=== PATIENT | male | born 1980 | race Caucasian/White ===

== ENCOUNTER 2017-01-13 08:23 | Inpatient (IN) | payer OTHER ==
[~2017-01-13] VITALS: Ht 170.2 cm; Wt 108.7 kg
[2017-01-13] VITALS (8 sets, daily range): BP systolic 148–192; BP diastolic 72–104; PULSE 95–113; TEMP 36.7; O2SAT 98–100; BMI 38.4
[~2017-01-13 08:23] MED LIST: RANI150T3 PO
[2017-01-13] MEDS ORDERED: SODIUM CHLORIDE 0.9% 1000ML 3,000 ML IV STA (08:40)
[2017-01-13 08:52] LABS: HEMATOCRIT 50.4 % (42-52); MEAN CELL VOLUME 82.4 fL (80-100); MEAN CORPUSCULAR HEMOGLOBIN 29.4 pg (25-34); MEAN CORPUSCULAR HGB CONC 35.7 g/dl (32-36); MEAN PLATELET VOLUME 11.1 fL (7.4-10.4); PLATELET COUNT 550 K/uL (130-400); RED BLOOD COUNT 6.12 M/uL (4.7-6.1); WHITE BLOOD COUNT 22.96 K/uL (4.8-10.8)
[2017-01-13] MEDS ORDERED: CLON0.5T3 PO (08:53)
[2017-01-13 09:09] LABS: ALKALINE PHOSPHATASE 137 U/L (45-117); ALT/SGPT 78 U/L (12-78); AST/SGOT 44 U/L (15-37); BLOOD UREA NITROGEN 20 mg/dl (7-18); BUN/CREATININE RATIO 10.9 (10-20); CALCIUM 9.2 mg/dl (8.5-10.1); CARBON DIOXIDE < 5 mmol/L (21-32); CHLORIDE 95 mmol/L (98-107); CKMB/CK RATIO 2.4 (0-3.0); GLUCOSE 606 mg/dl (70-99); POTASSIUM 3.8 mmol/L (3.5-5.1); SODIUM 127 mmol/L (136-145)
[2017-01-13 09:11] LABS: INR 1.1 (0.9-1.1); PARTIAL THROMBOPLASTIN RATIO 1.3; PROTHROMBIN TIME (PATIENT) 12.3 SECONDS (9.0-12.0)
[2017-01-13] MEDS ORDERED: POTASSIUM CHLR 20 MEQ / WTR 20 MEQ in PREMIXED WATER 100 ML IV STA (09:18)
--- NOTE | 2017-01-13 09:22 | DIAGNOSTIC IMAGING REPORT ---
SINGLE VIEW CHEST CLINICAL HISTORY: Fever. Sepsis. FINDINGS: An AP, portable, upright chest radiograph is obtained. No prior studies are available for comparison at the time of dictation. The examination is degraded by portable technique, large body habitus, and patient rotation. The cardiomediastinal silhouette is unremarkable. There is mild elevation of the right hemidiaphragm. The lungs and pleural spaces are clear. No pneumothorax is seen. The bony thorax is grossly intact. IMPRESSION: No active disease in the chest. Electronically signed by: Kieran Castro M.D. 01/13/2017 9:21 AM Dictated Date/Time: 01/13/2017 9:21 AM
[2017-01-13] MEDS ORDERED: SEVERE STRESS LEVEL ONE ×2 (09:30→11:30)
[2017-01-13 09:33] LABS: ARTERIAL BLD GAS O2 SATURATION 98.3 % (90-95); ARTERIAL BLOOD GAS BASE EXCESS -22.1 mEq/L (-9-1.8); ARTERIAL BLOOD GAS HCO3 5 mmol/L (19-24); ARTERIAL BLOOD GAS PO2 130 mm/Hg (80-95)
[2017-01-13 09:34] LABS: ALLEN TEST POS (POS); ARTERIAL BLOOD GAS pH 7.14 (7.35-7.45); O2 ADMINISTRATION ROOM AIR
[2017-01-13 09:48] LABS: BASO % 0.1 %; BASO ABS # 0.02 K/uL (0-0.2); COMPLETE YES; IG% 0.9 %; LYMPH % 9.6 %; MONO % 8.7 %; NEUT % 80.7 %
[2017-01-13] MEDS ORDERED: INSULIN HUMAN REGULAR IV BOLUS 4 UNIT in SYRINGE 0 ML IV STA (09:53)
[2017-01-13 10:02] LABS: BETA-HYDROXYBUTYRATE 95.96 mg/dL (0.2-2.81)
[2017-01-13 10:14] LABS: URINE APPEARANCE CLEAR (CLEAR); URINE BILIRUBIN NEG (NEG); URINE COLOR YELLOW; URINE NITRITE NEG (NEG); URINE SPECIFIC GRAVITY 1.038 (1.000-1.030); UROBILINOGEN NEG (NEG); ZZUR CULT IF INDIC CLEAN CATCH NO
[2017-01-13 10:15] LABS: MANUAL MICROSCOPIC REQUIRED? NO; REVIEW REQ? NO
[2017-01-13 10:20] LABS: MAGNESIUM 2.8 mg/dl (1.8-2.4); PHOSPHORUS 4.1 mg/dl (2.5-4.9)
[2017-01-13] MEDS: INSULIN REGULAR 250 UNITS in SODIUM CHLORIDE 0.9% 250ML 250 ML IV SCH ×2 (10:25→11:44)
[2017-01-13] MEDS: POTASSIUM CHLR 10MEQ / WTR IV SCH ×2 (10:30→11:47)
[2017-01-13] MEDS ORDERED: INSULIN IV INFUSION PROTOCOL STA ×2 (11:21→11:29)
[2017-01-13] MEDS ORDERED: DKA GOAL RANGE 150-250 mg/dl 1 EA ONE ×2 (11:30)
[2017-01-13] MEDS ORDERED: PHARMACY GLYCEMIC MGMT CONSULT PRN (11:30)
[2017-01-13] MEDS ORDERED: LPR50X PO (11:52)
[2017-01-13] MEDS ORDERED: LPR50X (11:52)
[2017-01-13] MEDS ORDERED: CTP/1 PO (11:53)
--- NOTE | 2017-01-13 11:53 | DIAGNOSTIC IMAGING REPORT ---
CHEST ONE VIEW PORTABLE CLINICAL HISTORY: 36 years-old Male presenting with rt ij central line. TECHNIQUE: Portable upright AP view of the chest was obtained. COMPARISON: 01/13/2017. FINDINGS: Interval placement of a right internal jugular central venous catheter which terminates in the lower SVC. Cardiac mediastinal silhouette normal. Mildly low lung volumes. Lungs and pleural spaces clear. Osseous structures normal. Gaseous distention of the stomach. IMPRESSION: 1. Appropriately positioned right IJ central venous catheter. No pneumothorax. Electronically signed by: Gregg Johnson M.D. 01/13/2017 11:52 AM Dictated Date/Time: 01/13/2017 11:51 AM
[2017-01-13] MEDS ORDERED: BUPR8SUB19 SL (11:55)
[2017-01-13 12:22] LABS: ESTIMATED AVERAGE GLUCOSE 292 mg/dl; HA1C FLAG Normal (Normal)
[2017-01-13] MEDS: INSULIN ASPART 100 UNITS/ML 3 ML PEN SC SCH ×3 (13:00→21:00)
[2017-01-13 13:06] LABS: VEN BLD GAS O2 SATURATION 88.2 %; VEN BLOOD GAS BASE EXCESS -21.2 mEq/L
--- NOTE | 2017-01-13 13:06 | History and Physical ---
History & Physical Date & Time of Service: Jan 13, 2017 at 12:50 Chief Complaint: Illness Primary Care Physician: No Doctor, Assigned History of Present Illness Source: patient, family This is a 36yo M with a PMH of PTSD, anxiety, h/o TBI and GERD who presents with persistent malaise x 3 weeks. Patient initially started to experience malaise and myalgias three weeks ago and assumed that he had the flu. One week later, patient started to experience persistent nausea and vomiting as well as some dyspnea on exertion. Associated symptoms include polydipsia, polyuria, diaphoresis. For the past 4-5 days, patient has become increasingly sick but refused to come to the hospital, per mom. Has not been able to keep any fluid or food down for the past 4 days and has noticed he is "breathing fast and hard ". This morning, patient' s Mom found him to be lethargic and barely responsive so she called EMS. Has been taking aspirin and ibuprofen daily for chronic pain. Denies any fever, chills, lightheadedness, confusion, palpitations, chest pain, abdominal pain, constipation, diarrhea. Denies PMH of DM, heart disease, HTN. Has been taking Subutex since 2013 for pain control s/p TBI (2011). Denies any IVDU. Denies recent foreign travel. In ER was found to have a blood glucose of 606. Is alert and oriented to person and place but not time. Per Mom, this is his baseline s/p TBI in 2011. Past Medical/Surgical History Medical Problems: (1) Anxiety and depression Status: Chronic (2) GERD (gastroesophageal reflux disease) Status: Chronic Family History Cancer Depression Rheumatoid arthritis Social History Smoking Status: Never Smoker Smokeless Tobacco Use: Yes (1 can/day) Marital Status: single Housing status: lives with family Occupational Status: disabled (Retired from [employer] in 2011 ) Allergies Coded Allergies: No Known Allergies (Unverified , 01/13/17) Home Medications Scheduled Buprenorphine Hcl (Subutex), 3 TAB SL DAILY Clonidine Hcl (Catapres), 1 TAB PO HS Metoprolol Tartrate (Metoprolol Tartrate), 50 MG PO BID Scheduled PRN Ranitidine Hcl (Zantac), 150 MG PO DAILY PRN for GI Upset Review of Systems Constitutional- See HPI Eyes- no acute visual changes ENT- no sinus drainage; no pharyngitis Pulmonary- no cough, no wheezing, no shortness of breath Cardiac- See HPI GI- See HPI - no dysuria, no hematuria Musculoskeletal- no arthralgias, no myalgias Derm- no rashes, no new skin lesions, no changing skin lesions Hematologic- no unusual bruising, no unusual bleeding Lymphatics- no adenopathy Endocrine- See HPI Neuro- no headaches, no focal neurologic symptoms Psych- no anxiety, no depression Physical Exam Vital Signs Date Time Temp Pulse Resp B/P (MAP) Pulse Ox O2 Delivery O2 Flow Rate FiO2 01/13/17 12:11 98 Room Air 01/13/17 12:05 100 23 169/72 98 Room Air 01/13/17 11:42 102 153/94 100 Room Air 01/13/17 11:22 98 22 100 01/13/17 10:40 98 22 162/105 100 Room Air 01/13/17 08:38 105 01/13/17 08:30 36.5 106 26 144/86 96 Room Air General Appearance: + moderate distress, + obese Head: normocephalic, atraumatic Eyes: normal inspection, PERRL, sclerae normal ENT: normal ENT inspection (Dry mucous membranes ), hearing grossly normal Neck: supple, no adenopathy, trachea midline, + pertinent finding (R IJ central venous catheter in place) Respiratory/Chest: chest non-tender, lungs clear, + respiratory distress ( Kussmaul breathing), + accessory muscle use Cardiovascular: no murmur, + tachycardia Abdomen/GI: non tender, soft, no organomegaly Extremities/Musculoskelatal: no calf tenderness, no pedal edema, non-tender, + pertinent finding (Mottled appearance bilaterally on LE. Cool to touch. ) Neurologic/Psych: no motor/sensory deficits, alert (Oriented to person and place, not to time), normal mood/affect Skin: no rash, + mottled Diagnostics Laboratory Results Results Past 24 Hours Test 01/13/17 08:00 01/13/17 08:41 01/13/17 09:23 01/13/17 09:50 Range/Units White Blood Count 22.96 4.8-10.8 K/uL Red Blood Count 6.12 4.7-6.1 M/uL Hemoglobin 18.0 14.0-18.0 g/dL Hematocrit 50.4 42-52 % Mean Corpuscular Volume 82.4 80-100 fL Mean Corpuscular Hemoglobin 29.4 25-34 pg Mean Corpuscular Hemoglobin Concent 35.7 32-36 g/dl Platelet Count 550 130-400 K/uL Mean Platelet Volume 11.1 7.4-10.4 fL Neutrophils (%) (Auto) 80.7 % Lymphocytes (%) (Auto) 9.6 % Monocytes (%) (Auto) 8.7 % Eosinophils (%) (Auto) 0.0 % Basophils (%) (Auto) 0.1 % Neutrophils # (Auto) 18.54 1.4-6.5 K/uL Lymphocytes # (Auto) 2.20 1.2-3.4 K/uL Monocytes # (Auto) 1.99 0.11-0.59 K/uL Eosinophils # (Auto) 0.00 0-0.5 K/uL Basophils # (Auto) 0.02 0-0.2 K/uL RDW Standard Deviation 40.3 36.4-46.3 fL RDW Coefficient of Variation 13.5 11.5-14.5 % Immature Granulocyte % (Auto) 0.9 % Immature Granulocyte # (Auto) 0.21 0.00-0.02 K/uL Erythrocyte Sedimentation Rate 52 0-14 mm/hr Prothrombin Time 12.3 9.0-12.0 SECONDS Prothromb Time International Ratio 1.1 0.9-1.1 Activated Partial Thromboplast Time 33.4 21.0-31.0 SECONDS Partial Thromboplastin Ratio 1.3 Sodium Level 127 136-145 mmol/L Potassium Level 3.8 3.5-5.1 mmol/L Chloride Level 95 98-107 mmol/L Carbon Dioxide Level < 5 21-32 mmol/L Anion Gap 27.0 3-11 mmol/L Blood Urea Nitrogen 20 7-18 mg/dl Creatinine 1.80 0.60-1.40 mg/dl Est Creatinine Clear Calc Drug Dose 68.9 ml/min Estimated GFR () 55.7 Estimated GFR (Non- 48.0 BUN/Creatinine Ratio 10.9 10-20 Random Glucose 606 70-99 mg/dl Estimated Average Glucose 292 mg/dl Hemoglobin A1c 11.8 4.5-5.6 % Calcium Level 9.2 8.5-10.1 mg/dl Phosphorus Level 4.1 2.5-4.9 mg/dl Magnesium Level 2.8 1.8-2.4 mg/dl Total Bilirubin 0.7 0.2-1 mg/dl Direct Bilirubin 0.2 0-0.2 mg/dl Aspartate Amino Transf (AST/SGOT) 44 15-37 U/L Alanine Aminotransferase (ALT/SGPT) 78 12-78 U/L Alkaline Phosphatase 137 45-117 U/L Total Creatine Kinase 45 39-308 U/L Creatine Kinase MB 1.1 0.5-3.6 ng/ml Creatine Kinase MB Ratio 2.4 0-3.0 Troponin I < 0.015 0-0.045 ng/ml C-Reactive Protein 1.10 0-0.29 mg/dl Total Protein 9.5 6.4-8.2 gm/dl Albumin 4.2 3.4-5.0 gm/dl Lipase 179 73-393 U/L Beta-Hydroxybutyric Acid 95.96 0.2-2.81 mg/dL Bedside Glucose 533 70-99 mg/dl Arterial Blood pH 7.14 7.35-7.45 Arterial Blood Partial Pressure CO2 14 35-46 mmHg Arterial Blood Partial Pressure O2 130 80-95 mm/Hg Arterial Blood HCO3 5 19-24 mmol/L Arterial Blood Oxygen Saturation 98.3 90-95 % Arterial Blood Base Excess -22.1 -9-1.8 mEq/L Arterial Blood Gas Delivery ROOM AIR Heath Test POS POS Urine Color YELLOW Urine Appearance CLEAR CLEAR Urine pH 5.0 4.5-7.5 Urine Specific [place] 1.038 1.000-1.030 Urine Protein 2+ NEG Urine Glucose (UA) 3+ NEG Urine Ketones 4+ NEG Urine Occult Blood 1+ NEG Urine Nitrite NEG NEG Urine Bilirubin NEG NEG Urine Urobilinogen NEG NEG Urine Leukocyte Esterase NEG NEG Urine WBC (Auto) 0 0-5 /hpf Urine RBC (Auto) 0-4 0-4 /hpf Urine Hyaline Casts (Auto) 5-10 0-5 /lpf Urine Epithelial Cells (Auto) 5-10 0-5 /lpf Urine Bacteria (Auto) NEG NEG Test 01/13/17 09:51 01/13/17 11:34 01/13/17 11:43 01/13/17 12:00 Range/Units Lactic Acid Level 1.9 0.4-2.0 mmol/L Bedside Glucose 404 70-99 mg/dl Microbiology Results 01/13/17 Blood Culture, Received Pending 01/13/17 Blood Culture, Received Pending CXR normal EKG Sinus tachycardia at 108 bpm. Impression Assessment and Plan This is a 36yo M with a PMH of PTSD, anxiety, h/o TBI and GERD who presents with persistent malaise x 3 weeks. DKA: -BG initially 606, downtrending. Now 352. -ABG shows metabolic acidosis with a pH of 7.14, bicarb of <5. -Elevated B-hydroxybutyrate and ketones in urine -Anion gap of 27 -Trend VBG Q4 -IV insulin drip per protocol with glycemic consult placed -IVF with K replacement as appropriate with transition to D5 when BG <250 -Monitor electrolytes closely -ICU consulted -Hgb a1c pending -Diabetic education ordered Leukocytosis: -Elevated to ~23 -Afebrile, vitals are stable -DKA likely a component but need to r/o infectious cause -UA is clean, blood cultures pending Chronic pain 2/2 TBI: -H/o TBI while in [employer] in 2011 -Reports being transitioned from unknown narcotics to subutex in 2014 -Managed by Dr. Jiménez in clinic -Denies h/o narcotic drug abuse, IVDU Hypertension: -Denies formal diagnosis of HTN -Recently started on metoprolol, clonidine -Holding these meds, per discussion with ICU resident DVT Ppx: SCDs Code status: FULL PCP: Jessy Dispo: Plan to return home once medically stable Attending Physician Addendum. This is a 36 year old without previously known history of diabetes in DKA with HbA1c 11.8 who I have seen and evaluated when patient presented to internal medicine service s/p central line placed by emergency room physician. Patient mentating near baseline as per family member, his mother, as he is able to speak in full sentences on room air and answers questions appropriately. However in discomfort without localized area of pain and feels very thirsty despite receiving IV hydration in the ED. Presents with large anion gap of 27 on initial lab findings as mentioned above by LAYA Carnes's assessment. I am concerned that despite initial assessment by emergency room physician and internal medicine team, he is at risk for intubation due to acidosis with pH on blood gas to be 7.14 and then 7.13. May need bicarbonate drip to be started if pH < 6.9. Patient has ICU bed and appreciate further director of campus recreation physician recommendations on continuing to manage DKA to close anion gap. Repeat lab still shows anion gap however measured serum sodium increased from 127 to 134 as glucose decreasing from 606 to 289. When glucose reaches 200 mg/dl change from normal saline fluid to 5% dextrose with 0.45% NaCl at 150 to 250 ml/hr. Repeat lab with potassium of 3. As per guidelines hold insulin and give 20 to 40 mEq K/hour until K > 3.3 mEq/L before resuming insulin drip. Also phosphate 1.4, give 21 mmol phosphate. Calcium low. 2 gram IV calcium ordered. Blood cultures drawn in the ED.Leukocytosis of 22,000 is leukemoid reaction vs infection but patient afebrile. Broad spectrum antibiotics may not be indicated for now unless there is clinical suspicion for infection as trigger for DKA. Appreciate Screener Operator physician care, ICU support, and recommendations Level of Care Critical Care Advanced Directives Existing Living Will: No Existing Power of Casket Assembler: No Resuscitation Status FULL RESUSCITATION VTE Prophylaxis VTE Risk Assessment Done? Y/N: Yes Risk Level: Moderate Given or contraindicated: SCD's
[2017-01-13] MEDS ORDERED: INFLUENZA VIRUS QUAD VACCINE 0.5 ML SYR IM. ONE (13:30)
[2017-01-13] MEDS ORDERED: INFLUENZA ADMINISTRATION CHARGE ONE (13:30)
[2017-01-13 14:06] LABS: ALB/GLOB RATIO 0.8 (0.9-2); BUN/CREATININE RATIO 14.1 (10-20); CALCIUM 7.1 mg/dl (8.5-10.1); CREATININE 1.1 mg/dl (0.60-1.40); MAGNESIUM 2.1 mg/dl (1.8-2.4); PHOSPHORUS 1.4 mg/dl (2.5-4.9)
--- NOTE | 2017-01-13 14:08 | Critical Care Consultation ---
Critical Care Consultation Date of Consultation: Jan 13, 2017. Attending Physician: Parker Pace M.D. 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 Pt was found to have an elevated blood sugars in the ER. He has never been diagnosed with diabetes in the past. Pt has been unable to tolerate PO intake for the past 4 hours. He has been drinking juices, Gatorade and water for the past two weeks in an effort to quench his thirst. ROS: No chest pain, no SOB, no dyspnea on exertion, no palpitations, no fevers, no chills, + nausea, + vomiting, no diarrhea, no dysuria, + rash on arms, legs and chest. PMHx: PTSD Meds: Metoprolol 50mg BID, Clonidine 0.1mg BID and Subutex. SHx: Chews, almost every day, doesn't smoke. Lives with mom. Unemployed at present. 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 Family History Cancer Depression Rheumatoid arthritis Social History Smoking Status: Never Smoker Smokeless Tobacco Use: Yes (1 can/day) Marital Status: single Housing Status: lives alone Occupation Status: disabled (Retired from [employer] in 2011 ) Allergies Coded Allergies: No Known Allergies (Unverified , 01/13/17) Home Medications Scheduled Buprenorphine Hcl (Subutex), 3 TAB SL DAILY Clonidine Hcl (Catapres), 1 TAB PO HS Metoprolol Tartrate (Metoprolol Tartrate), 50 MG PO BID Scheduled PRN Ranitidine Hcl (Zantac), 150 MG PO DAILY PRN for GI Upset Current Inpatient Medications Current Inpatient Medications Medications (Trade) Dose Ordered Sig/Merlin Route Start Time Stop Time Status Last Admin Dose Admin Insulin Human Regular 250 units/ Sodium Chloride 252.5 ml @ 0 mls/hr DAILY@1130 IV 01/13/17 09:54 01/14/17 11:29 01/13/17 11:44 5 MLS/HR Insulin Aspart (novoLOG ASPART) SLIDING SCALE PCHS SC 01/13/17 13:00 02/12/17 12:59 Miscellaneous Information (Consult Glycemic Management Pharmacy) 1 ea UD PRN N/A 01/13/17 11:30 02/12/17 11:29 Potassium Chloride 20 meq/ Parenteral Electrolyte Solution 1,010 ml @ 200 mls/hr Q5H3M IV 01/13/17 14:30 02/12/17 14:29 Insulin Human Regular 250 units/ Sodium Chloride 252.5 ml @ 0 mls/hr DAILY@1130 IV 01/14/17 11:30 02/13/17 11:29 Miscellaneous Information (Pending Order) 1 ea Q4H N/A 01/13/17 12:00 02/12/17 11:59 Miscellaneous Information (Pending Order) 1 ea Q4H N/A 01/13/17 12:00 02/12/17 11:59 Review of Systems Constitutional: No fever, No chills Respiratory: No cough, No sputum, No wheezing, No shortness of breath, No dyspnea on exertion Cardiovascular: No chest pain Abdomen: + nausea, + vomiting, No pain Genitourinary - Male: + urinary frequency, No hematuria, No dysuria, No urinary hesitancy, No urinary retention, No urinary incontinence Neurologic: No paralysis, No numbness/tingling Psychiatric: No depression symptoms Integumentary: No rash Allergic / Immunologic: No environmental allergies Physical Exam Date Time Temp Pulse Resp B/P (MAP) Pulse Ox O2 Delivery O2 Flow Rate FiO2 01/13/17 12:56 103 22 149/79 98 Room Air 01/13/17 12:11 98 Room Air 01/13/17 12:05 100 23 169/72 98 Room Air 01/13/17 11:42 102 153/94 100 Room Air 01/13/17 11:22 98 22 100 01/13/17 10:40 98 22 162/105 100 Room Air 01/13/17 08:38 105 01/13/17 08:30 36.5 106 26 144/86 96 Room Air General Appearance: uncomfortable (slightly diaphoretic), obese Head: normocephalic Eyes: PERRLA, EOMI Neck: normal range of motion, no tenderness, trachea midline, no stridor, supple Respiratory: breath sounds normal, clear to auscultation, clear to percussion, no respiratory distress, no tenderness, accessory muscle use Cardiovasular: regular rate/rhythm, normal S1S2, no M/G/R, no murmur, no gallop , no rub, no JVD Abdomen: non tender, normal bowel sounds, no rebound, no masses, no guarding, no organomegaly Back: normal inspection, no CVA tenderness Upper Extremities: no edema, other (pt has mottled skin over the UE and LE bilaterally, according to pt it has been going on for 2weeks. ) Lower Extremities: no edema Pulses: dorsalis pedis (R) (2+), dorsalis pedis (L) Neuro: alert, oriented x 3, normal motor exam, normal sensation, normal speech , normal gait Psychiatric: normal affect, no suicidal ideation Laboratory Results Last 24 Hours Test 01/13/17 08:00 01/13/17 08:41 01/13/17 09:23 01/13/17 09:50 White Blood Count 22.96 K/uL Red Blood Count 6.12 M/uL Hemoglobin 18.0 g/dL Hematocrit 50.4 % Mean Corpuscular Volume 82.4 fL Mean Corpuscular Hemoglobin 29.4 pg Mean Corpuscular Hemoglobin Concent 35.7 g/dl Platelet Count 550 K/uL Mean Platelet Volume 11.1 fL Neutrophils (%) (Auto) 80.7 % Lymphocytes (%) (Auto) 9.6 % Monocytes (%) (Auto) 8.7 % Eosinophils (%) (Auto) 0.0 % Basophils (%) (Auto) 0.1 % Neutrophils # (Auto) 18.54 K/uL Lymphocytes # (Auto) 2.20 K/uL Monocytes # (Auto) 1.99 K/uL Eosinophils # (Auto) 0.00 K/uL Basophils # (Auto) 0.02 K/uL RDW Standard Deviation 40.3 fL RDW Coefficient of Variation 13.5 % Immature Granulocyte % (Auto) 0.9 % Immature Granulocyte # (Auto) 0.21 K/uL Erythrocyte Sedimentation Rate 52 mm/hr Prothrombin Time 12.3 SECONDS Prothromb Time International Ratio 1.1 Activated Partial Thromboplast Time 33.4 SECONDS Partial Thromboplastin Ratio 1.3 Sodium Level 127 mmol/L Potassium Level 3.8 mmol/L Chloride Level 95 mmol/L Carbon Dioxide Level < 5 mmol/L Anion Gap 27.0 mmol/L Blood Urea Nitrogen 20 mg/dl Creatinine 1.80 mg/dl Est Creatinine Clear Calc Drug Dose 68.9 ml/min Estimated GFR () 55.7 Estimated GFR (Non- 48.0 BUN/Creatinine Ratio 10.9 Random Glucose 606 mg/dl Estimated Average Glucose 292 mg/dl Hemoglobin A1c 11.8 % Calcium Level 9.2 mg/dl Phosphorus Level 4.1 mg/dl Magnesium Level 2.8 mg/dl Total Bilirubin 0.7 mg/dl Direct Bilirubin 0.2 mg/dl Aspartate Amino Transf (AST/SGOT) 44 U/L Alanine Aminotransferase (ALT/SGPT) 78 U/L Alkaline Phosphatase 137 U/L Total Creatine Kinase 45 U/L Creatine Kinase MB 1.1 ng/ml Creatine Kinase MB Ratio 2.4 Troponin I < 0.015 ng/ml C-Reactive Protein 1.10 mg/dl Total Protein 9.5 gm/dl Albumin 4.2 gm/dl Lipase 179 U/L Beta-Hydroxybutyric Acid 95.96 mg/dL Bedside Glucose 533 mg/dl Arterial Blood pH 7.14 Arterial Blood Partial Pressure CO2 14 mmHg Arterial Blood Partial Pressure O2 130 mm/Hg Arterial Blood HCO3 5 mmol/L Arterial Blood Oxygen Saturation 98.3 % Arterial Blood Base Excess -22.1 mEq/L Arterial Blood Gas Delivery ROOM AIR Heath Test POS Urine Color YELLOW Urine Appearance CLEAR Urine pH 5.0 Urine Specific [place] 1.038 Urine Protein 2+ Urine Glucose (UA) 3+ Urine Ketones 4+ Urine Occult Blood 1+ Urine Nitrite NEG Urine Bilirubin NEG Urine Urobilinogen NEG Urine Leukocyte Esterase NEG Urine WBC (Auto) 0 /hpf Urine RBC (Auto) 0-4 /hpf Urine Hyaline Casts (Auto) 5-10 /lpf Urine Epithelial Cells (Auto) 5-10 /lpf Urine Bacteria (Auto) NEG Test 01/13/17 09:51 01/13/17 11:34 01/13/17 12:42 01/13/17 12:52 Lactic Acid Level 1.9 mmol/L Bedside Glucose 404 mg/dl 354 mg/dl Venous Blood pH 7.13 Venous Blood Partial Pressure CO2 19 mmHg Venous Blood Partial Pressure O2 62 mmHg Venous Blood HCO3 6 mmol/L Venous Blood Oxygen Saturation 88.2 % Venous Blood Base Excess -21.2 mEq/L Test 01/13/17 13:57 Assessment & Plan 36M with a PMHx of PTSH on Metoprolol, clonidine and Subutex presents in DKA. Pt was put on the DKA protocol and admitted to the ICU for close observation. Neuro: * AAOx3 * Continuing Subutux daily. * Will hold the home dose of Clonidine and Metoprolol (pt takes it for HTN). * Tobacco Chewer: Nicotine Patch. CV - * EKG showed normal sinus tachycardia. * Sinus tach likely related to current condition and rebound effect from holding Clonidine and Metoprolol. * Will monitor on tele. Resp - * X-ray results showed no acute process. Proper IJ placement. Renal/ - * Unsurprisingly urine had glucose and ketones. No signs of infection. GI/Diet - * We will resume DM2 diet and encourage PO drinking, Endo - * Pt is in DKA, we will start an insulin drip and monitor blood sugars and electrolytes Q4 and replace as needed. * On admission pt was also acidotic. * We must be careful not to increase Na+ too quickly as the patient is also dehydrated. We will start on IVF D5+1/2NSS+meqKCl at 200mls/hr. * We will follow the anion gap to normal. * Pt will likely need diabetic education on discharge, because of age, obesity and history this is likely an acute presentation of Type 2 DM that was exacerbated with high sugar hydration. Heme - * Hgb 18 likely from hemoconcetration 2/2 dehydration., Platelets 500+, same mechanism. * DVT Proph: low risk. Consider HepSQ BID if prolong inpatient stay. ID - * WBC elevated. Afebrile on admission. WBC Likely reactive. No signs of infection. * Blood cultures drawn in the ER, will follow up. Dispo - ICU, anticipate downgrade tomorrow. Full Code Resident Physician Supervision Note: Dr. Torre was resident physician during care of patient. I separately evaluated patient and did history and exam. I discussed the case with the resident and generally agree with the findings and plan. , nausea resolved during my evaluation, transition to dextrose- containing solution. Frequent lab draws, ordered primary special educator consult. I have personally spent 50 minutes of critical care time in the direct management of this patient. This is a life/limb threatening event. This includes time spent evaluating patient, direct bedside care, chart review, placing orders, interpretation of diagnostic studies, discussion with consultants, patient, and family members, as well as other required patient management activities. This time is exclusive of all separately billable procedures, and teaching time and separate from and in addition to any other critical care service time. Documented By: Kam Savage DO Resident Involvement: Resident Care Provided Care Provided: Adult [facility] Medicine
[2017-01-13] MEDS ORDERED: SODIUM PHOSPHATE 3 MMOL/1 ML INFUSION IV STA (14:26)
[2017-01-13] MEDS ORDERED: POTASSIUM CHLORIDE IV SCH (14:30)
[2017-01-13] MEDS ORDERED: NORMOSOL R IV SCH (14:30)
--- NOTE | 2017-01-13 14:52 | EMERGENCY ROOM VISIT NOTE ---
History Report prepared by Srinivasa: Mell Soliman Under the Supervision of: Dr. Christopher Romero D.O. First contact with patient: 08:34 Chief Complaint: ILLNESS Stated Complaint: ILLNESS History of Present Illness The patient is a 36 year old male who presents to the Emergency Room with complaints of a persistent illness for the past two weeks. The patient states that two weeks ago he began experiencing polydipsia. He additionally reports polyuria. The patient states that he felt he could not drink enough fluid. He states that he has been experiencing an increased respiratory rate. The patient states that he has been feeling short of breath with short exertions. He states that he had difficulty getting up and going to the bathroom without becoming short of breath. The patient states that he has been experiencing nausea and vomiting. Nursing staff reports that the patient's blood glucose was 533 mg/dL upon arrival to the emergency department. The patient reports a history of PTSD, but denies any active medical problems. Source of History: patient Onset: two weeks Position: other (global) Quality: other (illness) Timing: other (persistent) Associated Symptoms: + SOB, + nausea, + vomiting Note: Associated symptoms: polyuria, polydipsia, blood glucose 533 mg/dL Review of Systems See HPI for pertinent positives & negatives. A total of 10 systems reviewed and were otherwise negative. Past Medical & Surgical Medical Problems: (1) Anxiety and depression (2) GERD (gastroesophageal reflux disease) (3) H/O traumatic brain injury Family History Cancer Depression Rheumatoid arthritis Social History Smoking Status: Never Smoker Alcohol Use: none Marital Status: single Housing Status: lives alone Occupation Status: unemployed Current/Historical Medications Scheduled Buprenorphine Hcl (Subutex), 3 TAB SL DAILY Clonidine Hcl (Catapres), 1 TAB PO HS Metoprolol Tartrate (Metoprolol Tartrate), 50 MG PO BID Scheduled PRN Ranitidine Hcl (Zantac), 150 MG PO DAILY PRN for GI Upset Allergies Coded Allergies: No Known Allergies (Unverified , 01/13/17) Physical Exam Vital Signs Date Time Temp Pulse Resp B/P (MAP) Pulse Ox O2 Delivery O2 Flow Rate FiO2 01/13/17 12:11 98 Room Air 01/13/17 12:05 100 23 169/72 98 Room Air 01/13/17 11:42 102 153/94 100 Room Air 01/13/17 11:22 98 22 100 01/13/17 10:40 98 22 162/105 100 Room Air 01/13/17 08:38 105 01/13/17 08:30 36.5 106 26 144/86 96 Room Air Physical Exam CONSTITUTIONAL/VITAL SIGNS: Reviewed / noted above. GENERAL: Strong smell of ketones about the patient INTEGUMENTARY: Warm, dry, and [place]. HEAD: Normocephalic. EYES: without scleral icterus or trauma. ENT/OROPHARYNX: Dry mucous membranes. LYMPHADENOPATHY/NECK: Is supple without lymphadenopathy or meningismus. RESPIRATORY: Tachypneic. Lungs clear and equal. CARDIOVASCULAR: Regular rate and rhythm. GI/ABDOMEN: Soft and nontender. No organomegaly or pulsatile mass. No rebound or guarding. Normal bowel sounds. EXTREMITIES: Modeled appearing distal extremities. BACK: No CVA tenderness. NEUROLOGICAL: Intact without focal deficits. PSYCHIATRIC: normal affect. MUSCULOSKELETAL: Normally developed with good muscle tone. Medical Decision & Procedures ER Provider Diagnostic Interpretation: X ray results and stated below per my interpretation and radiology interpretation. SINGLE VIEW CHEST CLINICAL HISTORY: Fever. Sepsis. FINDINGS: An AP, portable, upright chest radiograph is obtained. No prior studies are available for comparison at the time of dictation. The examination is degraded by portable technique, large body habitus, and patient rotation. The cardiomediastinal silhouette is unremarkable. There is mild elevation of the right hemidiaphragm. The lungs and pleural spaces are clear. No pneumothorax is seen. The bony thorax is grossly intact. IMPRESSION: No active disease in the chest. Electronically signed by: Kieran Castro M.D. 01/13/2017 9:21 AM Dictated Date/Time: 01/13/2017 9:21 AM CHEST ONE VIEW PORTABLE CLINICAL HISTORY: 36 years-old Male presenting with rt ij central line. TECHNIQUE: Portable upright AP view of the chest was obtained. COMPARISON: 01/13/2017. FINDINGS: Interval placement of a right internal jugular central venous catheter which terminates in the lower SVC. Cardiac mediastinal silhouette normal. Mildly low lung volumes. Lungs and pleural spaces clear. Osseous structures normal. Gaseous distention of the stomach. IMPRESSION: 1. Appropriately positioned right IJ central venous catheter. No pneumothorax. Electronically signed by: Gregg Johnson M.D. 01/13/2017 11:52 AM Dictated Date/Time: 01/13/2017 11:51 AM Laboratory Results 01/13/17 08:00 Red Blood Count 6.12, Mean Corpuscular Volume 82.4, Mean Corpuscular Hemoglobin 29.4, Mean Corpuscular Hemoglobin Concent 35.7, Mean Platelet Volume 11.1, Neutrophils (%) (Auto) 80.7, Lymphocytes (%) (Auto) 9.6, Monocytes (%) (Auto) 8.7, Eosinophils (%) (Auto) 0.0, Basophils (%) (Auto) 0.1, Neutrophils # (Auto) 18.54, Lymphocytes # (Auto) 2.20, Monocytes # (Auto) 1.99, Eosinophils # (Auto) 0.00, Basophils # (Auto) 0.02 Test 01/13/17 08:00 01/13/17 09:23 01/13/17 09:50 01/13/17 09:51 White Blood Count 22.96 K/uL (4.8-10.8) Red Blood Count 6.12 M/uL (4.7-6.1) Hemoglobin 18.0 g/dL (14.0-18.0) Hematocrit 50.4 % (42-52) Mean Corpuscular Volume 82.4 fL (80-100) Mean Corpuscular Hemoglobin 29.4 pg (25-34) Mean Corpuscular Hemoglobin Concent 35.7 g/dl (32-36) Platelet Count 550 K/uL (130-400) Mean Platelet Volume 11.1 fL (7.4-10.4) Neutrophils (%) (Auto) 80.7 % Lymphocytes (%) (Auto) 9.6 % Monocytes (%) (Auto) 8.7 % Eosinophils (%) (Auto) 0.0 % Basophils (%) (Auto) 0.1 % Neutrophils # (Auto) 18.54 K/uL (1.4-6.5) Lymphocytes # (Auto) 2.20 K/uL (1.2-3.4) Monocytes # (Auto) 1.99 K/uL (0.11-0.59) Eosinophils # (Auto) 0.00 K/uL (0-0.5) Basophils # (Auto) 0.02 K/uL (0-0.2) RDW Standard Deviation 40.3 fL (36.4-46.3) RDW Coefficient of Variation 13.5 % (11.5-14.5) Immature Granulocyte % (Auto) 0.9 % Immature Granulocyte # (Auto) 0.21 K/uL (0.00-0.02) Erythrocyte Sedimentation Rate 52 mm/hr (0-14) Prothrombin Time 12.3 SECONDS (9.0-12.0) Prothromb Time International Ratio 1.1 (0.9-1.1) Activated Partial Thromboplast Time 33.4 SECONDS (21.0-31.0) Partial Thromboplastin Ratio 1.3 Estimated Average Glucose 292 mg/dl Hemoglobin A1c 11.8 % (4.5-5.6) Direct Bilirubin 0.2 mg/dl (0-0.2) Total Creatine Kinase 45 U/L (39-308) Creatine Kinase MB 1.1 ng/ml (0.5-3.6) Creatine Kinase MB Ratio 2.4 (0-3.0) Troponin I < 0.015 ng/ml (0-0.045) C-Reactive Protein 1.10 mg/dl (0-0.29) Lipase 179 U/L (73-393) Beta-Hydroxybutyric Acid 95.96 mg/dL (0.2-2.81) Arterial Blood pH 7.14 (7.35-7.45) Arterial Blood Partial Pressure CO2 14 mmHg (35-46) Arterial Blood Partial Pressure O2 130 mm/Hg (80-95) Arterial Blood HCO3 5 mmol/L (19-24) Arterial Blood Oxygen Saturation 98.3 % (90-95) Arterial Blood Base Excess -22.1 mEq/L (-9-1.8) Arterial Blood Gas Delivery ROOM AIR [place] Test POS (POS) Urine Color YELLOW Urine Appearance CLEAR (CLEAR) Urine pH 5.0 (4.5-7.5) Urine Specific [place] 1.038 (1.000-1.030) Urine Protein 2+ (NEG) Urine Glucose (UA) 3+ (NEG) Urine Ketones 4+ (NEG) Urine Occult Blood 1+ (NEG) Urine Nitrite NEG (NEG) Urine Bilirubin NEG (NEG) Urine Urobilinogen NEG (NEG) Urine Leukocyte Esterase NEG (NEG) Urine WBC (Auto) 0 /hpf (0-5) Urine RBC (Auto) 0-4 /hpf (0-4) Urine Hyaline Casts (Auto) 5-10 /lpf (0-5) Urine Epithelial Cells (Auto) 5-10 /lpf (0-5) Urine Bacteria (Auto) NEG (NEG) Lactic Acid Level 1.9 mmol/L (0.4-2.0) Test 01/13/17 12:42 Bedside Glucose 354 mg/dl (70-99) Laboratory results as stated above per my review. Medications Administered Medications (Trade) Dose Ordered Sig/Merlin Route Start Time Stop Time Status Last Admin Dose Admin Sodium Chloride 3,000 ml @ 999 mls/hr Q3H1M STAT IV 01/13/17 08:40 01/13/17 11:40 DC 01/13/17 08:40 999 MLS/HR Potassium Chloride 10 meq/ Prmx 100 ml @ 100 mls/hr Q1H IV 01/13/17 09:30 01/13/17 11:29 DC 01/13/17 11:47 100 MLS/HR Insulin Human Regular 4 unit/ Syringe 4 ml @ 1 mls/min NOW STAT IV 01/13/17 09:53 01/13/17 09:56 DC 01/13/17 10:23 1 MLS/MIN Insulin Human Regular 250 units/ Sodium Chloride 252.5 ml @ 0 mls/hr DAILY@1130 IV 01/13/17 09:54 01/14/17 11:29 01/13/17 11:44 5 MLS/HR Procedure Central Venous Catheter Indication: Lack of intravenous access Catheter type: triple lumen Location: right IJ Verbal consent was obtained after the risks and benefits were explained, including but not limited to pneumothorax, hemothorax, vessel injury, bleeding, scarring, infection, pain, and bone/joint/nerve damage. At this time, the risks of the procedure are less than the risks of NOT performing the procedure. A time out was taken and the correct patient and site identified. The patient was placed in the Trendelenburg position and the skin was prepped in the standard fashion with chlorhexidine and full sterile drapes applied. The proper landmarks were identified with ultrasound, anesthetized with 1% lidocaine without epinephrine, and the needle was inserted through the skin in the standard fashion. The needle was carefully advanced into blood vessel lumen under ultrasound guidance. The guidewire was placed uneventfully. The vessel is dilated and the catheter was placed. It was sutured into position. There was good blood return from all ports. The patient tolerated the procedure well and there were no complications. Post procedure x-ray was normal. ECG Indication: SOB/dyspnea, other (illness) Rate (beats per minute): 108 Rhythm: sinus tachycardia Findings: no acute ischemic change, no ectopy ED Course 0838: Previous medical records were reviewed. The patient was evaluated in room A11B. A complete history and physical examination was performed. 0840: Ordered Sodium Chloride 3000 ml @ 999 mls/hr IV. 0930: Ordered Potassium Chloride 10 meq/Prmx 100 ml @ 100 mls/hr IV. 0953: Ordered Insulin Human Regular 4 unit/Syringe 4 ml @ 1 mls/min IV, Insulin Human Regular 250 units/Sodium Chloride 252.5 ml @ 0 mls/hr IV. 1049: I reevaluated the patient at this time. I discussed all the exam findings with him and I discussed the treatment plan. He verbalized complete understanding and agreement. He will be evaluated for further treatment. He also had a central line placed at this time. See procedure note for further detail. 1107: I discussed the patients case with Fatuma Zabala PA-C. She is going to evaluate the patient for further treatment. 1133: I discussed the patient's case with Dr. Savage, Intensive Care. He is going to evaluate the patient for further treatment in the ICU. Medical Decision Differentials include: Acute coronary syndrome, myocardial infarction, CVA, TIA , anemia, infection, pneumonia, UTI, pyelonephritis, poor nutrition, dehydration , electrolyte disturbance, and hypoglycemia. This is a 36-year-old male who presents to the ED with a chief complaint of feeling thirsty, having frequent urination and fast breathing for the past 2-3 weeks. The patient also reports some intermittent nausea and vomiting. He came into the ED today because he was very weak. Physical exam revealed a strong smell of ketones in the room. His tongue appears to be dry. He is tachycardic and has some mottling to his distal extremities. Patient's initial BSG was elevated in the 606 range. Wet was callus 22,000. Hemoglobin is 18. Sodium is 127. This is likely somewhat higher related to pseudohyponatremia related to hyperglycemia. Bicarbonate was less than 5, anion gap is 27, BUN was 20 creatinine is 1.8. Lipase is negative, troponin is negative. ABG reveals a metabolic acidosis with a pH of 7.14. There is respiratory compensation which is inadequate and a PCO2 of 14. Oxygenation is adequate on room air. Chest x-ray did not show acute disease. The patient was treated with IV fluids. He was given 3 L here as well as some IV potassium and IV insulin. Nurses were unable to establish one IV. IV team was unable to establish any additional IVs. A right subclavian central line was placed for access by myself. Details of the procedure noted above. There is no complication from the procedure and the procedure went well using ultrasound guidance. I spoke with the hospitalist as well as the excavating supervisor about the patient. The patient will be admitted to the ICU. Medication Reconcilliation Current Medication List: was personally reviewed by me Consults Time Called: 1042 Consulting Physician: Fatuma Zabala PA-C Returned Call: 1102 I discussed the patients case with Fatuma Zabala PA-C. She is going to evaluate the patient for further treatment. Additional Consults: Time Called: 1131 Consulted Physician: Dr. Savage, Intensive Care Returned Call: [phone] Additional Comments: I discussed the patient's case with Dr. Savage, Intensive Care. He is going to evaluate the patient for further treatment in the ICU. Impression Primary Impression: DKA (diabetic ketoacidoses) Critical Care I have personally spent greater than 75 minutes of critical care time in the direct management of this patient. This includes bedside care, interpretation of diagnostic studies, and testing, discussion with consultants, patient, and family members, and other required patient management activities. This 75 minutes is in excess of all separately billable procedures. Scribe Attestation The scribe's documentation has been prepared under my direction and personally reviewed by me in its entirety. I confirm that the note above accurately reflects all work, treatment, procedures, and medical decision making performed by me. Departure Information Dispostion Being Evaluated By Hospitalist Referrals No Doctor, Assigned (PCP)
[2017-01-13] MEDS ORDERED: CALCIUM GLUCONATE 10% 2,000 MG in SODIUM CHLORIDE 0.9% 50ML 50 ML IV ONE (15:00)
[2017-01-13] MEDS ORDERED: POTASSIUM PHOSPHATE INJ 21 MMOL in SODIUM CHLORIDE 0.9% 500ML 500 ML IV SCH (15:00)
[2017-01-13] MEDS: D5W AND 1/2NSS + 20MEQ KCL 1000 ML IV SCH ×2 (15:30→21:15)
[2017-01-13] MEDS ORDERED: POTASSIUM CHLORIDE 20 MEQ TABCR PO ONE (15:30)
--- NOTE | 2017-01-13 15:43 | Pharmacy Progress Note ---
Glycemic Control Intl Consult Date of Service Jan 13, 2017. Scope Glycemic Pharmacist consulted by Indy Carnes PA-C on 01/13/17 for glycemic control and to write orders per [facility] inpatient glycemic control protocol Objective Weight (Kilograms): 111.300 Accuchecks BSG (last 24hrs): Test 01/13/17 08:00 01/13/17 08:41 01/13/17 11:34 01/13/17 12:42 Random Glucose 606 mg/dl (70-99) Bedside Glucose 533 mg/dl (70-99) 404 mg/dl (70-99) 354 mg/dl (70-99) Test 01/13/17 12:52 Random Glucose 289 mg/dl (70-99) Laboratory Data (last 24hrs) Test 01/13/17 08:00 01/13/17 12:52 Anion Gap 27.0 mmol/L 22.0 mmol/L BUN/Creatinine Ratio 10.9 14.1 Blood Urea Nitrogen 20 mg/dl 16 mg/dl Creatinine 1.80 mg/dl 1.10 mg/dl Hemoglobin A1c 11.8 % Potassium Level 3.8 mmol/L 3.0 mmol/L Sodium Level 127 mmol/L 134 mmol/L White Blood Count 22.96 K/uL Red Blood Count 6.12 M/uL Hemoglobin 18.0 g/dL Hematocrit 50.4 % Mean Corpuscular Volume 82.4 fL Mean Corpuscular Hemoglobin 29.4 pg Mean Corpuscular Hemoglobin Concent 35.7 g/dl Platelet Count 550 K/uL Mean Platelet Volume 11.1 fL Neutrophils (%) (Auto) 80.7 % Lymphocytes (%) (Auto) 9.6 % Monocytes (%) (Auto) 8.7 % Eosinophils (%) (Auto) 0.0 % Basophils (%) (Auto) 0.1 % Neutrophils # (Auto) 18.54 K/uL Lymphocytes # (Auto) 2.20 K/uL Monocytes # (Auto) 1.99 K/uL Eosinophils # (Auto) 0.00 K/uL Basophils # (Auto) 0.02 K/uL Item Value Date Time Arterial Blood pH 7.14 *L 01/13/17 0923 HbA1c Test 01/13/17 08:00 Hemoglobin A1c 11.8 % (4.5-5.6) H Recent Pertinent Medications Outpatient Anti-diabetic Regimen: * N/A no prior diagnosis The patient is currently receiving: IV insulin infusion per severe stress, DKA protocol * Goal range = 150-250mg/dl Assessment & Plan ASSESSMENT: * 36yo male admitted for DKA - secondary to new type 1? diabetes diagnosis * Pt meets criteria for moderate/severe DKA per Serum Bicarbonate < 10mMol/L ( 5mMol/L) , Anion Gap > 12mMol/L (27mMol/L), pH 7.14 * Pt initiated on IV insulin infusion in ED per protocol with goal BSG range of 150-250mg/dl * It is recommended to lower and maintain the blood sugar to a goal range of ~ 150-200 mg/dl for DKA until metabolic abnormalities/acidosis resolves * Pt is currently receiving IV hydration with Normosol R @ 200ml/hr; current rate is adequate * Pt received NS fluid boluses (3 liters) in ED * Now that BSG is trending into goal BSG range, fluids will be changed to D5 1/ 2NS + 20 KCl @ 200ml/hr * It is necessary to add dextrose to IVF to allow continued insulin administration until ketonemia is controlled while at the same time avoiding hypoglycemia * Fluid replacement should correct estimated deficits in approximately the first 24 hrs; in DKA due to cerebral edema is associated with replacing fluid too quickly; typical fluid losses are: DKA = 3 to 6 liters * To prevent hypokalemia, change IVF to incorporate potassium when serum K+ falls below the upper limit of normal for lab (5.1 mmol/L) * Phosphorus low at 1.4 mg/dl * Phosphate replacement is NOT recommended --> can lead to severe hypocalcemia * However it can be used in patient with severe hypophosphaemia (or resp/ cardiac failure/severe anemia). OK to replace with bolus and then reassess. PLAN: * Continue IV insulin infusion per severe stress protocol DKA protocol - Goal Range 150 - 250 mg/dl * Follow serial labs q4-6hrs and adjust IV insulin goal range & IV Fluids based on labs * [employer] added PO KCL for replacement * Prandial Insulin with NOVOLOG per scale PCHS per IV insulin infusion calculator for all CHO consumed * Will transition to SQ basal bolus when criteria met: Criteria: 1. Serum glucose below 200 mg/dL (DKA) or 250 to 300 mg/dL (HHS) 2. Serum anion gap <12 meq/L 3. Serum bicarbonate >/ =15 meq/L 4. Venous pH >7.30 * Please note that the plan above was derived based on current level of insulin resistance and hospital stress. These recommendations are appropriate for inpatient admission only. Plan of care upon discharge will need to be reassessed to avoid potential outpatient hypo/hyperglycemia. Thank you.
[2017-01-13] MEDS ORDERED: POTASSIUM CHLR 20 MEQ / WTR 20 MEQ in PREMIXED WATER 100 ML IV ONE (16:00)
[2017-01-13 18:02] LABS: BUN/CREATININE RATIO 12.5 (10-20); CALCIUM 8.1 mg/dl (8.5-10.1); CREATININE 1.1 mg/dl (0.60-1.40); MAGNESIUM 2.1 mg/dl (1.8-2.4); PHOSPHORUS 1.7 mg/dl (2.5-4.9); POTASSIUM 3.1 mmol/L (3.5-5.1)
[2017-01-13] MEDS ORDERED: NURSING VERBAL MED ORDER ONE (18:15)
[2017-01-13] MEDS: METOPROLOL TARTRATE 50 MG TAB PO SCH (19:00)
[2017-01-13] MEDS ORDERED: METOCLOPRAMIDE HCL INJ 5 MG/ML 2 ML VIAL ONE (19:43)
[2017-01-13] MEDS ORDERED: METOCLOPRAMIDE HCL INJ 5 MG/ML 2 ML VIAL IV STA (19:43)
[2017-01-13 21:19] LABS: BUN/CREATININE RATIO 12.6 (10-20); CALCIUM 7.1 mg/dl (8.5-10.1); CREATININE 1.1 mg/dl (0.60-1.40); MAGNESIUM 1.9 mg/dl (1.8-2.4); PHOSPHORUS 1.5 mg/dl (2.5-4.9); POTASSIUM 3.3 mmol/L (3.5-5.1)
[2017-01-13] MEDS ORDERED: METOPROLOL TARTRATE 1 MG/ML VIAL IV STA (21:42)
[2017-01-13] MEDS ORDERED: POTASSIUM PHOS 3 MMOL/1 ML INFUSION IV STA (21:42)
[2017-01-13] MEDS ORDERED: POTASSIUM PHOSPHATE INJ 15 MMOL in SODIUM CHLORIDE 0.9% 250ML 250 ML IV ONE (22:00)
[2017-01-13 22:38] LABS: BETA-HYDROXYBUTYRATE 73.85 mg/dL (0.2-2.81)
[2017-01-14] VITALS (15 sets, daily range): BP systolic 125–157; BP diastolic 65–93; PULSE 76–106; TEMP 36.6–37.2; O2SAT 96–100; BMI 38.4
[2017-01-14 00:35] LABS: BLOOD UREA NITROGEN 13 mg/dl (7-18); BUN/CREATININE RATIO 11.5 (10-20); CALCIUM 7.2 mg/dl (8.5-10.1); CARBON DIOXIDE 9 mmol/L (21-32); CHLORIDE 110 mmol/L (98-107); GLUCOSE 308 mg/dl (70-99); PHOSPHORUS 1.6 mg/dl (2.5-4.9); POTASSIUM 3.5 mmol/L (3.5-5.1); SODIUM 136 mmol/L (136-145)
[2017-01-14 00:49] LABS: BETA-HYDROXYBUTYRATE > 46.00 mg/dL (0.2-2.81)
[2017-01-14] MEDS ORDERED: POTASSIUM PHOS 3 MMOL/1 ML INFUSION IV STA ×2 (01:20→15:05)
[2017-01-14] MEDS ORDERED: POTASSIUM PHOSPHATE INJ 21 MMOL in SODIUM CHLORIDE 0.9% 500ML 500 ML IV ONE ×2 (01:30→16:15)
[2017-01-14] MEDS: D5W AND 1/2NSS + 20MEQ KCL 1000 ML IV SCH ×2 (01:56→06:29)
[2017-01-14 04:34] LABS: BUN/CREATININE RATIO 10.7 (10-20); CALCIUM 7.1 mg/dl (8.5-10.1); MAGNESIUM 2.1 mg/dl (1.8-2.4); POTASSIUM 2.9 mmol/L (3.5-5.1)
[2017-01-14 04:42] LABS: PHOSPHORUS 0.8 mg/dl (2.5-4.9)
[2017-01-14 04:57] LABS: HEMATOCRIT 37.6 % (42-52); MEAN CELL VOLUME 79.3 fL (80-100); MEAN CORPUSCULAR HEMOGLOBIN 28.5 pg (25-34); MEAN CORPUSCULAR HGB CONC 35.9 g/dl (32-36); MEAN PLATELET VOLUME 9.4 fL (7.4-10.4); PLATELET COUNT 247 K/uL (130-400); PLT ESTIMATE NORMAL; RED BLOOD COUNT 4.74 M/uL (4.7-6.1); WHITE BLOOD COUNT 16.94 K/uL (4.8-10.8)
[2017-01-14] MEDS ORDERED: POTASSIUM CHLR 20 MEQ / WTR 20 MEQ in PREMIXED WATER 100 ML IV ONE ×2 (06:30→17:00)
[2017-01-14] MEDS ORDERED: POTASSIUM CHLORIDE 10 MEQ TABCR PO STA ×2 (07:29→15:55)
[2017-01-14] MEDS: INSULIN ASPART 100 UNITS/ML 3 ML PEN SC SCH ×4 (07:38→21:00)
[2017-01-14] MEDS: METOPROLOL TARTRATE 50 MG TAB PO SCH ×2 (08:01→21:03)
[2017-01-14] MEDS: NICOTINE 21 MG/24 HR TDSY TD SCH (08:01)
[2017-01-14 08:12] LABS: BUN/CREATININE RATIO 9.5 (10-20); CALCIUM 7.5 mg/dl (8.5-10.1); CREATININE 0.97 mg/dl (0.60-1.40); MAGNESIUM 2.1 mg/dl (1.8-2.4); POTASSIUM 2.8 mmol/L (3.5-5.1)
[2017-01-14 08:21] LABS: PHOSPHORUS 0.9 mg/dl (2.5-4.9)
[2017-01-14] MEDS: BUPRENORPHINE HCL 8 MG SUBL SL SCH (08:42)
--- NOTE | 2017-01-14 10:58 | Critical Care Progress Note ---
Critical Care Progress Note Date of Service Jan 14, 2017. ICU Day ICU Day Number: [address] Savage Subjective The patient was seen and examined at bedside. No acute overnight events. Pt reports feeling well. Polydypsia has improved. Patient is resting comfortably in bed. Denies having any pain. Eating and urinating well. Plan of care was described to the patient and all questions were answered. ROS: No chest pain, no SOB, no dyspnea on exertion, no palpitations, no fevers, no chills, no nausea, no diarrhea, no dysuria, no rash. +vomiting, +polyuria Objective General Appearance: Pt is resting comfortably, obese, mom present at bedside in the AM. No acute distress. Head: normocephalic Eyes: PERRLA, EOMI Neck: normal range of motion, no tenderness, trachea midline, no stridor, supple Respiratory: breath sounds normal, clear to auscultation, clear to percussion, no respiratory distress, no tenderness, accessory muscle use Cardiovasular: regular rate/rhythm, normal S1S2, no M/G/R, no murmur, no gallop , no rub, no JVD Abdomen: non tender, normal bowel sounds, no rebound, no masses, no guarding, no organomegaly Back: normal inspection, no CVA tenderness Upper Extremities: no edema, other (pt has mottled skin over the UE and LE bilaterally, according to pt it has been going on for 2weeks. - slight improvement in mottling since yesterday, rash is getting less pinpoint and more of a diffuse pink, cheeks are now pink as well ) Lower Extremities: no edema Pulses: dorsalis pedis (R) (2+), dorsalis pedis (L) Neuro: alert, oriented x 3, normal motor exam, normal sensation, normal speech , normal gait Psychiatric: normal affect, no suicidal ideation Current SOFA Score SOFA Score Response (Comments) Value Platelets (x10) > 150 0 Bilirubin (mg/dL) < 1.2 0 Monroe Coma Score 15 0 Level of Hypotension No Hypotension 0 Creatinine (mg/dL) < 1.2 0 Total 0 Assessment & Plan 36M with a PMHx of PTSD on Metoprolol, clonidine and Subutex presents in DKA. Pt was put on the DKA protocol and admitted to the ICU for close observation. Anion gap has narrowed to 14. Insulin drip is running. Electrolytes are being monitored and repleted. IVF D5 + 1/2 NSS + 40K-Acetate at 100mls/hr. Neuro: * AAOx3 * Continuing Subutux daily. * Will hold the home dose of Clonidine. * Will restart the Metoprolol (pt states he takes it for a mixture of HTN and anxiety). * Tobacco Chewer: Nicotine Patch. CV - * EKG on admission showed normal sinus tachycardia. * Heart rate normalized, telemetry shows sinus 70s-90s overnight. * HTN: c/w Metoprolol as above for HTN and Anxiety. Resp - * Continues to be Slightly tachypneic (18-24) * X-ray results showed no acute process. Right IJ placement. Renal/ - * Urine on admission unsurprisingly urine had glucose and ketones. No signs of infection. * Positive 500mls thus far. * Will order urine tox screen. GI/Diet - * We will resume DM2 diet and encourage PO drinking. Dietary consult in place on how to start the diet. * Nausea: PRN Reglan. * Zantac 150mg daily. Endo - * Pt is in DKA, we will start an insulin drip and monitor blood sugars and electrolytes Q4 and replace as needed. * Anion gap is at 14 now from 27, will continue to follow BMPs Q4H. * Continue IVF D5+1/2NSS+40K Acetate at 100mls/hr. + Amp of bicarb. * Diabetic Consult in Place - likely require insulin on discharge. * Will start Insulin SQ. * K+ is 2.9, IVF as above, will give another oral dose of 60meq KCL and 21mmol KPhos at 3:15pm. * CL - 108 * Phos: 0.9, will given another KPhos as above. * M.1 * BMP at 6pm. Heme - * Hgb 18-->13.5 today, Platelets 500+-->247, improvement likely from fluid rehydration. * DVT Proph: Lovenox 40meq SQ daily starting tomorrow AM. ID - * WBC elevated but downtrending to 17. Afebrile on admission. WBC Likely reactive. No signs of infection. * Blood cultures drawn in the ER, will follow up. * MRSA negative. Dispo - Downgrade to Tele today once Anion Gap is closed. * Pt does not have a PCP, [facility], I have offered my PCP services (Dr. Jason Torre) at our clinic next door. Pt is agreeable to setting up a follow up appointment with me. Full Code Resident Physician Supervision Note: Dr. Torre was resident physician during care of patient. I separately evaluated patient and did history and exam. I discussed the case with the resident and generally agree with the findings and plan. Improvement in the patient's DKA, will start subcutaneous basal insulin administration at this time. Still requiring aggressive potassium repletion. Likely able to downgrade to MedSurg in the next 12-24 hours. I have personally spent 35 minutes of critical care time in the direct management of this patient. This is a life/limb threatening event. This includes time spent evaluating patient, direct bedside care, chart review, placing orders, interpretation of diagnostic studies, discussion with consultants, patient, and family members, as well as other required patient management activities. This time is exclusive of all separately billable procedures, and teaching time and separate from and in addition to any other critical care service time. Documented By: Kam Savage DO Consults & Procedures Consultants: Diabetes Education Monorail Charger Operator Procedures: Right IJ placed in the ER. Data Medications: Current Inpatient Medications Medications (Trade) Dose Ordered Sig/Merlin Route Start Time Stop Time Status Last Admin Dose Admin Insulin Human Regular 250 units/ Sodium Chloride 252.5 ml @ 0 mls/hr DAILY@1130 IV 01/13/17 09:54 01/14/17 11:29 01/13/17 11:44 5 MLS/HR Insulin Aspart (novoLOG ASPART) SLIDING SCALE PCHS SC 01/13/17 13:00 02/12/17 12:59 Miscellaneous Information (Consult Glycemic Management Pharmacy) 1 ea UD PRN N/A 01/13/17 11:30 02/12/17 11:29 Insulin Human Regular 250 units/ Sodium Chloride 252.5 ml @ 0 mls/hr DAILY@1130 IV 01/14/17 11:30 02/13/17 11:29 Buprenorphine HCl (Subutex) 24 mg DAILY SL 01/14/17 09:00 02/13/17 08:59 01/14/17 08:42 24 MG Potassium Chloride/Dextrose/ Sod Cl 1,000 ml @ 200 mls/hr Q5H IV 01/13/17 15:30 02/12/17 15:29 01/14/17 06:29 200 MLS/HR Nicotine (Nicoderm Cq 21MG Patch) 1 patch QAM TD 01/14/17 09:00 02/13/17 08:59 01/14/17 08:01 1 PATCH Miscellaneous (Remove Nicoderm Patch) 1 ea HS N/A 01/13/17 21:00 02/12/17 20:59 Metoprolol Tartrate (Lopressor Tab) 50 mg BID PO 01/13/17 19:00 02/12/17 18:59 01/14/17 08:01 50 MG Vital Signs: Date Time Temp Pulse Resp B/P (MAP) Pulse Ox O2 Delivery O2 Flow Rate FiO2 01/14/17 10:09 82 18 125/65 (85) 98 Room Air 01/14/17 08:00 Room Air 01/14/17 08:00 86 19 142/78 (99) 99 Room Air 01/14/17 06:00 88 19 136/72 (93) 99 Room Air 01/14/17 05:00 85 19 150/77 (101) 98 01/14/17 04:00 Room Air 01/14/17 04:00 36.7 84 19 157/81 (106) 100 Room Air 01/14/17 03:00 81 16 151/76 (101) 98 01/14/17 02:00 99 22 132/83 (99) 98 Room Air 01/14/17 00:00 36.6 106 17 157/93 (114) 99 Room Air 01/13/17 23:59 Room Air 01/13/17 22:12 97 151/95 01/13/17 22:00 98 20 151/95 (113) 98 Room Air 01/13/17 21:16 95 19 173/104 (127) 98 Room Air 01/13/17 20:00 36.7 113 20 148/86 (106) Room Air 01/13/17 20:00 Room Air 01/13/17 19:27 109 20 176/91 (119) 100 Room Air 01/13/17 18:10 111 20 186/72 (110) 99 Room Air 01/13/17 16:00 Room Air 01/13/17 16:00 105 22 192/87 (122) 99 Room Air 01/13/17 14:00 105 24 169/99 (122) 99 Room Air 01/13/17 12:56 103 22 149/79 98 Room Air 01/13/17 12:11 98 Room Air 01/13/17 12:05 100 23 169/72 98 Room Air 01/13/17 11:42 102 153/94 100 Room Air 01/13/17 11:22 98 22 100 01/13/17 10:40 98 22 162/105 100 Room Air Laboratory Results: Last 24 Hours Test 01/13/17 11:34 01/13/17 12:42 01/13/17 12:52 01/13/17 14:01 Bedside Glucose 404 mg/dl 354 mg/dl 314 mg/dl Venous Blood pH 7.13 Venous Blood Partial Pressure CO2 19 mmHg Venous Blood Partial Pressure O2 62 mmHg Venous Blood HCO3 6 mmol/L Venous Blood Oxygen Saturation 88.2 % Venous Blood Base Excess -21.2 mEq/L Sodium Level 134 mmol/L Potassium Level 3.0 mmol/L Chloride Level 108 mmol/L Carbon Dioxide Level 5 mmol/L Anion Gap 22.0 mmol/L Blood Urea Nitrogen 16 mg/dl Creatinine 1.10 mg/dl Est Creatinine Clear Calc Drug Dose 112.7 ml/min Estimated GFR () 101.0 Estimated GFR (Non- 87.1 BUN/Creatinine Ratio 14.1 Random Glucose 289 mg/dl Calcium Level 7.1 mg/dl Phosphorus Level 1.4 mg/dl Magnesium Level 2.1 mg/dl Total Bilirubin 0.4 mg/dl Aspartate Amino Transf (AST/SGOT) 30 U/L Alanine Aminotransferase (ALT/SGPT) 58 U/L Alkaline Phosphatase 102 U/L Total Protein 7.4 gm/dl Albumin 3.4 gm/dl Globulin 4.0 gm/dl Albumin/Globulin Ratio 0.8 Test 01/13/17 14:07 01/13/17 15:01 01/13/17 16:02 01/13/17 16:09 Salicylates Level 3.2 mg/dl Bedside Glucose 261 mg/dl 320 mg/dl Venous Blood pH 7.15 Sodium Level 135 mmol/L Potassium Level 3.1 mmol/L Chloride Level 108 mmol/L Carbon Dioxide Level 5 mmol/L Anion Gap 21.0 mmol/L Blood Urea Nitrogen 14 mg/dl Creatinine 1.10 mg/dl Est Creatinine Clear Calc Drug Dose 112.7 ml/min Estimated GFR () 101.0 Estimated GFR (Non- 87.1 BUN/Creatinine Ratio 12.5 Random Glucose 281 mg/dl Calcium Level 8.1 mg/dl Phosphorus Level 1.7 mg/dl Magnesium Level 2.1 mg/dl Test 01/13/17 16:23 01/13/17 17:01 01/13/17 17:54 01/13/17 19:04 Bedside Glucose 290 mg/dl 267 mg/dl 277 mg/dl 287 mg/dl Test 01/13/17 20:08 01/13/17 20:12 01/13/17 20:13 01/13/17 21:09 Bedside Glucose 359 mg/dl 273 mg/dl Venous Blood pH 7.15 Sodium Level 134 mmol/L Potassium Level 3.3 mmol/L Chloride Level 108 mmol/L Carbon Dioxide Level 8 mmol/L Anion Gap 18.0 mmol/L Blood Urea Nitrogen 14 mg/dl Creatinine 1.10 mg/dl Est Creatinine Clear Calc Drug Dose 112.7 ml/min Estimated GFR () 101.0 Estimated GFR (Non- 87.1 BUN/Creatinine Ratio 12.6 Random Glucose 314 mg/dl Calcium Level 7.1 mg/dl Phosphorus Level 1.5 mg/dl Magnesium Level 1.9 mg/dl Beta-Hydroxybutyric Acid 73.85 mg/dL Test 01/13/17 22:10 01/13/17 23:10 01/13/17 23:51 01/14/17 00:14 Bedside Glucose 150 mg/dl 304 mg/dl 308 mg/dl Venous Blood pH 7.21 Sodium Level 136 mmol/L Potassium Level 3.5 mmol/L Chloride Level 110 mmol/L Carbon Dioxide Level 9 mmol/L Anion Gap 17.0 mmol/L Blood Urea Nitrogen 13 mg/dl Creatinine 1.10 mg/dl Est Creatinine Clear Calc Drug Dose 112.7 ml/min Estimated GFR () 101.0 Estimated GFR (Non- 87.1 BUN/Creatinine Ratio 11.5 Random Glucose 308 mg/dl Calcium Level 7.2 mg/dl Phosphorus Level 1.6 mg/dl Magnesium Level 2.0 mg/dl Beta-Hydroxybutyric Acid > 46.00 mg/dL Test 01/14/17 01:09 01/14/17 02:01 01/14/17 03:05 01/14/17 04:00 Bedside Glucose 298 mg/dl 275 mg/dl 250 mg/dl 208 mg/dl White Blood Count 16.94 K/uL Red Blood Count 4.74 M/uL Hemoglobin 13.5 g/dL Hematocrit 37.6 % Mean Corpuscular Volume 79.3 fL Mean Corpuscular Hemoglobin 28.5 pg Mean Corpuscular Hemoglobin Concent 35.9 g/dl RDW Standard Deviation 38.4 fL RDW Coefficient of Variation 13.4 % Platelet Count 247 K/uL Mean Platelet Volume 9.4 fL Platelet Estimate NORMAL Venous Blood pH 7.27 Sodium Level 137 mmol/L Potassium Level 2.9 mmol/L Chloride Level 112 mmol/L Carbon Dioxide Level 13 mmol/L Anion Gap 12.0 mmol/L Blood Urea Nitrogen 11 mg/dl Creatinine 1.00 mg/dl Est Creatinine Clear Calc Drug Dose 123.9 ml/min Estimated GFR () 113.3 Estimated GFR (Non- 97.8 BUN/Creatinine Ratio 10.7 Random Glucose 231 mg/dl Calcium Level 7.1 mg/dl Phosphorus Level 0.8 mg/dl Magnesium Level 2.1 mg/dl Test 01/14/17 05:02 01/14/17 05:58 01/14/17 07:18 01/14/17 07:49 Bedside Glucose 261 mg/dl 242 mg/dl 202 mg/dl Venous Blood pH 7.29 Sodium Level 137 mmol/L Potassium Level 2.8 mmol/L Chloride Level 111 mmol/L Carbon Dioxide Level 12 mmol/L Anion Gap 15.0 mmol/L Blood Urea Nitrogen 9 mg/dl Creatinine 0.97 mg/dl Est Creatinine Clear Calc Drug Dose 127.8 ml/min Estimated GFR () 117.6 Estimated GFR (Non- 101.4 BUN/Creatinine Ratio 9.5 Random Glucose 180 mg/dl Calcium Level 7.5 mg/dl Phosphorus Level 0.9 mg/dl Magnesium Level 2.1 mg/dl Resident Involvement: Resident Care Provided Care Provided: Adult [facility] Medicine
[2017-01-14] MEDS: STERILE WATER IV SCH ×2 (11:19→12:02)
[2017-01-14] MEDS: D5W IV SCH ×2 (11:19→22:10)
[2017-01-14] MEDS: [UNRECOGNIZED DRUG - OTHER] IV SCH ×2 (11:19→22:10)
[2017-01-14] MEDS: POTASSIUM ACETATE IV SCH ×4 (11:19→22:10)
[2017-01-14] MEDS ORDERED: SODIUM BICARBONATE 8.4% INJ 50 MEQ/50 ML VIAL IV ONE (11:45)
[2017-01-14] MEDS: INSULIN REGULAR 250 UNITS in SODIUM CHLORIDE 0.9% 250ML 250 ML IV SCH (12:23)
[2017-01-14] MEDS ORDERED: SODIUM BICARBONATE IV ONE (12:45)
[2017-01-14] MEDS ORDERED: DEXTROSE 5% IV ONE (12:45)
[2017-01-14] MEDS ORDERED: RANITIDINE HCL 150 MG TAB PO ONE (13:00)
[2017-01-14] MEDS ORDERED: INSULIN GLARGINE SOLOSTAR 100 UNITS/ML 3 ML PEN SC ONE (13:15)
[2017-01-14 14:28] LABS: BUN/CREATININE RATIO 7.4 (10-20); CALCIUM 7.6 mg/dl (8.5-10.1); CREATININE 0.88 mg/dl (0.60-1.40); MAGNESIUM 2.1 mg/dl (1.8-2.4); PHOSPHORUS 0.9 mg/dl (2.5-4.9); POTASSIUM 2.9 mmol/L (3.5-5.1)
--- NOTE | 2017-01-14 15:29 | Pharmacy Progress Note ---
Glycemic Control Progress Note Date of Service Jan 14, 2017. Scope Glycemic Pharmacist consulted for glycemic control to write orders per [facility] inpatient glycemic control protocol. Objective Accuchecks BSG (last 24hrs): Test 01/13/17 16:02 01/13/17 16:09 01/13/17 16:23 01/13/17 17:01 Random Glucose 281 mg/dl (70-99) Bedside Glucose 320 mg/dl (70-99) 290 mg/dl (70-99) 267 mg/dl (70-99) Test 01/13/17 17:54 01/13/17 19:04 01/13/17 20:08 01/13/17 20:13 Bedside Glucose 277 mg/dl (70-99) 287 mg/dl (70-99) 359 mg/dl (70-99) Random Glucose 314 mg/dl (70-99) Test 01/13/17 21:09 01/13/17 22:10 01/13/17 23:10 01/13/17 23:51 Bedside Glucose 273 mg/dl (70-99) 150 mg/dl (70-99) 304 mg/dl (70-99) Random Glucose 308 mg/dl (70-99) Test 01/14/17 00:14 01/14/17 01:09 01/14/17 02:01 01/14/17 03:05 Bedside Glucose 308 mg/dl (70-99) 298 mg/dl (70-99) 275 mg/dl (70-99) 250 mg/dl (70-99) Test 01/14/17 04:00 01/14/17 05:02 01/14/17 05:58 01/14/17 07:18 Bedside Glucose 208 mg/dl (70-99) 261 mg/dl (70-99) 242 mg/dl (70-99) 202 mg/dl (70-99) Random Glucose 231 mg/dl (70-99) Test 01/14/17 07:49 01/14/17 09:15 01/14/17 09:53 01/14/17 13:50 Random Glucose 180 mg/dl (70-99) 179 mg/dl (70-99) Bedside Glucose 172 mg/dl (70-99) 194 mg/dl (70-99) HbA1c: Test 01/13/17 08:00 Hemoglobin A1c 11.8 % (4.5-5.6) H Recent Pertinent Medications The patient is currently receiving: * IV insulin infusion per severe stress protocol, goal range 150-250mg/dL overnight then transitioned to 100-180mg/dL at noon today Outpatient Anti-Diabetic Meds newly dx Assessment & Plan ASSESSMENT: 01/14/17 * Patient presented w/ moderate-severe DKA yesterday (AG 27, bicarb < 5, pH 7.14 , BOHB 96, effective serum osmo ~288) * Insulin infusion started on admission. BSGs have trended down nicely and were in the upper 100's low 200's as of this AM and infusion was running at ~ 7.7units/hour. Insulin infusion rates are rather high for a type 1 diabetic, perhaps this is type 2 w/ severe stress? A1c of 11.8% indicates need for insulin therapy on discharge. perioperative educator to evaluate patient when mental status improves. * Latest set of labs shows AG acidosis is improving however he has not yet all criteria for transition to SQ (AG is still > 12, Bicab improved to 16, however patient is not yet tolerating a diet). * Plan is to continue the insulin drip, however begin to initiate some basal insulin as this will make the transition to SQ in the future easier. PLAN FOR INPATIENT GLYCEMIC CONTROL: * Continue IV insulin infusion at this time * Consider transition to SQ when tolerating a diet, AG < 12, bicarb > 15, serum glucose < 200 and vpH > 7.3 * Will give Lantus 60 units SQ x 1 only - but continue insulin drip afterwards until further notice. This dose was based upon infusion rates while on dextrose containing IVF's. I would expect insulin resistance to decrease as ketoacidosis and glucotoxicity resolves. * If the decision is made to take this patient off the insulin drip later today , please factor in the Lantus that was given earlier today. Would recommend SQ Novolog ACHS and at 0000 + 0400 initially given uncertain and possibly changing insulin sensitivity. Correction factor and carb ratio should be based upon insulin infusion rates and/or total body weight. RECOMMENDATIONS FOR DISCHARGE: * Patient will require SQ insulin therapy on discharge. * Please note that the plan above was derived based on current level of insulin resistance and hospital stress. These recommendations are appropriate for inpatient admission only. Plan of care upon discharge will need to be reassessed to avoid potential outpatient hypo/hyperglycemia. Thank you.
[2017-01-14 18:19] LABS: BUN/CREATININE RATIO 7.6 (10-20); CALCIUM 7.6 mg/dl (8.5-10.1); CREATININE 0.85 mg/dl (0.60-1.40); PHOSPHORUS 0.8 mg/dl (2.5-4.9); POTASSIUM 2.6 mmol/L (3.5-5.1)
--- NOTE | 2017-01-14 18:43 | Progress Note ---
Internal Med Progress Note Date of Service: Jan 14, 2017. Provider Documentation: SUBJECTIVE: resting comfortably was somewhat nauseous mild abdominal discomfort no chest pain or sob afebrile seems comfortable OBJECTIVE: Vital Signs-as noted below Exam: General-alert and awake. Not in distress ENT-normal hearing Neck-no neck masses Lungs-cta b/l no wheezing or crackles Heart-s1 and s2 heard regular rate and rhythm no murmurs Abdomen-soft bowel sounds present non tender no distension Extremities-no erythema, lower extremity edema present Neuro-alert and awake moves extremities Lab data as noted below. ASSESSMENT & PLAN: This is a 36yo M with a PMH of PTSD, anxiety, h/o TBI and GERD who presents with persistent malaise x 3 weeks. DKA: BG initially 606, ABG shows metabolic acidosis with a pH of 7.14, bicarb of <5. Elevated B-hydroxybutyrate and ketones in urine Anion gap on presentation 27 started on insulin drip and iv fluids as per DKA protocol anion gap currently 13 close monitor of electrolytes appreciate critical care and pharmacy inputs Electrolyte abnormalities will replace and close monitor while on insulin drip Leukocytosis: Elevated to ~23 trending now no obvious source of infection Chronic pain 2/2 TBI: H/o TBI while in [employer] in 2011 as per h and P:"Reports being transitioned from unknown narcotics to subutex in [address] Jiménez in clinic -Denies h/o narcotic drug abuse, IVDU" Hypertension: Denies formal diagnosis of HTN -Recently started on metoprolol, clonidine currently on Lopressor 50mg bid will monitor DVT Ppx: SCDs Code status: FULL DISPOSITION close monitor in ICU Vital Signs: Date Time Temp Pulse Resp B/P (MAP) Pulse Ox O2 Delivery O2 Flow Rate FiO2 01/14/17 18:00 86 16 147/69 (95) 96 Room Air 01/14/17 16:00 37.2 84 18 132/74 (93) 99 Room Air 01/14/17 16:00 Room Air 01/14/17 14:11 82 18 144/71 (95) 99 Room Air 01/14/17 12:04 76 18 132/76 (94) 99 Room Air 01/14/17 12:00 Room Air 01/14/17 10:09 82 18 125/65 (85) 98 Room Air 01/14/17 08:00 Room Air 01/14/17 08:00 Room Air 01/14/17 08:00 86 19 142/78 (99) 99 Room Air 01/14/17 06:00 88 19 136/72 (93) 99 Room Air 01/14/17 05:00 85 19 150/77 (101) 98 01/14/17 04:00 Room Air 01/14/17 04:00 36.7 84 19 157/81 (106) 100 Room Air 01/14/17 03:00 81 16 151/76 (101) 98 01/14/17 02:00 99 22 132/83 (99) 98 Room Air 01/14/17 00:00 36.6 106 17 157/93 (114) 99 Room Air 01/13/17 23:59 Room Air 01/13/17 22:12 97 151/95 01/13/17 22:00 98 20 151/95 (113) 98 Room Air 01/13/17 21:16 95 19 173/104 (127) 98 Room Air 01/13/17 20:00 36.7 113 20 148/86 (106) Room Air 01/13/17 20:00 Room Air 01/13/17 19:27 109 20 176/91 (119) 100 Room Air Lab Results: Results Past 24 Hours Test 01/13/17 19:04 01/13/17 20:08 01/13/17 20:12 01/13/17 20:13 Range/Units Bedside Glucose 287 359 70-99 mg/dl Venous Blood pH 7.15 7.36-7.41 Sodium Level 134 136-145 mmol/L Potassium Level 3.3 3.5-5.1 mmol/L Chloride Level 108 98-107 mmol/L Carbon Dioxide Level 8 21-32 mmol/L Anion Gap 18.0 3-11 mmol/L Blood Urea Nitrogen 14 7-18 mg/dl Creatinine 1.10 0.60-1.40 mg/dl Est Creatinine Clear Calc Drug Dose 112.7 ml/min Estimated GFR () 101.0 Estimated GFR (Non- 87.1 BUN/Creatinine Ratio 12.6 10-20 Random Glucose 314 70-99 mg/dl Calcium Level 7.1 8.5-10.1 mg/dl Phosphorus Level 1.5 2.5-4.9 mg/dl Magnesium Level 1.9 1.8-2.4 mg/dl Beta-Hydroxybutyric Acid 73.85 0.2-2.81 mg/dL Test 01/13/17 21:09 01/13/17 22:10 01/13/17 23:10 01/13/17 23:51 Range/Units Bedside Glucose 273 150 304 70-99 mg/dl Venous Blood pH 7.21 7.36-7.41 Sodium Level 136 136-145 mmol/L Potassium Level 3.5 3.5-5.1 mmol/L Chloride Level 110 98-107 mmol/L Carbon Dioxide Level 9 21-32 mmol/L Anion Gap 17.0 3-11 mmol/L Blood Urea Nitrogen 13 7-18 mg/dl Creatinine 1.10 0.60-1.40 mg/dl Est Creatinine Clear Calc Drug Dose 112.7 ml/min Estimated GFR () 101.0 Estimated GFR (Non- 87.1 BUN/Creatinine Ratio 11.5 10-20 Random Glucose 308 70-99 mg/dl Calcium Level 7.2 8.5-10.1 mg/dl Phosphorus Level 1.6 2.5-4.9 mg/dl Magnesium Level 2.0 1.8-2.4 mg/dl Beta-Hydroxybutyric Acid > 46.00 0.2-2.81 mg/dL Test 01/14/17 00:14 01/14/17 01:09 01/14/17 02:01 01/14/17 03:05 Range/Units Bedside Glucose 308 298 275 250 70-99 mg/dl Test 01/14/17 04:00 01/14/17 05:02 01/14/17 05:58 01/14/17 07:18 Range/Units White Blood Count 16.94 4.8-10.8 K/uL Red Blood Count 4.74 4.7-6.1 M/uL Hemoglobin 13.5 14.0-18.0 g/dL Hematocrit 37.6 42-52 % Mean Corpuscular Volume 79.3 80-100 fL Mean Corpuscular Hemoglobin 28.5 25-34 pg Mean Corpuscular Hemoglobin Concent 35.9 32-36 g/dl RDW Standard Deviation 38.4 36.4-46.3 fL RDW Coefficient of Variation 13.4 11.5-14.5 % Platelet Count 247 130-400 K/uL Mean Platelet Volume 9.4 7.4-10.4 fL Platelet Estimate NORMAL Venous Blood pH 7.27 7.36-7.41 Sodium Level 137 136-145 mmol/L Potassium Level 2.9 3.5-5.1 mmol/L Chloride Level 112 98-107 mmol/L Carbon Dioxide Level 13 21-32 mmol/L Anion Gap 12.0 3-11 mmol/L Blood Urea Nitrogen 11 7-18 mg/dl Creatinine 1.00 0.60-1.40 mg/dl Est Creatinine Clear Calc Drug Dose 123.9 ml/min Estimated GFR () 113.3 Estimated GFR (Non- 97.8 BUN/Creatinine Ratio 10.7 01-23 Bedside Glucose 208 261 242 202 70-99 mg/dl Random Glucose 231 70-99 mg/dl Calcium Level 7.1 8.5-10.1 mg/dl Phosphorus Level 0.8 2.5-4.9 mg/dl Magnesium Level 2.1 1.8-2.4 mg/dl Test 01/14/17 07:49 01/14/17 08:08 01/14/17 09:15 01/14/17 09:53 Range/Units Venous Blood pH 7.29 7.36-7.41 Sodium Level 137 136-145 mmol/L Potassium Level 2.8 3.5-5.1 mmol/L Chloride Level 111 98-107 mmol/L Carbon Dioxide Level 12 21-32 mmol/L Anion Gap 15.0 3-11 mmol/L Blood Urea Nitrogen 9 7-18 mg/dl Creatinine 0.97 0.60-1.40 mg/dl Est Creatinine Clear Calc Drug Dose 127.8 ml/min Estimated GFR () 117.6 Estimated GFR (Non- 101.4 BUN/Creatinine Ratio 9.5 01-23 Random Glucose 180 70-99 mg/dl Calcium Level 7.5 8.5-10.1 mg/dl Phosphorus Level 0.9 2.5-4.9 mg/dl Magnesium Level 2.1 1.8-2.4 mg/dl Bedside Glucose 179 172 194 70-99 mg/dl Test 01/14/17 11:50 01/14/17 11:54 01/14/17 13:20 01/14/17 13:50 Range/Units Bedside Glucose 194 161 70-99 mg/dl Sodium Level 138 136-145 mmol/L Potassium Level 2.9 3.5-5.1 mmol/L Chloride Level 108 98-107 mmol/L Carbon Dioxide Level 16 21-32 mmol/L Anion Gap 14.0 3-11 mmol/L Blood Urea Nitrogen 7 7-18 mg/dl Creatinine 0.88 0.60-1.40 mg/dl Est Creatinine Clear Calc Drug Dose 140.8 ml/min Estimated GFR () 129.9 Estimated GFR (Non- 112.1 BUN/Creatinine Ratio 7.4 10-20 Random Glucose 179 70-99 mg/dl Calcium Level 7.6 8.5-10.1 mg/dl Phosphorus Level 0.9 2.5-4.9 mg/dl Magnesium Level 2.1 1.8-2.4 mg/dl Test 01/14/17 14:14 01/14/17 15:02 01/14/17 16:12 01/14/17 17:07 Range/Units Bedside Glucose 168 195 216 203 70-99 mg/dl Test 01/14/17 17:37 Range/Units Sodium Level 139 136-145 mmol/L Potassium Level 2.6 3.5-5.1 mmol/L Chloride Level 107 98-107 mmol/L Carbon Dioxide Level 19 21-32 mmol/L Anion Gap 13.0 3-11 mmol/L Blood Urea Nitrogen 6 7-18 mg/dl Creatinine 0.85 0.60-1.40 mg/dl Est Creatinine Clear Calc Drug Dose 145.8 ml/min Estimated GFR () 131.8 Estimated GFR (Non- 113.7 BUN/Creatinine Ratio 7.6 10-20 Random Glucose 211 70-99 mg/dl Calcium Level 7.6 8.5-10.1 mg/dl Phosphorus Level 0.8 2.5-4.9 mg/dl
[2017-01-14 22:44] LABS: VEN BLOOD GAS BASE EXCESS -1.7 mEq/L
[2017-01-14 23:04] LABS: BUN/CREATININE RATIO 6.6 (10-20); CALCIUM 7.7 mg/dl (8.5-10.1); CREATININE 0.8 mg/dl (0.60-1.40); MAGNESIUM 2.1 mg/dl (1.8-2.4); POTASSIUM 2.5 mmol/L (3.5-5.1)
[2017-01-14] MEDS ORDERED: POTASSIUM CHLR 20 MEQ / WTR 20 MEQ in PREMIXED WATER 100 ML IV STA (23:08)
[2017-01-14] MEDS ORDERED: POTASSIUM CHLORIDE 20 MEQ/15 ML UDC PO STA ×2 (23:08)
[2017-01-14 23:15] LABS: PHOSPHORUS 1.2 mg/dl (2.5-4.9)
[2017-01-14] MEDS: METOCLOPRAMIDE HCL INJ 5 MG/ML 2 ML VIAL IV PRN (23:35)
[2017-01-15] VITALS (23 sets, daily range): BP systolic 109–209; BP diastolic 59–119; PULSE 75–120; TEMP 36.7–37.2; O2SAT 91–100; BMI 37.5
[2017-01-15 06:02] LABS: HEMATOCRIT 32.4 % (42-52); MEAN CELL VOLUME 77.1 fL (80-100); MEAN CORPUSCULAR HEMOGLOBIN 28.6 pg (25-34); MEAN PLATELET VOLUME 9.4 fL (7.4-10.4); PLATELET COUNT 206 K/uL (130-400); WHITE BLOOD COUNT 9.75 K/uL (4.8-10.8)
[2017-01-15] MEDS: METOCLOPRAMIDE HCL INJ 5 MG/ML 2 ML VIAL IV PRN ×2 (06:12→15:59)
[2017-01-15 06:37] LABS: BUN/CREATININE RATIO 6.1 (10-20); CALCIUM 7.7 mg/dl (8.5-10.1); CREATININE 0.69 mg/dl (0.60-1.40); MAGNESIUM 2.2 mg/dl (1.8-2.4); POTASSIUM 2.5 mmol/L (3.5-5.1)
[2017-01-15] MEDS ORDERED: POTASSIUM CITRATE 10 MEQ TAB PO STA (06:38)
[2017-01-15 06:54] LABS: PHOSPHORUS 0.9 mg/dl (2.5-4.9)
[2017-01-15] MEDS ORDERED: INSULIN GLARGINE SOLOSTAR 100 UNITS/ML 3 ML PEN SC ONE (07:00)
[2017-01-15] MEDS ORDERED: POTASSIUM CHLORIDE 10 MEQ TABCR PO STA ×2 (07:14→17:11)
[2017-01-15] MEDS ORDERED: POTASSIUM PHOS 3 MMOL/1 ML INFUSION IV STA ×2 (07:14→17:11)
[2017-01-15] MEDS ORDERED: POTASSIUM ACETATE INJ 20 MEQ in SODIUM CHLORIDE 0.9% 100ML 100 ML IV SCH (07:15)
[2017-01-15] MEDS ORDERED: POTASSIUM ACETATE IV SCH (07:15)
[2017-01-15] MEDS ORDERED: SODIUM CHLORIDE 0.9% IV SCH (07:15)
[2017-01-15] MEDS ORDERED: POT PHOSPHATE MONOBASIC W/ SOD TAB PO ONE (07:15)
[2017-01-15 07:28] LABS: URCREATININE 26.9 MG/DL (>/= 20)
[2017-01-15] MEDS ORDERED: POTASSIUM PHOSPHATE IV ONE (07:30)
[2017-01-15] MEDS ORDERED: SODIUM CHLORIDE 0.9% IV ONE (07:30)
[2017-01-15] MEDS: POTASSIUM CHLR 20 MEQ / WTR 20 MEQ in PREMIXED WATER 100 ML IV SCH ×2 (07:33→08:37)
--- NOTE | 2017-01-15 07:36 | Critical Care Progress Note ---
Critical Care Progress Note Date of Service Jan 15, 2017. ICU Day ICU Day Number: [address] Savage Subjective The patient was seen and examined at bedside. Sinus at 100bpm per minute right now. Patient is resting comfortably in bed. Denies having any pain. Feels that there is improvement in his nausea. Not hungry at present. Pt states that he was dry heaving overnight. Plan of care was described to the patient and all questions were answered. ROS: No chest pain, no SOB, no dyspnea on exertion, no palpitations, no fevers, no chills, no diarrhea, no dysuria, +pink rash Objective General Appearance: Pt is resting comfortably, obese, mom present at bedside in the AM. No acute distress. Cath line and Art line in place. Head: normocephalic Eyes: PERRLA, EOMI Neck: normal range of motion, no tenderness, trachea midline, no stridor, supple Respiratory: breath sounds normal, clear to auscultation, clear to percussion, no respiratory distress, no tenderness, accessory muscle use Cardiovasular: regular rate/rhythm, normal S1S2, no M/G/R, no murmur, no gallop , no rub, no JVD Abdomen: non tender, normal bowel sounds, no rebound, no masses, no guarding, no organomegaly Back: normal inspection, no CVA tenderness Upper Extremities: no edema, other (mottling over UE and LE has been replaced by pinkish coloration, cheeks are also pink as well - slight interval improvement in color from previous day ) Lower Extremities: no edema Pulses: dorsalis pedis (R) (2+), dorsalis pedis 2+ (L) Neuro: alert, oriented x 3, normal motor exam, normal sensation. Psychiatric: normal affect, no suicidal ideation Current SOFA Score SOFA Score Response (Comments) Value Platelets (x10) > 150 0 Bilirubin (mg/dL) < 1.2 0 Audra Coma Score 15 0 Level of Hypotension No Hypotension 0 Creatinine (mg/dL) < 1.2 0 Total 0 Assessment & Plan 36M with a PMHx of PTSD on Metoprolol, clonidine and Subutex presents in DKA. Pt was put on the DKA protocol and admitted to the ICU for close observation. Anion gap has narrowed to 10. K+ and Phosphate remain low. Today we are holding the Insulin infusion and continue to replete aggressively. IVF D5 + 1/ 2 NSS + 40K-Acetate at 100mls/hr. Endo - * Anion Gap has resolved (now 10) but K+ this AM was 2.5 and Phosphate was 2.5. * We are holding all Insulin. * Repletion: 60K Acetate IV, Neutro Phos 1 tab, 24mmols K Phosphate IV, 40meq KCL orally. * Continue IVF D5+1/2NSS+40K Acetate at 100mls/hr. + Amp of bicarb. * We will recheck the BMP and Phosphate this AM at 11:30 every 4 hours x 4. * Diabetic Consult in Place - likely require insulin on discharge. Neuro: * AAOx3 * Continuing Subutux daily. * continue to hold the home dose of Clonidine. * Will restart the Metoprolol (pt states he takes it for a mixture of HTN and anxiety). * Tobacco Chewer: Nicotine Patch. CV - * EKG on admission showed normal sinus tachycardia. * Heart rate normalized, telemetry shows sinus 80-90s overnight * HTN: c/w Metoprolol as above for HTN and Anxiety. Resp - * Tachypnea has resolved. * X-ray results showed no acute process. Right IJ placement. Renal/ - * Urine on admission unsurprisingly urine had glucose and ketones. No signs of infection. * Positive 1700mls thus far. * Will order urine tox screen. GI/Diet - * We will resume DM2 diet and encourage PO drinking. * Nausea: PRN Reglan. * Zantac 150mg daily. Heme - * Hgb and platelets have normalized and stable, likely hemoconcentration on admission. * DVT Proph: Lovenox 40meq SQ daily starting tomorrow AM. ID - * WBC elevated but downtrending to 9.7. Afebrile on admission. WBC Likely reactive. No signs of infection. * Blood cultures - No growth to date. * MRSA negative. Dispo - May need to stay in ICU for another 24 hours, we will follow labs. * Pt does not have a PCP, [facility], I have offered my PCP services (Dr. Jason Torre) at our clinic next door. Pt is agreeable to setting up a follow up appointment with me. Full Code Resident Physician Supervision Note: Dr. Harper was resident physician during care of patient. I separately evaluated patient and did history and exam. I discussed the case with the resident and generally agree with the findings and plan. Critical Hypokalemia, increasing aggressive repletion. Holding insulin until potassium at more appropriate level, requires Critical Care given level of hypokalemia. Discussed plan with patient. Once K greater than 3 will restart insulin. I have personally spent 40 minutes of critical care time in the direct management of this patient. This is a life/limb threatening event. This includes time spent evaluating patient, direct bedside care, chart review, placing orders, interpretation of diagnostic studies, discussion with consultants, patient, and family members, as well as other required patient management activities. This time is exclusive of all separately billable procedures, and teaching time and separate from and in addition to any other critical care service time. Documented By: Kam Savage DO Consults & Procedures Consultants: Diabetes Education Property Disposal Officer Procedures: Right IJ placed in the ER. Data Medications: Current Inpatient Medications Medications (Trade) Dose Ordered Sig/Merlin Route Start Time Stop Time Status Last Admin Dose Admin Insulin Aspart (novoLOG ASPART) SLIDING SCALE PCHS SC 01/13/17 13:00 02/12/17 12:59 Miscellaneous Information (Consult Glycemic Management Pharmacy) 1 ea UD PRN N/A 01/13/17 11:30 02/12/17 11:29 Insulin Human Regular 250 units/ Sodium Chloride 252.5 ml @ 0 mls/hr DAILY@1130 IV 01/14/17 11:30 02/13/17 11:29 01/14/17 12:23 7.7 MLS/HR Buprenorphine HCl (Subutex) 24 mg DAILY SL 01/14/17 09:00 02/13/17 08:59 01/14/17 08:42 24 MG Nicotine (Nicoderm Cq 21MG Patch) 1 patch QAM TD 01/14/17 09:00 02/13/17 08:59 01/14/17 08:01 1 PATCH Miscellaneous (Remove Nicoderm Patch) 1 ea HS N/A 01/13/17 21:00 02/12/17 20:59 01/14/17 21:03 1 EA Metoprolol Tartrate (Lopressor Tab) 50 mg BID PO 01/13/17 19:00 02/12/17 18:59 01/14/17 21:03 50 MG Potassium Acetate 40 meq/Dextrose/ Sodium Chloride 1,020 ml @ 100 mls/hr [id number] IV 01/14/17 11:00 02/13/17 10:59 01/14/17 22:10 100 MLS/HR Ranitidine HCl (zANTac TAB) 150 mg QAM PO 01/15/17 09:00 02/14/17 08:59 Enoxaparin Sodium (Lovenox Inj) 40 mg QAM SQ 01/15/17 09:00 02/14/17 08:59 Metoclopramide HCl (Reglan Inj) 10 mg Q6H PRN IV 01/14/17 23:15 02/13/17 23:14 01/15/17 06:12 10 MG Heparin Sodium (Porcine) (Heparin 10 Unit/ ml 5 ml Flush) 5 ml PRN PRN FLUSH 01/15/17 01:30 02/14/17 01:29 Potassium Chloride 20 meq/ Prmx 100 ml @ 100 mls/hr Q1H IV 01/15/17 07:00 01/15/17 08:59 Potassium Acetate 40 meq/Sodium Chloride 120 ml @ 60 mls/hr ONE IV 01/15/17 07:15 02/14/17 07:14 UNV Vital Signs: Date Time Temp Pulse Resp B/P (MAP) Pulse Ox O2 Delivery O2 Flow Rate FiO2 01/15/17 06:00 78 14 140/76 (97) 96 Room Air 01/15/17 04:00 36.9 75 17 155/77 (103) 100 Room Air 01/15/17 04:00 98 Room Air 01/15/17 02:00 77 15 112/71 (85) 99 Room Air 01/15/17 00:01 36.7 16 128/59 (82) 98 Room Air 01/14/17 23:59 96 Room Air 01/14/17 22:00 77 20 146/78 (100) 96 Room Air 01/14/17 20:00 36.9 82 16 138/76 (96) 98 Room Air 01/14/17 20:00 Room Air 01/14/17 18:00 86 16 147/69 (95) 96 Room Air 01/14/17 16:00 37.2 84 18 132/74 (93) 99 Room Air 01/14/17 16:00 Room Air 01/14/17 14:11 82 18 144/71 (95) 99 Room Air 01/14/17 12:04 76 18 132/76 (94) 99 Room Air 01/14/17 12:00 Room Air 01/14/17 10:09 82 18 125/65 (85) 98 Room Air 01/14/17 08:00 Room Air 01/14/17 08:00 Room Air 01/14/17 08:00 86 19 142/78 (99) 99 Room Air Laboratory Results: Last 24 Hours Test 01/14/17 07:49 01/14/17 08:08 01/14/17 09:15 01/14/17 09:53 Venous Blood pH 7.29 Sodium Level 137 mmol/L Potassium Level 2.8 mmol/L Chloride Level 111 mmol/L Carbon Dioxide Level 12 mmol/L Anion Gap 15.0 mmol/L Blood Urea Nitrogen 9 mg/dl Creatinine 0.97 mg/dl Est Creatinine Clear Calc Drug Dose 127.8 ml/min Estimated GFR () 117.6 Estimated GFR (Non- 101.4 BUN/Creatinine Ratio 9.5 Random Glucose 180 mg/dl Calcium Level 7.5 mg/dl Phosphorus Level 0.9 mg/dl Magnesium Level 2.1 mg/dl Bedside Glucose 179 mg/dl 172 mg/dl 194 mg/dl Test 01/14/17 11:50 01/14/17 11:54 01/14/17 13:20 01/14/17 13:50 Bedside Glucose 194 mg/dl 161 mg/dl Sodium Level 138 mmol/L Potassium Level 2.9 mmol/L Chloride Level 108 mmol/L Carbon Dioxide Level 16 mmol/L Anion Gap 14.0 mmol/L Blood Urea Nitrogen 7 mg/dl Creatinine 0.88 mg/dl Est Creatinine Clear Calc Drug Dose 140.8 ml/min Estimated GFR () 129.9 Estimated GFR (Non- 112.1 BUN/Creatinine Ratio 7.4 Random Glucose 179 mg/dl Calcium Level 7.6 mg/dl Phosphorus Level 0.9 mg/dl Magnesium Level 2.1 mg/dl Test 01/14/17 14:14 01/14/17 15:02 01/14/17 16:12 01/14/17 17:07 Bedside Glucose 168 mg/dl 195 mg/dl 216 mg/dl 203 mg/dl Test 01/14/17 17:37 01/14/17 18:12 01/14/17 19:02 01/14/17 21:00 Sodium Level 139 mmol/L Potassium Level 2.6 mmol/L Chloride Level 107 mmol/L Carbon Dioxide Level 19 mmol/L Anion Gap 13.0 mmol/L Blood Urea Nitrogen 6 mg/dl Creatinine 0.85 mg/dl Est Creatinine Clear Calc Drug Dose 145.8 ml/min Estimated GFR () 131.8 Estimated GFR (Non- 113.7 BUN/Creatinine Ratio 7.6 Random Glucose 211 mg/dl Calcium Level 7.6 mg/dl Phosphorus Level 0.8 mg/dl Bedside Glucose 201 mg/dl 189 mg/dl 162 mg/dl Test 01/14/17 22:29 01/14/17 23:16 01/15/17 01:19 01/15/17 03:10 Venous Blood pH 7.43 Venous Blood Partial Pressure CO2 35 mmHg Venous Blood Partial Pressure O2 40 mmHg Venous Blood HCO3 22 mmol/L Venous Blood Oxygen Saturation 78.0 % Venous Blood Base Excess -1.7 mEq/L Sodium Level 140 mmol/L Potassium Level 2.5 mmol/L Chloride Level 107 mmol/L Carbon Dioxide Level 22 mmol/L Anion Gap 12.0 mmol/L Blood Urea Nitrogen 5 mg/dl Creatinine 0.80 mg/dl Est Creatinine Clear Calc Drug Dose 154.9 ml/min Estimated GFR () 135.1 Estimated GFR (Non- 116.6 BUN/Creatinine Ratio 6.6 Random Glucose 138 mg/dl Calcium Level 7.7 mg/dl Phosphorus Level 1.2 mg/dl Magnesium Level 2.1 mg/dl Bedside Glucose 115 mg/dl 102 mg/dl 91 mg/dl Test 01/15/17 04:02 01/15/17 05:12 01/15/17 05:36 01/15/17 05:45 Bedside Glucose 140 mg/dl 96 mg/dl 104 mg/dl White Blood Count 9.75 K/uL Red Blood Count 4.20 M/uL Hemoglobin 12.0 g/dL Hematocrit 32.4 % Mean Corpuscular Volume 77.1 fL Mean Corpuscular Hemoglobin 28.6 pg Mean Corpuscular Hemoglobin Concent 37.0 g/dl RDW Standard Deviation 38.6 fL RDW Coefficient of Variation 13.7 % Platelet Count 206 K/uL Mean Platelet Volume 9.4 fL Sodium Level 140 mmol/L Potassium Level 2.5 mmol/L Chloride Level 106 mmol/L Carbon Dioxide Level 24 mmol/L Anion Gap 10.0 mmol/L Blood Urea Nitrogen 4 mg/dl Creatinine 0.69 mg/dl Est Creatinine Clear Calc Drug Dose 177.3 ml/min Estimated GFR () 143.6 Estimated GFR (Non- 123.9 BUN/Creatinine Ratio 6.1 Random Glucose 120 mg/dl Calcium Level 7.7 mg/dl Phosphorus Level 0.9 mg/dl Magnesium Level 2.2 mg/dl Test 01/15/17 06:20 Bedside Glucose 136 mg/dl Resident Involvement: Resident Care Provided Care Provided: Adult Hospital Medicine
[2017-01-15] MEDS: METOPROLOL TARTRATE 50 MG TAB PO SCH ×2 (07:45→16:52)
[2017-01-15] MEDS: NICOTINE 21 MG/24 HR TDSY TD SCH (07:46)
[2017-01-15] MEDS: ENOXAPARIN 40 MG/0.4 ML SYR SQ SCH (07:46)
[2017-01-15] MEDS: INSULIN ASPART 100 UNITS/ML 3 ML PEN SC SCH ×3 (08:00→21:00)
[2017-01-15] MEDS: [UNRECOGNIZED DRUG - OTHER] IV SCH (08:07)
[2017-01-15] MEDS: POTASSIUM ACETATE IV SCH (08:07)
[2017-01-15] MEDS: D5W IV SCH (08:07)
[2017-01-15] MEDS ORDERED: ACETAMINOPHEN 500 MG TAB PO ONE (08:17)
[2017-01-15] MEDS: BUPRENORPHINE HCL 8 MG SUBL SL SCH (08:36)
[2017-01-15] MEDS: POTASSIUM ACETATE INJ 20 MEQ in SODIUM CHLORIDE 0.9% 100ML 100 ML IV SCH ×5 (08:39→19:13)
[2017-01-15] MEDS ORDERED: RANITIDINE HCL 150 MG TAB PO SCH (09:00)
[2017-01-15] MEDS: SODIUM CHLORIDE 0.45% IV SCH (09:52)
[2017-01-15] MEDS: POTASSIUM CHLORIDE IV SCH (09:52)
[2017-01-15] MEDS: BOOST GLUCOSE CONTROL PO SCH (12:31)
[2017-01-15 13:11] LABS: BUN/CREATININE RATIO 6.1 (10-20); CREATININE 0.77 mg/dl (0.60-1.40); POTASSIUM 4.3 mmol/L (3.5-5.1)
[2017-01-15 13:30] LABS: PHOSPHORUS 2.3 mg/dl (2.5-4.9)
[2017-01-15 13:31] LABS: BETA-HYDROXYBUTYRATE 45.56 mg/dL (0.2-2.81)
--- NOTE | 2017-01-15 14:25 | Pharmacy Progress Note ---
Glycemic Control Progress Note Date of Service Jan 15, 2017. Scope Glycemic Pharmacist consulted for glycemic control to write orders per [facility] inpatient glycemic control protocol. Objective Accuchecks BSG (last 24hrs): Test 01/14/17 14:14 01/14/17 15:02 01/14/17 16:12 01/14/17 17:07 Bedside Glucose 168 mg/dl (70-99) 195 mg/dl (70-99) 216 mg/dl (70-99) 203 mg/dl (70-99) Test 01/14/17 17:37 01/14/17 18:12 01/14/17 19:02 01/14/17 21:00 Random Glucose 211 mg/dl (70-99) Bedside Glucose 201 mg/dl (70-99) 189 mg/dl (70-99) 162 mg/dl (70-99) Test 01/14/17 22:29 01/14/17 23:16 01/15/17 01:19 01/15/17 03:10 Random Glucose 138 mg/dl (70-99) Bedside Glucose 115 mg/dl (70-99) 102 mg/dl (70-99) 91 mg/dl (70-99) Test 01/15/17 04:02 01/15/17 05:12 01/15/17 05:36 01/15/17 05:45 Bedside Glucose 140 mg/dl (70-99) 96 mg/dl (70-99) 104 mg/dl (70-99) Random Glucose 120 mg/dl (70-99) Test 01/15/17 06:20 01/15/17 11:06 01/15/17 12:42 Bedside Glucose 136 mg/dl (70-99) 247 mg/dl (70-99) Random Glucose 307 mg/dl (70-99) HbA1c: Test 01/13/17 08:00 Hemoglobin A1c 11.8 % (4.5-5.6) H Recent Pertinent Medications The patient is currently receiving: * IV insulin infusion per severe stress protocol, goal range 100-180mg/dL; prandial coverage per insulin infusion adjustment calculator Outpatient Anti-Diabetic Meds No prior dx of DM Assessment & Plan ASSESSMENT: 01/14/17 * Patient presented w/ moderate-severe DKA yesterday (AG 27, bicarb < 5, pH 7.14 , BOHB 96, effective serum osmo ~288) * Insulin infusion started on admission. BSGs have trended down nicely and were in the upper 100's low 200's as of this AM and infusion was running at ~ 7.7units/hour. Insulin infusion rates are rather high for a type 1 diabetic, perhaps this is type 2 w/ severe stress? A1c of 11.8% indicates need for insulin therapy on discharge. elementary educator to evaluate patient when mental status improves. * Latest set of labs shows AG acidosis is improving however he has not yet all criteria for transition to SQ (AG is still > 12, Bicab improved to 16, however patient is not yet tolerating a diet). * Plan is to continue the insulin drip, however begin to initiate some basal insulin as this will make the transition to SQ in the future easier. 01/15/17 * BSGs well controlled this AM and AG and Bicarb normalized this AM, however significant hypokalemia + hypophosphatemia resistant to IV replacement led to holding the IV insulin infusion until K and Phos recovering * Repeat PRP + Phos drawn ~5-6 hrs after stopping insulin infusion, K and Phos did recover w/ drip off and following aggressive repletion however the patient' s AG is now elevated and Bicarb again trending down and BSG > 300. As a result the insulin drip was restarted. * Insulin drips have averaged ~7-8 units / hr since the infusion began, and during most of that time the patient was NPO but receiving dextrose containing IVF's. Total daily insulin doses likely to be well in excess of 100 units. Dextrose has been removed from IVF's, perhaps slower insulin infusion rates will result as he still has poor appetite. Rough estimate of total daily insulin requirement ~190 units/day based upon infusion rates. PLAN FOR INPATIENT GLYCEMIC CONTROL: * Continue IV insulin infusion at this time * Consider transition to SQ when tolerating a diet, AG < 12, bicarb > 15, serum glucose < 200 and vpH > 7.3 * If the decision is made to take this patient off the insulin drip later today , would recommend SQ Novolog ACHS and at 0000 + 0400 initially given uncertain and possibly changing insulin sensitivity. Basal + Correction factor + carb ratio should be based upon insulin infusion rates RECOMMENDATIONS FOR DISCHARGE: * Patient will require SQ insulin therapy on discharge. * Please note that the plan above was derived based on current level of insulin resistance and hospital stress. These recommendations are appropriate for inpatient admission only. Plan of care upon discharge will need to be reassessed to avoid potential outpatient hypo/hyperglycemia. Thank you.
[2017-01-15] MEDS: INSULIN REGULAR 250 UNITS in SODIUM CHLORIDE 0.9% 250ML 250 ML IV SCH (16:47)
[2017-01-15 16:49] LABS: BUN/CREATININE RATIO 7.1 (10-20); CALCIUM 8.1 mg/dl (8.5-10.1); CREATININE 0.74 mg/dl (0.60-1.40); PHOSPHORUS 0.9 mg/dl (2.5-4.9)
[2017-01-15] MEDS: CLONIDINE HCL 0.1 MG TAB PO SCH (16:53)
[2017-01-15] MEDS ORDERED: RANITIDINE HCL 150 MG TAB PO ONE (17:00)
[2017-01-15] MEDS ORDERED: POTASSIUM PHOSPHATE INJ 40 MMOL in SODIUM CHLORIDE 0.9% 1000ML 1,000 ML IV ONE ×2 (17:30→19:30)
--- NOTE | 2017-01-15 17:52 | Progress Note ---
Internal Med Progress Note Date of Service: Jan 15, 2017. Provider Documentation: SUBJECTIVE: resting comfortably has some nausea and abdominal discomfort afebrile did not sleep well no pains OBJECTIVE: Vital Signs-as noted below Exam: General-alert and awake. Not in distress ENT-normal hearing Neck-no neck masses Lungs-cta b/l no wheezing or crackles Heart-s1 and s2 heard regular rate and rhythm no murmurs Abdomen-soft bowel sounds present non tender no distension Extremities-no erythema, lower extremity edema present Neuro-alert and awake moves extremities Lab data as noted below. ASSESSMENT & PLAN: This is a 36yo M with a PMH of PTSD, anxiety, h/o TBI and GERD who presents with persistent malaise x 3 weeks. DKA: BG initially 606, ABG shows metabolic acidosis with a pH of 7.14, bicarb of <5. Elevated B-hydroxybutyrate and ketones in urine Anion gap on presentation 27 started on insulin drip and iv fluids as per DKA protocol anion gap closing insulin drip was held for hypokalemia and was restarted later today appreciate critical care and pharmacy inputs Electrolyte abnormalities will replace and close monitor while on insulin drip Leukocytosis: Elevated to ~23 normalized today no obvious source of infection Chronic pain 2/2 TBI: H/o TBI while in [employer] in 2011 as per h and P:"Reports being transitioned from unknown narcotics to subutex in [address] Jiménez in clinic -Denies h/o narcotic drug abuse, IVDU" Hypertension: Denies formal diagnosis of HTN -Recently started on metoprolol, clonidine currently on Lopressor 50mg bid and clonidine 0.1mg hs will monitor DVT Ppx: SCDs Code status: FULL DISPOSITION close monitor in ICU Vital Signs: Date Time Temp Pulse Resp B/P (MAP) Pulse Ox O2 Delivery O2 Flow Rate FiO2 01/15/17 14:05 102 20 163/89 (113) 98 Room Air 01/15/17 14:00 97 17 100 01/15/17 13:00 118 17 96 01/15/17 11:25 99 Room Air 01/15/17 11:00 37.2 83 16 152/80 (104) 98 Room Air 01/15/17 10:00 82 16 134/80 (98) 98 Room Air 01/15/17 09:00 77 148/84 (105) 97 Room Air 01/15/17 08:00 Room Air 01/15/17 07:45 36.7 102 16 152/88 (109) 99 Room Air 01/15/17 07:45 99 Room Air 01/15/17 06:00 78 14 140/76 (97) 96 Room Air 01/15/17 04:00 36.9 75 17 155/77 (103) 100 Room Air 01/15/17 04:00 98 Room Air 01/15/17 02:00 77 15 112/71 (85) 99 Room Air 01/15/17 00:01 36.7 16 128/59 (82) 98 Room Air 01/14/17 23:59 96 Room Air 01/14/17 22:00 77 20 146/78 (100) 96 Room Air 01/14/17 20:00 36.9 82 16 138/76 (96) 98 Room Air 01/14/17 20:00 Room Air 01/14/17 18:00 86 16 147/69 (95) 96 Room Air Lab Results: Results Past 24 Hours Test 01/14/17 18:12 01/14/17 19:02 01/14/17 21:00 01/14/17 22:29 Range/Units Bedside Glucose 201 189 162 70-99 mg/dl Venous Blood pH 7.43 7.36-7.41 Venous Blood Partial Pressure CO2 35 38.0-50.0 mmHg Venous Blood Partial Pressure O2 40 mmHg Venous Blood HCO3 22 mmol/L Venous Blood Oxygen Saturation 78.0 % Venous Blood Base Excess -1.7 mEq/L Sodium Level 140 136-145 mmol/L Potassium Level 2.5 3.5-5.1 mmol/L Chloride Level 107 98-107 mmol/L Carbon Dioxide Level 22 21-32 mmol/L Anion Gap 12.0 3-11 mmol/L Blood Urea Nitrogen 5 7-18 mg/dl Creatinine 0.80 0.60-1.40 mg/dl Est Creatinine Clear Calc Drug Dose 154.9 ml/min Estimated GFR () 135.1 Estimated GFR (Non- 116.6 BUN/Creatinine Ratio 6.6 10-20 Random Glucose 138 70-99 mg/dl Calcium Level 7.7 8.5-10.1 mg/dl Phosphorus Level 1.2 2.5-4.9 mg/dl Magnesium Level 2.1 1.8-2.4 mg/dl Test 01/14/17 23:16 01/15/17 01:19 01/15/17 03:10 01/15/17 04:02 Range/Units Bedside Glucose 115 102 91 140 70-99 mg/dl Test 01/15/17 05:12 01/15/17 05:36 01/15/17 05:45 01/15/17 06:20 Range/Units Bedside Glucose 96 104 136 70-99 mg/dl White Blood Count 9.75 4.8-10.8 K/uL Red Blood Count 4.20 4.7-6.1 M/uL Hemoglobin 12.0 14.0-18.0 g/dL Hematocrit 32.4 42-52 % Mean Corpuscular Volume 77.1 80-100 fL Mean Corpuscular Hemoglobin 28.6 25-34 pg Mean Corpuscular Hemoglobin Concent 37.0 32-36 g/dl RDW Standard Deviation 38.6 36.4-46.3 fL RDW Coefficient of Variation 13.7 11.5-14.5 % Platelet Count 206 130-400 K/uL Mean Platelet Volume 9.4 7.4-10.4 fL Sodium Level 140 136-145 mmol/L Potassium Level 2.5 3.5-5.1 mmol/L Chloride Level 106 98-107 mmol/L Carbon Dioxide Level 24 21-32 mmol/L Anion Gap 10.0 3-11 mmol/L Blood Urea Nitrogen 4 7-18 mg/dl Creatinine 0.69 0.60-1.40 mg/dl Est Creatinine Clear Calc Drug Dose 177.3 ml/min Estimated GFR () 143.6 Estimated GFR (Non- 123.9 BUN/Creatinine Ratio 6.1 1020 Random Glucose 120 70-99 mg/dl Calcium Level 7.7 8.5-10.1 mg/dl Phosphorus Level 0.9 2.5-4.9 mg/dl Magnesium Level 2.2 1.8-2.4 mg/dl Test 01/15/17 11:06 01/15/17 12:42 01/15/17 14:45 01/15/17 15:47 Range/Units Bedside Glucose 247 249 215 70-99 mg/dl Sodium Level 137 136-145 mmol/L Potassium Level 4.3 3.5-5.1 mmol/L Chloride Level 104 98-107 mmol/L Carbon Dioxide Level 19 21-32 mmol/L Anion Gap 14.0 3-11 mmol/L Blood Urea Nitrogen 5 7-18 mg/dl Creatinine 0.77 0.60-1.40 mg/dl Est Creatinine Clear Calc Drug Dose 158.9 ml/min Estimated GFR () 137.2 Estimated GFR (Non- 118.4 BUN/Creatinine Ratio 6.1 10-20 Random Glucose 307 70-99 mg/dl Calcium Level 8.0 8.5-10.1 mg/dl Phosphorus Level 2.3 2.5-4.9 mg/dl Beta-Hydroxybutyric Acid 45.56 0.2-2.81 mg/dL Test 01/15/17 16:01 Range/Units Sodium Level 139 136-145 mmol/L Potassium Level 3.0 3.5-5.1 mmol/L Chloride Level 105 98-107 mmol/L Carbon Dioxide Level 23 21-32 mmol/L Anion Gap 11.0 3-11 mmol/L Blood Urea Nitrogen 5 7-18 mg/dl Creatinine 0.74 0.60-1.40 mg/dl Est Creatinine Clear Calc Drug Dose 165.3 ml/min Estimated GFR () 139.5 Estimated GFR (Non- 120.3 BUN/Creatinine Ratio 7.1 10-20 Random Glucose 197 70-99 mg/dl Calcium Level 8.1 8.5-10.1 mg/dl Phosphorus Level 0.9 2.5-4.9 mg/dl
[2017-01-15 20:42] LABS: BUN/CREATININE RATIO 6.3 (10-20); CALCIUM 7.9 mg/dl (8.5-10.1); CREATININE 0.63 mg/dl (0.60-1.40); PHOSPHORUS 2.1 mg/dl (2.5-4.9); POTASSIUM 3.5 mmol/L (3.5-5.1)
[2017-01-16] VITALS (10 sets, daily range): BP systolic 111–155; BP diastolic 70–103; PULSE 74–99; TEMP 36.6–37.2; O2SAT 95–100; Ht 170.2 cm; Wt 108.7 kg
[2017-01-16] MEDS: SODIUM CHLORIDE 0.45% IV SCH ×2 (00:34→13:33)
[2017-01-16] MEDS: POTASSIUM CHLORIDE IV SCH ×2 (00:34→13:33)
[2017-01-16 00:42] LABS: BLOOD UREA NITROGEN 3 mg/dl (7-18); BUN/CREATININE RATIO 5.3 (10-20); CALCIUM 7.9 mg/dl (8.5-10.1); CARBON DIOXIDE 29 mmol/L (21-32); CHLORIDE 104 mmol/L (98-107); CREATININE 0.57 mg/dl (0.60-1.40); GLUCOSE 115 mg/dl (70-99); MAGNESIUM 2.1 mg/dl (1.8-2.4); POTASSIUM 3.5 mmol/L (3.5-5.1); SODIUM 140 mmol/L (136-145)
[2017-01-16] MEDS ORDERED: POTASSIUM CHLORIDE 20 MEQ TABCR PO STA (00:56)
[2017-01-16] MEDS ORDERED: POTASSIUM ACETATE INJ 20 MEQ in SODIUM CHLORIDE 0.9% 100ML 100 ML IV ONE (02:00)
[2017-01-16 05:50] LABS: HEMATOCRIT 32.7 % (42-52); MEAN CELL VOLUME 79.4 fL (80-100); MEAN CORPUSCULAR HEMOGLOBIN 28.2 pg (25-34); MEAN CORPUSCULAR HGB CONC 35.5 g/dl (32-36); MEAN PLATELET VOLUME 9.3 fL (7.4-10.4); PLATELET COUNT 186 K/uL (130-400); RED BLOOD COUNT 4.12 M/uL (4.7-6.1)
[2017-01-16 06:20] LABS: BLOOD UREA NITROGEN 3 mg/dl (7-18); CALCIUM 8.1 mg/dl (8.5-10.1); CARBON DIOXIDE 27 mmol/L (21-32); CHLORIDE 101 mmol/L (98-107); CREATININE 0.54 mg/dl (0.60-1.40); GLUCOSE 139 mg/dl (70-99); MAGNESIUM 2.2 mg/dl (1.8-2.4); POTASSIUM 3.8 mmol/L (3.5-5.1); SODIUM 138 mmol/L (136-145)
[2017-01-16 06:23] LABS: PHOSPHORUS 1.9 mg/dl (2.5-4.9)
[2017-01-16] MEDS: RANITIDINE HCL 150 MG TAB PO SCH ×2 (06:23→16:53)
[2017-01-16] MEDS: ACETAMINOPHEN 500 MG TAB PO PRN ×2 (06:29→16:55)
[2017-01-16] MEDS ORDERED: POTASSIUM PHOS 3 MMOL/1 ML INFUSION IV STA (06:42)
[2017-01-16] MEDS ORDERED: SODIUM CHLORIDE 0.9% IV ONE (07:15)
[2017-01-16] MEDS ORDERED: POTASSIUM PHOSPHATE IV ONE (07:15)
--- NOTE | 2017-01-16 07:34 | Critical Care Progress Note ---
Critical Care Progress Note Date of Service Jan 16, 2017. ICU Day ICU Day Number: [address] Savage Subjective The patient was seen and examined at bedside. K+ and Phosphate repletion overnight (60meq oral KCL which was tolerated and 20meq K acetate IV+ IVF of 1/ 2NSS+80meqKCL @ 75mls/hr). Pt is still on an insulin drip. Tele showed Sinus rhythm in the 80s overnight. Patient is resting comfortably in bed. Denies having any pain. Taking PO intake better than yesterday. Plan of care was described to the patient and all questions were answered. ROS: No chest pain, no SOB, no dyspnea on exertion, no palpitations, no fevers, no chills, no nausea, no vomiting, no diarrhea, no dysuria, + continued diffuse red rash. Objective General Appearance: Pt is sitting comfortably at bedside, conversing, appropriate mood and affect. Left IJ still in place. Head: normocephalic Eyes: PERRLA, EOMI Neck: normal range of motion, no tenderness, trachea midline, no stridor, supple Respiratory: breath sounds normal, clear to auscultation, clear to percussion, no respiratory distress, no tenderness, accessory muscle use Cardiovasular: regular rate/rhythm, normal S1S2, no M/G/R, no murmur, no gallop , no rub, no JVD Abdomen: non tender, normal bowel sounds, no rebound, no masses, no guarding, no organomegaly Back: normal inspection, no CVA tenderness Upper Extremities: no edema, other (continued improved erythema over the UE and LE bilateral, almost complete resolution of the pinkish hue in the cheeks ) Lower Extremities: no edema Pulses: dorsalis pedis (R) (2+), dorsalis pedis 2+ (L) Neuro: alert, oriented x 3, normal motor exam, normal sensation. Psychiatric: normal affect, no suicidal ideation Current SOFA Score SOFA Score Response (Comments) Value Platelets (x10) > 150 0 Bilirubin (mg/dL) < 1.2 0 Audra Coma Score 15 0 Level of Hypotension No Hypotension 0 Creatinine (mg/dL) < 1.2 0 Total 0 Assessment & Plan 36M with a PMHx of PTSD on Metoprolol, clonidine and Subutex presents in DKA. 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 Pt was put on the DKA protocol and admitted to the ICU for close observation. Anion gap has narrowed to 10. K+ and Phosphate repletion as needed. Anticipate downgrade from ICU today. Endk (DKA) - * Anion Gap has resolved. * K+ this AM is 3.8 and Phosphate wis 1.9. * Na+ 138, Mg is 2.2. * Last BS: 171-->133-->126-->120 * Insulin continues to drip at 3units/hr. * Repletion at 7am: 40mmol KPHOS, + Oral Neutra Phos QID + IVF D5+1/2NSS+80meq KLC at 75cc/hr. * Changing to daily BMPs, Phosphate and Mag checks. * We will reattempt a transition to daily SQ insulin (pt received 60 units of Lantus on 01/14/17 at 1pm) * Pt has received extensive diabetic education and feels like has a good handle on carb coverage and blood sugar tracking. I have personally reviewed the importance of BS tracking, lifestyle changes an the potential consequences of senior living poor blood sugar control with the patient. Neuro: * AAOx3 * Continuing Subutux 24mg SL daily. * Resuming home dose of Clonidine 0.1mg daily. * c/w Home dose of Metoprolol (pt states he takes it for a mixture of HTN and anxiety). * Tobacco Chewer: Nicotine Patch. CV - * EKG on admission showed normal sinus tachycardia. * Heart rate normalized, telemetry shows sinus 80s overnight * HTN: c/w Metoprolol as above for HTN and Anxiety. Resp - * Tachypnea has resolved. * X-ray results showed no acute process. Right IJ placement. Renal/ - * Urine on admission unsurprisingly urine had glucose and ketones. No signs of infection. * Positive 700mls thus far. * Urine tox screen negative. GI/Diet - * We will resume DM2 diet and encourage PO drinking. * Nausea: PRN Reglan. * Zantac 150mg BID. Heme - * Hgb and platelets have normalized and stable, likely hemoconcentration on admission. * DVT Proph: Lovenox 40meq SQ daily. ID - * WBC elevated on admission but have now normalized. Afebrile on admission. WBC Likely reactive. No signs of infection. * Blood cultures - No growth to date. * MRSA negative. Dispo - Downgrade today. * I have reached out to our nurse navigator to schedule follow up with me on Dec 27, unfortunately I do not have any clinic time before then - I'm at [facility] on the . If hospitalist wants closer follow up he can see another resident at the [facility] clinic next week. After speaking with patient he is adamant he wants senior living follow up with myself even if the hospital follow up appointment is with another provider in the PS group. Full Code Resident Physician Supervision Note: Dr. Torre was resident physician during care of patient. I separately evaluated patient and did history and exam. I discussed the case with the resident and generally agree with the findings and plan. Gap now closed, electrolytes within acceptable reference ranges. Currently transitioning to subq insulin. Stable for downgrade to med/surg. Documented By: Kam Savage DO Consults & Procedures Consultants: Diabetes Education Poultry Hatchery Man Procedures: Right IJ placed in the ER. Data Medications: Current Inpatient Medications Medications (Trade) Dose Ordered Sig/Merlin Route Start Time Stop Time Status Last Admin Dose Admin Insulin Aspart (novoLOG ASPART) SLIDING SCALE PCHS SC 01/13/17 13:00 02/12/17 12:59 Miscellaneous Information (Consult Glycemic Management Pharmacy) 1 ea UD PRN N/A 01/13/17 11:30 02/12/17 11:29 Insulin Human Regular 250 units/ Sodium Chloride 252.5 ml @ 0 mls/hr DAILY@1130 IV 01/14/17 11:30 02/13/17 11:29 01/15/17 16:47 7.3 MLS/HR Buprenorphine HCl (Subutex) 24 mg DAILY SL 01/14/17 09:00 02/13/17 08:59 01/15/17 08:36 24 MG Nicotine (Nicoderm Cq 21MG Patch) 1 patch QAM TD 01/14/17 09:00 02/13/17 08:59 01/15/17 07:46 1 PATCH Miscellaneous (Remove Nicoderm Patch) 1 ea HS N/A 01/13/17 21:00 02/12/17 20:59 01/15/17 21:14 1 EA Metoprolol Tartrate (Lopressor Tab) 50 mg BID PO 01/13/17 19:00 02/12/17 18:59 01/15/17 16:52 50 MG Enoxaparin Sodium (Lovenox Inj) 40 mg QAM SQ 01/15/17 09:00 02/14/17 08:59 01/15/17 07:46 40 MG Metoclopramide HCl (Reglan Inj) 10 mg Q6H PRN IV 01/14/17 23:15 02/13/17 23:14 01/15/17 15:59 10 MG Heparin Sodium (Porcine) (Heparin 10 Unit/ ml 5 ml Flush) 5 ml PRN PRN FLUSH 01/15/17 01:30 02/14/17 01:29 Acetaminophen (Tylenol Tab) 1,000 mg Q8H PRN PO 01/15/17 08:00 02/14/17 07:59 01/16/17 06:29 1,000 MG Potassium Chloride 80 meq/ Sodium Chloride 1,040 ml @ 75 mls/hr [id number] IV 01/15/17 09:00 02/14/17 08:59 01/16/17 00:34 75 MLS/HR Clonidine HCl (Catapres Tab) 0.1 mg HS PO 01/15/17 21:00 02/14/17 20:59 01/15/17 16:53 0.1 MG Enteral Nutritional Formula (Boost Glucose Control) 1 can QDL PO 01/15/17 12:30 02/14/17 12:29 01/15/17 12:31 1 CAN Ranitidine HCl (zANTac TAB) 150 mg BIDM PO 01/16/17 07:15 02/15/17 07:14 01/16/17 06:23 150 MG Potassium/ Phosphorus/Sodium (Phospha 250 Neutral 155-852-130 Mg) 1 tab QID PO 01/16/17 09:00 02/15/17 08:59 Potassium Phosphate 40 mmol/ Sodium Chloride 513.3333 ml @ 100 mls/hr ONE ONCE IV 01/16/17 07:15 01/16/17 12:22 Vital Signs: Date Time Temp Pulse Resp B/P (MAP) Pulse Ox O2 Delivery O2 Flow Rate FiO2 01/16/17 06:00 97 18 141/85 (103) 100 Room Air 01/16/17 04:00 36.6 80 14 144/91 (108) 96 Room Air 01/16/17 04:00 98 Room Air 01/16/17 02:00 81 15 147/93 (111) 97 Room Air 01/16/17 00:00 36.9 82 19 111/70 (84) 95 Room Air 01/15/17 23:59 94 Room Air 01/15/17 22:00 81 16 126/75 (92) 99 Room Air 01/15/17 21:00 36.9 86 18 129/72 (91) 95 Room Air 01/15/17 20:00 Room Air 01/15/17 19:00 78 15 109/73 (85) 91 Room Air 01/15/17 18:00 84 16 122/73 (89) 91 Room Air 01/15/17 17:00 120 17 147/91 (109) 93 Room Air 01/15/17 16:45 100 18 161/88 (112) 100 Room Air 01/15/17 16:43 100 19 175/102 (126) 100 Room Air 01/15/17 16:40 96 19 209/119 (149) 96 Room Air 01/15/17 16:00 36.9 102 20 177/110 (132) 100 Room Air 01/15/17 16:00 Room Air 01/15/17 15:00 95 19 150/87 (108) 98 Room Air 01/15/17 14:05 102 20 163/89 (113) 98 Room Air 01/15/17 14:00 97 17 100 01/15/17 13:00 118 17 96 01/15/17 11:25 99 Room Air 01/15/17 11:00 37.2 83 16 152/80 (104) 98 Room Air 01/15/17 10:00 82 16 134/80 (98) 98 Room Air 01/15/17 09:00 77 148/84 (105) 97 Room Air 01/15/17 08:00 Room Air 01/15/17 07:45 36.7 102 16 152/88 (109) 99 Room Air 01/15/17 07:45 99 Room Air Laboratory Results: Last 24 Hours Test 01/15/17 11:06 01/15/17 12:42 01/15/17 14:45 01/15/17 15:47 Bedside Glucose 247 mg/dl 249 mg/dl 215 mg/dl Sodium Level 137 mmol/L Potassium Level 4.3 mmol/L Chloride Level 104 mmol/L Carbon Dioxide Level 19 mmol/L Anion Gap 14.0 mmol/L Blood Urea Nitrogen 5 mg/dl Creatinine 0.77 mg/dl Est Creatinine Clear Calc Drug Dose 158.9 ml/min Estimated GFR () 137.2 Estimated GFR (Non- 118.4 BUN/Creatinine Ratio 6.1 Random Glucose 307 mg/dl Calcium Level 8.0 mg/dl Phosphorus Level 2.3 mg/dl Beta-Hydroxybutyric Acid 45.56 mg/dL Test 01/15/17 16:01 01/15/17 17:07 01/15/17 18:02 01/15/17 19:17 Sodium Level 139 mmol/L Potassium Level 3.0 mmol/L Chloride Level 105 mmol/L Carbon Dioxide Level 23 mmol/L Anion Gap 11.0 mmol/L Blood Urea Nitrogen 5 mg/dl Creatinine 0.74 mg/dl Est Creatinine Clear Calc Drug Dose 165.3 ml/min Estimated GFR () 139.5 Estimated GFR (Non- 120.3 BUN/Creatinine Ratio 7.1 Random Glucose 197 mg/dl Calcium Level 8.1 mg/dl Phosphorus Level 0.9 mg/dl Bedside Glucose 184 mg/dl 223 mg/dl 151 mg/dl Test 01/15/17 20:04 01/15/17 20:13 01/15/17 21:13 01/15/17 22:13 Sodium Level 139 mmol/L Potassium Level 3.5 mmol/L Chloride Level 102 mmol/L Carbon Dioxide Level 31 mmol/L Anion Gap 6.0 mmol/L Blood Urea Nitrogen 4 mg/dl Creatinine 0.63 mg/dl Est Creatinine Clear Calc Drug Dose 194.2 ml/min Estimated GFR () 149.0 Estimated GFR (Non- 128.6 BUN/Creatinine Ratio 6.3 Random Glucose 140 mg/dl Calcium Level 7.9 mg/dl Phosphorus Level 2.1 mg/dl Magnesium Level 2.0 mg/dl Bedside Glucose 145 mg/dl 115 mg/dl 102 mg/dl Test 01/15/17 23:17 01/16/17 00:14 01/16/17 00:20 01/16/17 01:24 Bedside Glucose 125 mg/dl 111 mg/dl 86 mg/dl Sodium Level 140 mmol/L Potassium Level 3.5 mmol/L Chloride Level 104 mmol/L Carbon Dioxide Level 29 mmol/L Anion Gap 7.0 mmol/L Blood Urea Nitrogen 3 mg/dl Creatinine 0.57 mg/dl Est Creatinine Clear Calc Drug Dose 214.7 ml/min Estimated GFR () > 150.0 Estimated GFR (Non- 134.0 BUN/Creatinine Ratio 5.3 Random Glucose 115 mg/dl Calcium Level 7.9 mg/dl Phosphorus Level 3.0 mg/dl Magnesium Level 2.1 mg/dl Test 01/16/17 01:50 01/16/17 02:26 01/16/17 02:58 01/16/17 04:04 Bedside Glucose 100 mg/dl 98 mg/dl 120 mg/dl 126 mg/dl Test 01/16/17 05:04 01/16/17 05:39 01/16/17 05:47 Bedside Glucose 133 mg/dl 173 mg/dl White Blood Count 6.20 K/uL Red Blood Count 4.12 M/uL Hemoglobin 11.6 g/dL Hematocrit 32.7 % Mean Corpuscular Volume 79.4 fL Mean Corpuscular Hemoglobin 28.2 pg Mean Corpuscular Hemoglobin Concent 35.5 g/dl RDW Standard Deviation 40.3 fL RDW Coefficient of Variation 14.1 % Platelet Count 186 K/uL Mean Platelet Volume 9.3 fL Venous Blood pH 7.46 Sodium Level 138 mmol/L Potassium Level 3.8 mmol/L Chloride Level 101 mmol/L Carbon Dioxide Level 27 mmol/L Anion Gap 10.0 mmol/L Blood Urea Nitrogen 3 mg/dl Creatinine 0.54 mg/dl Est Creatinine Clear Calc Drug Dose 227.1 ml/min Estimated GFR () > 150.0 Estimated GFR (Non- 137.0 BUN/Creatinine Ratio 5.0 Random Glucose 139 mg/dl Calcium Level 8.1 mg/dl Phosphorus Level 1.9 mg/dl Magnesium Level 2.2 mg/dl Resident Involvement: Resident Care Provided Care Provided: Adult Hospital Medicine
[2017-01-16] MEDS ORDERED: INSULIN GLARGINE SOLOSTAR 100 UNITS/ML 3 ML PEN SC ONE ×2 (08:15→21:00)
[2017-01-16] MEDS: INSULIN ASPART 100 UNITS/ML 3 ML PEN SC SCH ×6 (08:31→23:51)
[2017-01-16] MEDS: POT PHOSPHATE MONOBASIC W/ SOD TAB PO SCH ×4 (08:35→20:37)
[2017-01-16] MEDS: METOPROLOL TARTRATE 50 MG TAB PO SCH ×2 (08:35→16:57)
[2017-01-16] MEDS: BUPRENORPHINE HCL 8 MG SUBL SL SCH (08:35)
[2017-01-16] MEDS: NICOTINE 21 MG/24 HR TDSY TD SCH (08:36)
[2017-01-16] MEDS: ENOXAPARIN 40 MG/0.4 ML SYR SQ SCH (08:36)
--- NOTE | 2017-01-16 11:16 | Pharmacy Progress Note ---
Glycemic Control Progress Note Date of Service Jan 16, 2017. Scope Glycemic Pharmacist consulted for glycemic control to write orders per [facility] inpatient glycemic control protocol. Objective Accuchecks BSG (last 24hrs): Test 01/15/17 11:06 01/15/17 12:42 01/15/17 14:45 01/15/17 15:47 Bedside Glucose 247 mg/dl (70-99) 249 mg/dl (70-99) 215 mg/dl (70-99) Random Glucose 307 mg/dl (70-99) Test 01/15/17 16:01 01/15/17 17:07 01/15/17 18:02 01/15/17 19:17 Random Glucose 197 mg/dl (70-99) Bedside Glucose 184 mg/dl (70-99) 223 mg/dl (70-99) 151 mg/dl (70-99) Test 01/15/17 20:04 01/15/17 20:13 01/15/17 21:13 01/15/17 22:13 Random Glucose 140 mg/dl (70-99) Bedside Glucose 145 mg/dl (70-99) 115 mg/dl (70-99) 102 mg/dl (70-99) Test 01/15/17 23:17 01/16/17 00:14 01/16/17 00:20 01/16/17 01:24 Bedside Glucose 125 mg/dl (70-99) 111 mg/dl (70-99) 86 mg/dl (70-99) Random Glucose 115 mg/dl (70-99) Test 01/16/17 01:50 01/16/17 02:26 01/16/17 02:58 01/16/17 04:04 Bedside Glucose 100 mg/dl (70-99) 98 mg/dl (70-99) 120 mg/dl (70-99) 126 mg/dl (70-99) Test 01/16/17 05:04 01/16/17 05:39 01/16/17 05:47 01/16/17 07:29 Bedside Glucose 133 mg/dl (70-99) 173 mg/dl (70-99) 147 mg/dl (70-99) Random Glucose 139 mg/dl (70-99) Test 01/16/17 08:03 01/16/17 09:14 Bedside Glucose 169 mg/dl (70-99) 155 mg/dl (70-99) HbA1c: Test 01/13/17 08:00 Hemoglobin A1c 11.8 % (4.5-5.6) H Recent Pertinent Medications The patient is currently receiving: * IV insulin infusion per severe stress protocol, goal range 100-180mg/dL; 1 unit of SQ Novolog per 3 grams CHO consumed w/ meals Assessment & Plan ASSESSMENT: 01/14/17 * Patient presented w/ moderate-severe DKA yesterday (AG 27, bicarb < 5, pH 7.14 , BOHB 96, effective serum osmo ~288) * Insulin infusion started on admission. BSGs have trended down nicely and were in the upper 100's low 200's as of this AM and infusion was running at ~ 7.7units/hour. Insulin infusion rates are rather high for a type 1 diabetic, perhaps this is type 2 w/ severe stress? A1c of 11.8% indicates need for insulin therapy on discharge. in service educator to evaluate patient when mental status improves. * Latest set of labs shows AG acidosis is improving however he has not yet all criteria for transition to SQ (AG is still > 12, Bicab improved to 16, however patient is not yet tolerating a diet). * Plan is to continue the insulin drip, however begin to initiate some basal insulin as this will make the transition to SQ in the future easier. 01/15/17 * BSGs well controlled this AM and AG and Bicarb normalized this AM, however significant hypokalemia + hypophosphatemia resistant to IV replacement led to holding the IV insulin infusion until K and Phos recovering * Repeat PRP + Phos drawn ~5-6 hrs after stopping insulin infusion, K and Phos did recover w/ drip off and following aggressive repletion however the patient' s AG is now elevated and Bicarb again trending down and BSG > 300. As a result the insulin drip was restarted. * Insulin drips have averaged ~7-8 units / hr since the infusion began, and during most of that time the patient was NPO but receiving dextrose containing IVF's. Total daily insulin doses likely to be well in excess of 100 units. Dextrose has been removed from IVF's, perhaps slower insulin infusion rates will result as he still has poor appetite. Rough estimate of total daily insulin requirement ~190 units/day based upon infusion rates. 10/13/17 * Patient remained on IV insulin drip overnight. * Patient meets all criteria for transition to SQ this AM (AG closed, bicarb normalized, eating breakfast, etc.) and K+ normalized. * Insulin infusion has run at 2.5-3 units/hour overnight while fasting. IV insulin infusion rate is now ~50-60% less than it had been while on the dextrose containing IVF's. I anticipate the patient's basal needs to be ~60-75 units per day initially and total daily insulin dose to be ~120-140 units using data extrapolated from insulin infusion rates. The patient's insulin needs may continue to lessen over the next 24-48 hrs as insulin resistance typically does improve following DKA resolution. PLAN FOR INPATIENT GLYCEMIC CONTROL: * Continue IV insulin infusion at this time * Lantus 70 units SQ x 1 now * D/C the insulin drip ~ 6 hours after the 1st dose of Lantus given * Lantus 35 units SQ BID starting tomorrow AM; however this PM use the following scale to determine if an additional dose is needed: * BSG less than 140: 0 units * BSG greater than 140: give 10 units * Novolog SQ ACHS and at 0000, 0400 * Goal range: 120 - 150 mg/dL * Correction factor: 12 mg/dL/unit * Carb ratio: 1 unit per 4 grams CHO consumed w/ meals RECOMMENDATIONS FOR DISCHARGE: * Patient will require SQ insulin therapy on discharge. * Please note that the plan above was derived based on current level of insulin resistance and hospital stress. These recommendations are appropriate for inpatient admission only. Plan of care upon discharge will need to be reassessed to avoid potential outpatient hypo/hyperglycemia. Thank you.
[2017-01-16] MEDS: BOOST GLUCOSE CONTROL PO SCH ×2 (11:51→11:53)
[2017-01-16] MEDS: INSULIN REGULAR 250 UNITS in SODIUM CHLORIDE 0.9% 250ML 250 ML IV SCH (12:29)
[2017-01-16] MEDS ORDERED: [UNRECOGNIZED DRUG - REMARK] ONE (14:00)
--- NOTE | 2017-01-16 15:54 | Progress Note ---
Internal Med Progress Note Date of Service: Jan 16, 2017. Provider Documentation: SUBJECTIVE: sitting on the chair comfortably afebrile no nausea or abdominal pain had small bowel movement tolerating diet OBJECTIVE: Vital Signs-as noted below Exam: General-alert and awake. Not in distress ENT-normal hearing Neck-no neck masses Lungs-cta b/l no wheezing or crackles Heart-s1 and s2 heard regular rate and rhythm no murmurs Abdomen-soft bowel sounds present non tender no distension Extremities-no erythema, lower extremity edema present Neuro-alert and awake moves extremities Lab data as noted below. ASSESSMENT & PLAN: This is a 36yo M with a PMH of PTSD, anxiety, h/o TBI and GERD who presents with persistent malaise x 3 weeks. DKA: BG initially 606, ABG shows metabolic acidosis with a pH of 7.14, bicarb of <5. Elevated B-hydroxybutyrate and ketones in urine Anion gap on presentation 27 started on insulin drip and iv fluids as per DKA protocol anion gap closed transitioning to Lantus and iss appreciate critical care and pharmacy inputs Electrolyte abnormalities replaced f/u labs Leukocytosis: Elevated to ~23 normalized no obvious source of infection Chronic pain 2/2 TBI: H/o TBI while in [employer] in 2011 as per h and P:"Reports being transitioned from unknown narcotics to subutex in [address] Jiménez in clinic -Denies h/o narcotic drug abuse, IVDU" Hypertension: Denies formal diagnosis of HTN -Recently started on metoprolol, clonidine currently on Lopressor 50mg bid and clonidine 0.1mg hs will monitor DVT Ppx: SCDs Code status: FULL DISPOSITION close monitor in ICU to be determined Vital Signs: Date Time Temp Pulse Resp B/P (MAP) Pulse Ox O2 Delivery O2 Flow Rate FiO2 01/16/17 12:28 37.0 95 18 125/77 (93) 96 Room Air 01/16/17 12:00 Room Air 01/16/17 10:00 77 20 01/16/17 08:00 Room Air 01/16/17 08:00 99 Room Air 01/16/17 08:00 74 18 155/103 (120) 97 Room Air 01/16/17 06:00 97 18 141/85 (103) 100 Room Air 01/16/17 04:00 36.6 80 14 144/91 (108) 96 Room Air 01/16/17 04:00 98 Room Air 01/16/17 02:00 81 15 147/93 (111) 97 Room Air 01/16/17 00:00 36.9 82 19 111/70 (84) 95 Room Air 01/15/17 23:59 94 Room Air 01/15/17 22:00 81 16 126/75 (92) 99 Room Air 01/15/17 21:00 36.9 86 18 129/72 (91) 95 Room Air 01/15/17 20:00 Room Air 01/15/17 19:00 78 15 109/73 (85) 91 Room Air 01/15/17 18:00 84 16 122/73 (89) 91 Room Air 01/15/17 17:00 120 17 147/91 (109) 93 Room Air 01/15/17 16:45 100 18 161/88 (112) 100 Room Air 01/15/17 16:43 100 19 175/102 (126) 100 Room Air 01/15/17 16:40 96 19 209/119 (149) 96 Room Air 01/15/17 16:00 36.9 102 20 177/110 (132) 100 Room Air 01/15/17 16:00 Room Air Lab Results: Results Past 24 Hours Test 01/15/17 16:01 01/15/17 17:07 01/15/17 18:02 01/15/17 19:17 Range/Units Sodium Level 139 136-145 mmol/L Potassium Level 3.0 3.5-5.1 mmol/L Chloride Level 105 98-107 mmol/L Carbon Dioxide Level 23 21-32 mmol/L Anion Gap 11.0 3-11 mmol/L Blood Urea Nitrogen 5 7-18 mg/dl Creatinine 0.74 0.60-1.40 mg/dl Est Creatinine Clear Calc Drug Dose 165.3 ml/min Estimated GFR () 139.5 Estimated GFR (Non- 120.3 BUN/Creatinine Ratio 7.1 10-20 Random Glucose 197 70-99 mg/dl Calcium Level 8.1 8.5-10.1 mg/dl Phosphorus Level 0.9 2.5-4.9 mg/dl Bedside Glucose 184 223 151 70-99 mg/dl Test 01/15/17 20:04 01/15/17 20:13 01/15/17 21:13 10/12/17 22:13 Range/Units Sodium Level 139 136-145 mmol/L Potassium Level 3.5 3.5-5.1 mmol/L Chloride Level 102 98-107 mmol/L Carbon Dioxide Level 31 21-32 mmol/L Anion Gap 6.0 3-11 mmol/L Blood Urea Nitrogen 4 7-18 mg/dl Creatinine 0.63 0.60-1.40 mg/dl Est Creatinine Clear Calc Drug Dose 194.2 ml/min Estimated GFR () 149.0 Estimated GFR (Non- 128.6 BUN/Creatinine Ratio 6.3 10-20 Random Glucose 140 70-99 mg/dl Calcium Level 7.9 8.5-10.1 mg/dl Phosphorus Level 2.1 2.5-4.9 mg/dl Magnesium Level 2.0 1.8-2.4 mg/dl Bedside Glucose 145 115 102 70-99 mg/dl Test 01/15/17 23:17 01/16/17 00:14 01/16/17 00:20 01/16/17 01:24 Range/Units Bedside Glucose 125 111 86 70-99 mg/dl Sodium Level 140 136-145 mmol/L Potassium Level 3.5 3.5-5.1 mmol/L Chloride Level 104 98-107 mmol/L Carbon Dioxide Level 29 21-32 mmol/L Anion Gap 7.0 3-11 mmol/L Blood Urea Nitrogen 3 7-18 mg/dl Creatinine 0.57 0.60-1.40 mg/dl Est Creatinine Clear Calc Drug Dose 214.7 ml/min Estimated GFR () > 150.0 Estimated GFR (Non- 134.0 BUN/Creatinine Ratio 5.3 10-20 Random Glucose 115 70-99 mg/dl Calcium Level 7.9 8.5-10.1 mg/dl Phosphorus Level 3.0 2.5-4.9 mg/dl Magnesium Level 2.1 1.8-2.4 mg/dl Test 01/16/17 01:50 01/16/17 02:26 01/16/17 02:58 01/16/17 04:04 Range/Units Bedside Glucose 100 98 120 126 70-99 mg/dl Test 01/16/17 05:04 01/16/17 05:39 01/16/17 05:47 01/16/17 07:29 Range/Units Bedside Glucose 133 173 147 70-99 mg/dl White Blood Count 6.20 4.8-10.8 K/uL Red Blood Count 4.12 4.7-6.1 M/uL Hemoglobin 11.6 14.0-18.0 g/dL Hematocrit 32.7 42-52 % Mean Corpuscular Volume 79.4 80-100 fL Mean Corpuscular Hemoglobin 28.2 25-34 pg Mean Corpuscular Hemoglobin Concent 35.5 32-36 g/dl RDW Standard Deviation 40.3 36.4-46.3 fL RDW Coefficient of Variation 14.1 11.5-14.5 % Platelet Count 186 130-400 K/uL Mean Platelet Volume 9.3 7.4-10.4 fL Venous Blood pH 7.46 7.36-7.41 Sodium Level 138 136-145 mmol/L Potassium Level 3.8 3.5-5.1 mmol/L Chloride Level 101 98-107 mmol/L Carbon Dioxide Level 27 21-32 mmol/L Anion Gap 10.0 3-11 mmol/L Blood Urea Nitrogen 3 7-18 mg/dl Creatinine 0.54 0.60-1.40 mg/dl Est Creatinine Clear Calc Drug Dose 227.1 ml/min Estimated GFR () > 150.0 Estimated GFR (Non- 137.0 BUN/Creatinine Ratio 5.0 10-20 Random Glucose 139 70-99 mg/dl Calcium Level 8.1 8.5-10.1 mg/dl Phosphorus Level 1.9 2.5-4.9 mg/dl Magnesium Level 2.2 1.8-2.4 mg/dl Test 01/16/17 08:03 01/16/17 09:14 01/16/17 11:39 01/16/17 12:09 Range/Units Bedside Glucose 169 155 98 109 70-99 mg/dl Test 01/16/17 13:11 Range/Units Bedside Glucose 137 70-99 mg/dl
[2017-01-16] MEDS: CLONIDINE HCL 0.1 MG TAB PO SCH (16:56)
[2017-01-17] VITALS (9 sets, daily range): BP systolic 121–138; BP diastolic 74–89; PULSE 72–98; TEMP 36.6–37.4; O2SAT 93–96
[2017-01-17] MEDS: POTASSIUM CHLORIDE IV SCH (02:47)
[2017-01-17] MEDS: SODIUM CHLORIDE 0.45% IV SCH (02:47)
[2017-01-17] MEDS: INSULIN ASPART 100 UNITS/ML 3 ML PEN SC SCH ×5 (04:00→20:47)
[2017-01-17 05:54] LABS: HEMATOCRIT 34.7 % (42-52); MEAN CELL VOLUME 81.6 fL (80-100); MEAN CORPUSCULAR HEMOGLOBIN 28.2 pg (25-34); MEAN CORPUSCULAR HGB CONC 34.6 g/dl (32-36); MEAN PLATELET VOLUME 9.6 fL (7.4-10.4); PLATELET COUNT 229 K/uL (130-400); RED BLOOD COUNT 4.25 M/uL (4.7-6.1); WHITE BLOOD COUNT 5.05 K/uL (4.8-10.8)
[2017-01-17 06:26] LABS: BLOOD UREA NITROGEN 4 mg/dl (7-18); CALCIUM 8.3 mg/dl (8.5-10.1); CARBON DIOXIDE 30 mmol/L (21-32); CHLORIDE 100 mmol/L (98-107); CREATININE 0.52 mg/dl (0.60-1.40); GLUCOSE 148 mg/dl (70-99); MAGNESIUM 2.3 mg/dl (1.8-2.4); POTASSIUM 4.3 mmol/L (3.5-5.1); SODIUM 138 mmol/L (136-145)
[2017-01-17 06:30] LABS: PHOSPHORUS 3.3 mg/dl (2.5-4.9)
[2017-01-17] MEDS: METOCLOPRAMIDE HCL INJ 5 MG/ML 2 ML VIAL IV PRN (07:07)
[2017-01-17] MEDS: POT PHOSPHATE MONOBASIC W/ SOD TAB PO SCH ×4 (07:09→20:36)
[2017-01-17] MEDS: METOPROLOL TARTRATE 50 MG TAB PO SCH ×2 (07:09→17:32)
[2017-01-17] MEDS: RANITIDINE HCL 150 MG TAB PO SCH ×2 (07:09→17:31)
[2017-01-17] MEDS: NICOTINE 21 MG/24 HR TDSY TD SCH ×2 (08:14→11:23)
[2017-01-17] MEDS: BUPRENORPHINE HCL 8 MG SUBL SL SCH (08:14)
[2017-01-17] MEDS: INSULIN GLARGINE SOLOSTAR 100 UNITS/ML 3 ML PEN SC SCH ×2 (08:21→20:44)
[2017-01-17] MEDS: ENOXAPARIN 40 MG/0.4 ML SYR SQ SCH (08:23)
--- NOTE | 2017-01-17 08:45 | Pharmacy Progress Note ---
Glycemic Control Progress Note Date of Service Jan 17, 2017. Scope Glycemic Pharmacist consulted for glycemic control to write orders per [facility] inpatient glycemic control protocol. Objective Accuchecks BSG (last 24hrs): Test 01/16/17 09:14 01/16/17 10:52 01/16/17 11:39 01/16/17 12:09 Bedside Glucose 155 mg/dl (70-99) 114 mg/dl (70-99) 98 mg/dl (70-99) 109 mg/dl (70-99) Test 01/16/17 13:11 01/16/17 16:29 01/16/17 20:25 01/16/17 23:47 Bedside Glucose 137 mg/dl (70-99) 136 mg/dl (70-99) 169 mg/dl (70-99) 123 mg/dl (70-99) Test 01/17/17 04:20 01/17/17 05:41 01/17/17 07:03 Bedside Glucose 124 mg/dl (70-99) 147 mg/dl (70-99) Random Glucose 148 mg/dl (70-99) HbA1c: Test 01/13/17 08:00 Hemoglobin A1c 11.8 % (4.5-5.6) H Recent Pertinent Medications The patient is currently receiving: * Basal insulin: Lantus 80 units total yesterday, ordered 35 units BID for today * Correctional Insulin: Novolog Correction per scale ACHS Goal Range: Low 120 mg/dL - High 150 mg/dL Correction Factor: 12 mg/dL/unit * Prandial insulin: Per carb ratio of 1 unit per 4 grams CHO consumed Outpatient Anti-Diabetic Meds n/a, newly diagnosed Assessment & Plan ASSESSMENT: * See progress note from 01/16 for more background info, in short: * Pt receiving SQ basal bolus insulin regimen for hyperglycemia secondary to newly diagnosed diabetes, baseline hyperglycemia - admitted with severe DKA * Patient is currently receiving an average of 100 units of insulin per day * 80 units of basal insulin * 20 units of prandial/correctional insulin - minimal po intake yesterday * BSGs ranging 123 - 169 mg/dl over the past 24hrs * Changes needed to insulin regimen: * AM Fasting BSG = 148 mg/dl. This is slightly above goal range for patient based on inpatient targets and co-morbidities. Therefore Basal insulin needs adjusted to continue total of 80 units of basal. * Post-prandial BSGs are in range therefore no changes needed to CF/CR PLAN FOR INPATIENT GLYCEMIC CONTROL: * Increase Lantus to 40 units BID * Continue Novolog ACHS, d/c overnight accuchecks * Goal 120-150 * CF 12 * CR 4 RECOMMENDATIONS FOR DISCHARGE: * Patient willing to do Lantus + Novolog on d/c * At this point, would recommend the following regimen: * Lantus 35 units BID * Novolog 8 units with meals - based upon basal requirements, would need more but po intake not the best at this time Thank you.
[2017-01-17] MEDS ORDERED: INSULIN GLARGINE SOLOSTAR 100 UNITS/ML 3 ML PEN SC SCH (09:00)
[2017-01-17] MEDS: BOOST GLUCOSE CONTROL PO SCH ×2 (12:05→12:06)
--- NOTE | 2017-01-17 16:54 | Progress Note ---
Internal Med Progress Note Date of Service: Jan 17, 2017. Provider Documentation: SUBJECTIVE: resting comfortably afebrile eating fine no sob no nausea no complaints OBJECTIVE: Vital Signs-as noted below Exam: General-alert and awake. Not in distress ENT-normal hearing Neck-no neck masses Lungs-cta b/l no wheezing or crackles Heart-s1 and s2 heard regular rate and rhythm no murmurs Abdomen-soft bowel sounds present non tender no distension Extremities-no erythema, Neuro-alert and awake moves extremities Lab data as noted below. ASSESSMENT & PLAN: This is a 36yo M with a PMH of PTSD, anxiety, h/o TBI and GERD who presents with persistent malaise x 3 weeks. DKA: BG initially 606, ABG shows metabolic acidosis with a pH of 7.14, bicarb of <5. Elevated B-hydroxybutyrate and ketones in urine Anion gap on presentation 27 started on insulin drip and iv fluids as per DKA protocol anion gap closed hba1c 11.8 currently on Lantus and iss appreciate critical care and pharmacy inputs will monitor Electrolyte abnormalities replaced f/u labs Leukocytosis: Elevated to ~23 normalized no obvious source of infection Chronic pain 2/2 TBI: H/o TBI while in [employer] in 2011 as per h and P:"Reports being transitioned from unknown narcotics to subutex in [address] Jiménez in clinic -Denies h/o narcotic drug abuse, IVDU" no complaints. Hypertension: Denies formal diagnosis of HTN -Recently started on metoprolol, clonidine currently on Lopressor 50mg bid and clonidine 0.1mg hs will monitor DVT Ppx: SCDs Code status: FULL DISPOSITION ambulate in hallways possible d/c in am Vital Signs: Date Time Temp Pulse Resp B/P (MAP) Pulse Ox O2 Delivery O2 Flow Rate FiO2 01/17/17 16:33 Room Air 01/17/17 15:10 37.4 93 18 136/85 (102) 96 Room Air 01/17/17 11:31 37.3 98 18 125/74 (91) 94 Room Air 01/17/17 10:00 37.1 95 18 126/88 (101) 94 Room Air 01/17/17 09:45 37.0 89 18 126/87 (100) 94 Room Air 01/17/17 09:34 36.9 84 18 121/81 (94) 94 Room Air 01/17/17 09:15 75 18 138/82 (100) 01/17/17 09:00 72 18 127/80 (96) 01/17/17 08:00 Room Air 01/17/17 07:25 36.6 98 18 127/89 (102) 93 Room Air 01/17/17 04:00 Room Air 01/17/17 00:00 Room Air 01/16/17 23:30 36.6 85 20 120/78 (92) 97 Room Air 01/16/17 22:00 Room Air 01/16/17 19:50 37.1 86 18 130/82 (98) 96 Room Air Lab Results: Results Past 24 Hours Test 01/16/17 20:25 01/16/17 23:47 01/17/17 04:20 01/17/17 05:41 Range/Units Bedside Glucose 169 123 124 70-99 mg/dl White Blood Count 5.05 4.8-10.8 K/uL Red Blood Count 4.25 4.7-6.1 M/uL Hemoglobin 12.0 14.0-18.0 g/dL Hematocrit 34.7 42-52 % Mean Corpuscular Volume 81.6 80-100 fL Mean Corpuscular Hemoglobin 28.2 25-34 pg Mean Corpuscular Hemoglobin Concent 34.6 32-36 g/dl RDW Standard Deviation 41.7 36.4-46.3 fL RDW Coefficient of Variation 14.0 11.5-14.5 % Platelet Count 229 130-400 K/uL Mean Platelet Volume 9.6 7.4-10.4 fL Venous Blood pH 7.45 7.36-7.41 Sodium Level 138 136-145 mmol/L Potassium Level 4.3 3.5-5.1 mmol/L Chloride Level 100 98-107 mmol/L Carbon Dioxide Level 30 21-32 mmol/L Anion Gap 8.0 3-11 mmol/L Blood Urea Nitrogen 4 7-18 mg/dl Creatinine 0.52 0.60-1.40 mg/dl Est Creatinine Clear Calc Drug Dose 235.9 ml/min Estimated GFR () > 150.0 Estimated GFR (Non- 139.1 BUN/Creatinine Ratio 7.0 10-20 Random Glucose 148 70-99 mg/dl Calcium Level 8.3 8.5-10.1 mg/dl Phosphorus Level 3.3 2.5-4.9 mg/dl Magnesium Level 2.3 1.8-2.4 mg/dl Test 01/17/17 07:03 01/17/17 11:50 01/17/17 16:22 Range/Units Bedside Glucose 147 145 138 70-99 mg/dl
[2017-01-17] MEDS: CLONIDINE HCL 0.1 MG TAB PO SCH (17:31)
[2017-01-18 05:50] LABS: MEAN CELL VOLUME 83.3 fL (80-100); MEAN CORPUSCULAR HEMOGLOBIN 28.4 pg (25-34); MEAN CORPUSCULAR HGB CONC 34.1 g/dl (32-36); MEAN PLATELET VOLUME 9.4 fL (7.4-10.4); PLATELET COUNT 257 K/uL (130-400); RED BLOOD COUNT 4.44 M/uL (4.7-6.1); WHITE BLOOD COUNT 5.55 K/uL (4.8-10.8)
[2017-01-18 06:17] LABS: BLOOD UREA NITROGEN 5 mg/dl (7-18); BUN/CREATININE RATIO 9.1 (10-20); CALCIUM 8.4 mg/dl (8.5-10.1); CARBON DIOXIDE 31 mmol/L (21-32); CHLORIDE 100 mmol/L (98-107); CREATININE 0.57 mg/dl (0.60-1.40); GLUCOSE 147 mg/dl (70-99); POTASSIUM 3.8 mmol/L (3.5-5.1); SODIUM 140 mmol/L (136-145)
[2017-01-18 06:26] LABS: PHOSPHORUS 4.1 mg/dl (2.5-4.9)
[2017-01-18 07:34] VITALS: BP 149/87; PULSE 92; TEMP 36.3; O2SAT 96
[2017-01-18] MEDS: BUPRENORPHINE HCL 8 MG SUBL SL SCH (07:38)
[2017-01-18] MEDS: NICOTINE 21 MG/24 HR TDSY TD SCH (07:38)
[2017-01-18] MEDS: ENOXAPARIN 40 MG/0.4 ML SYR SQ SCH (07:39)
[2017-01-18] MEDS: POT PHOSPHATE MONOBASIC W/ SOD TAB PO SCH ×2 (07:39→12:33)
[2017-01-18] MEDS: RANITIDINE HCL 150 MG TAB PO SCH (07:39)
[2017-01-18] MEDS: METOPROLOL TARTRATE 50 MG TAB PO SCH (07:39)
--- NOTE | 2017-01-18 08:13 | Pharmacy Progress Note ---
Glycemic: Assessment & Plan Date of Service Jan 18, 2017. Assessment & Plan The patient is currently receiving 113 units of insulin per day. BSGs ranging 130 - 192 mg/dl over the past 24hrs. * Basal insulin: Lantus 40 units every 12 hours * Correctional Insulin: Novolog Correction per scale ACHS Goal Range: Low 120 mg/dL - High 150 mg/dL Correction Factor: 12 mg/dL/unit * Prandial insulin: Per carb ratio of 1 unit per 4 grams CHO consumed BSGs look great. Will start to transition to once daily Lantus in preparation for discharge. 80 units today at 1600 then 80 units qHS. Pharmacy will continue to monitor patient daily and write orders per [facility] inpatient glycemic control protocol. Thanks. DISCHARGE RECOMMENDATIONS: * Current dose is heavily weighted on basal insulin but CHO intake w/ most meals currently only ~30 gm. In addition, current CR, which is appropriate for this high of an insulin dose, seems to work well * Updated d/c recs: * Lantus 70 units qHS - if being discharged today, would recommend patient take this with dinner today and then qHS starting tomorrow * Novolog 10 units with each meal - this will most likely need adjusted up if patient's CHO consumption is much higher as an outpt
[2017-01-18] MEDS: INSULIN ASPART 100 UNITS/ML 3 ML PEN SC SCH ×2 (08:44→12:36)
[2017-01-18] MEDS: BOOST GLUCOSE CONTROL PO SCH (12:32)
[2017-01-18] MEDS ORDERED: ESOM20CA PO (14:11)
[2017-01-18] MEDS ORDERED: NICO21DI4 TD (14:11)
[2017-01-18] MEDS ORDERED: INSDGIPEN SC (14:11)
[2017-01-18] MEDS ORDERED: NVLGI/PEN SC (14:11)
--- NOTE | 2017-01-18 14:22 | Discharge Instructions ---
Discharge Instructions Date of Service Jan 18, 2017. Admission Reason for Admission: DKA Discharge Discharge Diagnosis / Problem: DKA. NEW ONSET DIABETES, ELECTROLYTE ABNORMALITIES Discharge Goals Goal(s): Decrease discomfort, Improve function Activity Recommendations Activity Limitations: resume your previous activity . Instructions / Follow-Up Instructions / Follow-Up FOLLOWUP WITH FAMILY DOCTOR Dr. Jason Bui on ThursdayJanuary 26 at 9:10 am. *This office is located in [address] of [facility] [employer] [facility] next to this hospital. The office phone number is [phone]."[facility]". NEW MEDICATIONS: LANTUS ( LONG ACTING INSULIN) 70 UNITS SUBCUTANEOUS ONE TIME DAILY BEFORE GOING TO SLEEP. NOVOLOG ( SHORT ACTING INSULIN) 10 UNITS SUBCUTANEOUS THREE TIMES DAILY WITH MEALS. SKIP THE SHORT ACTING INSULIN IF SKIPPING MEALS. TO CHECK BLOOD SUGARS FOUR TIMES DAILY BEFORE BREAKFAST, LUNCH AND DINNER AND BEFORE GOING TO SLEEP AND NOTE THE READINGS IN A LOG BOOK AND SHOW THE READINGS TO FAMILY DOCTOR FOR FURTHER ADJUSTMENTS OF INSULIN REGIMEN. CALL FAMILY DOCTOR IF BLOOD SUGARS ABOVE 350 OR LESS THAN 80. TO TAKE SUGAR OR ORANGE JUICE IF BLOOD SUGARS LESS THAN 80 AND CALL FAMILY DOCTOR. BLOOD PRESSURE FOLLOWUP WITH FAMILY DOCTOR. Current Hospital Diet Patient's current hospital diet: Diabetes Type 2 Diet Discharge Diet Recommended Diet: Diabetes Type 2 Diet Pending Studies Studies pending at discharge: no Laboratory Results Hemoglobin A1c Test 01/13/17 08:00 Range/Units Estimated Average Glucose 292 mg/dl Hemoglobin A1c 11.8 H 4.5-5.6 % Medical Emergencies . Who to Call and When: Medical Emergencies: If at any time you feel your situation is an emergency, please call 911 immediately. . Non-Emergent Contact Non-Emergency issues call your: Primary Care Provider . . "Provider Documentation" section prepared by Patricio Butler. . VTE Core Measure Inpt VTE Proph given/why not?: SCD's
[2017-01-18 14:25] VITALS: BP 149/87; PULSE 92; TEMP 36.3; O2SAT 96
[2017-01-18] MEDS ORDERED: INSULIN GLARGINE SOLOSTAR 100 UNITS/ML 3 ML PEN SC SCH (16:00)
--- NOTE | 2017-01-18 16:14 | Progress Note ---
Internal Med Progress Note Date of Service: Jan 18, 2017. Provider Documentation: SUBJECTIVE: resting comfortably ambulating ok no sob no nausea ok for discharge OBJECTIVE: Vital Signs-as noted below Exam: General-alert and awake. Not in distress ENT-normal hearing Neck-no neck masses Lungs-cta b/l no wheezing or crackles Heart-s1 and s2 heard regular rate and rhythm no murmurs Abdomen-soft bowel sounds present non tender no distension Extremities-no erythema, Neuro-alert and awake moves extremities Lab data as noted below. ASSESSMENT & PLAN: This is a 36yo M with a PMH of PTSD, anxiety, h/o TBI and GERD who presents with persistent malaise x 3 weeks. DKA: BG initially 606, ABG shows metabolic acidosis with a pH of 7.14, bicarb of <5. Elevated B-hydroxybutyrate and ketones in urine Anion gap on presentation 27 started on insulin drip and iv fluids as per DKA protocol anion gap closed hba1c 11.8 currently on Lantus and iss appreciate critical care and pharmacy inputs discharged on lantus 70units q hs and NovoLog 10units with each meals close followup with pcp Electrolyte abnormalities replaced f/u labs Leukocytosis: Elevated to ~23 normalized no obvious source of infection Chronic pain 2/ TBI: H/o TBI while in [employer] in 2011 as per h and P:"Reports being transitioned from unknown narcotics to subutex in [address] Jiménez in clinic -Denies h/o narcotic drug abuse, IVDU" no complaints. Hypertension: Denies formal diagnosis of HTN -Recently started on metoprolol, clonidine currently on Lopressor 50mg bid and clonidine 0.1mg hs f/u with pcp may need to be on ACEI or ARB for renal protection discharged home Vital Signs: Date Time Temp Pulse Resp B/P (MAP) Pulse Ox O2 Delivery O2 Flow Rate FiO2 01/18/17 14:25 36.3 92 18 96 Room Air 01/18/17 08:15 Room Air 01/18/17 07:34 36.3 92 18 149/87 (107) 96 Room Air 01/17/17 23:59 Room Air 01/17/17 22:51 37.1 87 20 125/79 (94) 95 Room Air 01/17/17 20:00 Room Air 01/17/17 16:33 Room Air Lab Results: Results Past 24 Hours Test 01/17/17 16:22 01/17/17 19:52 01/18/17 05:25 01/18/17 07:43 Range/Units Bedside Glucose 138 192 130 70-99 mg/dl White Blood Count 5.55 4.8-10.8 K/uL Red Blood Count 4.44 4.7-6.1 M/uL Hemoglobin 12.6 14.0-18.0 g/dL Hematocrit 37.0 42-52 % Mean Corpuscular Volume 83.3 80-100 fL Mean Corpuscular Hemoglobin 28.4 25-34 pg Mean Corpuscular Hemoglobin Concent 34.1 32-36 g/dl RDW Standard Deviation 41.3 36.4-46.3 fL RDW Coefficient of Variation 13.7 11.5-14.5 % Platelet Count 257 130-400 K/uL Mean Platelet Volume 9.4 7.4-10.4 fL Sodium Level 140 136-145 mmol/L Potassium Level 3.8 3.5-5.1 mmol/L Chloride Level 100 98-107 mmol/L Carbon Dioxide Level 31 21-32 mmol/L Anion Gap 9.0 3-11 mmol/L Blood Urea Nitrogen 5 7-18 mg/dl Creatinine 0.57 0.60-1.40 mg/dl Est Creatinine Clear Calc Drug Dose 215.2 ml/min Estimated GFR () > 150.0 Estimated GFR (Non- 134.0 BUN/Creatinine Ratio 9.1 10-20 Random Glucose 147 70-99 mg/dl Calcium Level 8.4 8.5-10.1 mg/dl Phosphorus Level 4.1 2.5-4.9 mg/dl Test 01/18/17 11:53 Range/Units Bedside Glucose 136 70-99 mg/dl
--- NOTE | 2017-01-18 17:36 | Discharge Summary ---
Discharge Summary Date of Service Jan 18, 2017. Discharge Summary Admission Date: Jan 13, 2017 at 12:45 Discharge Date: Jan 18, 2017 Discharge Disposition: Home Principal Diagnosis: DKA NEW ONSET DM ELECTROLYTE ABNORMALITIES Secondary Diagnoses/Problems: 1) Anxiety and depression Status: Chronic (2) GERD (gastroesophageal reflux disease) Status: Chronic Procedures: CXR: No active disease in the chest. Consultations: CRITICAL CARE Medication Reconciliation New Medications: Esomeprazole Magnesium (Nexium) 20 Mg Cap 1 CAP PO DAILY for 30 Days, #30 CAP 2 Refills Insulin Aspart (Novolog Flexpen) 100 Units/Ml Inj 10 UNITS SC AC, #1 2 Refills Insulin Glargine (Lantus Solostar) 100 Unit/Ml Inj 70 UNITS SC HS, #1 PEN 2 Refills Nicotine (Nicoderm Cq) 21 Mg/24 Hr Dis 1 PATCH TD QAM for 30 Days Continued Medications: Buprenorphine Hcl (Subutex) 8 Mg Sub 3 TAB SL DAILY for 28 Days, #84 TAB Clonidine Hcl (Catapres) 0.1 Mg Tab 1 TAB PO HS for 30 Days, #30 TAB 1 Refill Metoprolol Tartrate (Metoprolol Tartrate) 50 Mg Tab 50 MG PO BID Discontinued Medications: Ranitidine Hcl (Zantac) 150 Mg Tab 150 MG PO DAILY PRN for GI Upset, TAB Admission Information HPI (per Admitting provider): This is a 36yo M with a PMH of PTSD, anxiety, h/o TBI and GERD who presents with persistent malaise x 3 weeks. Patient initially started to experience malaise and myalgias three weeks ago and assumed that he had the flu. One week later, patient started to experience persistent nausea and vomiting as well as some dyspnea on exertion. Associated symptoms include polydipsia, polyuria, diaphoresis. For the past 4-5 days, patient has become increasingly sick but refused to come to the hospital, per mom. Has not been able to keep any fluid or food down for the past 4 days and has noticed he is "breathing fast and hard ". This morning, patient' s Mom found him to be lethargic and barely responsive so she called EMS. Has been taking aspirin and ibuprofen daily for chronic pain. Denies any fever, chills, lightheadedness, confusion, palpitations, chest pain, abdominal pain, constipation, diarrhea. Denies PMH of DM, heart disease, HTN. Has been taking Subutex since 2013 for pain control s/p TBI (2011). Denies any IVDU. Denies recent foreign travel. In ER was found to have a blood glucose of 606. Is alert and oriented to person and place but not time. Per Mom, this is his baseline s/p TBI in 2011. Physical Exam (per Admitting): General Appearance: + moderate distress, + obese Head: normocephalic, atraumatic Eyes: normal inspection, PERRL, sclerae normal ENT: normal ENT inspection (Dry mucous membranes ), hearing grossly normal Neck: supple, no adenopathy, trachea midline, + pertinent finding (R IJ central venous catheter in place) Respiratory/Chest: chest non-tender, lungs clear, + respiratory distress ( Kussmaul breathing), + accessory muscle use Cardiovascular: no murmur, + tachycardia Abdomen/GI: non tender, soft, no organomegaly Extremities/Musculoskelatal: no calf tenderness, no pedal edema, non-tender , + pertinent finding (Mottled appearance bilaterally on LE. Cool to touch. ) Neurologic/Psych: no motor/sensory deficits, alert (Oriented to person and place, not to time), normal mood/affect Skin: no rash, + mottled Hospital Course This is a 36yo M with a PMH of PTSD, anxiety, h/o TBI and GERD who presents with persistent malaise x 3 weeks. DKA: BG initially 606, ABG shows metabolic acidosis with a pH of 7.14, bicarb of <5. Elevated B-hydroxybutyrate and ketones in urine Anion gap on presentation 27 started on insulin drip and iv fluids as per DKA protocol anion gap closed hba1c 11.8 currently on Lantus and iss appreciate critical care and pharmacy inputs discharged on lantus 70units q hs and NovoLog 10units with each meals close followup with pcp Electrolyte abnormalities replaced f/u labs Leukocytosis: Elevated to ~23 normalized no obvious source of infection Chronic pain 2/2 TBI: H/o TBI while in [employer] in 2011 as per h and P:"Reports being transitioned from unknown narcotics to subutex in [address] Jiménez in clinic -Denies h/o narcotic drug abuse, IVDU" no complaints. Hypertension: Denies formal diagnosis of HTN -Recently started on metoprolol, clonidine currently on Lopressor 50mg bid and clonidine 0.1mg hs f/u with pcp may need to be on ACEI or ARB for renal protection discharged home Total time spent on discharge = 40MINUTES This includes examination of the patient, discharge planning, medication reconciliation, and communication with other providers. Discharge Instructions Discharge Instructions Date of Service Jan 18, 2017. Admission Reason for Admission: DKA Discharge Discharge Diagnosis / Problem: DKA. NEW ONSET DIABETES, ELECTROLYTE ABNORMALITIES Discharge Goals Goal(s): Decrease discomfort, Improve function Activity Recommendations Activity Limitations: resume your previous activity . Instructions / Follow-Up Instructions / Follow-Up FOLLOWUP WITH FAMILY DOCTOR Dr. Jason Bui on ThursdayJanuary 26 at 9:10 am. *This office is located in [address] of The [facility] [employer] [facility] - big building next to this hospital. The office phone number is [phone]."[facility]". NEW MEDICATIONS: LANTUS ( LONG ACTING INSULIN) 70 UNITS SUBCUTANEOUS ONE TIME DAILY BEFORE GOING TO SLEEP. NOVOLOG ( SHORT ACTING INSULIN) 10 UNITS SUBCUTANEOUS THREE TIMES DAILY WITH MEALS. SKIP THE SHORT ACTING INSULIN IF SKIPPING MEALS. TO CHECK BLOOD SUGARS FOUR TIMES DAILY BEFORE BREAKFAST, LUNCH AND DINNER AND BEFORE GOING TO SLEEP AND NOTE THE READINGS IN A LOG BOOK AND SHOW THE READINGS TO FAMILY DOCTOR FOR FURTHER ADJUSTMENTS OF INSULIN REGIMEN. CALL FAMILY DOCTOR IF BLOOD SUGARS ABOVE 350 OR LESS THAN 80. TO TAKE SUGAR OR ORANGE JUICE IF BLOOD SUGARS LESS THAN 80 AND CALL FAMILY DOCTOR. BLOOD PRESSURE FOLLOWUP WITH FAMILY DOCTOR. Current Hospital Diet Patient's current hospital diet: Diabetes Type 2 Diet Discharge Diet Recommended Diet: Diabetes Type 2 Diet Pending Studies Studies pending at discharge: no Laboratory Results Hemoglobin A1c Test 01/13/17 08:00 Range/Units Estimated Average Glucose 292 mg/dl Hemoglobin A1c 11.8 H 4.5-5.6 % Medical Emergencies . Who to Call and When: Medical Emergencies: If at any time you feel your situation is an emergency, please call 911 immediately. . Non-Emergent Contact Non-Emergency issues call your: Primary Care Provider . . "Provider Documentation" section prepared by Patricio Butler. . VTE Core Measure Inpt VTE Proph given/why not?: SCD's
== END 2017-01-18 15:00 | disposition home or self-care (01) | DRG 638 ==
LOC: EDBD 08:23 → C.EDA 08:24 → C.MSICU 12:45 → ENRESERV 12:50 → CANRESERV 01-16 08:07 → ENRESERV 01-16 09:35 → C.MED 01-16 11:31
PROVIDERS: ADMIT Hospitalist; ATTEND Internal Medicine
PROC: 05HM33Z Insertion of Infusion Device into Right Internal Jugular Vein, Percutaneous Approach (ICD-10-PCS; principal; 2017-01-13)
DX: E11.10 Type 2 diabetes mellitus with ketoacidosis without coma (principal); E87.2 Acidosis; K21.9 Gastro-esophageal reflux disease without esophagitis; G89.29 Other chronic pain; I10 Essential (primary) hypertension; D72.829 Elevated white blood cell count, unspecified; F43.10 Post-traumatic stress disorder, unspecified; F17.220 Nicotine dependence, chewing tobacco, uncomplicated; E87.6 Hypokalemia; Z79.899 Other long term (current) drug therapy; Z87.820 Personal history of traumatic brain injury

== ENCOUNTER 2017-08-24 19:49 | Emergency (ER) | payer OTHER ==
[~2017-08-24] VITALS: Ht 172.7 cm; Wt 93.8 kg
[~2017-08-24 19:49] MED LIST changes: +BUPR8SUB19 SL; +CTP/1 PO; +ESOM20CA PO; +INSDGIPEN SC; +LPR50X PO; +NICO21DI4 TD; +NVLGI/PEN SC; -RANI150T3 PO
[2017-08-24 19:57] VITALS: TEMP 36.8; Ht 172.7 cm; Wt 93.8 kg
[2017-08-24] MEDS ORDERED: SODIUM CHLORIDE 0.9% 1000ML 1,000 ML IV STA ×2 (20:33→21:38)
--- NOTE | 2017-08-24 20:38 | EMERGENCY ROOM VISIT NOTE ---
History Report prepared by Srinivasa: Candy Camargo Under the Supervision of: Dr. Rm Larson M.D. First contact with patient: 20:19 Chief Complaint: NEURO SYMPTOMS Stated Complaint: PASSING OUT,EYES ROLLING TO BACK OF HEAD,MEM LOSS History of Present Illness The patient is a 37 year old male who presents to the Emergency Room with complaints of neurologic symptoms beginning 4-5 days ago. The patient states that he feels like "someone is messing with him." Per family, the patient also passed out tonight. Per family, the patient was hyperventilating before he passed out and his family states that the patient's eyes rolled to the back of his head. He denies having a headache. Per family, the patient is a type II diabetic, and reports that the patient's sugar has been fine recently. Per family, the patient has barely been eating or drinking over the last five days. The patient reports medical marijuana use, but denies other drug or alcohol use. The patient reports that he has PTSD but that he has never been admitted to the hospital for it. He denies a history of liver problems. Source of History: patient, family Onset: 4-5 days ago Position: other (generalized ) Quality: other (neurologic symptoms) Associated Symptoms: No headache Note: additional symptom: passing out Review of Systems See HPI for pertinent positives & negatives. A total of 10 systems reviewed and were otherwise negative. Past Medical & Surgical Medical Problems: (1) Anxiety and depression (2) GERD (gastroesophageal reflux disease) (3) H/O traumatic brain injury (4) Type II diabetes mellitus Family History Cancer Depression Rheumatoid arthritis Social History Smoking Status: Never Smoker Alcohol Use: none Marital Status: single Housing Status: lives alone Occupation Status: unemployed Current/Historical Medications Scheduled Buprenorphine Hcl (Subutex), 3 TAB SL DAILY Clonidine Hcl (Catapres), 1 TAB PO HS Esomeprazole Magnesium (Nexium), 1 CAP PO DAILY Insulin Aspart (Novolog Flexpen), 10 UNITS SC AC Insulin Glargine (Lantus Solostar), 70 UNITS SC HS Metformin Hcl (Glucophage), 1,000 MG PO DAILY Metoprolol Tartrate (Metoprolol Tartrate), 50 MG PO BID Nicotine (Nicoderm Cq), 1 PATCH TD QAM Ranitidine Hcl (Zantac), 150 MG PO DAILY Allergies Coded Allergies: No Known Allergies (Unverified , 08/24/17) Physical Exam Vital Signs Date Time Temp Pulse Resp B/P (MAP) Pulse Ox O2 Delivery O2 Flow Rate FiO2 08/24/17 23:29 72 15 151/80 98 08/24/17 22:59 69 18 153/92 97 Room Air 08/24/17 21:47 64 18 176/106 99 Room Air 08/24/17 21:06 74 18 150/94 96 Room Air 89 121/80 105 138/89 08/24/17 21:05 74 18 150/94 97 Room Air 08/24/17 20:40 68 08/24/17 19:57 36.8 82 16 135/90 97 Room Air Physical Exam GENERAL: Patient is well appearing and in no acute distress. EYES: No scleral icterus, unremarkable pupils. ENT: Mucous membranes moist, no nasal congestion. NECK: No masses appreciated, no meningismus, trachea is midline. RESPIRATORY: No dyspnea. Clear to auscultation and equal bilaterally. No wheeze , no rhonchi. CARDIOVASCULAR: Regular rate and rhythm. No murmurs, rubs, gallops appreciated. GASTROINTESTINAL: Abdomen soft, nontender, no peritonitis. Bowel sounds positive. No masses appreciated. BACK: No midline tenderness, no CVA tenderness EXTREMITIES: Normal motion all extremities, no cyanosis, no edema. NEUROLOGIC: Alert and oriented, no acute motor or sensory deficits, no focal weakness, cranial nerves grossly intact. SKIN: No rash, no jaundice, no diaphoresis. Medical Decision & Procedures ER Provider Diagnostic Interpretation: Radiology results and stated below per my review and radiologist interpretation: CHEST ONE VIEW PORTABLE HISTORY: 37 years-old Male AMS acutely altered mental status COMPARISON: Chest radiograph 01/13/2017 TECHNIQUE: Portable AP view of the chest FINDINGS: The cardiomediastinal and hilar silhouettes are within normal limits. There is no pneumothorax, pleural effusion, focal airspace consolidation or overt pulmonary edema. The bones of the chest appear grossly intact. IMPRESSION: No acute process. The above report was generated using voice recognition software. It may contain grammatical, syntax or spelling errors. Electronically signed by: Irineo Martinez M.D. 08/24/2017 8:59 PM Dictated Date/Time: 08/24/2017 8:58 PM HEAD WITHOUT CONTRAST (CT) CLINICAL HISTORY: 37 years-old Male with AMS. Acutely altered mental status TECHNIQUE: Multiple axial CT images of the head were obtained without contrast. A dose lowering technique was utilized adhering to the principles of ALARA. CT DOSE: 537.48 mGy.cm COMPARISON: None. FINDINGS: No acute intracranial hemorrhage, midline shift, intracranial mass, hydrocephalus, territorial ischemia or abnormal extra-axial collection. The calvarium is intact. The paranasal sinuses, mastoid air cells, and middle ear cavities are clear. IMPRESSION: No acute intracranial abnormality. The above report was generated using voice recognition software. It may contain grammatical, syntax or spelling errors. Electronically signed by: Irineo Martinez M.D. 08/24/2017 9:05 PM Dictated Date/Time: 08/24/2017 9:03 PM Laboratory Results 08/24/17 20:45 Red Blood Count 6.08, Mean Corpuscular Volume 77.0, Mean Corpuscular Hemoglobin 28.0, Mean Corpuscular Hemoglobin Concent 36.3, Mean Platelet Volume 9.1, Neutrophils (%) (Auto) 70.5, Lymphocytes (%) (Auto) 21.2, Monocytes (%) (Auto) 7.9, Eosinophils (%) (Auto) 0.0, Basophils (%) (Auto) 0.1, Neutrophils # (Auto) 9.61, Lymphocytes # (Auto) 2.89, Monocytes # (Auto) 1.07, Eosinophils # (Auto) 0.00, Basophils # (Auto) 0.02 08/24/17 20:45 Test 08/24/17 20:00 08/24/17 20:05 08/24/17 20:45 Bedside Glucose 119 mg/dl (70-99) Urine Opiates Screen NEG (NEG) Urine Methadone, Qualitative NEG (NEG) Urine Barbiturates NEG (NEG) Urine Phencyclidine (PCP) Level NEG (NEG) Ur Amphetamine/Methamphetamine NEG (NEG) MDMA (Ecstasy) Screen NEG (NEG) Urine Benzodiazepines Screen NEG (NEG) Urine Cocaine Metabolite NEG (NEG) Urine Marijuana (THC) POS (NEG) White Blood Count 13.63 K/uL (4.8-10.8) Red Blood Count 6.08 M/uL (4.7-6.1) Hemoglobin 17.0 g/dL (14.0-18.0) Hematocrit 46.8 % (42-52) Mean Corpuscular Volume 77.0 fL (80-100) Mean Corpuscular Hemoglobin 28.0 pg (25-34) Mean Corpuscular Hemoglobin Concent 36.3 g/dl (32-36) Platelet Count 424 K/uL (130-400) Mean Platelet Volume 9.1 fL (7.4-10.4) Neutrophils (%) (Auto) 70.5 % Lymphocytes (%) (Auto) 21.2 % Monocytes (%) (Auto) 7.9 % Eosinophils (%) (Auto) 0.0 % Basophils (%) (Auto) 0.1 % Neutrophils # (Auto) 9.61 K/uL (1.4-6.5) Lymphocytes # (Auto) 2.89 K/uL (1.2-3.4) Monocytes # (Auto) 1.07 K/uL (0.11-0.59) Eosinophils # (Auto) 0.00 K/uL (0-0.5) Basophils # (Auto) 0.02 K/uL (0-0.2) RDW Standard Deviation 36.7 fL (36.4-46.3) RDW Coefficient of Variation 13.1 % (11.5-14.5) Immature Granulocyte % (Auto) 0.3 % Immature Granulocyte # (Auto) 0.04 K/uL (0.00-0.02) Prothrombin Time 11.5 SECONDS (9.0-12.0) Prothromb Time International Ratio 1.1 (0.9-1.1) Activated Partial Thromboplast Time 27.1 SECONDS (21.0-31.0) Partial Thromboplastin Ratio 1.0 Venous Blood pH 7.45 (7.36-7.41) Venous Blood Partial Pressure CO2 41 mmHg (38.0-50.0) Venous Blood Partial Pressure O2 26 mmHg Venous Blood HCO3 28 mmol/L Venous Blood Oxygen Saturation < 60.0 % Venous Blood Base Excess 3.2 mEq/L Anion Gap 9.0 mmol/L (3-11) Est Creatinine Clear Calc Drug Dose 121.9 ml/min Estimated GFR () 121.3 Estimated GFR (Non- 104.6 BUN/Creatinine Ratio 12.4 (10-20) Calcium Level 9.7 mg/dl (8.5-10.1) Total Bilirubin 0.8 mg/dl (0.2-1) Direct Bilirubin 0.2 mg/dl (0-0.2) Aspartate Amino Transf (AST/SGOT) 23 U/L (15-37) Alanine Aminotransferase (ALT/SGPT) 44 U/L (12-78) Alkaline Phosphatase 98 U/L (45-117) Troponin I < 0.015 ng/ml (0-0.045) C-Reactive Protein 1.03 mg/dl (0-0.29) Total Protein 9.4 gm/dl (6.4-8.2) Albumin 4.6 gm/dl (3.4-5.0) Ethyl Alcohol mg/dL < 3.0 mg/dl (0-3) Laboratory results as reviewed by me. Medications Administered Medications (Trade) Dose Ordered Sig/Merlin Route Start Time Stop Time Status Last Admin Dose Admin Sodium Chloride 1,000 ml @ 999 mls/hr Q1H1M STAT IV 08/24/17 20:33 08/24/17 21:33 DC 08/24/17 20:33 999 MLS/HR Sodium Chloride 1,000 ml @ 999 mls/hr Q1H1M STAT IV 08/24/17 21:38 08/24/17 22:38 DC 08/24/17 21:46 999 MLS/HR ECG Per My Interpretation Indication: other (neurologic symptoms ) Rate (beats per minute): 70 Rhythm: sinus rhythm Findings: T-wave inversion (Anterior, inferior, similar to T-wave inversions on ECG from 01/2017), no acute ischemic change, no ectopy, other (left ventricular hypertrophy) ED Course 2027: The patient was evaluated in room A11B. A complete history and physical exam was performed. 2132: I checked on the patient. He is acting normally, drinking fluids, feels fine, and wants to go home. I discussed doing more fluids and monitoring a bit longer. 2304: I checked on the patient. He states that he does not want to be here and that he wants to go home. He denies any symptoms at the moment. He states that the only reason he came in is because his mother made him. Discussed results and discharge instructions: He verbalized understanding and agreement. The patient is ready for discharge. Medical Decision 37 yr old male brought in by his mother because he was acting odd at home with hyperventilation and a syncope like episode in bed. He is denying symptoms now other than may be a bit of paranoia. He is not actively hallucination, has no suicidal/homicidal ideation and adamantly denies Depression. Admits PTSD history but states doing well. Odd story from mom but with possible syncope and these odd symptoms of reported hallucinations went ahead with CT head which was negative. Broad lab work=up negative. Drug screen negative other than expected Marijuana. No etoh. LFTs normal. > He has no evidence meningitis/ encephalitis by exam.. EKG abnormal but similar to one just last year. Trop negative. Not shob and normal vitals with no calf swelling nor PE/DVT risks thus I feel CTPE not indicated. Mild WBC elevation of uncertain etiology. CXR clear and UA clear thus seems more likely WBC is just stress/dehydration as he hasn't been eating well per mother last few days (though is drinking without issue here). With normal LFTs and no previous LFT issues nor other hallmark of cirrhosis I do not feel he requires ammonia level. Patient is adamant about going home. He has PCP appointment in just a few days. He and mother aware RTED at any time if worsening or other concerns. Head Trauma GCS Score: 15 Medication Reconcilliation Current Medication List: was personally reviewed by me Blood Pressure Screening Patient's blood pressure: Elevated blood pressure patient did not take his blood pressure medication Impression Primary Impression: Fatigue Additional Impression: Dehydration Scribe Attestation The scribe's documentation has been prepared under my direction and personally reviewed by me in its entirety. I confirm that the note above accurately reflects all work, treatment, procedures, and medical decision making performed by me. Departure Information Dispostion Home / Self-Care Referrals Jason Torre M.D. (PCP) Forms HOME CARE DOCUMENTATION FORM, IMPORTANT VISIT INFORMATION, WORK / SCHOOL INSTRUCTIONS Patient Instructions [facility] Additional Instructions Please follow up with our primary care provider. We are always here to help. Keep well hydrated and take your medications as prescribed. Return immediately or call 911 if further symptoms, passing out, fevers, headache, neck stiffness, difficulty breathing or other concerns. If you feel hallucinations are worsening or if you have other concerns return immediately or talk to your primary provider. Problem Qualifiers
[2017-08-24 20:56] LABS: BASO % 0.1 %; BASO ABS # 0.02 K/uL (0-0.2); HEMATOCRIT 46.8 % (42-52); IG# 0.04 K/uL (0.00-0.02); LYMPH % 21.2 %; LYMPH ABS # 2.89 K/uL (1.2-3.4); MEAN CORPUSCULAR HGB CONC 36.3 g/dl (32-36); MEAN PLATELET VOLUME 9.1 fL (7.4-10.4); MONO % 7.9 %; MONO ABS # 1.07 K/uL (0.11-0.59); NEUT % 70.5 %; NEUT ABS # 9.61 K/uL (1.4-6.5); PLATELET COUNT 424 K/uL (130-400); RED CELL DISTRIBUTION WIDTH CV 13.1 % (11.5-14.5); RED CELL DISTRIBUTION WIDTH SD 36.7 fL (36.4-46.3); WHITE BLOOD COUNT 13.63 K/uL (4.8-10.8)
--- NOTE | 2017-08-24 21:00 | DIAGNOSTIC IMAGING REPORT ---
CHEST ONE VIEW PORTABLE HISTORY: 37 years-old Male AMS acutely altered mental status COMPARISON: Chest radiograph 01/13/2017 TECHNIQUE: Portable AP view of the chest FINDINGS: The cardiomediastinal and hilar silhouettes are within normal limits. There is no pneumothorax, pleural effusion, focal airspace consolidation or overt pulmonary edema. The bones of the chest appear grossly intact. IMPRESSION: No acute process. The above report was generated using voice recognition software. It may contain grammatical, syntax or spelling errors. Electronically signed by: Irineo Martinez M.D. 08/24/2017 8:59 PM Dictated Date/Time: 08/24/2017 8:58 PM
[2017-08-24 21:06] LABS: INR 1.1 (0.9-1.1); PTT PATIENT 27.1 SECONDS (21.0-31.0)
--- NOTE | 2017-08-24 21:07 | DIAGNOSTIC IMAGING REPORT ---
HEAD WITHOUT CONTRAST (CT) CLINICAL HISTORY: 37 years-old Male with AMS. Acutely altered mental status TECHNIQUE: Multiple axial CT images of the head were obtained without contrast. A dose lowering technique was utilized adhering to the principles of ALARA. CT DOSE: 537.48 mGy.cm COMPARISON: None. FINDINGS: No acute intracranial hemorrhage, midline shift, intracranial mass, hydrocephalus, territorial ischemia or abnormal extra-axial collection. The calvarium is intact. The paranasal sinuses, mastoid air cells, and middle ear cavities are clear. IMPRESSION: No acute intracranial abnormality. The above report was generated using voice recognition software. It may contain grammatical, syntax or spelling errors. Electronically signed by: Irineo Martinez M.D. 08/24/2017 9:05 PM Dictated Date/Time: 08/24/2017 9:03 PM
[2017-08-24 21:18] LABS: ALBUMIN 4.6 gm/dl (3.4-5.0); ALKALINE PHOSPHATASE 98 U/L (45-117); ALT/SGPT 44 U/L (12-78); AST/SGOT 23 U/L (15-37); BLOOD UREA NITROGEN 12 mg/dl (7-18); CALCIUM 9.7 mg/dl (8.5-10.1); CARBON DIOXIDE 27 mmol/L (21-32); CREATININE 0.94 mg/dl (0.60-1.40); GLUCOSE 107 mg/dl (70-99); POTASSIUM 3.2 mmol/L (3.5-5.1); SODIUM 136 mmol/L (136-145); TOTAL PROTEIN 9.4 gm/dl (6.4-8.2)
[2017-08-24] MEDS ORDERED: METF-384 PO (23:06)
[2017-08-24] MEDS ORDERED: RANI150T3 PO (23:06)
[2017-08-24 23:29] VITALS: BP 151/80; PULSE 72; O2SAT 98
== END 2017-08-24 23:30 | disposition home or self-care (01) ==
LOC: C.EDB 19:50 → C.EDA 23:30
DX: R53.83 Other fatigue (principal); E86.0 Dehydration; K21.9 Gastro-esophageal reflux disease without esophagitis; E11.9 Type 2 diabetes mellitus without complications; Z79.4 Long term (current) use of insulin; Z86.59 Personal history of other mental and behavioral disorders; Z87.820 Personal history of traumatic brain injury; Z81.8 Family history of other mental and behavioral disorders

== ENCOUNTER 2021-11-23 06:09 | Inpatient (IN) ==
[2021-11-23] MEDS ORDERED: SODIUM CHLORIDE 0.9% 1000ML 1,000 ML IV SCH ×3 (06:30→09:00)
[2021-11-23] MEDS ORDERED: SODIUM CHLORIDE 0.9% 1000ML 1,000 ML IV ONE (06:46)
--- NOTE | 2021-11-23 06:55 | Emergency Department Note ---
History of Present Illness General Chief complaint: Hyperglycemia Stated complaint: DKA Time Seen by Provider: 11/23/21 06:32 History of Present Illness Provider complaint: Hyperglycemia Onset (ago): unknown Associated symptoms: + nausea/vomiting, + shortness of breath and + weakness; no chest pain, no cough, no fever/chills or no headaches 41-year-old male presents emergency department for hyperglycemia.Patient is a noncompliant diabetic male. Patient reports he has been feeling fatigued and short of breath. Patient blood sugar was extremely elevated. Patient states he does not remember the last time he took his medications. Family reported that the patient has not taken his insulin in the last week. Home Medications Medication Instructions Recorded Confirmed Type BUPRENORPHINE HCL (SUBUTEX) 3 tab sublingual DAILY 28 days #84 01/13/17 History tabs CLONIDINE HCL (CATAPRES) 1 tab PO HS 30 days #30 tabs 01/13/17 History Metoprolol Tartrate 50 mg PO BID ##0 01/13/17 History ESOMEPRAZOLE MAGNESIUM (NEXIUM) 1 cap PO DAILY 30 days #30 caps 01/18/17 Rx Insulin Aspart (NOVOLOG FLEXPEN) 10 unit SC AC ##1 01/18/17 Rx Insulin Glargine (Lantus Solostar) 70 unit SC HS #1 pen 01/18/17 Rx NICOTINE (NICODERM CQ) 1 patch transdermal QAM 30 days ##0 01/18/17 Rx METFORMIN HCL (GLUCOPHAGE) 1,000 mg PO DAILY #0 tabs 08/24/17 History Ranitidine Hcl (ZANTAC) 150 mg PO DAILY #0 tabs 08/24/17 History Allergies Allergy/AdvReac Type Severity Reaction Status Date / Time No Known Allergies Allergy Unverified 08/24/17 23:07 Past Med/Surg History Medical History (Updated 11/23/21 @ 11:08 by Rolly Curran MD) Acute encephalopathy Acute kidney injury Anxiety and depression DKA (diabetic ketoacidoses) GERD (gastroesophageal reflux disease) H/O traumatic brain injury No pertinent family history Sepsis Type II diabetes mellitus Surgical History No pertinent past surgical history Social History Smoking Status: Never smoker Feels Safe at Home: Yes Review of Systems A total of 10 systems reviewed and were otherwise negative Physical Exam Vital Signs Vital Signs - 24 hr 11/23/21 06:35 11/23/21 06:26 11/23/21 06:01 Temperature 36.7 C Temperature Source Oral Pulse Rate 144 H Pulse Rate from SpO2 Sensor Respiratory Rate 32 H 22 Respiratory Effort / Characteristics Labored Pursed Lip Short of Breath Labored Respiratory Pattern Kussmaul Blood Pressure 176/100 H Blood Pressure Mean 125 Pulse Oximetry 99 97 96 Oxygen Delivery Method Room Air Room Air Room Air Oxygen Flow Rate Sepsis Recent Fever Within 48 Hours No Sepsis New/Unexplained Change in Mental Status No Sepsis Action Taken by Nursing Physician Notified 11/23/21 07:00 11/23/21 06:40 11/23/21 06:56 Temperature Temperature Source Pulse Rate 142 H Pulse Rate from SpO2 Sensor 143 H Respiratory Rate 30 H 37 H Respiratory Effort / Characteristics Spontaneous Labored Respiratory Pattern Blood Pressure 176/108 H Blood Pressure Mean 130 Pulse Oximetry 100 Oxygen Delivery Method Room Air Room Air Oxygen Flow Rate Sepsis Recent Fever Within 48 Hours Sepsis New/Unexplained Change in Mental Status Sepsis Action Taken by Nursing 11/23/21 06:56 11/23/21 07:00 11/23/21 07:21 Temperature Temperature Source Pulse Rate 143 H 144 H Pulse Rate from SpO2 Sensor 143 H 142 H Respiratory Rate 24 34 H Respiratory Effort / Characteristics Respiratory Pattern Blood Pressure 167/110 H Blood Pressure Mean 129 Pulse Oximetry 96 95 Oxygen Delivery Method Room Air Room Air Oxygen Flow Rate Sepsis Recent Fever Within 48 Hours Sepsis New/Unexplained Change in Mental Status Sepsis Action Taken by Nursing 11/23/21 07:21 11/23/21 07:30 11/23/21 08:00 Temperature Temperature Source Pulse Rate 140 H Pulse Rate from SpO2 Sensor 140 H Respiratory Rate 34 H 32 H 30 H Respiratory Effort / Characteristics Labored Pursed Lip Short of Breath Labored Pursed Lip Short of Breath Respiratory Pattern Blood Pressure Blood Pressure Mean Pulse Oximetry 98 Oxygen Delivery Method Nasal Cannula Nasal Cannula Nasal Cannula Oxygen Flow Rate 3 3 3 Sepsis Recent Fever Within 48 Hours Sepsis New/Unexplained Change in Mental Status Sepsis Action Taken by Nursing 11/23/21 08:30 11/23/21 07:30 11/23/21 07:30 Temperature Temperature Source Pulse Rate 141 H Pulse Rate from SpO2 Sensor 139 H Respiratory Rate 30 H 13 Respiratory Effort / Characteristics Labored Pursed Lip Short of Breath Respiratory Pattern Blood Pressure 162/125 H Blood Pressure Mean 137 Pulse Oximetry 97 Oxygen Delivery Method Nasal Cannula Nasal Cannula Oxygen Flow Rate 3 3 Sepsis Recent Fever Within 48 Hours Sepsis New/Unexplained Change in Mental Status Sepsis Action Taken by Nursing 11/23/21 07:45 11/23/21 07:45 11/23/21 08:00 Temperature Temperature Source Pulse Rate 138 H 137 H Pulse Rate from SpO2 Sensor 138 H 137 H Respiratory Rate 34 H 29 H Respiratory Effort / Characteristics Respiratory Pattern Blood Pressure 133/105 H Blood Pressure Mean 114 Pulse Oximetry 100 99 Oxygen Delivery Method Oxygen Flow Rate 3 3 Sepsis Recent Fever Within 48 Hours Sepsis New/Unexplained Change in Mental Status Sepsis Action Taken by Nursing 11/23/21 08:00 11/23/21 08:15 11/23/21 08:15 Temperature Temperature Source Pulse Rate 136 H Pulse Rate from SpO2 Sensor 137 H Respiratory Rate 30 H Respiratory Effort / Characteristics Respiratory Pattern Blood Pressure 161/92 H 136/100 Blood Pressure Mean 115 112 Pulse Oximetry 100 Oxygen Delivery Method Nasal Cannula Oxygen Flow Rate 3 Sepsis Recent Fever Within 48 Hours Sepsis New/Unexplained Change in Mental Status Sepsis Action Taken by Nursing 11/23/21 08:30 11/23/21 08:30 Temperature Temperature Source Pulse Rate 137 H Pulse Rate from SpO2 Sensor 137 H Respiratory Rate 32 H Respiratory Effort / Characteristics Respiratory Pattern Blood Pressure 158/100 H Blood Pressure Mean 119 Pulse Oximetry 100 Oxygen Delivery Method Nasal Cannula Oxygen Flow Rate 3 Sepsis Recent Fever Within 48 Hours Sepsis New/Unexplained Change in Mental Status Sepsis Action Taken by Nursing Physical Exam GENERAL: Distressed. HENT: Exam performed. - Head: Normocephalic and atraumatic. - Right Ear: External ear normal. No mastoid tenderness. - Left Ear: External ear normal. No mastoid tenderness. - Mouth/Throat: The oropharynx is clear and moist. No trismus in the jaw. No dental abscesses or uvula swelling. No oropharyngeal exudate or tonsillar abscesses. EYES: Conjunctivae and EOM are normal. Pupils are equal, round, and reactive to light. Right eye exhibits no discharge. Left eye exhibits no discharge. No scleral icterus. NECK: Normal range of motion. Neck supple. No JVD present. No spinous process tenderness present. No carotid bruit present. No rigidity. No tracheal deviation and normal range of motion present. No Brudzinski's sign and no Kernig's sign noted. CV: Tachycardic rate, regular rhythm, normal heart sounds and intact distal pulses. There is no peripheral edema. Palpable radial pulses bue. PULM/CHEST: Tachypneic. Kussmaul breathing. Lungs are clear to auscultation bilaterally - Chest Wall: He exhibits no tenderness. ABD: The abdomen is soft and obese MUSC/SKEL: Normal range of motion. There is no peripheral edema, tenderness or d eformity. DP and PT signal bilateral lower extremities NEURO: Motor and sensation grossly intact. Course Course 0632: The patient was evaluated in room B6. A complete history and physical exam was performed Cardiac monitoring: An order was placed for continuous cardiac monitoring. The monitor shows a rate of 140 with sinus tachycardia rhythm Accu-Chek reading critically high. 2 L normal saline immediately started on the patient as there is high suspicion that the patient is DKA given his high blood sugar Kussmaul breathing and history that he has not been compliant with his insulin. 0739: Labs show leukocytosis of 31.4. Sodium 122. CO2 4. Anion gap 28. Creatinine 1.82. Glucose 790. Lactic acid 2.1. Procalcitonin mildly elevated 0.6. Troponin elevated 24. He is will be admitted to the [facility] hospitalist team for DKA. Insulin drip ordered for the patient. Administered Medications Insulin Human Regular 250 (units/ Sodium Chloride) 250 mls @ 10 mls/hr IV .Q24H [facility]; Protocol Stop: 12/23/21 07:29 Last Titration: 11/23/21 10:22 Dose: 12 units/hr, 12 mls/hr Documented By: ROEL Co-signed By: CCM Titration: 11/23/21 09:26 Dose: 12 units/hr, 12 mls/hr Documented By: ROEL Co-signed By: ENZO Admin: 11/23/21 08:08 Dose: 10 units/hr, 10 mls/hr Documented By: ROEL Co-signed By: OL Potassium Chloride/Sodium Chloride (1/2 Nss + 20meq Kcl 1000ml) 20 meq in 1,000 mls @ 250 mls/hr IV .Q4H ALONA Stop: 12/23/21 09:44 Last Infusion: 11/23/21 10:50 Dose: 250 mls/hr Documented By: Admin: 11/23/21 10:35 Dose: 125 mls/hr Documented By: ROEL Lactated Ringer's (Lr) 1,000 mls @ 999 mls/hr IV .Q1H1M ONE Stop: 11/23/21 11:56 Last Admin: 11/23/21 11:23 Dose: 999 mls/hr Documented By: JESS Insulin Aspart (Insulin Aspart Per Unit) 0 units SC ACHS ALONA Stop: 12/23/21 07:29 Last Admin: 11/23/21 11:45 Dose: Not Given Documented By: Admin: 11/23/21 08:10 Dose: Not Given Documented By: ROEL Co-signed By: CCM Discontinued Medications Sodium Chloride (Nss 1000ml) 1,000 mls @ 999 mls/hr IV .Q1H1M ALONA Stop: 11/23/21 07:30 Last Infusion: 11/23/21 08:04 Dose: 0 mls/hr Documented By: Admin: 11/23/21 07:04 Dose: 999 mls/hr Documented By: LINDA Sodium Chloride (Nss 1000ml) 1,000 mls @ 999 mls/hr IV .Q1H1M ONE Stop: 11/23/21 07:46 Last Infusion: 11/23/21 08:31 Dose: 0 mls/hr Documented By: Admin: 11/23/21 07:04 Dose: 999 mls/hr Documented By: LINDA Sodium Chloride (Nss 1000ml) 1,000 mls @ 125 mls/hr IV .Q8H ALONA Stop: 12/23/21 08:44 Last Infusion: 11/23/21 09:38 Dose: 0 mls/hr Documented By: Admin: 11/23/21 08:36 Dose: 125 mls/hr Documented By: ROEL Sodium Chloride (Nss 1000ml) 1,000 mls @ 125 mls/hr IV .Q8H ALONA Stop: 12/23/21 08:59 Last Admin: 11/23/21 08:54 Dose: Not Given Documented By: ROEL Piperacillin Sod/Tazobactam (Sod 3.375 gm/ Dextrose) 115 mls @ 230 mls/hr IV NOW STA; Protocol Stop: 11/23/21 11:38 Last Admin: 11/23/21 11:45 Dose: 230 mls/hr Documented By: JESS Miscellaneous (Stat Insulin Drip) 1 each N/A NOW STA Stop: 11/23/21 07:29 Last Admin: 11/23/21 10:36 Dose: Not Given Documented By: ROEL Sodium Bicarbonate (Sodium Bicarb 8.4% Inj 50 Meq/50 Ml Syr) Confirm Administered Dose 50 meq IV .STK-MED ONE Stop: 11/23/21 10:52 Last Admin: 11/23/21 11:00 Dose: 50 meq Documented By: JESS Critical Care Time Critical Care Time: Yes Total Critical Care Time: 67 I have personally spent greater than 67 minutes of critical care time in the direct management of this patient. This includes bedside care, interpretation of diagnostic studies, and testing, discussion with consultants, patient, and family members, and other required patient management activities. This 67 minutes is in excess of all separately billable procedures. Medical Decision Making Laboratory Data Result diagrams: 11/23/21 08:27 11/23/21 09:20 Lab Results 11/23/21 11/23/21 11/23/21 Range/Units 06:18 06:20 06:20 WBC (4.8-10.8) K/ul RBC (4.63-6.08) M/uL Hgb (14.0-18.0) g/dl Hct (40.1-51.0) % MCV (80.0-100.0) fL MCH (25.0-34.0) pg MCHC (32.0-36.0) g/dL RDW Std Deviation (36.4-46.3) fL RDW Coeff of Beata (11.5-14.5) % Plt Count (130-400) K/uL MPV (9.4-12.4) fL Immature Gran % (Auto) % Neut % (Auto) % Lymph % (Auto) % Davison % (Auto) % Eos % (Auto) % Baso % (Auto) % Neut # (Auto) (1.4-6.5) K/uL Lymph # (Auto) (1.2-3.4) K/uL Davison # (Auto) (0.24-0.82) K/uL Eos # (Auto) (0-0.50) K/uL Baso # (Auto) (0-0.2) K/uL Immature Gran # (Auto) (0.00-0.02) K/uL PT (9.0-12.0) Seconds INR (0.9-1.1) APTT (21.0-31.0) Seconds PTT Ratio ABG pCO2 (35-46) mmHg ABG pO2 (80-95) mmHg ABG HCO3 (19-24) mmol/L ABG O2 Saturation (90-95) % ABG Base Excess (-9-1.8) mEq/L Heath Test (Pos) VBG pH (7.36-7.41) VBG pCO2 (38-50) mmHg VBG pO2 mmHg VBG HCO3 mmol/L VBG O2 Saturation % VBG Base Excess mEq/L Oxygen Given Sodium (136-145) mmol/L Potassium (3.5-5.1) mmol/L Chloride (98-107) mmol/L Carbon Dioxide (21-32) mmol/L Anion Gap (3-11) BUN (6-23) mg/dl Creatinine (0.6-1.4) mg/dl Est Cr Clr Drug Dosing ml/min Est GFR ( Amer) ml/min Est GFR (Non-Af Amer) ml/min BUN/Creatinine Ratio (10-20) Glucose (70-99(Fasting)) mg/dl POC Glucose > 600 H* (70-99) mg/dl Estimat Average Glucose mg/dl Hemoglobin A1c (4.5-5.6) % Osmolality (280-300) mOsm/kg Lactate (0.4-2.0) mmol/L Calcium (8.5-10.1) mg/dl Phosphorus (2.5-4.9) mg/dl Magnesium (1.7-2.4) mg/dl Total Bilirubin (0.2-1.0) mg/dl AST (13-39) U/L ALT (7-52) U/L Alkaline Phosphatase (34-104) U/L Troponin I High Sens (0-20) pg/ml Total Protein (6.0-8.3) gm/dl Albumin (3.4-5.0) gm/dl Globulin (2.5-4.0) gm/dl Albumin/Globulin Ratio (0.9-2) Lipase (11-82) U/L Procalcitonin (0-0.5) ng/ml Urine Color Yellow Urine Appearance Clear (Clear) Urine pH 5.0 (4.5-7.5) Ur Specific [place] 1.027 (1.000-1.030) Urine Protein 2+ H (Negative) Urine Glucose (UA) 3+ H (Negative) Urine Ketones 3+ H (Negative) Urine Blood 2+ H (Negative) Urine Nitrite Negative (Negative) Urine Bilirubin Negative (Negative) Urine Urobilinogen Negative (Negative) Ur Leukocyte Esterase Negative (Negative) Urine WBC (Auto) 1-5 (0-5) /hpf Urine RBC (Auto) 5-10 H (0-4) /hpf U Hyaline Cast (Auto) 1-5 (0-5) /lpf U Epithel Cells (Auto) 0-5 (0-5) /lpf Urine Bacteria (Auto) 1+ H (Negative) Urine Opiates Screen Neg (Neg) Ur Methadone, Qual Neg (Neg) Urine Barbiturates Neg (Neg) Ur Phencyclidine (PCP) Neg (Neg) U Amphetamin/Meth Scrn Neg (Neg) MDMA (Ecstasy) Screen Neg (Neg) U Benzodiazepines Scrn Neg (Neg) Ur Cocaine Metabolite Neg (Neg) U Marijuana (THC) Screen Neg (Neg) Ethyl Alcohol mg/dL (<10.0) mg/dl SARS-CoV-2, RNA, NAAT (NEGATIVE) 11/23/21 11/23/21 11/23/21 Range/Units 06:25 06:25 06:25 WBC 31.40 H* (4.8-10.8) K/ul RBC 5.80 (4.63-6.08) M/uL Hgb 15.4 (14.0-18.0) g/dl Hct 47.2 (40.1-51.0) % MCV 81.4 (80.0-100.0) fL MCH 26.6 (25.0-34.0) pg MCHC 32.6 (32.0-36.0) g/dL RDW Std Deviation 38.1 (36.4-46.3) fL RDW Coeff of Beata 12.9 (11.5-14.5) % Plt Count 604 H (130-400) K/uL MPV 9.8 (9.4-12.4) fL Immature Gran % (Auto) 2.5 % Neut % (Auto) 78.3 % Lymph % (Auto) 7.3 % Davison % (Auto) 11.5 % Eos % (Auto) 0.0 % Baso % (Auto) 0.4 % Neut # (Auto) 24.61 H (1.4-6.5) K/uL Lymph # (Auto) 2.28 (1.2-3.4) K/uL Davison # (Auto) 3.62 H (0.24-0.82) K/uL Eos # (Auto) 0.00 (0-0.50) K/uL Baso # (Auto) 0.11 (0-0.2) K/uL Immature Gran # (Auto) 0.78 H (0.00-0.02) K/uL PT 13.3 H (9.0-12.0) Seconds INR 1.3 H (0.9-1.1) APTT 31.1 H (21.0-31.0) Seconds PTT Ratio 1.1 ABG pCO2 (35-46) mmHg ABG pO2 (80-95) mmHg ABG HCO3 (19-24) mmol/L ABG O2 Saturation (90-95) % ABG Base Excess (-9-1.8) mEq/L Heath Test (Pos) VBG pH (7.36-7.41) VBG pCO2 (38-50) mmHg VBG pO2 mmHg VBG HCO3 mmol/L VBG O2 Saturation % VBG Base Excess mEq/L Oxygen Given Sodium 122 L (136-145) mmol/L Potassium 4.2 (3.5-5.1) mmol/L Chloride 90 L (98-107) mmol/L Carbon Dioxide 4 L* (21-32) mmol/L Anion Gap 28 H (3-11) BUN 35 H (6-23) mg/dl Creatinine 1.82 H (0.6-1.4) mg/dl Est Cr Clr Drug Dosing 68.0 ml/min Est GFR ( Amer) 53.0 ml/min Est GFR (Non-Af Amer) 45.8 ml/min BUN/Creatinine Ratio 19.2 (10-20) Glucose 790 H* (70-99(Fasting)) mg/dl POC Glucose (70-99) mg/dl Estimat Average Glucose mg/dl Hemoglobin A1c (4.5-5.6) % Osmolality (280-300) mOsm/kg Lactate (0.4-2.0) mmol/L Calcium 8.4 L (8.5-10.1) mg/dl Phosphorus (2.5-4.9) mg/dl Magnesium 2.5 H (1.7-2.4) mg/dl Total Bilirubin 0.5 (0.2-1.0) mg/dl AST 17 (13-39) U/L ALT 29 (7-52) U/L Alkaline Phosphatase 91 (34-104) U/L Troponin I High Sens 24.0 H (0-20) pg/ml Total Protein 7.7 (6.0-8.3) gm/dl Albumin 4.3 (3.4-5.0) gm/dl Globulin 3.4 (2.5-4.0) gm/dl Albumin/Globulin Ratio 1.3 (0.9-2) Lipase (11-82) U/L Procalcitonin (0-0.5) ng/ml Urine Color Urine Appearance (Clear) Urine pH (4.5-7.5) Ur Specific [place] (1.000-1.030) Urine Protein (Negative) Urine Glucose (UA) (Negative) Urine Ketones (Negative) Urine Blood (Negative) Urine Nitrite (Negative) Urine Bilirubin (Negative) Urine Urobilinogen (Negative) Ur Leukocyte Esterase (Negative) Urine WBC (Auto) (0-5) /hpf Urine RBC (Auto) (0-4) /hpf U Hyaline Cast (Auto) (0-5) /lpf U Epithel Cells (Auto) (0-5) /lpf Urine Bacteria (Auto) (Negative) Urine Opiates Screen (Neg) Ur Methadone, Qual (Neg) Urine Barbiturates (Neg) Ur Phencyclidine (PCP) (Neg) U Amphetamin/Meth Scrn (Neg) MDMA (Ecstasy) Screen (Neg) U Benzodiazepines Scrn (Neg) Ur Cocaine Metabolite (Neg) U Marijuana (THC) Screen (Neg) Ethyl Alcohol mg/dL (<10.0) mg/dl SARS-CoV-2, RNA, NAAT (NEGATIVE) 11/23/21 11/23/21 11/23/21 Range/Units 06:25 06:30 06:45 WBC (4.8-10.8) K/ul RBC (4.63-6.08) M/uL Hgb (14.0-18.0) g/dl Hct (40.1-51.0) % MCV (80.0-100.0) fL MCH (25.0-34.0) pg MCHC (32.0-36.0) g/dL RDW Std Deviation (36.4-46.3) fL RDW Coeff of Beata (11.5-14.5) % Plt Count (130-400) K/uL MPV (9.4-12.4) fL Immature Gran % (Auto) % Neut % (Auto) % Lymph % (Auto) % Davison % (Auto) % Eos % (Auto) % Baso % (Auto) % Neut # (Auto) (1.4-6.5) K/uL Lymph # (Auto) (1.2-3.4) K/uL Davison # (Auto) (0.24-0.82) K/uL Eos # (Auto) (0-0.50) K/uL Baso # (Auto) (0-0.2) K/uL Immature Gran # (Auto) (0.00-0.02) K/uL PT (9.0-12.0) Seconds INR (0.9-1.1) APTT (21.0-31.0) Seconds PTT Ratio ABG pCO2 (35-46) mmHg ABG pO2 (80-95) mmHg ABG HCO3 (19-24) mmol/L ABG O2 Saturation (90-95) % ABG Base Excess (-9-1.8) mEq/L Heath Test (Pos) VBG pH (7.36-7.41) VBG pCO2 (38-50) mmHg VBG pO2 mmHg VBG HCO3 mmol/L VBG O2 Saturation % VBG Base Excess mEq/L Oxygen Given Sodium (136-145) mmol/L Potassium (3.5-5.1) mmol/L Chloride (98-107) mmol/L Carbon Dioxide (21-32) mmol/L Anion Gap (3-11) BUN (6-23) mg/dl Creatinine (0.6-1.4) mg/dl Est Cr Clr Drug Dosing ml/min Est GFR ( Amer) ml/min Est GFR (Non-Af Amer) ml/min BUN/Creatinine Ratio (10-20) Glucose (70-99(Fasting)) mg/dl POC Glucose (70-99) mg/dl Estimat Average Glucose mg/dl Hemoglobin A1c (4.5-5.6) % Osmolality 337 H (280-300) mOsm/kg Lactate (0.4-2.0) mmol/L Calcium (8.5-10.1) mg/dl Phosphorus (2.5-4.9) mg/dl Magnesium (1.7-2.4) mg/dl Total Bilirubin (0.2-1.0) mg/dl AST (13-39) U/L ALT (7-52) U/L Alkaline Phosphatase (34-104) U/L Troponin I High Sens (0-20) pg/ml Total Protein (6.0-8.3) gm/dl Albumin (3.4-5.0) gm/dl Globulin (2.5-4.0) gm/dl Albumin/Globulin Ratio (0.9-2) Lipase (11-82) U/L Procalcitonin 0.60 H (0-0.5) ng/ml Urine Color Urine Appearance (Clear) Urine pH (4.5-7.5) Ur Specific [place] (1.000-1.030) Urine Protein (Negative) Urine Glucose (UA) (Negative) Urine Ketones (Negative) Urine Blood (Negative) Urine Nitrite (Negative) Urine Bilirubin (Negative) Urine Urobilinogen (Negative) Ur Leukocyte Esterase (Negative) Urine WBC (Auto) (0-5) /hpf Urine RBC (Auto) (0-4) /hpf U Hyaline Cast (Auto) (0-5) /lpf U Epithel Cells (Auto) (0-5) /lpf Urine Bacteria (Auto) (Negative) Urine Opiates Screen (Neg) Ur Methadone, Qual (Neg) Urine Barbiturates (Neg) Ur Phencyclidine (PCP) (Neg) U Amphetamin/Meth Scrn (Neg) MDMA (Ecstasy) Screen (Neg) U Benzodiazepines Scrn (Neg) Ur Cocaine Metabolite (Neg) U Marijuana (THC) Screen (Neg) Ethyl Alcohol mg/dL (<10.0) mg/dl SARS-CoV-2, RNA, NAAT NEGATIVE (NEGATIVE) 0811/23/21 11/23/21 Range/Units 06:45 07:58 07:58 WBC (4.8-10.8) K/ul RBC (4.63-6.08) M/uL Hgb (14.0-18.0) g/dl Hct (40.1-51.0) % MCV (80.0-100.0) fL MCH (25.0-34.0) pg MCHC (32.0-36.0) g/dL RDW Std Deviation (36.4-46.3) fL RDW Coeff of Beata (11.5-14.5) % Plt Count (130-400) K/uL MPV (9.4-12.4) fL Immature Gran % (Auto) % Neut % (Auto) % Lymph % (Auto) % Davison % (Auto) % Eos % (Auto) % Baso % (Auto) % Neut # (Auto) (1.4-6.5) K/uL Lymph # (Auto) (1.2-3.4) K/uL Davison # (Auto) (0.24-0.82) K/uL Eos # (Auto) (0-0.50) K/uL Baso # (Auto) (0-0.2) K/uL Immature Gran # (Auto) (0.00-0.02) K/uL PT (9.0-12.0) Seconds INR (0.9-1.1) APTT (21.0-31.0) Seconds PTT Ratio ABG pCO2 (35-46) mmHg ABG pO2 (80-95) mmHg ABG HCO3 (19-24) mmol/L ABG O2 Saturation (90-95) % ABG Base Excess (-9-1.8) mEq/L Heath Test (Pos) VBG pH < 7.00 L (7.36-7.41) VBG pCO2 17 L (38-50) mmHg VBG pO2 58 mmHg VBG HCO3 4 mmol/L VBG O2 Saturation 90.6 % VBG Base Excess -27.0 mEq/L Oxygen Given Sodium (136-145) mmol/L Potassium (3.5-5.1) mmol/L Chloride (98-107) mmol/L Carbon Dioxide (21-32) mmol/L Anion Gap (3-11) BUN (6-23) mg/dl Creatinine (0.6-1.4) mg/dl Est Cr Clr Drug Dosing ml/min Est GFR ( Amer) ml/min Est GFR (Non-Af Amer) ml/min BUN/Creatinine Ratio (10-20) Glucose (70-99(Fasting)) mg/dl POC Glucose (70-99) mg/dl Estimat Average Glucose mg/dl Hemoglobin A1c (4.5-5.6) % Osmolality (280-300) mOsm/kg Lactate 2.1 H* (0.4-2.0) mmol/L Calcium (8.5-10.1) mg/dl Phosphorus (2.5-4.9) mg/dl Magnesium (1.7-2.4) mg/dl Total Bilirubin (0.2-1.0) mg/dl AST (13-39) U/L ALT (7-52) U/L Alkaline Phosphatase (34-104) U/L Troponin I High Sens (0-20) pg/ml Total Protein (6.0-8.3) gm/dl Albumin (3.4-5.0) gm/dl Globulin (2.5-4.0) gm/dl Albumin/Globulin Ratio (0.9-2) Lipase 24 (11-82) U/L Procalcitonin (0-0.5) ng/ml Urine Color Urine Appearance (Clear) Urine pH (4.5-7.5) Ur Specific [place] (1.000-1.030) Urine Protein (Negative) Urine Glucose (UA) (Negative) Urine Ketones (Negative) Urine Blood (Negative) Urine Nitrite (Negative) Urine Bilirubin (Negative) Urine Urobilinogen (Negative) Ur Leukocyte Esterase (Negative) Urine WBC (Auto) (0-5) /hpf Urine RBC (Auto) (0-4) /hpf U Hyaline Cast (Auto) (0-5) /lpf U Epithel Cells (Auto) (0-5) /lpf Urine Bacteria (Auto) (Negative) Urine Opiates Screen (Neg) Ur Methadone, Qual (Neg) Urine Barbiturates (Neg) Ur Phencyclidine (PCP) (Neg) U Amphetamin/Meth Scrn (Neg) MDMA (Ecstasy) Screen (Neg) U Benzodiazepines Scrn (Neg) Ur Cocaine Metabolite (Neg) U Marijuana (THC) Screen (Neg) Ethyl Alcohol mg/dL (<10.0) mg/dl SARS-CoV-2, RNA, NAAT (NEGATIVE) 11/23/21 11/23/21 11/23/21 Range/Units 07:58 08:02 08:27 WBC 29.70 H (4.8-10.8) K/ul RBC 5.37 (4.63-6.08) M/uL Hgb 14.5 (14.0-18.0) g/dl Hct 42.9 (40.1-51.0) % MCV 79.9 L (80.0-100.0) fL MCH 27.0 (25.0-34.0) pg MCHC 33.8 (32.0-36.0) g/dL RDW Std Deviation 36.0 L (36.4-46.3) fL RDW Coeff of Beata 12.6 (11.5-14.5) % Plt Count 519 H (130-400) K/uL MPV 9.5 (9.4-12.4) fL Immature Gran % (Auto) % Neut % (Auto) % Lymph % (Auto) % Davison % (Auto) % Eos % (Auto) % Baso % (Auto) % Neut # (Auto) (1.4-6.5) K/uL Lymph # (Auto) (1.2-3.4) K/uL Davison # (Auto) (0.24-0.82) K/uL Eos # (Auto) (0-0.50) K/uL Baso # (Auto) (0-0.2) K/uL Immature Gran # (Auto) (0.00-0.02) K/uL PT (9.0-12.0) Seconds INR (0.9-1.1) APTT (21.0-31.0) Seconds PTT Ratio ABG pCO2 (35-46) mmHg ABG pO2 (80-95) mmHg ABG HCO3 (19-24) mmol/L ABG O2 Saturation (90-95) % ABG Base Excess (-9-1.8) mEq/L Heath Test (Pos) VBG pH (7.36-7.41) VBG pCO2 (38-50) mmHg VBG pO2 mmHg VBG HCO3 mmol/L VBG O2 Saturation % VBG Base Excess mEq/L Oxygen Given Sodium (136-145) mmol/L Potassium (3.5-5.1) mmol/L Chloride (98-107) mmol/L Carbon Dioxide (21-32) mmol/L Anion Gap (3-11) BUN (6-23) mg/dl Creatinine (0.6-1.4) mg/dl Est Cr Clr Drug Dosing ml/min Est GFR ( Amer) ml/min Est GFR (Non-Af Amer) ml/min BUN/Creatinine Ratio (10-20) Glucose (70-99(Fasting)) mg/dl POC Glucose > 600 H* (70-99) mg/dl Estimat Average Glucose mg/dl Hemoglobin A1c (4.5-5.6) % Osmolality (280-300) mOsm/kg Lactate (0.4-2.0) mmol/L Calcium (8.5-10.1) mg/dl Phosphorus (2.5-4.9) mg/dl Magnesium (1.7-2.4) mg/dl Total Bilirubin (0.2-1.0) mg/dl AST (13-39) U/L ALT (7-52) U/L Alkaline Phosphatase (34-104) U/L Troponin I High Sens (0-20) pg/ml Total Protein (6.0-8.3) gm/dl Albumin (3.4-5.0) gm/dl Globulin (2.5-4.0) gm/dl Albumin/Globulin Ratio (0.9-2) Lipase (11-82) U/L Procalcitonin (0-0.5) ng/ml Urine Color Urine Appearance (Clear) Urine pH (4.5-7.5) Ur Specific [place] (1.000-1.030) Urine Protein (Negative) Urine Glucose (UA) (Negative) Urine Ketones (Negative) Urine Blood (Negative) Urine Nitrite (Negative) Urine Bilirubin (Negative) Urine Urobilinogen (Negative) Ur Leukocyte Esterase (Negative) Urine WBC (Auto) (0-5) /hpf Urine RBC (Auto) (0-4) /hpf U Hyaline Cast (Auto) (0-5) /lpf U Epithel Cells (Auto) (0-5) /lpf Urine Bacteria (Auto) (Negative) Urine Opiates Screen (Neg) Ur Methadone, Qual (Neg) Urine Barbiturates (Neg) Ur Phencyclidine (PCP) (Neg) U Amphetamin/Meth Scrn (Neg) MDMA (Ecstasy) Screen (Neg) U Benzodiazepines Scrn (Neg) Ur Cocaine Metabolite (Neg) U Marijuana (THC) Screen (Neg) Ethyl Alcohol mg/dL < 10.0 (<10.0) mg/dl SARS-CoV-2, RNA, NAAT (NEGATIVE) 11/23/21 11/23/21 11/23/21 Range/Units 08:27 08:27 08:37 WBC (4.8-10.8) K/ul RBC (4.63-6.08) M/uL Hgb (14.0-18.0) g/dl Hct (40.1-51.0) % MCV (80.0-100.0) fL MCH (25.0-34.0) pg MCHC (32.0-36.0) g/dL RDW Std Deviation (36.4-46.3) fL RDW Coeff of Beata (11.5-14.5) % Plt Count (130-400) K/uL MPV (9.4-12.4) fL Immature Gran % (Auto) % Neut % (Auto) % Lymph % (Auto) % Davison % (Auto) % Eos % (Auto) % Baso % (Auto) % Neut # (Auto) (1.4-6.5) K/uL Lymph # (Auto) (1.2-3.4) K/uL Davison # (Auto) (0.24-0.82) K/uL Eos # (Auto) (0-0.50) K/uL Baso # (Auto) (0-0.2) K/uL Immature Gran # (Auto) (0.00-0.02) K/uL PT (9.0-12.0) Seconds INR (0.9-1.1) APTT (21.0-31.0) Seconds PTT Ratio ABG pCO2 13 L (35-46) mmHg ABG pO2 127 H (80-95) mmHg ABG HCO3 3 L (19-24) mmol/L ABG O2 Saturation 99.8 H (90-95) % ABG Base Excess -27.9 L (-9-1.8) mEq/L Heath Test Pos (Pos) VBG pH (7.36-7.41) VBG pCO2 (38-50) mmHg VBG pO2 mmHg VBG HCO3 mmol/L VBG O2 Saturation % VBG Base Excess mEq/L Oxygen Given 3L Sodium 128 L (136-145) mmol/L Potassium 4.1 (3.5-5.1) mmol/L Chloride 99 (98-107) mmol/L Carbon Dioxide 4 L* (21-32) mmol/L Anion Gap 25 H (3-11) BUN 32 H (6-23) mg/dl Creatinine 1.49 H D (0.6-1.4) mg/dl Est Cr Clr Drug Dosing 83.1 ml/min Est GFR ( Amer) 67.6 ml/min Est GFR (Non-Af Amer) 58.3 ml/min BUN/Creatinine Ratio 21.5 H (10-20) Glucose 638 H* (70-99(Fasting)) mg/dl POC Glucose (70-99) mg/dl Estimat Average Glucose 243 mg/dl Hemoglobin A1c 10.1 H (4.5-5.6) % Osmolality (280-300) mOsm/kg Lactate (0.4-2.0) mmol/L Calcium 7.5 L (8.5-10.1) mg/dl Phosphorus 4.0 (2.5-4.9) mg/dl Magnesium 2.2 (1.7-2.4) mg/dl Total Bilirubin (0.2-1.0) mg/dl AST (13-39) U/L ALT (7-52) U/L Alkaline Phosphatase (34-104) U/L Troponin I High Sens (0-20) pg/ml Total Protein (6.0-8.3) gm/dl Albumin (3.4-5.0) gm/dl Globulin (2.5-4.0) gm/dl Albumin/Globulin Ratio (0.9-2) Lipase (11-82) U/L Procalcitonin (0-0.5) ng/ml Urine Color Urine Appearance (Clear) Urine pH (4.5-7.5) Ur Specific [place] (1.000-1.030) Urine Protein (Negative) Urine Glucose (UA) (Negative) Urine Ketones (Negative) Urine Blood (Negative) Urine Nitrite (Negative) Urine Bilirubin (Negative) Urine Urobilinogen (Negative) Ur Leukocyte Esterase (Negative) Urine WBC (Auto) (0-5) /hpf Urine RBC (Auto) (0-4) /hpf U Hyaline Cast (Auto) (0-5) /lpf U Epithel Cells (Auto) (0-5) /lpf Urine Bacteria (Auto) (Negative) Urine Opiates Screen (Neg) Ur Methadone, Qual (Neg) Urine Barbiturates (Neg) Ur Phencyclidine (PCP) (Neg) U Amphetamin/Meth Scrn (Neg) MDMA (Ecstasy) Screen (Neg) U Benzodiazepines Scrn (Neg) Ur Cocaine Metabolite (Neg) U Marijuana (THC) Screen (Neg) Ethyl Alcohol mg/dL (<10.0) mg/dl SARS-CoV-2, RNA, NAAT (NEGATIVE) Imaging Data Radiologist's Impression: Chest X-Ray 11/23/21 06:26 SINGLE VIEW CHEST CLINICAL HISTORY: Sepsis. FINDINGS: An AP, portable, upright chest radiograph is compared to study dated 08/24/2017. The cardiomediastinal silhouette is unremarkable. There is mild elevation of the right hemidiaphragm. The lungs and pleural spaces are clear. No pneumothorax is seen. The bony thorax is grossly intact. IMPRESSION: No active disease in the chest. ACT 112: Negative or not required by law. Electronically signed by: Kieran Castro M.D. 11/23/2021 8:30 AM ECG Data Indication: + tachycardia Rate (beats per minute): 144 Rhythm: + normal sinus ECG Intervals/blocks: + Normal QRS, + Normal NE and + Normal QT-c ECG ST segments: + Normal ST segments [facility] Narrative 0632: The patient was evaluated in room B6. A complete history and physical exam was performed Cardiac monitoring: An order was placed for continuous cardiac monitoring. The monitor shows a rate of 140 with sinus tachycardia rhythm Accu-Chek reading critically high. 2 L normal saline immediately started on the patient as there is high suspicion that the patient is DKA given his high blood sugar Kussmaul breathing and history that he has not been compliant with his insulin. 0739: Labs show leukocytosis of 31.4. Sodium 122. CO2 4. Anion gap 28. Creatinine 1.82. Glucose 790. Lactic acid 2.1. Procalcitonin mildly elevated 0.6. Troponin elevated 24. He is will be admitted to the [place] [facility] team for DKA. Insulin drip ordered for the patient. Impression & Plan DKA (diabetic ketoacidosis) Discharge Plan Visit Data Chief Complaint: Hyperglycemia Stated Complaint: DKA ED Provider: Everett Cooper Discharge Problem: DKA (diabetic ketoacidosis) Patient Disposition: Admitted As Inpatient Discharge Instructions Interventions: ED Discharge Assessment Last Done: 11/23/21 11:39
[2021-11-23 06:58] LABS: Hematocrit (blood only) 47.2 % (40.1-51.0); Hemoglobin 15.4 g/dl (14.0-18.0); Mean Corpuscular Hemoglobin 26.6 pg (25.0-34.0); Mean Corpuscular Hgb Conc 32.6 g/dL (32.0-36.0); Mean Corpuscular Volume 81.4 fL (80.0-100.0); Mean Platelet Volume 9.8 fL (9.4-12.4); Platelet Count 604 K/uL (130-400); RDW Coefficient of Variation 12.9 % (11.5-14.5); RDW Standard Deviation 38.1 fL (36.4-46.3)
[2021-11-23 07:10] LABS: Appearance Urine Clear (Clear); Bilirubin Urine Negative (Negative); Blood Urine 2+ (Negative); Color Urine Yellow; Glucose Urine UA 3+ (Negative); Ketones Urine 3+ (Negative); Leukocyte Esterase Urine Negative (Negative); Nitrite Urine Negative (Negative); Protein Urine 2+ (Negative); Specific Gravity Urine 1.027 (1.000-1.030); Urobilinogen Urine Negative (Negative)
[2021-11-23 07:22] LABS: Basophils # (auto) 0.11 K/uL (0-0.2); Basophils % (auto) 0.4 %; Immature Granulocytes # (auto) 0.78 K/uL (0.00-0.02); Immature Granulocytes % (auto) 2.5 %; Lymphocytes # (auto) 2.28 K/uL (1.2-3.4); Lymphocytes % (auto) 7.3 %; Monocytes # (auto) 3.62 K/uL (0.24-0.82); Monocytes % (auto) 11.5 %; Neutrophils # (auto) 24.61 K/uL (1.4-6.5); Neutrophils % (auto) 78.3 %
[2021-11-23 07:22] LABS: Bacteria Urine Automated 1+ (Negative); Epithelial Cell Urine Auto 0-5 /lpf (0-5)
[2021-11-23 07:26] LABS: BUN Creatinine Ratio 19.2 (10-20); Bilirubin,Total 0.5 mg/dl (0.2-1.0); Calcium 8.4 mg/dl (8.5-10.1); Est GFR (Non-African American) 45.8 ml/min; Magnesium 2.5 mg/dl (1.7-2.4); Potassium 4.2 mmol/L (3.5-5.1); Total Protein 7.7 gm/dl (6.0-8.3)
[2021-11-23] MEDS ORDERED: GLUCAGON FOR INJ 1 MG VIAL SQ PRN (07:28)
[2021-11-23] MEDS ORDERED: CARBOHYDRATES FOR HYPOGLYCEMIA PO PRN (07:28)
[2021-11-23] MEDS ORDERED: GLUCOSE 10 TAB/TUBE PO PRN (07:28)
[2021-11-23] MEDS ORDERED: DEXTROSE 50% 50 ML SYRINGE IV PRN (07:28)
[2021-11-23] MEDS ORDERED: GLUCOSE 40% GEL 15 GM TUBE PO PRN (07:28)
[2021-11-23] MEDS ORDERED: STAT INSULIN DRIP STA (07:28)
[2021-11-23 07:34] LABS: INR 1.3 (0.9-1.1); Partial Thromboplastin Ratio 1.1; Partial Thromboplastin Time 31.1 Seconds (21.0-31.0); Prothrombin Time 13.3 Seconds (9.0-12.0)
[2021-11-23 07:56] LABS: Albumin Globulin Ratio 1.3 (0.9-2); Albumin Level 4.3 gm/dl (3.4-5.0); Globulin 3.4 gm/dl (2.5-4.0)
[2021-11-23 08:07] LABS: HCO3 VBG 4 mmol/L; Oxygen Saturation VBG 90.6 %; PCO2 VBG 17 mmHg (38-50); PO2 VBG 58 mmHg; pH VBG < 7.00 (7.36-7.41)
[2021-11-23] MEDS: INSULIN REGULAR 250 UNITS in SODIUM CHLORIDE 0.9% 247.5 ML IV SCH (08:08)
[2021-11-23] MEDS: INSULIN ASPART PER UNIT SC SCH ×4 (08:10→20:21)
--- NOTE | 2021-11-23 08:31 | XRay Report ---
SINGLE VIEW CHEST CLINICAL HISTORY: Sepsis. FINDINGS: An AP, portable, upright chest radiograph is compared to study dated 08/24/2017. The cardiom ediastinal silhouette is unremarkable. There is mild elevation of the right hemidiaphragm. The lungs and pleural spaces are clear. No pneumothorax is seen. The bony thorax is grossly intact. IMPRESSION: No active disease in the chest. ACT 112: Negative or not required by law. Electronically signed by: Kieran Castro M.D. 11/23/2021 8:30 AM
[2021-11-23] MEDS ORDERED: ICU PROTOCOL FOR HYPERGLYCEMIA PRN (08:38)
[2021-11-23 08:43] LABS: Hematocrit (blood only) 42.9 % (40.1-51.0); Hemoglobin 14.5 g/dl (14.0-18.0); Mean Corpuscular Hgb Conc 33.8 g/dL (32.0-36.0); Mean Corpuscular Volume 79.9 fL (80.0-100.0); Mean Platelet Volume 9.5 fL (9.4-12.4); Platelet Count 519 K/uL (130-400); RDW Coefficient of Variation 12.6 % (11.5-14.5); Red Blood Count 5.37 M/uL (4.63-6.08)
[2021-11-23] MEDS ORDERED: PENDING 1/2NSS+20mEq KCL IVF SCH (08:45)
[2021-11-23 08:52] LABS: Base Excess ABG -27.9 mEq/L (-9-1.8); HCO3 ABG 3 mmol/L (19-24); Oxygen Saturation ABG 99.8 % (90-95); PCO2 ABG 13 mmHg (35-46); PO2 ABG 127 mmHg (80-95)
[2021-11-23 08:56] LABS: Allen Test Pos (Pos)
--- NOTE | 2021-11-23 08:59 | History & Physical Report ---
Date of Service November 23, 2021 Assessment & Plan (1) DKA (diabetic ketoacidosis): Plan: Patient presents with elevated blood glucose level, over 600 Positive urine ketones Anion gap 28, bicarb 4 VBG ordered and pending, stat ABG ordered Patient is tachypneic, tachycardic on 3 L of suppl. O2 Patient not able to provide much history He is only able to state that he has been feeling unwell for past several days, and not able to take insulin for several days 2 Liters normal saline given in the ED IV insulin started Patient to be admitted to ICU due to severe acidosis, possible need for bicarbonate and/or intubation Repeat stat BMP, CBC, obtained hemoglobin A1c Continue with DKA protocol, BMP every 4 hours Continue to closely monitor SHABANA - Cr 1.8 - secondary to dehydration, secondary to above IVF given monitor renal function Pseudohyponatremia Na 122 in the setting of elevated Glc level -Correct hyperglycemia, should correct sodium level -Continue to closely monitor BMP, as above Leukocytosis WBC 30,000 Procalcitonin 0.6 Patient is severely dehydrated due to DKA Urine culture and blood cultures pending Consider antibiotics, care per ICU team GERD -IV PPI HTN -Per mother, patient is on clonidine -Per old records from previous admission, patient was on metoprolol as well -We will need to clarify with the patient what he is taking PTSD, history of TBI -Per mother Giulia, patient may be on lithium, Suboxone, hydroxyzine -We will need to clarify with the patient what he is taking History of Present Illness Chief Complaint: DKA Primary Care Provider: NO PCP 41-year-old male with history of PTSD, traumatic brain injury, GERD, DM type II, who presents in DKA. Patient's mother called the ambulance, as the patient has not been feeling well. Per mother, he has been throwing up for week and a half. She reports that he has not been able to take insulin for some time. He was supposed to follow-up with physician in [place], but felt too sick to go. Per mother, no diarrhea, fevers chills however she is not sure. She reports that he is on Suboxone, and lithium, hydroxyzine and clonidine. As far as she knows, that all he takes. In the ED, patient is now receiving second liter of normal saline. IV insulin drip started. He has been tachypneic, tachycardic. Respirations in 30s, heart rate 140. He has been on 3 L of nasal cannula. VBG pending. Anion gap 28. Stat ABG ordered. Patient is not able to finish a sentence, says he cannot come up with words. He is clearly struggling with breathing. He is not opening eyes. He does report that he has not been feeling well for several days and was not taking insulin for several days. He cannot tell me why he was not taking insulin. ICU contacted, patient will be admitted to ICU for further evaluation and treatment as patient may need bicarb, possible intubation, due to severe acidosis. Allergies Allergy/AdvReac Type Severity Reaction Status Date / Time No Known Allergies Allergy Unverified 08/24/17 23:07 Home Medications Medication Instructions Recorded Confirmed Type BUPRENORPHINE HCL (SUBUTEX) 3 tab sublingual DAILY 28 days #84 01/13/17 History tabs CLONIDINE HCL (CATAPRES) 1 tab PO HS 30 days #30 tabs 01/13/17 History Metoprolol Tartrate 50 mg PO BID ##0 01/13/17 History ESOMEPRAZOLE MAGNESIUM (NEXIUM) 1 cap PO DAILY 30 days #30 caps 01/18/17 Rx Insulin Aspart (NOVOLOG FLEXPEN) 10 unit SC AC ##1 01/18/17 Rx Insulin Glargine (Lantus Solostar) 70 unit SC HS #1 pen 01/18/17 Rx NICOTINE (NICODERM CQ) 1 patch transdermal QAM 30 days ##0 01/18/17 Rx METFORMIN HCL (GLUCOPHAGE) 1,000 mg PO DAILY #0 tabs 08/24/17 History Ranitidine Hcl (ZANTAC) 150 mg PO DAILY #0 tabs 08/24/17 History Past Med/Surg History Medical History Anxiety and depression DKA (diabetic ketoacidoses) GERD (gastroesophageal reflux disease) H/O traumatic brain injury No pertinent family history Type II diabetes mellitus Surgical History No pertinent past surgical history Social History Smoking Status: Never smoker Feels Safe at Home: Yes Review of Systems Review of Systems: Unobtainable due to cognitive status Physical Exam Constitutional: obese M laying in bed, tachypneic, on 3L of suppl. O2, not able to provide much hx Eyes: PERRL, conjunctivae normal, anicteric sclerae ENMT: external ear and nose normal, oropharynx normal Neck: + thick neck Respiratory: + tachypneic (on 3L suppl. O2, CTAB, no wheezing) Cardiovascular: tachycardic, HR 140 Chest (Breasts): Chest: normal inspection of chest Gastrointestinal (Abdomen): normal bowel sounds, soft, nontender, no hepatosplenomegaly (obese) Musculoskeletal: moves extremities Skin: + mottling of skin - upper and lower extremities Neurologic: Patient seems to be aware of being in the hospital, and he is trying to answer my questions, he is only able to start a sentence and cannot finish, says he cannot find words Genitourinary: Sampson catheter placed, drains clear yellow urine Lymphatic: minimal LE edema Results & Data Results & Data ([facility]) Vital Signs (Past 12 Hours) Vital Signs Temp Pulse Resp BP Pulse Ox O2 Del Method O2 Flow Rate 11/23/21 08:45 140 H 31 H 100 Nasal Cannula 3 11/23/21 08:45 135/87 11/23/21 08:30 137 H 32 H 100 Nasal Cannula 3 11/23/21 08:30 158/100 H 11/23/21 08:15 136/100 11/23/21 08:15 136 H 30 H 100 Nasal Cannula 3 11/23/21 08:00 161/92 H 11/23/21 08:00 137 H 29 H 99 3 11/23/21 07:45 138 H 34 H 100 3 11/23/21 07:45 133/105 H 11/23/21 07:30 141 H 13 97 Nasal Cannula 3 11/23/21 07:30 162/125 H 11/23/21 08:50 36.6 C 11/23/21 08:30 30 H Nasal Cannula 3 11/23/21 08:00 30 H Nasal Cannula 3 11/23/21 07:30 32 H Nasal Cannula 3 11/23/21 07:21 140 H 34 H 98 Nasal Cannula 3 11/23/21 07:21 167/110 H 11/23/21 07:00 144 H 34 H 95 Room Air 11/23/21 06:56 143 H 24 96 Room Air 08/20/22 06:56 176/108 H 11/23/21 06:40 142 H 37 H 100 Room Air 11/23/21 07:00 30 H Room Air 11/23/21 06:01 36.7 C 144 H 22 176/100 H 96 Room Air 11/23/21 06:26 32 H 97 Room Air 11/23/21 06:35 99 Room Air Laboratory Results 11/23/21 11/23/21 11/23/21 Range/Units 08:37 08:27 08:27 WBC 29.70 H (4.8-10.8) K/ul RBC 5.37 (4.63-6.08) M/uL Hgb 14.5 (14.0-18.0) g/dl Hct 42.9 (40.1-51.0) % MCV 79.9 L (80.0-100.0) fL MCH 27.0 (25.0-34.0) pg MCHC 33.8 (32.0-36.0) g/dL RDW Std Deviation 36.0 L (36.4-46.3) fL RDW Coeff of Beata 12.6 (11.5-14.5) % Plt Count 519 H (130-400) K/uL MPV 9.5 (9.4-12.4) fL Immature Gran % (Auto) % Neut % (Auto) % Lymph % (Auto) % Lucas % (Auto) % Eos % (Auto) % Baso % (Auto) % Neut # (Auto) (1.4-6.5) K/uL Lymph # (Auto) (1.2-3.4) K/uL Lucas # (Auto) (0.24-0.82) K/uL Eos # (Auto) (0-0.50) K/uL Baso # (Auto) (0-0.2) K/uL Immature Gran # (Auto) (0.00-0.02) K/uL PT (9.0-12.0) Seconds INR (0.9-1.1) APTT (21.0-31.0) Seconds PTT Ratio ABG pH Pending ABG pCO2 13 L (35-46) mmHg ABG pO2 127 H (80-95) mmHg ABG HCO3 3 L (19-24) mmol/L ABG O2 Saturation 99.8 H (90-95) % ABG Base Excess -27.9 L (-9-1.8) mEq/L Heath Test Pos (Pos) VBG pH (7.36-7.41) VBG pCO2 (38-50) mmHg VBG pO2 mmHg VBG HCO3 mmol/L VBG O2 Saturation % VBG Base Excess mEq/L Oxygen Given 3L Sodium Pending (136-145) mmol/L Potassium Pending (3.5-5.1) mmol/L Chloride Pending (98-107) mmol/L Carbon Dioxide Pending (21-32) mmol/L Anion Gap Pending (3-11) BUN Pending (6-23) mg/dl Creatinine Pending (0.6-1.4) mg/dl Est Cr Clr Drug Dosing Pending ml/min Est GFR ( Amer) Pending ml/min Est GFR (Non-Af Amer) Pending ml/min BUN/Creatinine Ratio Pending (10-20) Glucose Pending (70-99(Fasting)) mg/dl POC Glucose (70-99) mg/dl Osmolality (280-300) mOsm/kg Lactate (0.4-2.0) mmol/L Calcium Pending (8.5-10.1) mg/dl Phosphorus Pending Magnesium Pending (1.7-2.4) mg/dl Total Bilirubin (0.2-1.0) mg/dl AST (13-39) U/L ALT (7-52) U/L Alkaline Phosphatase (34-104) U/L Troponin I High Sens (0-20) pg/ml Total Protein (6.0-8.3) gm/dl Albumin (3.4-5.0) gm/dl Globulin (2.5-4.0) gm/dl Albumin/Globulin Ratio (0.9-2) Lipase (11-82) U/L Procalcitonin (0-0.5) ng/ml Urine Color Urine Appearance (Clear) Urine pH (4.5-7.5) Ur Specific [place] (1.000-1.030) Urine Protein (Negative) Urine Glucose (UA) (Negative) Urine Ketones (Negative) Urine Blood (Negative) Urine Nitrite (Negative) Urine Bilirubin (Negative) Urine Urobilinogen (Negative) Ur Leukocyte Esterase (Negative) Urine WBC (Auto) (0-5) /hpf Urine RBC (Auto) (0-4) /hpf U Hyaline Cast (Auto) (0-5) /lpf U Epithel Cells (Auto) (0-5) /lpf Urine Bacteria (Auto) (Negative) Ethyl Alcohol mg/dL (<10.0) mg/dl SARS-CoV-2, RNA, NAAT (NEGATIVE) 11/23/21 11/23/21 11/23/21 Range/Units 08:02 07:58 07:58 WBC (4.8-10.8) K/ul RBC (4.63-6.08) M/uL Hgb (14.0-18.0) g/dl Hct (40.1-51.0) % MCV (80.0-100.0) fL MCH (25.0-34.0) pg MCHC (32.0-36.0) g/dL RDW Std Deviation (36.4-46.3) fL RDW Coeff of Beata (11.5-14.5) % Plt Count (130-400) K/uL MPV (9.4-12.4) fL Immature Gran % (Auto) % Neut % (Auto) % Lymph % (Auto) % Lucas % (Auto) % Eos % (Auto) % Baso % (Auto) % Neut # (Auto) (1.4-6.5) K/uL Lymph # (Auto) (1.2-3.4) K/uL Lucas # (Auto) (0.24-0.82) K/uL Eos # (Auto) (0-0.50) K/uL Baso # (Auto) (0-0.2) K/uL Immature Gran # (Auto) (0.00-0.02) K/uL PT (9.0-12.0) Seconds INR (0.9-1.1) APTT (21.0-31.0) Seconds PTT Ratio ABG pH ABG pCO2 (35-46) mmHg ABG pO2 (80-95) mmHg ABG HCO3 (19-24) mmol/L ABG O2 Saturation (90-95) % ABG Base Excess (-9-1.8) mEq/L Heath Test (Pos) VBG pH < 7.00 L (7.36-7.41) VBG pCO2 17 L (38-50) mmHg VBG pO2 58 mmHg VBG HCO3 4 mmol/L VBG O2 Saturation 90.6 % VBG Base Excess -27.0 mEq/L Oxygen Given Sodium (136-145) mmol/L Potassium (3.5-5.1) mmol/L Chloride (98-107) mmol/L Carbon Dioxide (21-32) mmol/L Anion Gap (3-11) BUN (6-23) mg/dl Creatinine (0.6-1.4) mg/dl Est Cr Clr Drug Dosing ml/min Est GFR ( Amer) ml/min Est GFR (Non-Af Amer) ml/min BUN/Creatinine Ratio (10-20) Glucose (70-99(Fasting)) mg/dl POC Glucose > 600 H* (70-99) mg/dl Osmolality (280-300) mOsm/kg Lactate (0.4-2.0) mmol/L Calcium (8.5-10.1) mg/dl Phosphorus Magnesium (1.7-2.4) mg/dl Total Bilirubin (0.2-1.0) mg/dl AST (13-39) U/L ALT (7-52) U/L Alkaline Phosphatase (34-104) U/L Troponin I High Sens (0-20) pg/ml Total Protein (6.0-8.3) gm/dl Albumin (3.4-5.0) gm/dl Globulin (2.5-4.0) gm/dl Albumin/Globulin Ratio (0.9-2) Lipase (11-82) U/L Procalcitonin (0-0.5) ng/ml Urine Color Urine Appearance (Clear) Urine pH (4.5-7.5) Ur Specific [place] (1.000-1.030) Urine Protein (Negative) Urine Glucose (UA) (Negative) Urine Ketones (Negative) Urine Blood (Negative) Urine Nitrite (Negative) Urine Bilirubin (Negative) Urine Urobilinogen (Negative) Ur Leukocyte Esterase (Negative) Urine WBC (Auto) (0-5) /hpf Urine RBC (Auto) (0-4) /hpf U Hyaline Cast (Auto) (0-5) /lpf U Epithel Cells (Auto) (0-5) /lpf Urine Bacteria (Auto) (Negative) Ethyl Alcohol mg/dL < 10.0 (<10.0) mg/dl SARS-CoV-2, RNA, NAAT (NEGATIVE) 11/23/21 11/23/21 11/23/21 Range/Units 07:58 06:45 06:45 WBC (4.8-10.8) K/ul RBC (4.63-6.08) M/uL Hgb (14.0-18.0) g/dl Hct (40.1-51.0) % MCV (80.0-100.0) fL MCH (25.0-34.0) pg MCHC (32.0-36.0) g/dL RDW Std Deviation (36.4-46.3) fL RDW Coeff of Beata (11.5-14.5) % Plt Count (130-400) K/uL MPV (9.4-12.4) fL Immature Gran % (Auto) % Neut % (Auto) % Lymph % (Auto) % Lucas % (Auto) % Eos % (Auto) % Baso % (Auto) % Neut # (Auto) (1.4-6.5) K/uL Lymph # (Auto) (1.2-3.4) K/uL Lucas # (Auto) (0.24-0.82) K/uL Eos # (Auto) (0-0.50) K/uL Baso # (Auto) (0-0.2) K/uL Immature Gran # (Auto) (0.00-0.02) K/uL PT (9.0-12.0) Seconds INR (0.9-1.1) APTT (21.0-31.0) Seconds PTT Ratio ABG pH ABG pCO2 (35-46) mmHg ABG pO2 (80-95) mmHg ABG HCO3 (19-24) mmol/L ABG O2 Saturation (90-95) % ABG Base Excess (-9-1.8) mEq/L Heath Test (Pos) VBG pH (7.36-7.41) VBG pCO2 (38-50) mmHg VBG pO2 mmHg VBG HCO3 mmol/L VBG O2 Saturation % VBG Base Excess mEq/L Oxygen Given Sodium (136-145) mmol/L Potassium (3.5-5.1) mmol/L Chloride (98-107) mmol/L Carbon Dioxide (21-32) mmol/L Anion Gap (3-11) BUN (6-23) mg/dl Creatinine (0.6-1.4) mg/dl Est Cr Clr Drug Dosing ml/min Est GFR ( Amer) ml/min Est GFR (Non-Af Amer) ml/min BUN/Creatinine Ratio (10-20) Glucose (70-99(Fasting)) mg/dl POC Glucose (70-99) mg/dl Osmolality 337 H (280-300) mOsm/kg Lactate 2.1 H* (0.4-2.0) mmol/L Calcium (8.5-10.1) mg/dl Phosphorus Magnesium (1.7-2.4) mg/dl Total Bilirubin (0.2-1.0) mg/dl AST (13-39) U/L ALT (7-52) U/L Alkaline Phosphatase (34-104) U/L Troponin I High Sens (0-20) pg/ml Total Protein (6.0-8.3) gm/dl Albumin (3.4-5.0) gm/dl Globulin (2.5-4.0) gm/dl Albumin/Globulin Ratio (0.9-2) Lipase 24 (11-82) U/L Procalcitonin (0-0.5) ng/ml Urine Color Urine Appearance (Clear) Urine pH (4.5-7.5) Ur Specific [place] (1.000-1.030) Urine Protein (Negative) Urine Glucose (UA) (Negative) Urine Ketones (Negative) Urine Blood (Negative) Urine Nitrite (Negative) Urine Bilirubin (Negative) Urine Urobilinogen (Negative) Ur Leukocyte Esterase (Negative) Urine WBC (Auto) (0-5) /hpf Urine RBC (Auto) (0-4) /hpf U Hyaline Cast (Auto) (0-5) /lpf U Epithel Cells (Auto) (0-5) /lpf Urine Bacteria (Auto) (Negative) Ethyl Alcohol mg/dL (<10.0) mg/dl SARS-CoV-2, RNA, NAAT (NEGATIVE) 11/23/21 11/23/21 11/23/21 Range/Units 06:30 06:25 06:25 WBC (4.8-10.8) K/ul RBC (4.63-6.08) M/uL Hgb (14.0-18.0) g/dl Hct (40.1-51.0) % MCV (80.0-100.0) fL MCH (25.0-34.0) pg MCHC (32.0-36.0) g/dL RDW Std Deviation (36.4-46.3) fL RDW Coeff of Beata (11.5-14.5) % Plt Count (130-400) K/uL MPV (9.4-12.4) fL Immature Gran % (Auto) % Neut % (Auto) % Lymph % (Auto) % Lucas % (Auto) % Eos % (Auto) % Baso % (Auto) % Neut # (Auto) (1.4-6.5) K/uL Lymph # (Auto) (1.2-3.4) K/uL Lucas # (Auto) (0.24-0.82) K/uL Eos # (Auto) (0-0.50) K/uL Baso # (Auto) (0-0.2) K/uL Immature Gran # (Auto) (0.00-0.02) K/uL PT (9.0-12.0) Seconds INR (0.9-1.1) APTT (21.0-31.0) Seconds PTT Ratio ABG pH ABG pCO2 (35-46) mmHg ABG pO2 (80-95) mmHg ABG HCO3 (19-24) mmol/L ABG O2 Saturation (90-95) % ABG Base Excess (-9-1.8) mEq/L Heath Test (Pos) VBG pH (7.36-7.41) VBG pCO2 (38-50) mmHg VBG pO2 mmHg VBG HCO3 mmol/L VBG O2 Saturation % VBG Base Excess mEq/L Oxygen Given Sodium 122 L (136-145) mmol/L Potassium 4.2 (3.5-5.1) mmol/L Chloride 90 L (98-107) mmol/L Carbon Dioxide 4 L* (21-32) mmol/L Anion Gap 28 H (3-11) BUN 35 H (6-23) mg/dl Creatinine 1.82 H (0.6-1.4) mg/dl Est Cr Clr Drug Dosing 68.0 ml/min Est GFR ( Amer) 53.0 ml/min Est GFR (Non-Af Amer) 45.8 ml/min BUN/Creatinine Ratio 19.2 (10-20) Glucose 790 H* (70-99(Fasting)) mg/dl POC Glucose (70-99) mg/dl Osmolality (280-300) mOsm/kg Lactate (0.4-2.0) mmol/L Calcium 8.4 L (8.5-10.1) mg/dl Phosphorus Magnesium 2.5 H (1.7-2.4) mg/dl Total Bilirubin 0.5 (0.2-1.0) mg/dl AST 17 (13-39) U/L ALT 29 (7-52) U/L Alkaline Phosphatase 91 (34-104) U/L Troponin I High Sens 24.0 H (0-20) pg/ml Total Protein 7.7 (6.0-8.3) gm/dl Albumin 4.3 (3.4-5.0) gm/dl Globulin 3.4 (2.5-4.0) gm/dl Albumin/Globulin Ratio 1.3 (0.9-2) Lipase (11-82) U/L Procalcitonin 0.60 H (0-0.5) ng/ml Urine Color Urine Appearance (Clear) Urine pH (4.5-7.5) Ur Specific [place] (1.000-1.030) Urine Protein (Negative) Urine Glucose (UA) (Negative) Urine Ketones (Negative) Urine Blood (Negative) Urine Nitrite (Negative) Urine Bilirubin (Negative) Urine Urobilinogen (Negative) Ur Leukocyte Esterase (Negative) Urine WBC (Auto) (0-5) /hpf Urine RBC (Auto) (0-4) /hpf U Hyaline Cast (Auto) (0-5) /lpf U Epithel Cells (Auto) (0-5) /lpf Urine Bacteria (Auto) (Negative) Ethyl Alcohol mg/dL (<10.0) mg/dl SARS-CoV-2, RNA, NAAT NEGATIVE (NEGATIVE) 11/23/21 11/23/21 11/23/21 Range/Units 06:25 06:25 06:20 WBC 31.40 H* (4.8-10.8) K/ul RBC 5.80 (4.63-6.08) M/uL Hgb 15.4 (14.0-18.0) g/dl Hct 47.2 (40.1-51.0) % MCV 81.4 (80.0-100.0) fL MCH 26.6 (25.0-34.0) pg MCHC 32.6 (32.0-36.0) g/dL RDW Std Deviation 38.1 (36.4-46.3) fL RDW Coeff of Beata 12.9 (11.5-14.5) % Plt Count 604 H (130-400) K/uL MPV 9.8 (9.4-12.4) fL Immature Gran % (Auto) 2.5 % Neut % (Auto) 78.3 % Lymph % (Auto) 7.3 % Lucas % (Auto) 11.5 % Eos % (Auto) 0.0 % Baso % (Auto) 0.4 % Neut # (Auto) 24.61 H (1.4-6.5) K/uL Lymph # (Auto) 2.28 (1.2-3.4) K/uL Lucas # (Auto) 3.62 H (0.24-0.82) K/uL Eos # (Auto) 0.00 (0-0.50) K/uL Baso # (Auto) 0.11 (0-0.2) K/uL Immature Gran # (Auto) 0.78 H (0.00-0.02) K/uL PT 13.3 H (9.0-12.0) Seconds INR 1.3 H (0.9-1.1) APTT 31.1 H (21.0-31.0) Seconds PTT Ratio 1.1 ABG pH ABG pCO2 (35-46) mmHg ABG pO2 (80-95) mmHg ABG HCO3 (19-24) mmol/L ABG O2 Saturation (90-95) % ABG Base Excess (-9-1.8) mEq/L Heath Test (Pos) VBG pH (7.36-7.41) VBG pCO2 (38-50) mmHg VBG pO2 mmHg VBG HCO3 mmol/L VBG O2 Saturation % VBG Base Excess mEq/L Oxygen Given Sodium (136-145) mmol/L Potassium (3.5-5.1) mmol/L Chloride (98-107) mmol/L Carbon Dioxide (21-32) mmol/L Anion Gap (3-11) BUN (6-23) mg/dl Creatinine (0.6-1.4) mg/dl Est Cr Clr Drug Dosing ml/min Est GFR ( Amer) ml/min Est GFR (Non-Af Amer) ml/min BUN/Creatinine Ratio (10-20) Glucose (70-99(Fasting)) mg/dl POC Glucose (70-99) mg/dl Osmolality (280-300) mOsm/kg Lactate (0.4-2.0) mmol/L Calcium (8.5-10.1) mg/dl Phosphorus Magnesium (1.7-2.4) mg/dl Total Bilirubin (0.2-1.0) mg/dl AST (13-39) U/L ALT (7-52) U/L Alkaline Phosphatase (34-104) U/L Troponin I High Sens (0-20) pg/ml Total Protein (6.0-8.3) gm/dl Albumin (3.4-5.0) gm/dl Globulin (2.5-4.0) gm/dl Albumin/Globulin Ratio (0.9-2) Lipase (11-82) U/L Procalcitonin (0-0.5) ng/ml Urine Color Yellow Urine Appearance Clear (Clear) Urine pH 5.0 (4.5-7.5) Ur Specific [place] 1.027 (1.000-1.030) Urine Protein 2+ H (Negative) Urine Glucose (UA) 3+ H (Negative) Urine Ketones 3+ H (Negative) Urine Blood 2+ H (Negative) Urine Nitrite Negative (Negative) Urine Bilirubin Negative (Negative) Urine Urobilinogen Negative (Negative) Ur Leukocyte Esterase Negative (Negative) Urine WBC (Auto) 1-5 (0-5) /hpf Urine RBC (Auto) 5-10 H (0-4) /hpf U Hyaline Cast (Auto) 1-5 (0-5) /lpf U Epithel Cells (Auto) 0-5 (0-5) /lpf Urine Bacteria (Auto) 1+ H (Negative) Ethyl Alcohol mg/dL (<10.0) mg/dl SARS-CoV-2, RNA, NAAT (NEGATIVE) 11/23/21 Range/Units 06:18 WBC (4.8-10.8) K/ul RBC (4.63-6.08) M/uL Hgb (14.0-18.0) g/dl Hct (40.1-51.0) % MCV (80.0-100.0) fL MCH (25.0-34.0) pg MCHC (32.0-36.0) g/dL RDW Std Deviation (36.4-46.3) fL RDW Coeff of Beata (11.5-14.5) % Plt Count (130-400) K/uL MPV (9.4-12.4) fL Immature Gran % (Auto) % Neut % (Auto) % Lymph % (Auto) % Lucas % (Auto) % Eos % (Auto) % Baso % (Auto) % Neut # (Auto) (1.4-6.5) K/uL Lymph # (Auto) (1.2-3.4) K/uL Lucas # (Auto) (0.24-0.82) K/uL Eos # (Auto) (0-0.50) K/uL Baso # (Auto) (0-0.2) K/uL Immature Gran # (Auto) (0.00-0.02) K/uL PT (9.0-12.0) Seconds INR (0.9-1.1) APTT (21.0-31.0) Seconds PTT Ratio ABG pH ABG pCO2 (35-46) mmHg ABG pO2 (80-95) mmHg ABG HCO3 (19-24) mmol/L ABG O2 Saturation (90-95) % ABG Base Excess (-9-1.8) mEq/L Heath Test (Pos) VBG pH (7.36-7.41) VBG pCO2 (38-50) mmHg VBG pO2 mmHg VBG HCO3 mmol/L VBG O2 Saturation % VBG Base Excess mEq/L Oxygen Given Sodium (136-145) mmol/L Potassium (3.5-5.1) mmol/L Chloride (98-107) mmol/L Carbon Dioxide (21-32) mmol/L Anion Gap (3-11) BUN (6-23) mg/dl Creatinine (0.6-1.4) mg/dl Est Cr Clr Drug Dosing ml/min Est GFR ( Amer) ml/min Est GFR (Non-Af Amer) ml/min BUN/Creatinine Ratio (10-20) Glucose (70-99(Fasting)) mg/dl POC Glucose > 600 H* (70-99) mg/dl Osmolality (280-300) mOsm/kg Lactate (0.4-2.0) mmol/L Calcium (8.5-10.1) mg/dl Phosphorus Magnesium (1.7-2.4) mg/dl Total Bilirubin (0.2-1.0) mg/dl AST (13-39) U/L ALT (7-52) U/L Alkaline Phosphatase (34-104) U/L Troponin I High Sens (0-20) pg/ml Total Protein (6.0-8.3) gm/dl Albumin (3.4-5.0) gm/dl Globulin (2.5-4.0) gm/dl Albumin/Globulin Ratio (0.9-2) Lipase (11-82) U/L Procalcitonin (0-0.5) ng/ml Urine Color Urine Appearance (Clear) Urine pH (4.5-7.5) Ur Specific [place] (1.000-1.030) Urine Protein (Negative) Urine Glucose (UA) (Negative) Urine Ketones (Negative) Urine Blood (Negative) Urine Nitrite (Negative) Urine Bilirubin (Negative) Urine Urobilinogen (Negative) Ur Leukocyte Esterase (Negative) Urine WBC (Auto) (0-5) /hpf Urine RBC (Auto) (0-4) /hpf U Hyaline Cast (Auto) (0-5) /lpf U Epithel Cells (Auto) (0-5) /lpf Urine Bacteria (Auto) (Negative) Ethyl Alcohol mg/dL (<10.0) mg/dl SARS-CoV-2, RNA, NAAT (NEGATIVE) Medications Administered Current Inpatient Medications Dextrose (Dextrose 50% 50 Ml Syringe) 25 - 50 ml IV UD PRN; Protocol PRN Reason: Hypoglycemia Protocol Stop: 12/23/21 07:27 Glucagon (Glucagon For Inj 1 Mg Vial) 1 mg SQ UD PRN; Protocol PRN Reason: Hypoglycemia Protocol Stop: 12/23/21 07:27 Glucose (Glucose 40% Gel 15 Gm Tube) 15 - 30 gm PO UD PRN; Protocol PRN Reason: Hypoglycemia Protocol Stop: 12/23/21 07:27 Glucose (Glucose 10 Tab/Tube) 4 - 8 tab PO UD PRN; Protocol PRN Reason: Hypoglycemia Treatment Stop: 12/23/21 07:27 Insulin Human Regular 250 (units/ Sodium Chloride) 250 mls @ 10 mls/hr IV .Q24H [facility]; Protocol Stop: 12/23/21 07:29 Last Admin: 11/23/21 08:08 Dose: 10 units/hr, 10 mls/hr Sodium Chloride (Nss 1000ml) 1,000 mls @ 125 mls/hr IV .Q8H [facility] Stop: 12/23/21 08:44 Last Admin: 11/23/21 08:36 Dose: 125 mls/hr Sodium Chloride (Nss 1000ml) 1,000 mls @ 125 mls/hr IV .Q8H [facility] Stop: 12/23/21 08:59 Last Admin: 11/23/21 08:54 Dose: Not Given Pantoprazole Sodium 40 mg/ (Syringe) 10 mls @ 5 mls/min IV DAILY@1100 [facility] Stop: 12/23/21 10:59 Insulin Aspart (Insulin Aspart Per Unit) 0 units SC ACHS [facility] Stop: 12/23/21 07:29 Miscellaneous (Carbohydrates For Hypoglycemia ) 15 - 30 gm PO UD PRN PRN Reason: Hypoglycemia Protocol Stop: 12/23/21 07:27 Miscellaneous (Icu Protocol For Hyperglycemia) 1 each N/A PRN PRN; Protocol PRN Reason: Hyperglycemia Protocol Stop: 11/25/21 08:37 Miscellaneous (Pending 1/2nss+20meq Kcl Ivf) 1 each N/A Q2H [facility] Stop: 12/23/21 08:44
[2021-11-23 09:21] LABS: BUN Creatinine Ratio 21.5 (10-20); Calcium 7.5 mg/dl (8.5-10.1); Creatinine Clr Calc Pharmacy 83.1 ml/min; Est GFR (African American) 67.6 ml/min; Est GFR (Non-African American) 58.3 ml/min; Magnesium 2.2 mg/dl (1.7-2.4); Potassium 4.1 mmol/L (3.5-5.1)
[2021-11-23 09:42] LABS: Estimated Average Glucose 243 mg/dl; Hemoglobin A1C 10.1 % (4.5-5.6)
[2021-11-23 10:18] LABS: BUN Creatinine Ratio 21.1 (10-20); Calcium 7.8 mg/dl (8.5-10.1); Creatinine Clr Calc Pharmacy 81.4 ml/min; Est GFR (African American) 65.9 ml/min; Est GFR (Non-African American) 56.9 ml/min; Potassium 3.7 mmol/L (3.5-5.1)
[2021-11-23] MEDS: SODIUM CHLOR 0.45% + 20MEQ KCL 20 MEQ/1,000 ML BAG IV SCH ×2 (10:35→17:12)
[2021-11-23] MEDS ORDERED: SODIUM BICARB 8.4% INJ 50 MEQ/50 ML SYR IV ONE (10:51)
[2021-11-23] MEDS ORDERED: SODIUM BICARB 8.4% INJ 50 MEQ/50 ML SYR IV STA (10:56)
[2021-11-23] MEDS ORDERED: LACTATED RINGER'S 1,000 ML IV ONE (10:56)
[2021-11-23] MEDS ORDERED: PIPERACILLIN/TAZOBACTAM 3.375 GM in DEXTROSE 5% 100 ML IV SCH (11:00)
[2021-11-23] MEDS ORDERED: PIPERACILLIN/TAZOBACTAM 3.375 GM in DEXTROSE 5% 100 ML IV STA (11:09)
--- NOTE | 2021-11-23 11:13 | Critical Care Consultation ---
Date of Consultation November 23, 2021 Assessment & Plan (1) DKA (diabetic ketoacidosis): (2) Sepsis: (3) Acute encephalopathy: (4) Acute kidney injury: Plan 41-year-old male with history of morbid obesity, PTSD, traumatic brain injury, insulin-dependent diabetes mellitus, bipolar disorder and hypertension presenting to the hospital due to altered mental status and DKA Neurologic: Suspect metabolic encephalopathy. Will check urine drug screen, obtain lithium level and Tylenol level. CT head ordered without contrast. Maintaining his airway. Pulmonary: Requiring supplemental oxygen. Currently maintaining his airway. Would like to avoid intubation given the severe metabolic acidosis. Cardiovascular: Reflexive tachycardia due to severe hypovolemia. Continue fluid hydration. Trend troponins. Gastrointestinal: Lipase and LFTs within normal limits. Acetaminophen level to be checked as noted above. Renal: SHABANA secondary to hypovolemia. [place] level and salicylate level to be checked. Continue aggressive fluid hydration. Patient is likely going to need 6 to 7 L of fluid. Continue electrolyte checks every 4 hours. We will give an amp of bicarb now. Infectious disease: Urinalysis suggestive of possible UTI. Blood cultures pending. Procalcitonin mildly elevated likely due to SHABANA. We will start empiric Zosyn. Hematologic: Hemoconcentrated due to hypovolemia. Patient with a history of low MCV. Possible iron deficiency anemia. Will defer work-up when more stable. Endocrine: Check TSH. A1c pending. Poor compliance with insulin at home. Currently in severe DKA on the insulin drip and protocol. F/E/N: N.p.o. Lines and tubes: 22-gauge IV and 18-gauge ultrasound-guided IV placed. Sampson catheter in place. VTE prophylaxis: SCDs. CODE STATUS: Full Family at bedside: Not available at bedside at present Disposition: I have personally spent 48 minutes of critical care time in the direct management of this patient. This is a life/limb threatening event. This includes time spent evaluating patient, direct bedside care, chart review, placing orders, interpretation of diagnostic studies, discussion with consultants, patient, and family members, as well as other required patient management activities. This time is exclusive of all separately billable procedures, and teaching time and separate from and in addition to any other critical care service time. Thank you for allowing us to participate in the care of this patient. History of Present Illness Reason for Consultation: Diabetic ketoacidosis History of Present Illness 41-year-old male with a history of insulin-dependent diabetes mellitus, traumatic brain injury, GERD and PTSD presenting to the hospital due to increasing nausea and vomiting. At the time of my exam, the patient was unresponsive to commands. He was maintaining his airway and required supplemental oxygen. History is obtained from discussion with hospitalist, bedside nurse and chart review. Apparently, the patient has been having nausea and vomiting for the past week. He has likely been off of insulin for the past 5 days. He chronically takes Suboxone and lithium. It is unclear whether he has been taking these medications. In the ER he had a respiratory rate in the 40s. He was hypertensive. He is getting fluids at 125 cc an hour. He received 2 L of normal saline. Labs have suggested severe anion gap acidosis. He is getting 12 units an hour of insulin. Sysiq-lw-lssb glucose checked at the time of my arrival was 555. Allergies Allergy/AdvReac Type Severity Reaction Status Date / Time No Known Allergies Allergy Unverified 08/24/17 23:07 Home Medications Medication Instructions Recorded Confirmed Type BUPRENORPHINE HCL (SUBUTEX) 3 tab sublingual DAILY 28 days #84 01/13/17 History tabs CLONIDINE HCL (CATAPRES) 1 tab PO HS 30 days #30 tabs 01/13/17 History Metoprolol Tartrate 50 mg PO BID ##0 01/13/17 History ESOMEPRAZOLE MAGNESIUM (NEXIUM) 1 cap PO DAILY 30 days #30 caps 01/18/17 Rx Insulin Aspart (NOVOLOG FLEXPEN) 10 unit SC AC ##1 01/18/17 Rx Insulin Glargine (Lantus Solostar) 70 unit SC HS #1 pen 01/18/17 Rx NICOTINE (NICODERM CQ) 1 patch transdermal QAM 30 days ##0 01/18/17 Rx METFORMIN HCL (GLUCOPHAGE) 1,000 mg PO DAILY #0 tabs 08/24/17 History Ranitidine Hcl (ZANTAC) 150 mg PO DAILY #0 tabs 08/24/17 History Patient History Medical History (Updated 11/23/21 @ 11:08 by Rolly Curran MD) Acute encephalopathy Acute kidney injury Anxiety and depression DKA (diabetic ketoacidoses) GERD (gastroesophageal reflux disease) H/O traumatic brain injury No pertinent family history Sepsis Type II diabetes mellitus Surgical History No pertinent past surgical history Social History Smoking Status: Never smoker Feels Safe at Home: Yes Review of Systems Review of Systems: Unobtainable due to cognitive status Physical Exam Physical Exam: Constitutional: Morbidly obese appearing male in severe distress. Eyes: Pupils are equal round and reactive to light. Conjunctivae are normal. Anicteric sclera. Ears nose, mouth and throat: Dry oral mucosa. Pupils dilated.. Neck: Trachea is midline. Visual inspection is normal. Respiratory: Clear to auscultation bilaterally. No use of accessory muscles. No significant clubbing noted. Cardiovascular: Tachycardic. Adequate cap refill. No murmur. Gastrointestinal: Normal bowel sounds, soft, nontender and nondistended. No hepatosplenomegaly noted. Musculoskeletal: No cyanosis. Patient is able to move all extremities. Skin: No rashes, warm dry and intact. Neurologic: No obvious focal neurological deficits seen. Psychiatric: Obtunded. Results & Data Results & Data ([facility]) Vital Signs (Past 12 Hours) Vital Signs Temp Pulse Resp BP Pulse Ox O2 Del Method O2 Flow Rate 11/23/21 10:45 141 H 34 H 99 Nasal Cannula 3 11/23/21 10:45 127/90 11/23/21 10:31 143/100 H 11/23/21 10:31 100 Nasal Cannula 3 11/23/21 10:30 99 Nasal Cannula 3 11/23/21 10:15 32 H 98 Nasal Cannula 3 11/23/21 10:15 118/87 11/23/21 10:00 26 H 100 Nasal Cannula 3 11/23/21 10:00 113/75 11/23/21 09:47 144 H 21 97 Nasal Cannula 3 11/23/21 09:47 141/95 H 11/23/21 09:30 143 H 30 H 100 Nasal Cannula 3 11/23/21 09:30 139/91 11/23/21 09:15 140/99 11/23/21 09:15 143 H 33 H 98 Nasal Cannula 3 11/23/21 09:00 141 H 32 H 99 Nasal Cannula 3 11/23/21 09:00 159/88 H 11/23/21 08:45 140 H 31 H 100 Nasal Cannula 3 11/23/21 08:45 135/87 11/23/21 08:30 137 H 32 H 100 Nasal Cannula 3 11/23/21 08:30 158/100 H 11/23/21 08:15 136/100 11/23/21 08:15 136 H 30 H 100 Nasal Cannula 3 11/23/21 08:00 161/92 H 11/23/21 08:00 137 H 29 H 99 3 11/23/21 07:45 138 H 34 H 100 3 11/23/21 07:45 133/105 H 11/23/21 07:30 141 H 13 97 Nasal Cannula 3 11/23/21 07:30 162/125 H 11/23/21 10:30 32 H Nasal Cannula 3 11/23/21 10:00 31 H Nasal Cannula 3 11/23/21 09:30 31 H Nasal Cannula 3 11/23/21 09:00 32 H Nasal Cannula 3 11/23/21 08:50 36.6 C 11/23/21 08:30 30 H Nasal Cannula 3 11/23/21 08:00 30 H Nasal Cannula 3 11/23/21 07:30 32 H Nasal Cannula 3 11/23/21 07:21 140 H 34 H 98 Nasal Cannula 3 11/23/21 07:21 167/110 H 11/23/21 07:00 144 H 34 H 95 Room Air 11/23/21 06:56 143 H 24 96 Room Air 11/23/21 06:56 176/108 H 11/23/21 06:40 142 H 37 H 100 Room Air 11/23/21 07:00 30 H Room Air 11/23/21 06:01 36.7 C 144 H 22 176/100 H 96 Room Air 11/23/21 06:26 32 H 97 Room Air 11/23/21 06:35 99 Room Air Coding Level of Care Code Critical Care 1st 30-74 mins Diagnoses DKA (diabetic ketoacidosis) E11.10 Sepsis A41.9 Acute encephalopathy G93.40 Acute kidney injury N17.9 Time Spent (min) 48
[2021-11-23 11:35] LABS: Amphetamines+Metham, Urine Neg (Neg); Barbiturates, Urine Neg (Neg); Benzodiazepine, Urine Neg (Neg); Cocaine, Urine Neg (Neg); MDMA (Ecstacy), Urine Neg (Neg); Methadone, Urine Neg (Neg); Opiate, Urine Neg (Neg); Phencyclidine, Urine Neg (Neg)
[2021-11-23 12:10] LABS: pH ABG < 7.00 (7.35-7.45)
[2021-11-23 12:22] LABS: Troponin I High Sensitivity 12.6 pg/ml (0-20)
[2021-11-23 12:28] LABS: Acetaminophen < 3 ug/ml (10-30); Lithium 0.2 mmol/L (0.6-1.2); Salicylate < 3.0 mg/dl (3.0-30)
--- NOTE | 2021-11-23 13:09 | CT Scan Report ---
CT SCAN OF THE BRAIN WITHOUT IV CONTRAST CLINICAL HISTORY: Change in mental status. COMPARISON STUDY: CT of the brain dated 08/23/2017. TECHNIQUE: Unenhanced axial CT scan of the brain is performed from the vertex to the skull base. A d ose lowering technique was utilized adhering to the principles of ALARA. The Examination is compromis ed by motion artifact. CT DOSE: 537.48 mGy.cm FINDINGS: Brain parenchyma: The brain parenchyma is normal in appearance. There is no hemorrhage, mass effect, or evidence of acute territorial ischemia by CT criteria. Perez-white matter differentiation is preser doreen. No extra-axial fluid collection is seen. Ventricles, sulci, cisterns: Normal in configuration. Intracranial vasculature: The visualized intracranial vasculature at the skull base is normal in appe arance. Calvarium: Unremarkable. Sinuses and mastoids: The visualized paranasal sinuses are clear. The mastoid air cells are well pneu matized. Orbits: The bony orbits are grossly intact. IMPRESSION: There is no evidence of hemorrhage, mass effect, or acute territorial ischemia by CT crit hoda noting a motion compromised examination. ACT 112: Negative or not required by law. Electronically signed by: Kieran Castro M.D. 11/23/2021 1:07 PM
[2021-11-23 13:47] LABS: BUN Creatinine Ratio 21.1 (10-20); Creatinine Clr Calc Pharmacy 100.6 ml/min; Est GFR (African American) 85.2 ml/min; Est GFR (Non-African American) 73.5 ml/min; Potassium 3.1 mmol/L (3.5-5.1)
[2021-11-23] MEDS ORDERED: POTASSIUM CHLORIDE / WTR 10 MEQ/100 ML PLCT IV ONE (14:30)
[2021-11-23] MEDS ORDERED: PHARMACY GLYCEMIC MGMT CONSULT PRN (15:24)
[2021-11-23] MEDS: PIPERACILLIN/TAZOBACTAM 4.5 GM in DEXTROSE 5% 100 ML IV SCH (15:30)
[2021-11-23] MEDS ORDERED: D5W AND 1/2NSS + 20MEQ KCL 20 MEQ/1,000 ML BAG IV SCH (15:30)
[2021-11-23] MEDS ORDERED: LACTATED RINGER'S 1,000 ML IV SCH (15:30)
[2021-11-23 17:01] LABS: BUN Creatinine Ratio 21.1 (10-20); Calcium 7.7 mg/dl (8.5-10.1); Creatinine Clr Calc Pharmacy 107.6 ml/min; Est GFR (African American) 93.4 ml/min; Est GFR (Non-African American) 80.6 ml/min; Potassium 3.4 mmol/L (3.5-5.1)
[2021-11-23 17:07] LABS: Troponin I High Sensitivity 11.8 pg/ml (0-20)
[2021-11-23] MEDS: PANTOprazole 40 MG in SYRINGE 0 ML IV SCH (17:10)
[2021-11-23 20:36] LABS: Base Excess VBG -16.4 mEq/L; HCO3 VBG 9 mmol/L; Oxygen Saturation VBG 88.5 %; PCO2 VBG 23 mmHg (38-50); PO2 VBG 46 mmHg; pH VBG 7.22 (7.36-7.41)
[2021-11-23 21:00] LABS: BUN Creatinine Ratio 18.9 (10-20); Calcium 7.8 mg/dl (8.5-10.1); Creatinine Clr Calc Pharmacy 115.8 ml/min; Magnesium 2.2 mg/dl (1.7-2.4); Potassium 3.1 mmol/L (3.5-5.1)
[2021-11-23] MEDS ORDERED: PENDING D5 1/2NS+40mEq KCL IVF SCH (21:15)
[2021-11-23] MEDS: POTASSIUM CHLORIDE / WTR 10 MEQ/100 ML PLCT IV SCH ×3 (21:25→23:42)
[2021-11-23] MEDS: POTASSIUM CHLORIDE 40 MEQ in D5W AND 1/2NSS 1,000 ML IV SCH (21:26)
[2021-11-23] MEDS ORDERED: ACETAMINOPHEN 1,000 MG/100 ML VIAL IV PRN (21:52)
[2021-11-24] MEDS: PIPERACILLIN/TAZOBACTAM 4.5 GM in DEXTROSE 5% 100 ML IV SCH ×4 (00:09→23:01)
[2021-11-24] MEDS: POTASSIUM CHLORIDE / WTR 10 MEQ/100 ML PLCT IV SCH ×3 (00:45→05:51)
[2021-11-24 01:00] LABS: HCO3 VBG 15 mmol/L; Oxygen Saturation VBG 84.2 %; PCO2 VBG 32 mmHg (38-50); PO2 VBG 45 mmHg; pH VBG 7.27 (7.36-7.41)
[2021-11-24 03:08] LABS: Anion Gap 11 (3-11); BUN Creatinine Ratio 18.9 (10-20); Blood Urea Nitrogen 17 mg/dl (6-23); Calcium 7.6 mg/dl (8.5-10.1); Carbon Dioxide 14 mmol/L (21-32); Chloride 113 mmol/L (98-107); Creatinine Clr Calc Pharmacy 136.4 ml/min; Est GFR (African American) 124.3 ml/min; Est GFR (Non-African American) 107.2 ml/min; Glucose 238 mg/dl (70-99(Fasting)); Magnesium 2.1 mg/dl (1.7-2.4); Phosphorus < 1.0 mg/dl (2.5-4.9); Sodium 138 mmol/L (136-145)
[2021-11-24] MEDS ORDERED: POTASSIUM PHOS 3 MMOL/1 ML INFUSION IV STA ×3 (03:21→20:27)
[2021-11-24] MEDS ORDERED: POTASSIUM PHOSPHATE 15 MMOL in SODIUM CHLORIDE 0.9% 250 ML IV ONE (03:45)
[2021-11-24 04:21] LABS: Base Excess VBG -11.2 mEq/L; HCO3 VBG 14 mmol/L; Oxygen Saturation VBG 88.6 %; PCO2 VBG 29 mmHg (38-50); PO2 VBG 51 mmHg; pH VBG 7.29 (7.36-7.41)
[2021-11-24] MEDS: POTASSIUM CHLORIDE 40 MEQ in D5W AND 1/2NSS 1,000 ML IV SCH ×3 (04:24→20:19)
[2021-11-24 04:46] LABS: BUN Creatinine Ratio 19.5 (10-20); Creatinine Clr Calc Pharmacy 141.1 ml/min; Est GFR (Non-African American) 108.7 ml/min; Potassium 3.1 mmol/L (3.5-5.1)
[2021-11-24 05:07] LABS: Basophils # (auto) 0.02 K/uL (0-0.2); Basophils % (auto) 0.1 %; Eosinophils # (auto) 0.01 K/uL (0-0.50); Eosinophils % (auto) 0.1 %; Hematocrit (blood only) 37.4 % (40.1-51.0); Hemoglobin 13.3 g/dl (14.0-18.0); Immature Granulocytes # (auto) 0.11 K/uL (0.00-0.02); Immature Granulocytes % (auto) 0.7 %; Lymphocytes # (auto) 1.27 K/uL (1.2-3.4); Lymphocytes % (auto) 7.9 %; Mean Corpuscular Hemoglobin 26.6 pg (25.0-34.0); Mean Corpuscular Hgb Conc 35.6 g/dL (32.0-36.0); Mean Corpuscular Volume 74.8 fL (80.0-100.0); Monocytes # (auto) 1.94 K/uL (0.24-0.82); Monocytes % (auto) 12.1 %; Neutrophils # (auto) 12.72 K/uL (1.4-6.5); Neutrophils % (auto) 79.1 %; Platelet Count 346 K/uL (130-400); RDW Coefficient of Variation 12.6 % (11.5-14.5); RDW Standard Deviation 34.1 fL (36.4-46.3); White Blood Count 16.07 K/ul (4.8-10.8)
[2021-11-24 05:16] LABS: Chol HDL Ratio 7.3 (0-5); Magnesium 2.3 mg/dl (1.7-2.4); Phosphorus 1.2 mg/dl (2.5-4.9)
--- NOTE | 2021-11-24 07:20 | Electrocardiogram Report ---
Test Reason : Blood Pressure : / mmHG Vent. Rate : 144 BPM Atrial Rate : 144 BPM P-R Int : 180 ms QRS Dur : 080 ms QT Int : 230 ms P-R-T Axes : 027 -53 023 degrees QTc Int : 356 ms Poor data quality, interpretation may be adversely affected Sinus tachycardia Left axis deviation Minimal voltage criteria for LVH, may be normal variant Inferior infarct , age undetermined Anterior infarct , age undetermined Abnormal ECG When compared with ECG of 24-AUG-2017 20:27, Inferior infarct is now Present HR has increased by 74 bpm Confirmed by Caden Paez ([id number]) on 11/24/2021 7:20:07 AM Referred By: REFERRED SELF Confirmed By:Caden Paez
--- NOTE | 2021-11-24 07:35 | Hospitalist Progress Note ---
Date of Service November 24, 2021 Assessment & Plan (1) DKA (diabetic ketoacidosis): Plan: Patient presents with elevated blood glucose level, over 600 Positive urine ketones Anion gap 28, bicarb 4 pH<7.0 Patient tachypneic, tachycardic on admission on 3 L of suppl. O2 in ER, now on RA Patient not able to provide much history on admission, now mental status improving Pt not taking insulin for several days 2 Liters normal saline given in the ED and IV insulin started Pt still on IV insulin drip, IV electrolyte replacement Initially admitted to ICU due to severe acidosis, possible need for bicarbonate and/or intubation received bicarb Now AG closed, bicarb still low but improving Current hemoglobin A1c 10.1% Monitor BMP Continue to closely monitor SHABANA - resolved - Cr 1.8 on admission - current Cr 0.76 - secondary to dehydration, secondary to above IVF given monitor renal function Pseudohyponatremia Na 122 on admission in the setting of elevated Glc level -Correct hyperglycemia, should correct sodium level -Continue to closely monitor BMP, as above -current Na 140 Leukocytosis WBC 30,000 -> 16,000 Procalcitonin 0.6 Patient is severely dehydrated due to DKA Urine culture and blood cultures pending Empiric abx, zosyn, started by ICU team GERD -IV PPI HTN -Per mother, patient is on clonidine -pt has been hypertensive clonidine patch given -Per old records from previous admission, patient was on metoprolol as well -We will need to clarify with the patient what he is taking, when his mental status back to [facility] PTSD, history of TBI -Per mother Giulia, patient may be on lithium, Suboxone, hydroxyzine -We will need to clarify with the patient what he is taking Admission and Anticipated Discharge Date Admission Date: November 23, 2021 Subjective Patient seen in follow-up of DKA Currently laying in bed, in no acute distress Overnight patient pulled his IVs He is more awake, able to answer questions more appropriately. However still not quite to baseline. Patient's mother is at the bedside. Patient denies any chest pain, shortness of breath. No abdominal pain nausea vomiting. He is also on room air, saturating 97%. Still on IV insulin. IV electrolytes as well. Review of Systems Review of Systems: All systems reviewed & are unremarkable except as noted in Subjective Physical Exam Physical Exam: Constitutional:L obese M laying in bed,in NAD, on RA Eyes: PERRL, EOMI, conju nctivae normal, an icteric sclerae ENMT: external ear and n ose normal, oropha rynx normal Neck: + thick neck Respiratory: CTAB, no wheezing Cardiovascular:L tachycardic, HR lo w 100s, no murmurs noted Chest (Breasts): Chest: normal insp ection of chest Gastrointestinal ( Abdomen): normal bowel sound s, soft, obese, no ntender Musculoskeletal: moves extremities Skin: + mottling of ski n - upper and lowe r extremities note d yesterday - now resolved Neurologic: Patient aware of b eing in the hospit al, he is able to answer simple ques tions appropriatel y Genitourinary: Sampson catheter whitley francesco, drains clear yellow urine Lymphatic: minimal LE edema Results & Data Results & Data ([facility]) Vital Signs (Past 12 Hours) Vital Signs Temp Pulse Resp BP Pulse Ox Pulse Ox O2 Del Method 11/24/21 06:30 21 97 Room Air 11/24/21 06:00 36.5 C 104 H 24 168/107 H 97 11/24/21 06:00 26 H 97 Room Air 11/24/21 05:26 105 H 20 161/81 H 99 11/24/21 05:00 105 H 21 97 11/24/21 04:30 112 H 20 98 11/24/21 05:30 23 98 Room Air 11/24/21 05:00 23 97 Room Air 11/24/21 04:00 100 H 25 H 150/95 H 97 11/24/21 03:27 108 H 21 139/110 H 96 11/24/21 03:00 103 H 21 98 11/24/21 04:30 22 97 Room Air 11/24/21 04:00 22 97 Room Air 11/24/21 03:30 23 98 Room Air 11/24/21 03:00 21 99 Room Air 11/24/21 02:30 24 99 Room Air 11/24/21 02:00 107 H 24 172/75 H 95 11/24/21 01:01 113 H 25 H 163/102 H 99 11/23/21 20:00 Room Air 11/24/21 02:07 99 11/24/21 02:00 25 H 99 Room Air 11/24/21 01:30 20 98 Room Air 11/24/21 01:00 26 H 99 Room Air 11/24/21 01:57 36.6 C 11/24/21 00:01 117 H 22 148/122 H 99 11/23/21 23:00 120 H 21 139/97 97 11/23/21 22:00 123 H 27 H 164/82 H 97 11/23/21 21:00 125 H 26 H 130/104 H 97 11/24/21 00:30 28 H 98 Room Air 11/24/21 00:00 22 98 Room Air 11/23/21 23:59 122 H 11/23/21 23:30 22 97 Room Air 11/23/21 23:00 22 97 Room Air 11/23/21 22:30 22 97 Room Air 11/23/21 22:00 22 97 Room Air 11/23/21 20:00 132 H 11/23/21 21:30 29 H 98 Room Air 11/23/21 21:00 27 H 97 Room Air 11/23/21 20:30 27 H 98 Room Air 11/23/21 20:01 127 H 30 H 138/89 98 11/23/21 20:00 30 H 97 Room Air O2 Del Method O2 Flow Rate 11/24/21 06:30 11/24/21 06:00 11/24/21 06:00 3 11/24/21 05:26 11/24/21 05:00 11/24/21 04:30 11/24/21 05:30 11/24/21 05:00 11/24/21 04:00 11/24/21 03:27 11/24/21 03:00 11/24/21 04:30 11/24/21 04:00 11/24/21 03:30 11/24/21 03:00 11/24/21 02:30 11/24/21 02:00 11/24/21 01:01 11/23/21 20:00 11/24/21 02:07 Room Air 11/24/21 02:00 11/24/21 01:30 11/24/21 01:00 11/24/21 01:57 11/24/21 00:01 11/23/21 23:00 11/23/21 22:00 11/23/21 21:00 11/24/21 00:30 11/24/21 00:00 11/23/21 23:59 11/23/21 23:30 11/23/21 23:00 11/23/21 22:30 11/23/21 22:00 11/23/21 20:00 11/23/21 21:30 11/23/21 21:00 11/23/21 20:30 11/23/21 20:01 11/23/21 20:00 Laboratory Results 11/24/21 11/24/21 11/24/21 Range/Units 07:07 06:06 05:13 WBC (4.8-10.8) K/ul RBC (4.63-6.08) M/uL Hgb (14.0-18.0) g/dl Hct (40.1-51.0) % MCV (80.0-100.0) fL MCH (25.0-34.0) pg MCHC (32.0-36.0) g/dL RDW Std Deviation (36.4-46.3) fL RDW Coeff of Beata (11.5-14.5) % Plt Count (130-400) K/uL MPV (9.4-12.4) fL Immature Gran % (Auto) % Neut % (Auto) % Lymph % (Auto) % [place] % (Auto) % Eos % (Auto) % Baso % (Auto) % Neut # (Auto) (1.4-6.5) K/uL Lymph # (Auto) (1.2-3.4) K/uL [place] # (Auto) (0.24-0.82) K/uL Eos # (Auto) (0-0.50) K/uL Baso # (Auto) (0-0.2) K/uL Immature Gran # (Auto) (0.00-0.02) K/uL PT (9.0-12.0) Seconds INR (0.9-1.1) APTT (21.0-31.0) Seconds PTT Ratio ABG pH (7.35-7.45) ABG pCO2 (35-46) mmHg ABG pO2 (80-95) mmHg ABG HCO3 (19-24) mmol/L ABG O2 Saturation (90-95) % ABG Base Excess (-9-1.8) mEq/L Heath Test (Pos) VBG pH (7.36-7.41) VBG pCO2 (38-50) mmHg VBG pO2 mmHg VBG HCO3 mmol/L VBG O2 Saturation % VBG Base Excess mEq/L Oxygen Given Sodium (136-145) mmol/L Potassium (3.5-5.1) mmol/L Chloride (98-107) mmol/L Carbon Dioxide (21-32) mmol/L Anion Gap (3-11) BUN (6-23) mg/dl Creatinine (0.6-1.4) mg/dl Est Cr Clr Drug Dosing ml/min Est GFR ( Amer) ml/min Est GFR (Non-Af Amer) ml/min BUN/Creatinine Ratio (10-20) Glucose (70-99(Fasting)) mg/dl POC Glucose 221 H 240 H 238 H (70-99) mg/dl Estimat Average Glucose mg/dl Hemoglobin A1c (4.5-5.6) % Osmolality (280-300) mOsm/kg Lactate (0.4-2.0) mmol/L Calcium (8.5-10.1) mg/dl Phosphorus (2.5-4.9) mg/dl Magnesium (1.7-2.4) mg/dl Total Creatine Kinase (30-223) U/L Troponin I High Sens (0-20) pg/ml Albumin (3.4-5.0) gm/dl Globulin (2.5-4.0) gm/dl Albumin/Globulin Ratio (0.9-2) Triglycerides (0-150) mg/dl Cholesterol (0-200) mg/dl LDL Cholesterol, Calc mg/dl VLDL Cholesterol, Calc (0-30) mg/dl HDL Cholesterol mg/dl Cholesterol/HDL Ratio (0-5) Lipase (11-82) U/L Procalcitonin (0-0.5) ng/ml TSH (0.300-4.500) uIu/ml Nasal Screen MRSA (PCR) (Negative) Salicylates (3.0-30) mg/dl Urine Opiates Screen (Neg) Ur Methadone, Qual (Neg) Acetaminophen (10-30) ug/ml Urine Barbiturates (Neg) Ur Phencyclidine (PCP) (Neg) U Amphetamin/Meth Scrn (Neg) MDMA (Ecstasy) Screen (Neg) U Benzodiazepines Scrn (Neg) [place] (0.6-1.2) mmol/L Ur Cocaine Metabolite (Neg) U Marijuana (THC) Screen (Neg) Ethyl Alcohol mg/dL (<10.0) mg/dl 11/24/21 11/24/21 11/24/21 Range/Units 04:10 04:10 04:10 WBC 16.07 H D (4.8-10.8) K/ul RBC 5.00 (4.63-6.08) M/uL Hgb 13.3 L (14.0-18.0) g/dl Hct 37.4 L (40.1-51.0) % MCV 74.8 L D (80.0-100.0) fL MCH 26.6 (25.0-34.0) pg MCHC 35.6 (32.0-36.0) g/dL RDW Std Deviation 34.1 L (36.4-46.3) fL RDW Coeff of Beata 12.6 (11.5-14.5) % Plt Count 346 (130-400) K/uL MPV 9.0 L (9.4-12.4) fL Immature Gran % (Auto) 0.7 % Neut % (Auto) 79.1 % Lymph % (Auto) 7.9 % [place] % (Auto) 12.1 % Eos % (Auto) 0.1 % Baso % (Auto) 0.1 % Neut # (Auto) 12.72 H (1.4-6.5) K/uL Lymph # (Auto) 1.27 (1.2-3.4) K/uL [place] # (Auto) 1.94 H (0.24-0.82) K/uL Eos # (Auto) 0.01 (0-0.50) K/uL Baso # (Auto) 0.02 (0-0.2) K/uL Immature Gran # (Auto) 0.11 H (0.00-0.02) K/uL PT (9.0-12.0) Seconds INR (0.9-1.1) APTT (21.0-31.0) Seconds PTT Ratio ABG pH (7.35-7.45) ABG pCO2 (35-46) mmHg ABG pO2 (80-95) mmHg ABG HCO3 (19-24) mmol/L ABG O2 Saturation (90-95) % ABG Base Excess (-9-1.8) mEq/L Heath Test (Pos) VBG pH 7.29 L (7.36-7.41) VBG pCO2 29 L (38-50) mmHg VBG pO2 51 mmHg VBG HCO3 14 mmol/L VBG O2 Saturation 88.6 % VBG Base Excess -11.2 mEq/L Oxygen Given Sodium 136 (136-145) mmol/L Potassium 3.1 L (3.5-5.1) mmol/L Chloride 111 H (98-107) mmol/L Carbon Dioxide 14 L (21-32) mmol/L Anion Gap 11 (3-11) BUN 17 (6-23) mg/dl Creatinine 0.87 (0.6-1.4) mg/dl Est Cr Clr Drug Dosing 141.1 ml/min Est GFR ( Amer) 126.0 ml/min Est GFR (Non-Af Amer) 108.7 ml/min BUN/Creatinine Ratio 19.5 (10-20) Glucose 275 H (70-99(Fasting)) mg/dl POC Glucose (70-99) mg/dl Estimat Average Glucose mg/dl Hemoglobin A1c (4.5-5.6) % Osmolality (280-300) mOsm/kg Lactate (0.4-2.0) mmol/L Calcium 8.0 L (8.5-10.1) mg/dl Phosphorus 1.2 L* (2.5-4.9) mg/dl Magnesium 2.3 (1.7-2.4) mg/dl Total Creatine Kinase (30-223) U/L Troponin I High Sens (0-20) pg/ml Albumin (3.4-5.0) gm/dl Globulin (2.5-4.0) gm/dl Albumin/Globulin Ratio (0.9-2) Triglycerides 169 H (0-150) mg/dl Cholesterol 167 (0-200) mg/dl LDL Cholesterol, Calc 110 mg/dl VLDL Cholesterol, Calc 34 H (0-30) mg/dl HDL Cholesterol 23 mg/dl Cholesterol/HDL Ratio 7.3 H (0-5) Lipase (11-82) U/L Procalcitonin (0-0.5) ng/ml TSH (0.300-4.500) uIu/ml Nasal Screen MRSA (PCR) (Negative) Salicylates (3.0-30) mg/dl Urine Opiates Screen (Neg) Ur Methadone, Qual (Neg) Acetaminophen (10-30) ug/ml Urine Barbiturates (Neg) Ur Phencyclidine (PCP) (Neg) U Amphetamin/Meth Scrn (Neg) MDMA (Ecstasy) Screen (Neg) U Benzodiazepines Scrn (Neg) [place] (0.6-1.2) mmol/L Ur Cocaine Metabolite (Neg) U Marijuana (THC) Screen (Neg) Ethyl Alcohol mg/dL (<10.0) mg/dl 11/24/21 11/24/21 11/24/21 Range/Units 03:09 01:56 00:42 WBC (4.8-10.8) K/ul RBC (4.63-6.08) M/uL Hgb (14.0-18.0) g/dl Hct (40.1-51.0) % MCV (80.0-100.0) fL MCH (25.0-34.0) pg MCHC (32.0-36.0) g/dL RDW Std Deviation (36.4-46.3) fL RDW Coeff of Beata (11.5-14.5) % Plt Count (130-400) K/uL MPV (9.4-12.4) fL Immature Gran % (Auto) % Neut % (Auto) % Lymph % (Auto) % [place] % (Auto) % Eos % (Auto) % Baso % (Auto) % Neut # (Auto) (1.4-6.5) K/uL Lymph # (Auto) (1.2-3.4) K/uL [place] # (Auto) (0.24-0.82) K/uL Eos # (Auto) (0-0.50) K/uL Baso # (Auto) (0-0.2) K/uL Immature Gran # (Auto) (0.00-0.02) K/uL PT (9.0-12.0) Seconds INR (0.9-1.1) APTT (21.0-31.0) Seconds PTT Ratio ABG pH (7.35-7.45) ABG pCO2 (35-46) mmHg ABG pO2 (80-95) mmHg ABG HCO3 (19-24) mmol/L ABG O2 Saturation (90-95) % ABG Base Excess (-9-1.8) mEq/L Heath Test (Pos) VBG pH 7.27 L (7.36-7.41) VBG pCO2 32 L (38-50) mmHg VBG pO2 45 mmHg VBG HCO3 15 mmol/L VBG O2 Saturation 84.2 % VBG Base Excess -11.0 mEq/L Oxygen Given Sodium (136-145) mmol/L Potassium (3.5-5.1) mmol/L Chloride (98-107) mmol/L Carbon Dioxide (21-32) mmol/L Anion Gap (3-11) BUN (6-23) mg/dl Creatinine (0.6-1.4) mg/dl Est Cr Clr Drug Dosing ml/min Est GFR ( Amer) ml/min Est GFR (Non-Af Amer) ml/min BUN/Creatinine Ratio (10-20) Glucose (70-99(Fasting)) mg/dl POC Glucose 228 H 218 H (70-99) mg/dl Estimat Average Glucose mg/dl Hemoglobin A1c (4.5-5.6) % Osmolality (280-300) mOsm/kg Lactate (0.4-2.0) mmol/L Calcium (8.5-10.1) mg/dl Phosphorus (2.5-4.9) mg/dl Magnesium (1.7-2.4) mg/dl Total Creatine Kinase (30-223) U/L Troponin I High Sens (0-20) pg/ml Albumin (3.4-5.0) gm/dl Globulin (2.5-4.0) gm/dl Albumin/Globulin Ratio (0.9-2) Triglycerides (0-150) mg/dl Cholesterol (0-200) mg/dl LDL Cholesterol, Calc mg/dl VLDL Cholesterol, Calc (0-30) mg/dl HDL Cholesterol mg/dl Cholesterol/HDL Ratio (0-5) Lipase (11-82) U/L Procalcitonin (0-0.5) ng/ml TSH (0.300-4.500) uIu/ml Nasal Screen MRSA (PCR) (Negative) Salicylates (3.0-30) mg/dl Urine Opiates Screen (Neg) Ur Methadone, Qual (Neg) Acetaminophen (10-30) ug/ml Urine Barbiturates (Neg) Ur Phencyclidine (PCP) (Neg) U Amphetamin/Meth Scrn (Neg) MDMA (Ecstasy) Screen (Neg) U Benzodiazepines Scrn (Neg) [place] (0.6-1.2) mmol/L Ur Cocaine Metabolite (Neg) U Marijuana (THC) Screen (Neg) Ethyl Alcohol mg/dL (<10.0) mg/dl 11/24/21 11/24/21 11/23/21 Range/Units 00:42 00:33 23:38 WBC (4.8-10.8) K/ul RBC (4.63-6.08) M/uL Hgb (14.0-18.0) g/dl Hct (40.1-51.0) % MCV (80.0-100.0) fL MCH (25.0-34.0) pg MCHC (32.0-36.0) g/dL RDW Std Deviation (36.4-46.3) fL RDW Coeff of Beata (11.5-14.5) % Plt Count (130-400) K/uL MPV (9.4-12.4) fL Immature Gran % (Auto) % Neut % (Auto) % Lymph % (Auto) % [place] % (Auto) % Eos % (Auto) % Baso % (Auto) % Neut # (Auto) (1.4-6.5) K/uL Lymph # (Auto) (1.2-3.4) K/uL [place] # (Auto) (0.24-0.82) K/uL Eos # (Auto) (0-0.50) K/uL Baso # (Auto) (0-0.2) K/uL Immature Gran # (Auto) (0.00-0.02) K/uL PT (9.0-12.0) Seconds INR (0.9-1.1) APTT (21.0-31.0) Seconds PTT Ratio ABG pH (7.35-7.45) ABG pCO2 (35-46) mmHg ABG pO2 (80-95) mmHg ABG HCO3 (19-24) mmol/L ABG O2 Saturation (90-95) % ABG Base Excess (-9-1.8) mEq/L Heath Test (Pos) VBG pH (7.36-7.41) VBG pCO2 (38-50) mmHg VBG pO2 mmHg VBG HCO3 mmol/L VBG O2 Saturation % VBG Base Excess mEq/L Oxygen Given Sodium 138 (136-145) mmol/L Potassium 3.0 L (3.5-5.1) mmol/L Chloride 113 H (98-107) mmol/L Carbon Dioxide 14 L (21-32) mmol/L Anion Gap 11 (3-11) BUN 17 (6-23) mg/dl Creatinine 0.90 (0.6-1.4) mg/dl Est Cr Clr Drug Dosing 136.4 ml/min Est GFR ( Amer) 124.3 ml/min Est GFR (Non-Af Amer) 107.2 ml/min BUN/Creatinine Ratio 18.9 (10-20) Glucose 238 H (70-99(Fasting)) mg/dl POC Glucose 248 H 268 H (70-99) mg/dl Estimat Average Glucose mg/dl Hemoglobin A1c (4.5-5.6) % Osmolality (280-300) mOsm/kg Lactate (0.4-2.0) mmol/L Calcium 7.6 L (8.5-10.1) mg/dl Phosphorus < 1.0 L* (2.5-4.9) mg/dl Magnesium 2.1 (1.7-2.4) mg/dl Total Creatine Kinase (30-223) U/L Troponin I High Sens (0-20) pg/ml Albumin (3.4-5.0) gm/dl Globulin (2.5-4.0) gm/dl Albumin/Globulin Ratio (0.9-2) Triglycerides (0-150) mg/dl Cholesterol (0-200) mg/dl LDL Cholesterol, Calc mg/dl VLDL Cholesterol, Calc (0-30) mg/dl HDL Cholesterol mg/dl Cholesterol/HDL Ratio (0-5) Lipase (11-82) U/L Procalcitonin (0-0.5) ng/ml TSH (0.300-4.500) uIu/ml Nasal Screen MRSA (PCR) (Negative) Salicylates (3.0-30) mg/dl Urine Opiates Screen (Neg) Ur Methadone, Qual (Neg) Acetaminophen (10-30) ug/ml Urine Barbiturates (Neg) Ur Phencyclidine (PCP) (Neg) U Amphetamin/Meth Scrn (Neg) MDMA (Ecstasy) Screen (Neg) U Benzodiazepines Scrn (Neg) [place] (0.6-1.2) mmol/L Ur Cocaine Metabolite (Neg) U Marijuana (THC) Screen (Neg) Ethyl Alcohol mg/dL (<10.0) mg/dl 11/23/21 11/23/21 11/23/21 Range/Units 22:42 21:32 20:29 WBC (4.8-10.8) K/ul RBC (4.63-6.08) M/uL Hgb (14.0-18.0) g/dl Hct (40.1-51.0) % MCV (80.0-100.0) fL MCH (25.0-34.0) pg MCHC (32.0-36.0) g/dL RDW Std Deviation (36.4-46.3) fL RDW Coeff of Beata (11.5-14.5) % Plt Count (130-400) K/uL MPV (9.4-12.4) fL Immature Gran % (Auto) % Neut % (Auto) % Lymph % (Auto) % [place] % (Auto) % Eos % (Auto) % Baso % (Auto) % Neut # (Auto) (1.4-6.5) K/uL Lymph # (Auto) (1.2-3.4) K/uL [place] # (Auto) (0.24-0.82) K/uL Eos # (Auto) (0-0.50) K/uL Baso # (Auto) (0-0.2) K/uL Immature Gran # (Auto) (0.00-0.02) K/uL PT (9.0-12.0) Seconds INR (0.9-1.1) APTT (21.0-31.0) Seconds PTT Ratio ABG pH (7.35-7.45) ABG pCO2 (35-46) mmHg ABG pO2 (80-95) mmHg ABG HCO3 (19-24) mmol/L ABG O2 Saturation (90-95) % ABG Base Excess (-9-1.8) mEq/L Heath Test (Pos) VBG pH 7.22 L (7.36-7.41) VBG pCO2 23 L (38-50) mmHg VBG pO2 46 mmHg VBG HCO3 9 mmol/L VBG O2 Saturation 88.5 % VBG Base Excess -16.4 mEq/L Oxygen Given Sodium (136-145) mmol/L Potassium (3.5-5.1) mmol/L Chloride (98-107) mmol/L Carbon Dioxide (21-32) mmol/L Anion Gap (3-11) BUN (6-23) mg/dl Creatinine (0.6-1.4) mg/dl Est Cr Clr Drug Dosing ml/min Est GFR ( Amer) ml/min Est GFR (Non-Af Amer) ml/min BUN/Creatinine Ratio (10-20) Glucose (70-99(Fasting)) mg/dl POC Glucose 273 H 378 H* (70-99) mg/dl Estimat Average Glucose mg/dl Hemoglobin A1c (4.5-5.6) % Osmolality (280-300) mOsm/kg Lactate (0.4-2.0) mmol/L Calcium (8.5-10.1) mg/dl Phosphorus (2.5-4.9) mg/dl Magnesium (1.7-2.4) mg/dl Total Creatine Kinase (30-223) U/L Troponin I High Sens (0-20) pg/ml Albumin (3.4-5.0) gm/dl Globulin (2.5-4.0) gm/dl Albumin/Globulin Ratio (0.9-2) Triglycerides (0-150) mg/dl Cholesterol (0-200) mg/dl LDL Cholesterol, Calc mg/dl VLDL Cholesterol, Calc (0-30) mg/dl HDL Cholesterol mg/dl Cholesterol/HDL Ratio (0-5) Lipase (11-82) U/L Procalcitonin (0-0.5) ng/ml TSH (0.300-4.500) uIu/ml Nasal Screen MRSA (PCR) (Negative) Salicylates (3.0-30) mg/dl Urine Opiates Screen (Neg) Ur Methadone, Qual (Neg) Acetaminophen (10-30) ug/ml Urine Barbiturates (Neg) Ur Phencyclidine (PCP) (Neg) U Amphetamin/Meth Scrn (Neg) MDMA (Ecstasy) Screen (Neg) U Benzodiazepines Scrn (Neg) [place] (0.6-1.2) mmol/L Ur Cocaine Metabolite (Neg) U Marijuana (THC) Screen (Neg) Ethyl Alcohol mg/dL (<10.0) mg/dl 11/23/21 11/23/21 11/23/21 Range/Units 20:29 20:18 19:20 WBC (4.8-10.8) K/ul RBC (4.63-6.08) M/uL Hgb (14.0-18.0) g/dl Hct (40.1-51.0) % MCV (80.0-100.0) fL MCH (25.0-34.0) pg MCHC (32.0-36.0) g/dL RDW Std Deviation (36.4-46.3) fL RDW Coeff of [place] (11.5-14.5) % Plt Count (130-400) K/uL MPV (9.4-12.4) fL Immature Gran % (Auto) % Neut % (Auto) % Lymph % (Auto) % [place] % (Auto) % Eos % (Auto) % Baso % (Auto) % Neut # (Auto) (1.4-6.5) K/uL Lymph # (Auto) (1.2-3.4) K/uL [place] # (Auto) (0.24-0.82) K/uL Eos # (Auto) (0-0.50) K/uL Baso # (Auto) (0-0.2) K/uL Immature Gran # (Auto) (0.00-0.02) K/uL PT (9.0-12.0) Seconds INR (0.9-1.1) APTT (21.0-31.0) Seconds PTT Ratio ABG pH (7.35-7.45) ABG pCO2 (35-46) mmHg ABG pO2 (80-95) mmHg ABG HCO3 (19-24) mmol/L ABG O2 Saturation (90-95) % ABG Base Excess (-9-1.8) mEq/L Heath Test (Pos) VBG pH (7.36-7.41) VBG pCO2 (38-50) mmHg VBG pO2 mmHg VBG HCO3 mmol/L VBG O2 Saturation % VBG Base Excess mEq/L Oxygen Given Sodium 136 (136-145) mmol/L Potassium 3.1 L (3.5-5.1) mmol/L Chloride 110 H (98-107) mmol/L Carbon Dioxide 8 L* (21-32) mmol/L Anion Gap 18 H (3-11) BUN 20 (6-23) mg/dl Creatinine 1.06 (0.6-1.4) mg/dl Est Cr Clr Drug Dosing 115.8 ml/min Est GFR ( Amer) 102.0 ml/min Est GFR (Non-Af Amer) 88.0 ml/min BUN/Creatinine Ratio 18.9 (10-20) Glucose 334 H* (70-99(Fasting)) mg/dl POC Glucose 331 H* 347 H* (70-99) mg/dl Estimat Average Glucose mg/dl Hemoglobin A1c (4.5-5.6) % Osmolality (280-300) mOsm/kg Lactate (0.4-2.0) mmol/L Calcium 7.8 L (8.5-10.1) mg/dl Phosphorus 1.0 L* D (2.5-4.9) mg/dl Magnesium 2.2 (1.7-2.4) mg/dl Total Creatine Kinase (30-223) U/L Troponin I High Sens (0-20) pg/ml Albumin (3.4-5.0) gm/dl Globulin (2.5-4.0) gm/dl Albumin/Globulin Ratio (0.9-2) Triglycerides (0-150) mg/dl Cholesterol (0-200) mg/dl LDL Cholesterol, Calc mg/dl VLDL Cholesterol, Calc (0-30) mg/dl HDL Cholesterol mg/dl Cholesterol/HDL Ratio (0-5) Lipase (11-82) U/L Procalcitonin (0-0.5) ng/ml TSH (0.300-4.500) uIu/ml Nasal Screen MRSA (PCR) (Negative) Salicylates (3.0-30) mg/dl Urine Opiates Screen (Neg) Ur Methadone, Qual (Neg) Acetaminophen (10-30) ug/ml Urine Barbiturates (Neg) Ur Phencyclidine (PCP) (Neg) U Amphetamin/Meth Scrn (Neg) MDMA (Ecstasy) Screen (Neg) U Benzodiazepines Scrn (Neg) [place] (0.6-1.2) mmol/L Ur Cocaine Metabolite (Neg) U Marijuana (THC) Screen (Neg) Ethyl Alcohol mg/dL (<10.0) mg/dl 11/23/21 11/23/21 11/23/21 Range/Units 18:17 17:16 16:25 WBC (4.8-10.8) K/ul RBC (4.63-6.08) M/uL Hgb (14.0-18.0) g/dl Hct (40.1-51.0) % MCV (80.0-100.0) fL MCH (25.0-34.0) pg MCHC (32.0-36.0) g/dL RDW Std Deviation (36.4-46.3) fL RDW Coeff of Beata (11.5-14.5) % Plt Count (130-400) K/uL MPV (9.4-12.4) fL Immature Gran % (Auto) % Neut % (Auto) % Lymph % (Auto) % [place] % (Auto) % Eos % (Auto) % Baso % (Auto) % Neut # (Auto) (1.4-6.5) K/uL Lymph # (Auto) (1.2-3.4) K/uL [place] # (Auto) (0.24-0.82) K/uL Eos # (Auto) (0-0.50) K/uL Baso # (Auto) (0-0.2) K/uL Immature Gran # (Auto) (0.00-0.02) K/uL PT (9.0-12.0) Seconds INR (0.9-1.1) APTT (21.0-31.0) Seconds PTT Ratio ABG pH (7.35-7.45) ABG pCO2 (35-46) mmHg ABG pO2 (80-95) mmHg ABG HCO3 (19-24) mmol/L ABG O2 Saturation (90-95) % ABG Base Excess (-9-1.8) mEq/L Heath Test (Pos) VBG pH (7.36-7.41) VBG pCO2 (38-50) mmHg VBG pO2 mmHg VBG HCO3 mmol/L VBG O2 Saturation % VBG Base Excess mEq/L Oxygen Given Sodium (136-145) mmol/L Potassium Cancelled (3.5-5.1) mmol/L Chloride (98-107) mmol/L Carbon Dioxide (21-32) mmol/L Anion Gap (3-11) BUN (6-23) mg/dl Creatinine (0.6-1.4) mg/dl Est Cr Clr Drug Dosing ml/min Est GFR ( Amer) ml/min Est GFR (Non-Af Amer) ml/min BUN/Creatinine Ratio (10-20) Glucose (70-99(Fasting)) mg/dl POC Glucose 344 H* 324 H* (70-99) mg/dl Estimat Average Glucose mg/dl Hemoglobin A1c (4.5-5.6) % Osmolality (280-300) mOsm/kg Lactate (0.4-2.0) mmol/L Calcium (8.5-10.1) mg/dl Phosphorus (2.5-4.9) mg/dl Magnesium (1.7-2.4) mg/dl Total Creatine Kinase (30-223) U/L Troponin I High Sens (0-20) pg/ml Albumin (3.4-5.0) gm/dl Globulin (2.5-4.0) gm/dl Albumin/Globulin Ratio (0.9-2) Triglycerides (0-150) mg/dl Cholesterol (0-200) mg/dl LDL Cholesterol, Calc mg/dl VLDL Cholesterol, Calc (0-30) mg/dl HDL Cholesterol mg/dl Cholesterol/HDL Ratio (0-5) Lipase (11-82) U/L Procalcitonin (0-0.5) ng/ml TSH (0.300-4.500) uIu/ml Nasal Screen MRSA (PCR) (Negative) Salicylates (3.0-30) mg/dl Urine Opiates Screen (Neg) Ur Methadone, Qual (Neg) Acetaminophen (10-30) ug/ml Urine Barbiturates (Neg) Ur Phencyclidine (PCP) (Neg) U Amphetamin/Meth Scrn (Neg) MDMA (Ecstasy) Screen (Neg) U Benzodiazepines Scrn (Neg) [place] (0.6-1.2) mmol/L Ur Cocaine Metabolite (Neg) U Marijuana (THC) Screen (Neg) Ethyl Alcohol mg/dL (<10.0) mg/dl 11/23/21 11/23/21 11/23/21 Range/Units 16:25 15:40 15:15 WBC (4.8-10.8) K/ul RBC (4.63-6.08) M/uL Hgb (14.0-18.0) g/dl Hct (40.1-51.0) % MCV (80.0-100.0) fL MCH (25.0-34.0) pg MCHC (32.0-36.0) g/dL RDW Std Deviation (36.4-46.3) fL RDW Coeff of Beata (11.5-14.5) % Plt Count (130-400) K/uL MPV (9.4-12.4) fL Immature Gran % (Auto) % Neut % (Auto) % Lymph % (Auto) % [place] % (Auto) % Eos % (Auto) % Baso % (Auto) % Neut # (Auto) (1.4-6.5) K/uL Lymph # (Auto) (1.2-3.4) K/uL [place] # (Auto) (0.24-0.82) K/uL Eos # (Auto) (0-0.50) K/uL Baso # (Auto) (0-0.2) K/uL Immature Gran # (Auto) (0.00-0.02) K/uL PT (9.0-12.0) Seconds INR (0.9-1.1) APTT (21.0-31.0) Seconds PTT Ratio ABG pH (7.35-7.45) ABG pCO2 (35-46) mmHg ABG pO2 (80-95) mmHg ABG HCO3 (19-24) mmol/L ABG O2 Saturation (90-95) % ABG Base Excess (-9-1.8) mEq/L Heath Test (Pos) VBG pH (7.36-7.41) VBG pCO2 (38-50) mmHg VBG pO2 mmHg VBG HCO3 mmol/L VBG O2 Saturation % VBG Base Excess mEq/L Oxygen Given Sodium 135 L (136-145) mmol/L Potassium 3.4 L (3.5-5.1) mmol/L Chloride 107 (98-107) mmol/L Carbon Dioxide 8 L* (21-32) mmol/L Anion Gap 20 H (3-11) BUN 24 H (6-23) mg/dl Creatinine 1.14 (0.6-1.4) mg/dl Est Cr Clr Drug Dosing 107.6 ml/min Est GFR ( Amer) 93.4 ml/min Est GFR (Non-Af Amer) 80.6 ml/min BUN/Creatinine Ratio 21.1 H (10-20) Glucose 317 H* (70-99(Fasting)) mg/dl POC Glucose 270 H (70-99) mg/dl Estimat Average Glucose mg/dl Hemoglobin A1c (4.5-5.6) % Osmolality (280-300) mOsm/kg Lactate (0.4-2.0) mmol/L Calcium 7.7 L (8.5-10.1) mg/dl Phosphorus (2.5-4.9) mg/dl Magnesium (1.7-2.4) mg/dl Total Creatine Kinase (30-223) U/L Troponin I High Sens 11.8 (0-20) pg/ml Albumin (3.4-5.0) gm/dl Globulin (2.5-4.0) gm/dl Albumin/Globulin Ratio (0.9-2) Triglycerides (0-150) mg/dl Cholesterol (0-200) mg/dl LDL Cholesterol, Calc mg/dl VLDL Cholesterol, Calc (0-30) mg/dl HDL Cholesterol mg/dl Cholesterol/HDL Ratio (0-5) Lipase (11-82) U/L Procalcitonin (0-0.5) ng/ml TSH (0.300-4.500) uIu/ml Nasal Screen MRSA (PCR) Negative (Negative) Salicylates (3.0-30) mg/dl Urine Opiates Screen (Neg) Ur Methadone, Qual (Neg) Acetaminophen (10-30) ug/ml Urine Barbiturates (Neg) Ur Phencyclidine (PCP) (Neg) U Amphetamin/Meth Scrn (Neg) MDMA (Ecstasy) Screen (Neg) U Benzodiazepines Scrn (Neg) [place] (0.6-1.2) mmol/L Ur Cocaine Metabolite (Neg) U Marijuana (THC) Screen (Neg) Ethyl Alcohol mg/dL (<10.0) mg/dl 11/23/21 11/23/21 11/23/21 Range/Units 14:04 13:13 12:50 WBC (4.8-10.8) K/ul RBC (4.63-6.08) M/uL Hgb (14.0-18.0) g/dl Hct (40.1-51.0) % MCV (80.0-100.0) fL MCH (25.0-34.0) pg MCHC (32.0-36.0) g/dL RDW Std Deviation (36.4-46.3) fL RDW Coeff of Beata (11.5-14.5) % Plt Count (130-400) K/uL MPV (9.4-12.4) fL Immature Gran % (Auto) % Neut % (Auto) % Lymph % (Auto) % [place] % (Auto) % Eos % (Auto) % Baso % (Auto) % Neut # (Auto) (1.4-6.5) K/uL Lymph # (Auto) (1.2-3.4) K/uL [place] # (Auto) (0.24-0.82) K/uL Eos # (Auto) (0-0.50) K/uL Baso # (Auto) (0-0.2) K/uL Immature Gran # (Auto) (0.00-0.02) K/uL PT (9.0-12.0) Seconds INR (0.9-1.1) APTT (21.0-31.0) Seconds PTT Ratio ABG pH (7.35-7.45) ABG pCO2 (35-46) mmHg ABG pO2 (80-95) mmHg ABG HCO3 (19-24) mmol/L ABG O2 Saturation (90-95) % ABG Base Excess (-9-1.8) mEq/L Heath Test (Pos) VBG pH (7.36-7.41) VBG pCO2 (38-50) mmHg VBG pO2 mmHg VBG HCO3 mmol/L VBG O2 Saturation % VBG Base Excess mEq/L Oxygen Given Sodium 135 L (136-145) mmol/L Potassium 3.1 L (3.5-5.1) mmol/L Chloride 108 H (98-107) mmol/L Carbon Dioxide 8 L* (21-32) mmol/L Anion Gap 19 H (3-11) BUN 26 H (6-23) mg/dl Creatinine 1.23 (0.6-1.4) mg/dl Est Cr Clr Drug Dosing 100.6 ml/min Est GFR ( Amer) 85.2 ml/min Est GFR (Non-Af Amer) 73.5 ml/min BUN/Creatinine Ratio 21.1 H (10-20) Glucose 244 H (70-99(Fasting)) mg/dl POC Glucose 229 H 324 H* (70-99) mg/dl Estimat Average Glucose mg/dl Hemoglobin A1c (4.5-5.6) % Osmolality (280-300) mOsm/kg Lactate (0.4-2.0) mmol/L Calcium 8.0 L (8.5-10.1) mg/dl Phosphorus (2.5-4.9) mg/dl Magnesium (1.7-2.4) mg/dl Total Creatine Kinase (30-223) U/L Troponin I High Sens (0-20) pg/ml Albumin (3.4-5.0) gm/dl Globulin (2.5-4.0) gm/dl Albumin/Globulin Ratio (0.9-2) Triglycerides (0-150) mg/dl Cholesterol (0-200) mg/dl LDL Cholesterol, Calc mg/dl VLDL Cholesterol, Calc (0-30) mg/dl HDL Cholesterol mg/dl Cholesterol/HDL Ratio (0-5) Lipase (11-82) U/L Procalcitonin (0-0.5) ng/ml TSH (0.300-4.500) uIu/ml Nasal Screen MRSA (PCR) (Negative) Salicylates (3.0-30) mg/dl Urine Opiates Screen (Neg) Ur Methadone, Qual (Neg) Acetaminophen (10-30) ug/ml Urine Barbiturates (Neg) Ur Phencyclidine (PCP) (Neg) U Amphetamin/Meth Scrn (Neg) MDMA (Ecstasy) Screen (Neg) U Benzodiazepines Scrn (Neg) [place] (0.6-1.2) mmol/L Ur Cocaine Metabolite (Neg) U Marijuana (THC) Screen (Neg) Ethyl Alcohol mg/dL (<10.0) mg/dl 11/23/21 11/23/21 11/23/21 Range/Units 12:18 11:17 11:16 WBC (4.8-10.8) K/ul RBC (4.63-6.08) M/uL Hgb (14.0-18.0) g/dl Hct (40.1-51.0) % MCV (80.0-100.0) fL MCH (25.0-34.0) pg MCHC (32.0-36.0) g/dL RDW Std Deviation (36.4-46.3) fL RDW Coeff of Beata (11.5-14.5) % Plt Count (130-400) K/uL MPV (9.4-12.4) fL Immature Gran % (Auto) % Neut % (Auto) % Lymph % (Auto) % [place] % (Auto) % Eos % (Auto) % Baso % (Auto) % Neut # (Auto) (1.4-6.5) K/uL Lymph # (Auto) (1.2-3.4) K/uL [place] # (Auto) (0.24-0.82) K/uL Eos # (Auto) (0-0.50) K/uL Baso # (Auto) (0-0.2) K/uL Immature Gran # (Auto) (0.00-0.02) K/uL PT (9.0-12.0) Seconds INR (0.9-1.1) APTT (21.0-31.0) Seconds PTT Ratio ABG pH (7.35-7.45) ABG pCO2 (35-46) mmHg ABG pO2 (80-95) mmHg ABG HCO3 (19-24) mmol/L ABG O2 Saturation (90-95) % ABG Base Excess (-9-1.8) mEq/L Heath Test (Pos) VBG pH (7.36-7.41) VBG pCO2 (38-50) mmHg VBG pO2 mmHg VBG HCO3 mmol/L VBG O2 Saturation % VBG Base Excess mEq/L Oxygen Given Sodium (136-145) mmol/L Potassium (3.5-5.1) mmol/L Chloride (98-107) mmol/L Carbon Dioxide (21-32) mmol/L Anion Gap (3-11) BUN (6-23) mg/dl Creatinine (0.6-1.4) mg/dl Est Cr Clr Drug Dosing ml/min Est GFR ( Amer) ml/min Est GFR (Non-Af Amer) ml/min BUN/Creatinine Ratio (10-20) Glucose (70-99(Fasting)) mg/dl POC Glucose 379 H* 402 H* (70-99) mg/dl Estimat Average Glucose mg/dl Hemoglobin A1c (4.5-5.6) % Osmolality (280-300) mOsm/kg Lactate (0.4-2.0) mmol/L Calcium (8.5-10.1) mg/dl Phosphorus (2.5-4.9) mg/dl Magnesium (1.7-2.4) mg/dl Total Creatine Kinase 84 (30-223) U/L Troponin I High Sens 12.6 D (0-20) pg/ml Albumin (3.4-5.0) gm/dl Globulin (2.5-4.0) gm/dl Albumin/Globulin Ratio (0.9-2) Triglycerides (0-150) mg/dl Cholesterol (0-200) mg/dl LDL Cholesterol, Calc mg/dl VLDL Cholesterol, Calc (0-30) mg/dl HDL Cholesterol mg/dl Cholesterol/HDL Ratio (0-5) Lipase (11-82) U/L Procalcitonin (0-0.5) ng/ml TSH (0.300-4.500) uIu/ml Nasal Screen MRSA (PCR) (Negative) Salicylates (3.0-30) mg/dl Urine Opiates Screen (Neg) Ur Methadone, Qual (Neg) Acetaminophen (10-30) ug/ml Urine Barbiturates (Neg) Ur Phencyclidine (PCP) (Neg) U Amphetamin/Meth Scrn (Neg) MDMA (Ecstasy) Screen (Neg) U Benzodiazepines Scrn (Neg) [place] (0.6-1.2) mmol/L Ur Cocaine Metabolite (Neg) U Marijuana (THC) Screen (Neg) Ethyl Alcohol mg/dL (<10.0) mg/dl 11/23/21 11/23/21 11/23/21 Range/Units 11:16 10:46 10:30 WBC (4.8-10.8) K/ul RBC (4.63-6.08) M/uL Hgb (14.0-18.0) g/dl Hct (40.1-51.0) % MCV (80.0-100.0) fL MCH (25.0-34.0) pg MCHC (32.0-36.0) g/dL RDW Std Deviation (36.4-46.3) fL RDW Coeff of Beata (11.5-14.5) % Plt Count (130-400) K/uL MPV (9.4-12.4) fL Immature Gran % (Auto) % Neut % (Auto) % Lymph % (Auto) % [place] % (Auto) % Eos % (Auto) % Baso % (Auto) % Neut # (Auto) (1.4-6.5) K/uL Lymph # (Auto) (1.2-3.4) K/uL [place] # (Auto) (0.24-0.82) K/uL Eos # (Auto) (0-0.50) K/uL Baso # (Auto) (0-0.2) K/uL Immature Gran # (Auto) (0.00-0.02) K/uL PT (9.0-12.0) Seconds INR (0.9-1.1) APTT (21.0-31.0) Seconds PTT Ratio ABG pH (7.35-7.45) ABG pCO2 (35-46) mmHg ABG pO2 (80-95) mmHg ABG HCO3 (19-24) mmol/L ABG O2 Saturation (90-95) % ABG Base Excess (-9-1.8) mEq/L Heath Test (Pos) VBG pH (7.36-7.41) VBG pCO2 (38-50) mmHg VBG pO2 mmHg VBG HCO3 mmol/L VBG O2 Saturation % VBG Base Excess mEq/L Oxygen Given Sodium (136-145) mmol/L Potassium (3.5-5.1) mmol/L Chloride (98-107) mmol/L Carbon Dioxide (21-32) mmol/L Anion Gap (3-11) BUN (6-23) mg/dl Creatinine (0.6-1.4) mg/dl Est Cr Clr Drug Dosing ml/min Est GFR ( Amer) ml/min Est GFR (Non-Af Amer) ml/min BUN/Creatinine Ratio (10-20) Glucose (70-99(Fasting)) mg/dl POC Glucose 555 H* (70-99) mg/dl Estimat Average Glucose mg/dl Hemoglobin A1c (4.5-5.6) % Osmolality (280-300) mOsm/kg Lactate (0.4-2.0) mmol/L Calcium (8.5-10.1) mg/dl Phosphorus (2.5-4.9) mg/dl Magnesium (1.7-2.4) mg/dl Total Creatine Kinase (30-223) U/L Troponin I High Sens (0-20) pg/ml Albumin (3.4-5.0) gm/dl Globulin (2.5-4.0) gm/dl Albumin/Globulin Ratio (0.9-2) Triglycerides (0-150) mg/dl Cholesterol (0-200) mg/dl LDL Cholesterol, Calc mg/dl VLDL Cholesterol, Calc (0-30) mg/dl HDL Cholesterol mg/dl Cholesterol/HDL Ratio (0-5) Lipase (11-82) U/L Procalcitonin (0-0.5) ng/ml TSH (0.300-4.500) uIu/ml Nasal Screen MRSA (PCR) Negative (Negative) Salicylates < 3.0 L (3.0-30) mg/dl Urine Opiates Screen (Neg) Ur Methadone, Qual (Neg) Acetaminophen < 3 L (10-30) ug/ml Urine Barbiturates (Neg) Ur Phencyclidine (PCP) (Neg) U Amphetamin/Meth Scrn (Neg) MDMA (Ecstasy) Screen (Neg) U Benzodiazepines Scrn (Neg) [place] 0.2 L (0.6-1.2) mmol/L Ur Cocaine Metabolite (Neg) U Marijuana (THC) Screen (Neg) Ethyl Alcohol mg/dL (<10.0) mg/dl 11/23/21 11/23/21 11/23/21 Range/Units 10:14 09:43 09:20 WBC (4.8-10.8) K/ul RBC (4.63-6.08) M/uL Hgb (14.0-18.0) g/dl Hct (40.1-51.0) % MCV (80.0-100.0) fL MCH (25.0-34.0) pg MCHC (32.0-36.0) g/dL RDW Std Deviation (36.4-46.3) fL RDW Coeff of Beata (11.5-14.5) % Plt Count (130-400) K/uL MPV (9.4-12.4) fL Immature Gran % (Auto) % Neut % (Auto) % Lymph % (Auto) % [place] % (Auto) % Eos % (Auto) % Baso % (Auto) % Neut # (Auto) (1.4-6.5) K/uL Lymph # (Auto) (1.2-3.4) K/uL [place] # (Auto) (0.24-0.82) K/uL Eos # (Auto) (0-0.50) K/uL Baso # (Auto) (0-0.2) K/uL Immature Gran # (Auto) (0.00-0.02) K/uL PT (9.0-12.0) Seconds INR (0.9-1.1) APTT (21.0-31.0) Seconds PTT Ratio ABG pH (7.35-7.45) ABG pCO2 (35-46) mmHg ABG pO2 (80-95) mmHg ABG HCO3 (19-24) mmol/L ABG O2 Saturation (90-95) % ABG Base Excess (-9-1.8) mEq/L Heath Test (Pos) VBG pH (7.36-7.41) VBG pCO2 (38-50) mmHg VBG pO2 mmHg VBG HCO3 mmol/L VBG O2 Saturation % VBG Base Excess mEq/L Oxygen Given Sodium 132 L (136-145) mmol/L Potassium 3.7 (3.5-5.1) mmol/L Chloride 103 (98-107) mmol/L Carbon Dioxide 5 L* (21-32) mmol/L Anion Gap 24 H (3-11) BUN 32 H (6-23) mg/dl Creatinine 1.52 H (0.6-1.4) mg/dl Est Cr Clr Drug Dosing 81.4 ml/min Est GFR ( Amer) 65.9 ml/min Est GFR (Non-Af Amer) 56.9 ml/min BUN/Creatinine Ratio 21.1 H (10-20) Glucose 521 H* (70-99(Fasting)) mg/dl POC Glucose > 600 H* (70-99) mg/dl Estimat Average Glucose mg/dl Hemoglobin A1c (4.5-5.6) % Osmolality (280-300) mOsm/kg Lactate 1.3 (0.4-2.0) mmol/L Calcium 7.8 L (8.5-10.1) mg/dl Phosphorus (2.5-4.9) mg/dl Magnesium (1.7-2.4) mg/dl Total Creatine Kinase (30-223) U/L Troponin I High Sens (0-20) pg/ml Albumin (3.4-5.0) gm/dl Globulin (2.5-4.0) gm/dl Albumin/Globulin Ratio (0.9-2) Triglycerides (0-150) mg/dl Cholesterol (0-200) mg/dl LDL Cholesterol, Calc mg/dl VLDL Cholesterol, Calc (0-30) mg/dl HDL Cholesterol mg/dl Cholesterol/HDL Ratio (0-5) Lipase (11-82) U/L Procalcitonin (0-0.5) ng/ml TSH (0.300-4.500) uIu/ml Nasal Screen MRSA (PCR) (Negative) Salicylates (3.0-30) mg/dl Urine Opiates Screen (Neg) Ur Methadone, Qual (Neg) Acetaminophen (10-30) ug/ml Urine Barbiturates (Neg) Ur Phencyclidine (PCP) (Neg) U Amphetamin/Meth Scrn (Neg) MDMA (Ecstasy) Screen (Neg) U Benzodiazepines Scrn (Neg) [place] (0.6-1.2) mmol/L Ur Cocaine Metabolite (Neg) U Marijuana (THC) Screen (Neg) Ethyl Alcohol mg/dL (<10.0) mg/dl 11/23/21 11/23/21 11/23/21 Range/Units 09:05 08:37 08:27 WBC (4.8-10.8) K/ul RBC (4.63-6.08) M/uL Hgb (14.0-18.0) g/dl Hct (40.1-51.0) % MCV (80.0-100.0) fL MCH (25.0-34.0) pg MCHC (32.0-36.0) g/dL RDW Std Deviation (36.4-46.3) fL RDW Coeff of Beata (11.5-14.5) % Plt Count (130-400) K/uL MPV (9.4-12.4) fL Immature Gran % (Auto) % Neut % (Auto) % Lymph % (Auto) % [place] % (Auto) % Eos % (Auto) % Baso % (Auto) % Neut # (Auto) (1.4-6.5) K/uL Lymph # (Auto) (1.2-3.4) K/uL [place] # (Auto) (0.24-0.82) K/uL Eos # (Auto) (0-0.50) K/uL Baso # (Auto) (0-0.2) K/uL Immature Gran # (Auto) (0.00-0.02) K/uL PT (9.0-12.0) Seconds INR (0.9-1.1) APTT (21.0-31.0) Seconds PTT Ratio ABG pH < 7.00 L* (7.35-7.45) ABG pCO2 13 L (35-46) mmHg ABG pO2 127 H (80-95) mmHg ABG HCO3 3 L (19-24) mmol/L ABG O2 Saturation 99.8 H (90-95) % ABG Base Excess -27.9 L (-9-1.8) mEq/L Heath Test Pos (Pos) VBG pH (7.36-7.41) VBG pCO2 (38-50) mmHg VBG pO2 mmHg VBG HCO3 mmol/L VBG O2 Saturation % VBG Base Excess mEq/L Oxygen Given 3L Sodium (136-145) mmol/L Potassium (3.5-5.1) mmol/L Chloride (98-107) mmol/L Carbon Dioxide (21-32) mmol/L Anion Gap (3-11) BUN (6-23) mg/dl Creatinine (0.6-1.4) mg/dl Est Cr Clr Drug Dosing ml/min Est GFR ( Amer) ml/min Est GFR (Non-Af Amer) ml/min BUN/Creatinine Ratio (10-20) Glucose (70-99(Fasting)) mg/dl POC Glucose > 600 H* (70-99) mg/dl Estimat Average Glucose 243 mg/dl Hemoglobin A1c 10.1 H (4.5-5.6) % Osmolality (280-300) mOsm/kg Lactate (0.4-2.0) mmol/L Calcium (8.5-10.1) mg/dl Phosphorus (2.5-4.9) mg/dl Magnesium (1.7-2.4) mg/dl Total Creatine Kinase (30-223) U/L Troponin I High Sens (0-20) pg/ml Albumin (3.4-5.0) gm/dl Globulin (2.5-4.0) gm/dl Albumin/Globulin Ratio (0.9-2) Triglycerides (0-150) mg/dl Cholesterol (0-200) mg/dl LDL Cholesterol, Calc mg/dl VLDL Cholesterol, Calc (0-30) mg/dl HDL Cholesterol mg/dl Cholesterol/HDL Ratio (0-5) Lipase (11-82) U/L Procalcitonin (0-0.5) ng/ml TSH (0.300-4.500) uIu/ml Nasal Screen MRSA (PCR) (Negative) Salicylates (3.0-30) mg/dl Urine Opiates Screen (Neg) Ur Methadone, Qual (Neg) Acetaminophen (10-30) ug/ml Urine Barbiturates (Neg) Ur Phencyclidine (PCP) (Neg) U Amphetamin/Meth Scrn (Neg) MDMA (Ecstasy) Screen (Neg) U Benzodiazepines Scrn (Neg) [place] (0.6-1.2) mmol/L Ur Cocaine Metabolite (Neg) U Marijuana (THC) Screen (Neg) Ethyl Alcohol mg/dL (<10.0) mg/dl 11/23/21 11/23/21 11/23/21 Range/Units 08:27 08:27 08:02 WBC 29.70 H (4.8-10.8) K/ul RBC 5.37 (4.63-6.08) M/uL Hgb 14.5 (14.0-18.0) g/dl Hct 42.9 (40.1-51.0) % MCV 79.9 L (80.0-100.0) fL MCH 27.0 (25.0-34.0) pg MCHC 33.8 (32.0-36.0) g/dL RDW Std Deviation 36.0 L (36.4-46.3) fL RDW Coeff of Beata 12.6 (11.5-14.5) % Plt Count 519 H (130-400) K/uL MPV 9.5 (9.4-12.4) fL Immature Gran % (Auto) % Neut % (Auto) % Lymph % (Auto) % [place] % (Auto) % Eos % (Auto) % Baso % (Auto) % Neut # (Auto) (1.4-6.5) K/uL Lymph # (Auto) (1.2-3.4) K/uL [place] # (Auto) (0.24-0.82) K/uL Eos # (Auto) (0-0.50) K/uL Baso # (Auto) (0-0.2) K/uL Immature Gran # (Auto) (0.00-0.02) K/uL PT (9.0-12.0) Seconds INR (0.9-1.1) APTT (21.0-31.0) Seconds PTT Ratio ABG pH (7.35-7.45) ABG pCO2 (35-46) mmHg ABG pO2 (80-95) mmHg ABG HCO3 (19-24) mmol/L ABG O2 Saturation (90-95) % ABG Base Excess (-9-1.8) mEq/L Heath Test (Pos) VBG pH (7.36-7.41) VBG pCO2 (38-50) mmHg VBG pO2 mmHg VBG HCO3 mmol/L VBG O2 Saturation % VBG Base Excess mEq/L Oxygen Given Sodium 128 L (136-145) mmol/L Potassium 4.1 (3.5-5.1) mmol/L Chloride 99 (98-107) mmol/L Carbon Dioxide 4 L* (21-32) mmol/L Anion Gap 25 H (3-11) BUN 32 H (6-23) mg/dl Creatinine 1.49 H D (0.6-1.4) mg/dl Est Cr Clr Drug Dosing 83.1 ml/min Est GFR ( Amer) 67.6 ml/min Est GFR (Non-Af Amer) 58.3 ml/min BUN/Creatinine Ratio 21.5 H (10-20) Glucose 638 H* (70-99(Fasting)) mg/dl POC Glucose > 600 H* (70-99) mg/dl Estimat Average Glucose mg/dl Hemoglobin A1c (4.5-5.6) % Osmolality (280-300) mOsm/kg Lactate (0.4-2.0) mmol/L Calcium 7.5 L (8.5-10.1) mg/dl Phosphorus 4.0 (2.5-4.9) mg/dl Magnesium 2.2 (1.7-2.4) mg/dl Total Creatine Kinase (30-223) U/L Troponin I High Sens (0-20) pg/ml Albumin (3.4-5.0) gm/dl Globulin (2.5-4.0) gm/dl Albumin/Globulin Ratio (0.9-2) Triglycerides (0-150) mg/dl Cholesterol (0-200) mg/dl LDL Cholesterol, Calc mg/dl VLDL Cholesterol, Calc (0-30) mg/dl HDL Cholesterol mg/dl Cholesterol/HDL Ratio (0-5) Lipase (11-82) U/L Procalcitonin (0-0.5) ng/ml TSH (0.300-4.500) uIu/ml Nasal Screen MRSA (PCR) (Negative) Salicylates (3.0-30) mg/dl Urine Opiates Screen (Neg) Ur Methadone, Qual (Neg) Acetaminophen (10-30) ug/ml Urine Barbiturates (Neg) Ur Phencyclidine (PCP) (Neg) U Amphetamin/Meth Scrn (Neg) MDMA (Ecstasy) Screen (Neg) U Benzodiazepines Scrn (Neg) [place] (0.6-1.2) mmol/L Ur Cocaine Metabolite (Neg) U Marijuana (THC) Screen (Neg) Ethyl Alcohol mg/dL (<10.0) mg/dl 11/23/21 11/23/21 11/23/21 Range/Units 08:00 07:58 07:58 WBC (4.8-10.8) K/ul RBC (4.63-6.08) M/uL Hgb (14.0-18.0) g/dl Hct (40.1-51.0) % MCV (80.0-100.0) fL MCH (25.0-34.0) pg MCHC (32.0-36.0) g/dL RDW Std Deviation (36.4-46.3) fL RDW Coeff of Beata (11.5-14.5) % Plt Count (130-400) K/uL MPV (9.4-12.4) fL Immature Gran % (Auto) % Neut % (Auto) % Lymph % (Auto) % [place] % (Auto) % Eos % (Auto) % Baso % (Auto) % Neut # (Auto) (1.4-6.5) K/uL Lymph # (Auto) (1.2-3.4) K/uL [place] # (Auto) (0.24-0.82) K/uL Eos # (Auto) (0-0.50) K/uL Baso # (Auto) (0-0.2) K/uL Immature Gran # (Auto) (0.00-0.02) K/uL PT (9.0-12.0) Seconds INR (0.9-1.1) APTT (21.0-31.0) Seconds PTT Ratio ABG pH (7.35-7.45) ABG pCO2 (35-46) mmHg ABG pO2 (80-95) mmHg ABG HCO3 (19-24) mmol/L ABG O2 Saturation (90-95) % ABG Base Excess (-9-1.8) mEq/L Heath Test (Pos) VBG pH < 7.00 L (7.36-7.41) VBG pCO2 17 L (38-50) mmHg VBG pO2 58 mmHg VBG HCO3 4 mmol/L VBG O2 Saturation 90.6 % VBG Base Excess -27.0 mEq/L Oxygen Given Sodium (136-145) mmol/L Potassium (3.5-5.1) mmol/L Chloride (98-107) mmol/L Carbon Dioxide (21-32) mmol/L Anion Gap (3-11) BUN (6-23) mg/dl Creatinine (0.6-1.4) mg/dl Est Cr Clr Drug Dosing ml/min Est GFR ( Amer) ml/min Est GFR (Non-Af Amer) ml/min BUN/Creatinine Ratio (10-20) Glucose (70-99(Fasting)) mg/dl POC Glucose (70-99) mg/dl Estimat Average Glucose mg/dl Hemoglobin A1c (4.5-5.6) % Osmolality (280-300) mOsm/kg Lactate (0.4-2.0) mmol/L Calcium (8.5-10.1) mg/dl Phosphorus (2.5-4.9) mg/dl Magnesium (1.7-2.4) mg/dl Total Creatine Kinase (30-223) U/L Troponin I High Sens (0-20) pg/ml Albumin (3.4-5.0) gm/dl Globulin (2.5-4.0) gm/dl Albumin/Globulin Ratio (0.9-2) Triglycerides (0-150) mg/dl Cholesterol (0-200) mg/dl LDL Cholesterol, Calc mg/dl VLDL Cholesterol, Calc (0-30) mg/dl HDL Cholesterol mg/dl Cholesterol/HDL Ratio (0-5) Lipase (11-82) U/L Procalcitonin (0-0.5) ng/ml TSH 0.815 (0.300-4.500) uIu/ml Nasal Screen MRSA (PCR) (Negative) Salicylates (3.0-30) mg/dl Urine Opiates Screen (Neg) Ur Methadone, Qual (Neg) Acetaminophen (10-30) ug/ml Urine Barbiturates (Neg) Ur Phencyclidine (PCP) (Neg) U Amphetamin/Meth Scrn (Neg) MDMA (Ecstasy) Screen (Neg) U Benzodiazepines Scrn (Neg) [place] (0.6-1.2) mmol/L Ur Cocaine Metabolite (Neg) U Marijuana (THC) Screen (Neg) Ethyl Alcohol mg/dL < 10.0 (<10.0) mg/dl 11/23/21 11/23/21 11/23/21 Range/Units 07:58 06:45 06:45 WBC (4.8-10.8) K/ul RBC (4.63-6.08) M/uL Hgb (14.0-18.0) g/dl Hct (40.1-51.0) % MCV (80.0-100.0) fL MCH (25.0-34.0) pg MCHC (32.0-36.0) g/dL RDW Std Deviation (36.4-46.3) fL RDW Coeff of Beata (11.5-14.5) % Plt Count (130-400) K/uL MPV (9.4-12.4) fL Immature Gran % (Auto) % Neut % (Auto) % Lymph % (Auto) % [place] % (Auto) % Eos % (Auto) % Baso % (Auto) % Neut # (Auto) (1.4-6.5) K/uL Lymph # (Auto) (1.2-3.4) K/uL [place] # (Auto) (0.24-0.82) K/uL Eos # (Auto) (0-0.50) K/uL Baso # (Auto) (0-0.2) K/uL Immature Gran # (Auto) (0.00-0.02) K/uL PT (9.0-12.0) Seconds INR (0.9-1.1) APTT (21.0-31.0) Seconds PTT Ratio ABG pH (7.35-7.45) ABG pCO2 (35-46) mmHg ABG pO2 (80-95) mmHg ABG HCO3 (19-24) mmol/L ABG O2 Saturation (90-95) % ABG Base Excess (-9-1.8) mEq/L Heath Test (Pos) VBG pH (7.36-7.41) VBG pCO2 (38-50) mmHg VBG pO2 mmHg VBG HCO3 mmol/L VBG O2 Saturation % VBG Base Excess mEq/L Oxygen Given Sodium (136-145) mmol/L Potassium (3.5-5.1) mmol/L Chloride (98-107) mmol/L Carbon Dioxide (21-32) mmol/L Anion Gap (3-11) BUN (6-23) mg/dl Creatinine (0.6-1.4) mg/dl Est Cr Clr Drug Dosing ml/min Est GFR ( Amer) ml/min Est GFR (Non-Af Amer) ml/min BUN/Creatinine Ratio (10-20) Glucose (70-99(Fasting)) mg/dl POC Glucose (70-99) mg/dl Estimat Average Glucose mg/dl Hemoglobin A1c (4.5-5.6) % Osmolality 337 H (280-300) mOsm/kg Lactate 2.1 H* (0.4-2.0) mmol/L Calcium (8.5-10.1) mg/dl Phosphorus (2.5-4.9) mg/dl Magnesium (1.7-2.4) mg/dl Total Creatine Kinase (30-223) U/L Troponin I High Sens (0-20) pg/ml Albumin (3.4-5.0) gm/dl Globulin (2.5-4.0) gm/dl Albumin/Globulin Ratio (0.9-2) Triglycerides (0-150) mg/dl Cholesterol (0-200) mg/dl LDL Cholesterol, Calc mg/dl VLDL Cholesterol, Calc (0-30) mg/dl HDL Cholesterol mg/dl Cholesterol/HDL Ratio (0-5) Lipase 24 (11-82) U/L Procalcitonin (0-0.5) ng/ml TSH (0.300-4.500) uIu/ml Nasal Screen MRSA (PCR) (Negative) Salicylates (3.0-30) mg/dl Urine Opiates Screen (Neg) Ur Methadone, Qual (Neg) Acetaminophen (10-30) ug/ml Urine Barbiturates (Neg) Ur Phencyclidine (PCP) (Neg) U Amphetamin/Meth Scrn (Neg) MDMA (Ecstasy) Screen (Neg) U Benzodiazepines Scrn (Neg) [place] (0.6-1.2) mmol/L Ur Cocaine Metabolite (Neg) U Marijuana (THC) Screen (Neg) Ethyl Alcohol mg/dL (<10.0) mg/dl 11/23/21 11/23/21 11/23/21 Range/Units 06:25 06:25 06:25 WBC (4.8-10.8) K/ul RBC (4.63-6.08) M/uL Hgb (14.0-18.0) g/dl Hct (40.1-51.0) % MCV (80.0-100.0) fL MCH (25.0-34.0) pg MCHC (32.0-36.0) g/dL RDW Std Deviation (36.4-46.3) fL RDW Coeff of Beata (11.5-14.5) % Plt Count (130-400) K/uL MPV (9.4-12.4) fL Immature Gran % (Auto) % Neut % (Auto) % Lymph % (Auto) % [place] % (Auto) % Eos % (Auto) % Baso % (Auto) % Neut # (Auto) (1.4-6.5) K/uL Lymph # (Auto) (1.2-3.4) K/uL [place] # (Auto) (0.24-0.82) K/uL Eos # (Auto) (0-0.50) K/uL Baso # (Auto) (0-0.2) K/uL Immature Gran # (Auto) (0.00-0.02) K/uL PT 13.3 H (9.0-12.0) Seconds INR 1.3 H (0.9-1.1) APTT 31.1 H (21.0-31.0) Seconds PTT Ratio 1.1 ABG pH (7.35-7.45) ABG pCO2 (35-46) mmHg ABG pO2 (80-95) mmHg ABG HCO3 (19-24) mmol/L ABG O2 Saturation (90-95) % ABG Base Excess (-9-1.8) mEq/L Heath Test (Pos) VBG pH (7.36-7.41) VBG pCO2 (38-50) mmHg VBG pO2 mmHg VBG HCO3 mmol/L VBG O2 Saturation % VBG Base Excess mEq/L Oxygen Given Sodium (136-145) mmol/L Potassium (3.5-5.1) mmol/L Chloride (98-107) mmol/L Carbon Dioxide (21-32) mmol/L Anion Gap (3-11) BUN (6-23) mg/dl Creatinine (0.6-1.4) mg/dl Est Cr Clr Drug Dosing ml/min Est GFR ( Amer) ml/min Est GFR (Non-Af Amer) ml/min BUN/Creatinine Ratio (10-20) Glucose (70-99(Fasting)) mg/dl POC Glucose (70-99) mg/dl Estimat Average Glucose mg/dl Hemoglobin A1c (4.5-5.6) % Osmolality (280-300) mOsm/kg Lactate (0.4-2.0) mmol/L Calcium (8.5-10.1) mg/dl Phosphorus (2.5-4.9) mg/dl Magnesium (1.7-2.4) mg/dl Total Creatine Kinase (30-223) U/L Troponin I High Sens (0-20) pg/ml Albumin 4.3 (3.4-5.0) gm/dl Globulin 3.4 (2.5-4.0) gm/dl Albumin/Globulin Ratio 1.3 (0.9-2) Triglycerides (0-150) mg/dl Cholesterol (0-200) mg/dl LDL Cholesterol, Calc mg/dl VLDL Cholesterol, Calc (0-30) mg/dl HDL Cholesterol mg/dl Cholesterol/HDL Ratio (0-5) Lipase (11-82) U/L Procalcitonin 0.60 H (0-0.5) ng/ml TSH (0.300-4.500) uIu/ml Nasal Screen MRSA (PCR) (Negative) Salicylates (3.0-30) mg/dl Urine Opiates Screen (Neg) Ur Methadone, Qual (Neg) Acetaminophen (10-30) ug/ml Urine Barbiturates (Neg) Ur Phencyclidine (PCP) (Neg) U Amphetamin/Meth Scrn (Neg) MDMA (Ecstasy) Screen (Neg) U Benzodiazepines Scrn (Neg) [place] (0.6-1.2) mmol/L Ur Cocaine Metabolite (Neg) U Marijuana (THC) Screen (Neg) Ethyl Alcohol mg/dL (<10.0) mg/dl 11/23/21 Range/Units 06:20 WBC (4.8-10.8) K/ul RBC (4.63-6.08) M/uL Hgb (14.0-18.0) g/dl Hct (40.1-51.0) % MCV (80.0-100.0) fL MCH (25.0-34.0) pg MCHC (32.0-36.0) g/dL RDW Std Deviation (36.4-46.3) fL RDW Coeff of Beata (11.5-14.5) % Plt Count (130-400) K/uL MPV (9.4-12.4) fL Immature Gran % (Auto) % Neut % (Auto) % Lymph % (Auto) % [place] % (Auto) % Eos % (Auto) % Baso % (Auto) % Neut # (Auto) (1.4-6.5) K/uL Lymph # (Auto) (1.2-3.4) K/uL [place] # (Auto) (0.24-0.82) K/uL Eos # (Auto) (0-0.50) K/uL Baso # (Auto) (0-0.2) K/uL Immature Gran # (Auto) (0.00-0.02) K/uL PT (9.0-12.0) Seconds INR (0.9-1.1) APTT (21.0-31.0) Seconds PTT Ratio ABG pH (7.35-7.45) ABG pCO2 (35-46) mmHg ABG pO2 (80-95) mmHg ABG HCO3 (19-24) mmol/L ABG O2 Saturation (90-95) % ABG Base Excess (-9-1.8) mEq/L Heath Test (Pos) VBG pH (7.36-7.41) VBG pCO2 (38-50) mmHg VBG pO2 mmHg VBG HCO3 mmol/L VBG O2 Saturation % VBG Base Excess mEq/L Oxygen Given Sodium (136-145) mmol/L Potassium (3.5-5.1) mmol/L Chloride (98-107) mmol/L Carbon Dioxide (21-32) mmol/L Anion Gap (3-11) BUN (6-23) mg/dl Creatinine (0.6-1.4) mg/dl Est Cr Clr Drug Dosing ml/min Est GFR ( Amer) ml/min Est GFR (Non-Af Amer) ml/min BUN/Creatinine Ratio (10-20) Glucose (70-99(Fasting)) mg/dl POC Glucose (70-99) mg/dl Estimat Average Glucose mg/dl Hemoglobin A1c (4.5-5.6) % Osmolality (280-300) mOsm/kg Lactate (0.4-2.0) mmol/L Calcium (8.5-10.1) mg/dl Phosphorus (2.5-4.9) mg/dl Magnesium (1.7-2.4) mg/dl Total Creatine Kinase (30-223) U/L Troponin I High Sens (0-20) pg/ml Albumin (3.4-5.0) gm/dl Globulin (2.5-4.0) gm/dl Albumin/Globulin Ratio (0.9-2) Triglycerides (0-150) mg/dl Cholesterol (0-200) mg/dl LDL Cholesterol, Calc mg/dl VLDL Cholesterol, Calc (0-30) mg/dl HDL Cholesterol mg/dl Cholesterol/HDL Ratio (0-5) Lipase (11-82) U/L Procalcitonin (0-0.5) ng/ml TSH (0.300-4.500) uIu/ml Nasal Screen MRSA (PCR) (Negative) Salicylates (3.0-30) mg/dl Urine Opiates Screen Neg (Neg) Ur Methadone, Qual Neg (Neg) Acetaminophen (10-30) ug/ml Urine Barbiturates Neg (Neg) Ur Phencyclidine (PCP) Neg (Neg) U Amphetamin/Meth Scrn Neg (Neg) MDMA (Ecstasy) Screen Neg (Neg) U Benzodiazepines Scrn Neg (Neg) [place] (0.6-1.2) mmol/L Ur Cocaine Metabolite Neg (Neg) U Marijuana (THC) Screen Neg (Neg) Ethyl Alcohol mg/dL (<10.0) mg/dl Medications Administered Current Inpatient Medications Dextrose (Dextrose 50% 50 Ml Syringe) 25 - 50 ml IV UD PRN; Protocol PRN Reason: Hypoglycemia Protocol Stop: 12/23/21 07:27 Glucagon (Glucagon For Inj 1 Mg Vial) 1 mg SQ UD PRN; Protocol PRN Reason: Hypoglycemia Protocol Stop: 12/23/21 07:27 Glucose (Glucose 40% Gel 15 Gm Tube) 15 - 30 gm PO UD PRN; Protocol PRN Reason: Hypoglycemia Protocol Stop: 12/23/21 07:27 Glucose (Glucose 10 Tab/Tube) 4 - 8 tab PO UD PRN; Protocol PRN Reason: Hypoglycemia Treatment Stop: 12/23/21 07:27 Insulin Human Regular 250 (units/ Sodium Chloride) 250 mls @ 9.4 mls/hr IV .Q24H [facility]; Protocol Stop: 12/23/21 07:29 Last Titration: 11/24/21 07:06 Dose: 9.4 units/hr, 9.4 mls/hr Pantoprazole Sodium 40 mg/ (Syringe) 10 mls @ 5 mls/min IV DAILY@1100 [facility] Stop: 12/23/21 12:59 Last Admin: 11/23/21 17:10 Dose: 5 mls/min Piperacillin Sod/Tazobactam (Sod 4.5 gm/ Dextrose) 120 mls @ 30 mls/hr IV Q8H [facility]; Protocol Stop: 11/25/21 15:59 Last Infusion: 11/24/21 04:19 Dose: Infused Potassium Chloride 40 meq/ (Dextrose/Sodium Chloride) 1,020 mls @ 125 mls/hr IV .Q8H10M [facility] Stop: 12/23/21 21:29 Last Infusion: 11/24/21 06:27 Dose: 125 mls/hr Acetaminophen (Ofirmev) 1,000 mg in 100 mls @ 400 mls/hr IV Q8H PRN PRN Reason: Pain or Fever Stop: 11/26/21 21:51 Insulin Aspart (Insulin Aspart Per Unit) 0 units SC ACHS [facility] Stop: 12/23/21 07:29 Last Admin: 11/23/21 20:21 Dose: Not Given Miscellaneous (Carbohydrates For Hypoglycemia ) 15 - 30 gm PO UD PRN PRN Reason: Hypoglycemia Protocol Stop: 12/23/21 07:27 Miscellaneous Information (Pharmacy Glycemic Mgmt Consult) 1 each N/A UD PRN PRN Reason: Consult Stop: 12/23/21 15:23
[2021-11-24] MEDS: INSULIN ASPART PER UNIT SC SCH ×4 (08:02→20:17)
[2021-11-24] MEDS ORDERED: METOPROLOL TARTRATE 1 MG/ML VIAL IV STA (08:35)
--- NOTE | 2021-11-24 08:40 | Critical Care Progress Note ---
Date of Service November 24, 2021 Assessment & Plan (1) DKA (diabetic ketoacidosis): (2) Sepsis: (3) Acute encephalopathy: (4) Acute kidney injury: (5) Electrolyte and fluid disorder: Plan 41-year-old male with history of morbid obesity, PTSD, traumatic brain injury, insulin-dependent diabetes mellitus, bipolar disorder and hypertension presenting to the hospital due to altered mental status and DKA Neurologic: Metabolic encephalopathy is clearing. CT head negative. Salicylate level, acetaminophen level and urine drug screen negative. Patient on Suboxone at home. Currently on hold. Pulmonary: Saturating well on room air. Cardiovascular: Troponin normal. Becoming hypertensive likely due to withdrawal from clonidine and Suboxone. We will give a one-time dose of IV metoprolol. Will order clonidine patch. Gastrointestinal: Lipase and LFTs within normal limits. Acetaminophen level normal. Advance diet as tolerated. Renal: SHABANA resolved. Repeat BMP pending. Continue D5, half-normal saline with potassium. Urine adequate. Infectious disease: Urinalysis suggestive of possible UTI. Blood cultures pending. Procalcitonin mildly elevated likely due to SHABANA. Continue empiric Zosyn. Hematologic: White count improving. Hemoglobin increased due to hemodilution. Endocrine: TSH within normal limits. A1c 10.1 suggestive of poorly controlled diabetes. Continue DKA protocol. Appreciate pharmacy's assistance. Will need crossover with Lantus and insulin drip for 4 hours. F/E/N: Advance diet as tolerated as above. VTE prophylaxis: Lovenox CODE STATUS: Full Family at bedside: Not available at bedside at present Disposition: Patient stable for downgrade to PCU status. Admission and Anticipated Discharge Date Admission Date: November 23, 2021 Subjective Patient more awake and alert this morning. Still somewhat delirious. Hypertensive. Anion gap is closed. Currently on D5, half-normal saline and potassium infusion. Receiving insulin as well. Multiple IV sites infiltrated overnight and he currently has an IV in place. Review of Systems Review of Systems: All systems reviewed & are unremarkable except as noted in HPI & below Physical Exam Physical Exam: Constitutional: Morbidly obese appearing male in no significant distress. Eyes: Pupils are equal round and reactive to light. Conjunctivae are normal. Anicteric sclera. Ears nose, mouth and throat: Moist oral mucosa. No obvious deformities. Neck: Trachea is midline. Visual inspection is normal. Respiratory: Clear to auscultation bilaterally. No use of accessory muscles. No significant clubbing noted. Cardiovascular: Tachycardic. Adequate cap refill. No murmur. Gastrointestinal: Normal bowel sounds, soft, nontender and nondistended. No hepatosplenomegaly noted. Musculoskeletal: No cyanosis. Patient is able to move all extremities. Edematous left upper extremity due to IV infiltration. Skin: No rashes, warm dry and intact. Neurologic: No obvious focal neurological deficits seen. Psychiatric: Delirious, but cooperative. Results & Data Results & Data ([facility]) Vital Signs (Past 12 Hours) Vital Signs Temp Pulse Resp BP Pulse Ox Pulse Ox O2 Del Method 11/24/21 06:30 21 97 Room Air 11/24/21 06:00 36.5 C 104 H 24 168/107 H 97 11/24/21 06:00 26 H 97 Room Air 11/24/21 05:26 105 H 20 161/81 H 99 11/24/21 05:00 105 H 21 97 11/24/21 04:30 112 H 20 98 11/24/21 05:30 23 98 Room Air 11/24/21 05:00 23 97 Room Air 11/24/21 04:00 100 H 25 H 150/95 H 97 11/24/21 03:27 108 H 21 139/110 H 96 11/24/21 03:00 103 H 21 98 11/24/21 04:30 22 97 Room Air 11/24/21 04:00 22 97 Room Air 11/24/21 03:30 23 98 Room Air 11/24/21 03:00 21 99 Room Air 11/24/21 02:30 24 99 Room Air 11/24/21 02:00 107 H 24 172/75 H 95 11/24/21 01:01 113 H 25 H 163/102 H 99 11/24/21 02:07 99 11/24/21 02:00 25 H 99 Room Air 11/24/21 01:30 20 98 Room Air 11/24/21 01:00 26 H 99 Room Air 11/24/21 01:57 36.6 C 11/24/21 00:01 117 H 22 148/122 H 99 11/23/21 23:00 120 H 21 139/97 97 11/23/21 22:00 123 H 27 H 164/82 H 97 11/23/21 21:00 125 H 26 H 130/104 H 97 11/24/21 00:30 28 H 98 Room Air 11/24/21 00:00 22 98 Room Air 11/23/21 23:59 122 H 11/23/21 23:30 22 97 Room Air 11/23/21 23:00 22 97 Room Air 11/23/21 22:30 22 97 Room Air 11/23/21 22:00 22 97 Room Air 11/23/21 21:30 29 H 98 Room Air 11/23/21 21:00 27 H 97 Room Air O2 Del Method O2 Flow Rate 11/24/21 06:30 11/24/21 06:00 11/24/21 06:00 3 11/24/21 05:26 11/24/21 05:00 11/24/21 04:30 11/24/21 05:30 11/24/21 05:00 11/24/21 04:00 11/24/21 03:27 11/24/21 03:00 11/24/21 04:30 11/24/21 04:00 11/24/21 03:30 11/24/21 03:00 11/24/21 02:30 11/24/21 02:00 11/24/21 01:01 11/24/21 02:07 Room Air 11/24/21 02:00 11/24/21 01:30 11/24/21 01:00 11/24/21 01:57 11/24/21 00:01 11/23/21 23:00 11/23/21 22:00 11/23/21 21:00 11/24/21 00:30 11/24/21 00:00 11/23/21 23:59 11/23/21 23:30 11/23/21 23:00 11/23/21 22:30 11/23/21 22:00 11/23/21 21:30 11/23/21 21:00 Coding Level of Care Code 39597 [facility] [facility] 3 Diagnoses DKA (diabetic ketoacidosis) E11.10 Sepsis A41.9 Acute encephalopathy G93.40 Acute kidney injury N17.9 Electrolyte and fluid disorder E87.8
[2021-11-24] MEDS ORDERED: cloNIDine HCL 0.1 MG/24 HR TRANSDERM SYS TD SCH (09:00)
[2021-11-24 09:03] LABS: BUN Creatinine Ratio 18.2 (10-20); Creatinine Clr Calc Pharmacy 139.4 ml/min; Est GFR (African American) 125.4 ml/min; Est GFR (Non-African American) 108.2 ml/min; Potassium 3.2 mmol/L (3.5-5.1)
[2021-11-24 09:13] LABS: Magnesium 2.3 mg/dl (1.7-2.4)
[2021-11-24] MEDS: ENOXAPARIN INJ 40 MG/0.4 ML SYR SQ SCH (09:30)
[2021-11-24] MEDS: PANTOprazole 40 MG in SYRINGE 0 ML IV SCH (09:32)
[2021-11-24] MEDS ORDERED: POTASSIUM PHOSPHATE 30 MMOL in DEXTROSE 5% 500 ML IV ONE (10:15)
[2021-11-24 12:19] LABS: BUN Creatinine Ratio 19.7 (10-20); Calcium 7.3 mg/dl (8.5-10.1); Creatinine Clr Calc Pharmacy 161.5 ml/min; Est GFR (African American) 133.2 ml/min; Est GFR (Non-African American) 114.9 ml/min; Magnesium 2.1 mg/dl (1.7-2.4)
--- NOTE | 2021-11-24 13:55 | Pharmacy Report ---
Pharmacy Glycemic Short Note 2 - Date of Service November 24, 2021 - Glycemic Short BSG Results (Last 24 hours): 11/23/21 11/23/21 11/23/21 14:04 15:15 16:25 Glucose 317 H* POC Glucose 229 H 270 H 11/23/21 11/23/21 11/23/21 17:16 18:17 19:20 Glucose POC Glucose 324 H* 344 H* 347 H* 11/23/21 11/23/21 11/23/21 20:18 20:29 21:32 Glucose 334 H* POC Glucose 331 H* 378 H* 11/23/21 11/23/21 11/24/21 22:42 23:38 00:33 Glucose POC Glucose 273 H 268 H 248 H 11/24/21 11/24/21 11/24/21 00:42 01:56 03:09 Glucose 238 H POC Glucose 218 H 228 H 11/24/21 11/24/21 11/24/21 04:10 05:13 06:06 Glucose 275 H POC Glucose 238 H 240 H 11/24/21 11/24/21 11/24/21 07:07 08:33 09:24 Glucose 209 H POC Glucose 221 H 194 H 11/24/21 11/24/21 11/24/21 11:19 11:50 12:31 Glucose 161 H POC Glucose 149 H 157 H OUTPATIENT ANTIDIABETIC REGIMEN: * Unable to confirm regimen with patient, mother unsure of dosing * Per med rec (added 2016): Lantus 70 units SQ HS + Novolog 10 units SQ with meals + metformin * A1c = 10.1% (11/23/21) ASSESSMENT: * 41-year-old male with history of PTSD, traumatic brain injury, GERD, uncontrolled DM type II, who presents in DKA. * Per H&P, patient has not taken insulin for several days. * IV insulin infusion started on 11/23/21 per DKA protocol - current infusing at 7.5 units/hr * Most recent labs indicate that anion gap has closed, bicarb remains low but trending upward, persistent hypokalemia and hypophosphatemia (replacement ordered). Patient remains NPO. More alert but continues to have altered mental status. * Plan to continue IV insulin until alerted mental status is resolved. Will overlap with SQ Lantus due to high IV infusion rates. PLAN FOR INPATIENT GLYCEMIC CONTROL: * Continue IV insulin infusion per DKA protocol * Decrease goal range to 110 - 180 mg/dL * Basal insulin * Lantus 30 units SQ - reassess 11/25 * Bolus insulin * NovoLog per scale ACHS or Q6hrs while NPO * Correction Factor: -- mg/dL/unit (per drip) * Nutritional / Prandial insulin per carb ratio: none
[2021-11-24] MEDS ORDERED: LANTUS PER UNIT CHARGE SQ ONE (15:00)
[2021-11-24] MEDS: INSULIN REGULAR 250 UNITS in SODIUM CHLORIDE 0.9% 247.5 ML IV SCH (15:12)
[2021-11-24] MEDS: CHECK CLONIDINE PATCH PLACEMENT SCH ×2 (15:13→23:01)
[2021-11-24] MEDS: NICOTINE 7 MG/24 HR TDSY TD SCH (15:13)
[2021-11-24] MEDS ORDERED: CHECK CLONIDINE PATCH PLACEMENT SCH (16:00)
[2021-11-24] MEDS: POTASSIUM CHLORIDE PWD 20 MEQ PACK PO SCH ×2 (16:57→20:18)
[2021-11-24 17:51] LABS: BUN Creatinine Ratio 18.2 (10-20); Calcium 7.9 mg/dl (8.5-10.1); Creatinine Clr Calc Pharmacy 159.4 ml/min; Est GFR (African American) 132.5 ml/min; Est GFR (Non-African American) 114.3 ml/min; Potassium 3.4 mmol/L (3.5-5.1)
[2021-11-24 17:55] LABS: Magnesium 2.3 mg/dl (1.7-2.4); Phosphorus 1.5 mg/dl (2.5-4.9)
[2021-11-24 20:18] LABS: BUN Creatinine Ratio 18.1 (10-20); Creatinine Clr Calc Pharmacy 170.4 ml/min; Est GFR (African American) 136.2 ml/min; Est GFR (Non-African American) 117.5 ml/min; Potassium 3.3 mmol/L (3.5-5.1)
[2021-11-24 20:21] LABS: Magnesium 2.3 mg/dl (1.7-2.4); Phosphorus 1.2 mg/dl (2.5-4.9)
[2021-11-24] MEDS ORDERED: POTASSIUM PHOSPHATE 30 MMOL in SODIUM CHLORIDE 0.9% 500 ML IV ONE (21:00)
[2021-11-25] MEDS: LITHIUM CARBONATE 450 MG TABCR PO SCH ×3 (00:25→20:18)
[2021-11-25] MEDS: POTASSIUM CHLORIDE 40 MEQ in D5W AND 1/2NSS 1,000 ML IV SCH (04:26)
[2021-11-25 04:46] LABS: Hematocrit (blood only) 33.1 % (40.1-51.0); Mean Corpuscular Hgb Conc 36.3 g/dL (32.0-36.0); Mean Corpuscular Volume 74.5 fL (80.0-100.0); Mean Platelet Volume 9.3 fL (9.4-12.4); Platelet Count 285 K/uL (130-400); RDW Coefficient of Variation 12.8 % (11.5-14.5); RDW Standard Deviation 34.6 fL (36.4-46.3); Red Blood Count 4.44 M/uL (4.63-6.08); White Blood Count 9.53 K/ul (4.8-10.8)
[2021-11-25 05:17] LABS: BUN Creatinine Ratio 14.5 (10-20); Calcium 7.8 mg/dl (8.5-10.1); Creatinine Clr Calc Pharmacy 197.9 ml/min; Est GFR (African American) 144.8 ml/min; Magnesium 2.2 mg/dl (1.7-2.4); Phosphorus 1.7 mg/dl (2.5-4.9); Potassium 3.3 mmol/L (3.5-5.1)
[2021-11-25] MEDS: INSULIN ASPART PER UNIT SC SCH ×5 (07:09→23:08)
[2021-11-25] MEDS: POTASSIUM CHLORIDE 40 MEQ in SODIUM CHLORIDE 0.9% 1000ML 1,000 ML IV SCH ×2 (09:00→17:58)
[2021-11-25] MEDS: CHECK CLONIDINE PATCH PLACEMENT SCH ×3 (09:02→23:07)
[2021-11-25] MEDS: ENOXAPARIN INJ 40 MG/0.4 ML SYR SQ SCH (09:03)
[2021-11-25] MEDS: POTASSIUM CHLORIDE PWD 20 MEQ PACK PO SCH ×4 (09:04→20:19)
[2021-11-25] MEDS: NICOTINE 7 MG/24 HR TDSY TD SCH (09:05)
[2021-11-25] MEDS: PIPERACILLIN/TAZOBACTAM 4.5 GM in DEXTROSE 5% 100 ML IV SCH (09:14)
[2021-11-25] MEDS ORDERED: LANTUS PER UNIT CHARGE SQ ONE ×2 (10:30→20:30)
[2021-11-25] MEDS: PANTOprazole 40 MG in SYRINGE 0 ML IV SCH (11:17)
[2021-11-25] MEDS: INSULIN REGULAR 250 UNITS in SODIUM CHLORIDE 0.9% 247.5 ML IV SCH (13:37)
--- NOTE | 2021-11-25 14:46 | Hospitalist Progress Note ---
Date of Service November 25, 2021 Assessment & Plan (1) DKA (diabetic ketoacidosis): Plan: Patient presents with elevated blood glucose level, over 600 Positive urine ketones Anion gap 28, bicarb 4 pH<7.0 Patient tachypneic, tachycardic on admission on 3 L of suppl. O2 in ER, now on RA Patient not able to provide much history on admission, now mental status improving Pt not taking insulin for several days - per mother 2 Liters normal saline given in the ED and IV insulin started Pt on IV insulin drip, IV electrolyte replacement Initially admitted to ICU due to severe acidosis, possible need for bicarbonate and/or intubation received bicarb Now AG closed Current hemoglobin A1c 10.1% 11/25 -we will stop IV insulin. Per patient, patient has not been on any diabetes medication for several years. Contacted [place] for medical records, there is no recent PCP note. Not clear if patient actually follows with any PCP. Monitor BMP Continue to closely monitor SHABANA - resolved - Cr 1.8 on admission - current Cr 0.77 - secondary to dehydration, secondary to above IVF given monitor renal function Pseudohyponatremia Na 122 on admission in the setting of elevated Glc level -Correct hyperglycemia, should correct sodium level -Continue to closely monitor BMP, as above -current Na 140 Leukocytosis WBC 30,000 -> 16,000->9,500 (normalized) Procalcitonin 0.6 Patient severely dehydrated due to DKA Urine culture and blood cultures pending Empiric abx, zosyn, started by ICU team GERD -IV PPI HTN -Per mother, patient is on clonidine -pt has been hypertensive clonidine patch given -Per old records from previous admission, patient was on metoprolol as well. patient reports he does not take the medication anymore. There is also no metop rolol listed on his [place] medication list. PTSD, history of TBI -Per mother Giulia, patient may be on lithium, Suboxone, hydroxyzine -We will need to clarify with the patient what he is taking -Requested records from [place] Per [facility], outpatient meds: Suboxone 11/05, twice daily clonidine 0.1mg 3 times daily as needed duloxetine 60 mg daily hydroxyzine 25 mg 4 times daily lamotrigine 25 twice daily lithium 450 mg twice daily Inola was restarted last evening. Will restart duloxetine. Per [facility] psychiatry note, "patient was diagnosed with bipolar d/o in community" Not clear who diagnosed him. Patient reports that he follows with psych PA, and all his medications are prescribed by [facility]. He is followed by [facility] psychiatry for PTSD. Admission and Anticipated Discharge Date Admission Date: November 23, 2021 Subjective Patient seen in follow-up of DKA Currently laying in bed, in no acute distress More alert today, he is oriented to place and time, able to answer questions more appropriately. Yesterday, patient's mother was present at bedside and updated. Patient denies any chest pain, shortness of breath. No abdominal pain nausea vomiting. He is also on room air, saturating 98%. Currently on IV insulin, plan to stop today. And transition to subcu insulin. Review of Systems Review of Systems: All systems reviewed & are unremarkable except as noted in Subjective Physical Exam Physical Exam: Constitutional:L obese M laying in bed,in NAD, on RA Eyes: PERRL, EOMI, conju nctivae normal, an icteric sclerae ENMT: external ear and n ose normal, oropha rynx normal Neck: + thick neck Respiratory: CTAB, no wheezing Cardiovascular:L tachycardic, HR lo w 100s, no murmurs noted Chest (Breasts): Chest: normal insp ection of chest Gastrointestinal ( Abdomen): normal bowel sound s, soft, obese, no ntender Musculoskeletal: moves extremities Skin: warm, dry Neurologic: Patient aware of b eing in the hospit al, he is able to answer simple ques tions appropriatel y Lymphatic: minimal LE edema Results & Data Results & Data ([facility]) Vital Signs (Past 12 Hours) Vital Signs Temp Pulse Resp BP Pulse Ox O2 Del Method 11/25/21 11:36 37.1 C 11/25/21 11:00 104 H 25 H 93 Room Air 11/25/21 10:00 104 H 30 H 94 11/25/21 09:00 105 H 16 93 11/25/21 08:00 107 H 21 94 Room Air 11/25/21 08:00 36.5 C 165/99 H 11/25/21 07:00 109 H 18 91 11/25/21 06:00 93 H 17 96 11/25/21 05:30 118 H 18 95 11/25/21 05:00 98 H 22 98 11/25/21 04:30 85 18 98 11/25/21 06:11 37.2 C 11/25/21 06:00 18 97 Room Air 11/25/21 05:30 18 97 Room Air 11/25/21 05:00 18 97 Room Air 11/25/21 04:00 101 H 16 155/106 H 96 11/25/21 03:00 97 H 15 97 11/25/21 04:30 18 97 Room Air 11/25/21 04:00 18 97 Room Air 11/25/21 03:30 20 98 Room Air 11/25/21 03:00 20 98 Room Air Laboratory Results 11/25/21 11/25/21 11/25/21 Range/Units 14:14 13:58 13:23 WBC (4.8-10.8) K/ul RBC (4.63-6.08) M/uL Hgb (14.0-18.0) g/dl Hct (40.1-51.0) % MCV (80.0-100.0) fL MCH (25.0-34.0) pg MCHC (32.0-36.0) g/dL RDW Std Deviation (36.4-46.3) fL RDW Coeff of Beata (11.5-14.5) % Plt Count (130-400) K/uL MPV (9.4-12.4) fL Sodium Pending (136-145) mmol/L Potassium Pending (3.5-5.1) mmol/L Chloride Pending (98-107) mmol/L Carbon Dioxide Pending (21-32) mmol/L Anion Gap Pending (3-11) BUN Pending (6-23) mg/dl Creatinine Pending (0.6-1.4) mg/dl Est Cr Clr Drug Dosing Pending ml/min Est GFR ( Amer) Pending ml/min Est GFR (Non-Af Amer) Pending ml/min BUN/Creatinine Ratio Pending (10-20) Glucose Pending (70-99(Fasting)) mg/dl POC Glucose 72 71 (70-99) mg/dl Calcium Pending (8.5-10.1) mg/dl Phosphorus Pending (2.5-4.9) mg/dl Magnesium Pending (1.7-2.4) mg/dl 08/11/25/21 11/25/21 Range/Units 09:09 05:34 04:26 WBC (4.8-10.8) K/ul RBC (4.63-6.08) M/uL Hgb (14.0-18.0) g/dl Hct (40.1-51.0) % MCV (80.0-100.0) fL MCH (25.0-34.0) pg MCHC (32.0-36.0) g/dL RDW Std Deviation (36.4-46.3) fL RDW Coeff of Beata (11.5-14.5) % Plt Count (130-400) K/uL MPV (9.4-12.4) fL Sodium 140 (136-145) mmol/L Potassium 3.3 L (3.5-5.1) mmol/L Chloride 111 H (98-107) mmol/L Carbon Dioxide 22 (21-32) mmol/L Anion Gap 7 (3-11) BUN 9 (6-23) mg/dl Creatinine 0.62 (0.6-1.4) mg/dl Est Cr Clr Drug Dosing 197.9 ml/min Est GFR ( Amer) 144.8 ml/min Est GFR (Non-Af Amer) 125.0 ml/min BUN/Creatinine Ratio 14.5 (10-20) Glucose 123 H (70-99(Fasting)) mg/dl POC Glucose 127 H 114 H (70-99) mg/dl Calcium 7.8 L (8.5-10.1) mg/dl Phosphorus 1.7 L (2.5-4.9) mg/dl Magnesium 2.2 (1.7-2.4) mg/dl 11/25/21 11/25/21 11/25/21 Range/Units 04:26 03:11 01:58 WBC 9.53 (4.8-10.8) K/ul RBC 4.44 L (4.63-6.08) M/uL Hgb 12.0 L (14.0-18.0) g/dl Hct 33.1 L (40.1-51.0) % MCV 74.5 L (80.0-100.0) fL MCH 27.0 (25.0-34.0) pg MCHC 36.3 H (32.0-36.0) g/dL RDW Std Deviation 34.6 L (36.4-46.3) fL RDW Coeff of Beata 12.8 (11.5-14.5) % Plt Count 285 (130-400) K/uL MPV 9.3 L (9.4-12.4) fL Sodium (136-145) mmol/L Potassium (3.5-5.1) mmol/L Chloride (98-107) mmol/L Carbon Dioxide (21-32) mmol/L Anion Gap (3-11) BUN (6-23) mg/dl Creatinine (0.6-1.4) mg/dl Est Cr Clr Drug Dosing ml/min Est GFR ( Amer) ml/min Est GFR (Non-Af Amer) ml/min BUN/Creatinine Ratio (10-20) Glucose (70-99(Fasting)) mg/dl POC Glucose 117 H 127 H (70-99) mg/dl Calcium (8.5-10.1) mg/dl Phosphorus (2.5-4.9) mg/dl Magnesium (1.7-2.4) mg/dl 11/25/21 11/24/21 11/24/21 Range/Units 00:55 23:51 22:54 WBC (4.8-10.8) K/ul RBC (4.63-6.08) M/uL Hgb (14.0-18.0) g/dl Hct (40.1-51.0) % MCV (80.0-100.0) fL MCH (25.0-34.0) pg MCHC (32.0-36.0) g/dL RDW Std Deviation (36.4-46.3) fL RDW Coeff of Beata (11.5-14.5) % Plt Count (130-400) K/uL MPV (9.4-12.4) fL Sodium (136-145) mmol/L Potassium (3.5-5.1) mmol/L Chloride (98-107) mmol/L Carbon Dioxide (21-32) mmol/L Anion Gap (3-11) BUN (6-23) mg/dl Creatinine (0.6-1.4) mg/dl Est Cr Clr Drug Dosing ml/min Est GFR ( Amer) ml/min Est GFR (Non-Af Amer) ml/min BUN/Creatinine Ratio (10-20) Glucose (70-99(Fasting)) mg/dl POC Glucose 133 H 115 H 124 H (70-99) mg/dl Calcium (8.5-10.1) mg/dl Phosphorus (2.5-4.9) mg/dl Magnesium (1.7-2.4) mg/dl 11/24/21 11/24/21 11/24/21 Range/Units 21:11 19:51 19:47 WBC (4.8-10.8) K/ul RBC (4.63-6.08) M/uL Hgb (14.0-18.0) g/dl Hct (40.1-51.0) % MCV (80.0-100.0) fL MCH (25.0-34.0) pg MCHC (32.0-36.0) g/dL RDW Std Deviation (36.4-46.3) fL RDW Coeff of Beata (11.5-14.5) % Plt Count (130-400) K/uL MPV (9.4-12.4) fL Sodium 137 (136-145) mmol/L Potassium 3.3 L (3.5-5.1) mmol/L Chloride 112 H (98-107) mmol/L Carbon Dioxide 19 L (21-32) mmol/L Anion Gap 6 (3-11) BUN 13 (6-23) mg/dl Creatinine 0.72 (0.6-1.4) mg/dl Est Cr Clr Drug Dosing 170.4 ml/min Est GFR ( Amer) 136.2 ml/min Est GFR (Non-Af Amer) 117.5 ml/min BUN/Creatinine Ratio 18.1 (10-20) Glucose 146 H (70-99(Fasting)) mg/dl POC Glucose 111 H 193 H (70-99) mg/dl Calcium 8.0 L (8.5-10.1) mg/dl Phosphorus 1.2 L* (2.5-4.9) mg/dl Magnesium 2.3 (1.7-2.4) mg/dl 11/24/21 11/24/21 11/24/21 Range/Units 18:14 17:17 17:04 WBC (4.8-10.8) K/ul RBC (4.63-6.08) M/uL Hgb (14.0-18.0) g/dl Hct (40.1-51.0) % MCV (80.0-100.0) fL MCH (25.0-34.0) pg MCHC (32.0-36.0) g/dL RDW Std Deviation (36.4-46.3) fL RDW Coeff of Beata (11.5-14.5) % Plt Count (130-400) K/uL MPV (9.4-12.4) fL Sodium 136 (136-145) mmol/L Potassium 3.4 L (3.5-5.1) mmol/L Chloride 110 H (98-107) mmol/L Carbon Dioxide 18 L (21-32) mmol/L Anion Gap 8 (3-11) BUN 14 (6-23) mg/dl Creatinine 0.77 (0.6-1.4) mg/dl Est Cr Clr Drug Dosing 159.4 ml/min Est GFR ( Amer) 132.5 ml/min Est GFR (Non-Af Amer) 114.3 ml/min BUN/Creatinine Ratio 18.2 (10-20) Glucose 197 H (70-99(Fasting)) mg/dl POC Glucose 173 H 191 H (70-99) mg/dl Calcium 7.9 L (8.5-10.1) mg/dl Phosphorus 1.5 L* (2.5-4.9) mg/dl Magnesium 2.3 (1.7-2.4) mg/dl 11/24/21 11/24/21 Range/Units 16:09 15:06 WBC (4.8-10.8) K/ul RBC (4.63-6.08) M/uL Hgb (14.0-18.0) g/dl Hct (40.1-51.0) % MCV (80.0-100.0) fL MCH (25.0-34.0) pg MCHC (32.0-36.0) g/dL RDW Std Deviation (36.4-46.3) fL RDW Coeff of Beata (11.5-14.5) % Plt Count (130-400) K/uL MPV (9.4-12.4) fL Sodium (136-145) mmol/L Potassium (3.5-5.1) mmol/L Chloride (98-107) mmol/L Carbon Dioxide (21-32) mmol/L Anion Gap (3-11) BUN (6-23) mg/dl Creatinine (0.6-1.4) mg/dl Est Cr Clr Drug Dosing ml/min Est GFR ( Amer) ml/min Est GFR (Non-Af Amer) ml/min BUN/Creatinine Ratio (10-20) Glucose (70-99(Fasting)) mg/dl POC Glucose 216 H 189 H (70-99) mg/dl Calcium (8.5-10.1) mg/dl Phosphorus (2.5-4.9) mg/dl Magnesium (1.7-2.4) mg/dl Medications Administered Current Inpatient Medications Clonidine HCl (Clonidine Hcl 0.1 Mg/24 Hr Transderm Sys) 1 patch TD Q7D [facility] Stop: 12/24/21 08:59 Last Admin: 11/24/21 09:31 Dose: 1 patch Dextrose (Dextrose 50% 50 Ml Syringe) 25 - 50 ml IV UD PRN; Protocol PRN Reason: Hypoglycemia Protocol Stop: 12/23/21 07:27 Enoxaparin Sodium (Enoxaparin Inj 40 Mg/0.4 Ml Syr) 40 mg SQ QAM [facility] Stop: 12/24/21 08:59 Last Admin: 11/25/21 09:03 Dose: 40 mg Glucagon (Glucagon For Inj 1 Mg Vial) 1 mg SQ UD PRN; Protocol PRN Reason: Hypoglycemia Protocol Stop: 12/23/21 07:27 Glucose (Glucose 40% Gel 15 Gm Tube) 15 - 30 gm PO UD PRN; Protocol PRN Reason: Hypoglycemia Protocol Stop: 12/23/21 07:27 Glucose (Glucose 10 Tab/Tube) 4 - 8 tab PO UD PRN; Protocol PRN Reason: Hypoglycemia Treatment Stop: 12/23/21 07:27 Insulin Human Regular 250 (units/ Sodium Chloride) 250 mls @ 0 mls/hr IV .Q0M [place]; Protocol Stop: 12/23/21 07:29 Last Admin: 11/25/21 13:37 Dose: 7.8 units/hr, 7.8 mls/hr Pantoprazole Sodium 40 mg/ (Syringe) 10 mls @ 5 mls/min IV DAILY@1100 [facility] Stop: 12/23/21 12:59 Last Admin: 11/25/21 11:17 Dose: 5 mls/min Piperacillin Sod/Tazobactam (Sod 4.5 gm/ Dextrose) 120 mls @ 30 mls/hr IV Q8H [facility]; Protocol Stop: 11/25/21 15:59 Last Admin: 11/25/21 09:14 Dose: 30 mls/hr Acetaminophen (Ofirmev) 1,000 mg in 100 mls @ 400 mls/hr IV Q8H PRN PRN Reason: Pain or Fever Stop: 11/26/21 21:51 Last Admin: 11/25/21 14:19 Dose: 400 mls/hr Potassium Chloride 40 meq/ (Sodium Chloride) 1,020 mls @ 125 mls/hr IV .Q8H10M [facility] Stop: 12/25/21 08:29 Last Admin: 11/25/21 09:00 Dose: 125 mls/hr Insulin Aspart (Insulin Aspart Per Unit) 0 units SC [facility] Stop: 12/23/21 07:29 Last Admin: 11/25/21 11:19 Dose: Not Given Insulin Aspart (Insulin Aspart Per Unit) 0 units SC ACHS [facility] Stop: 12/25/21 16:29 Inola Carbonate (Inola Carbonate 450 Mg Tabcr) 450 mg PO BID [facility] Stop: 12/25/21 00:19 Last Admin: 11/25/21 09:03 Dose: 450 mg Miscellaneous (Carbohydrates For Hypoglycemia ) 15 - 30 gm PO UD PRN PRN Reason: Hypoglycemia Protocol Stop: 12/23/21 07:27 Miscellaneous (Remove Clonidine Patch) 1 each N/A CQWK [facility] Stop: 12/24/21 08:58 Last Admin: 11/24/21 09:32 Dose: Not Given Miscellaneous (Check Clonidine Patch Placement) 1 each N/A QS [facility] Stop: 12/24/21 15:59 Last Admin: 11/25/21 14:24 Dose: 1 each Miscellaneous (Remove Nicoderm Patch) 1 each N/A DAILY@0859 [facility] Stop: 12/25/21 08:58 Last Admin: 11/25/21 09:13 Dose: 1 each Miscellaneous Information (Pharmacy Glycemic Mgmt Consult) 1 each N/A UD PRN PRN Reason: Consult Stop: 12/23/21 15:23 Nicotine (Nicotine 7 Mg/24 Hr Tdsy) 7 mg TD QAM [facility] Stop: 12/24/21 14:29 Last Admin: 11/25/21 09:05 Dose: 7 mg Potassium Chloride (Potassium Chloride Pwd 20 Meq Pack) 20 meq PO QID [facility] Stop: 12/24/21 16:59 Last Admin: 11/25/21 12:37 Dose: 20 meq
[2021-11-25 14:50] LABS: Anion Gap 7 (3-11); BUN Creatinine Ratio 9.3 (10-20); Blood Urea Nitrogen 5 mg/dl (6-23); Carbon Dioxide 25 mmol/L (21-32); Chloride 109 mmol/L (98-107); Creatinine Clr Calc Pharmacy 227.3 ml/min; Est GFR (African American) > 150.0 ml/min; Est GFR (Non-African American) 132.3 ml/min; Glucose 84 mg/dl (70-99(Fasting)); Magnesium 2.2 mg/dl (1.7-2.4); Phosphorus 1.6 mg/dl (2.5-4.9); Potassium 3.4 mmol/L (3.5-5.1); Sodium 141 mmol/L (136-145)
--- NOTE | 2021-11-25 14:50 | Pharmacy Report ---
Pharmacy Glycemic Short Note 2 - Date of Service November 25, 2021 - Glycemic Short BSG Results (Last 24 hours): 11/24/21 11/24/21 11/24/21 15:06 16:09 17:04 Glucose POC Glucose 189 H 216 H 191 H 11/24/21 11/24/21 11/24/21 17:17 18:14 19:47 Glucose 197 H POC Glucose 173 H 193 H 11/24/21 11/24/21 11/24/21 19:51 21:11 22:54 Glucose 146 H POC Glucose 111 H 124 H 11/24/21 11/25/21 11/25/21 23:51 00:55 01:58 Glucose POC Glucose 115 H 133 H 127 H 11/25/21 11/25/21 11/25/21 03:11 04:26 05:34 Glucose 123 H POC Glucose 117 H 114 H 11/25/21 11/25/21 11/25/21 09:09 13:23 13:58 Glucose POC Glucose 127 H 71 72 OUTPATIENT ANTIDIABETIC REGIMEN: * Unable to confirm regimen with patient, mother unsure of dosing * Per med rec (added 2016): Lantus 70 units SQ HS + Novolog 10 units SQ with meals + metformin * A1c = 10.1% (11/23/21) ASSESSMENT: 11/25: * After discussion with provider, insulin infusion was successfully transitioned off today. Dextrose was removed from maintenance fluids and patient is now ordered a clear liquid diet. * Although insulin infusion was previously running at a higher rate (7.8 units/hr), removal of dextrose containing fluids and lantus dose allowed for successful drip transition. BSGs were on the lower side 71-72 mg/dL at the time of insulin infusion discontinuation. Because of this will not cover limited carbs consumed at late lunch and will defer further basal dosing at this point until trend and diet can be assessed. 11/24 * 41-year-old male with history of PTSD, traumatic brain injury, GERD, uncontrolled DM type II, who presents in DKA. * Per H&P, patient has not taken insulin for several days. * IV insulin infusion started on 11/23/21 per DKA protocol - current infusing at 7.5 units/hr * Most recent labs indicate that anion gap has closed, bicarb remains low but trending upward, persistent hypokalemia and hypophosphatemia (replacement ordered). Patient remains NPO. More alert but continues to have altered mental status. * Plan to continue IV insulin until alerted mental status is resolved. Will overlap with SQ Lantus due to high IV infusion rates. PLAN FOR INPATIENT GLYCEMIC CONTROL: * IV insulin infusion per DKA protocol- drip on hold, patient transitioned off this afternoon * Basal insulin * Lantus 40 units SQ X 1 this morning * Bolus insulin - starting with dinner * NovoLog per scale ACHS or Q6hrs while NPO * Correction Factor: 20 mg/dL/unit (per drip) * Nutritional / Prandial insulin per carb ratio: 7
[2021-11-25] MEDS ORDERED: ONDANSETRON INJ 2 MG/ML 2 ML VIAL ONE (15:52)
[2021-11-25] MEDS ORDERED: DC IV INSULIN INFUSION 1 EA DEVI ONE (16:30)
[2021-11-25] MEDS: DULoxetine HCL 60 MG CAP PO SCH (17:36)
[2021-11-25] MEDS: POT PHOSPHATE MONOBASIC W/ SOD TAB PO SCH (17:38)
[2021-11-25 20:24] LABS: BUN Creatinine Ratio 8.3 (10-20); Creatinine Clr Calc Pharmacy 204.5 ml/min; Est GFR (African American) 146.8 ml/min; Est GFR (Non-African American) 126.7 ml/min; Potassium 3.7 mmol/L (3.5-5.1)
[2021-11-25] MEDS: SODIUM CHLORIDE 0.9% 1000ML 1,000 ML IV SCH (22:23)
[2021-11-26] MEDS: INSULIN ASPART PER UNIT SC SCH ×5 (03:55→21:45)
[2021-11-26] MEDS: SODIUM CHLORIDE 0.9% 1000ML 1,000 ML IV SCH (06:26)
[2021-11-26 06:41] LABS: Hematocrit (blood only) 33.8 % (40.1-51.0); Hemoglobin 11.9 g/dl (14.0-18.0); Mean Corpuscular Hemoglobin 26.7 pg (25.0-34.0); Mean Corpuscular Hgb Conc 35.2 g/dL (32.0-36.0); Mean Corpuscular Volume 75.8 fL (80.0-100.0); Mean Platelet Volume 9.3 fL (9.4-12.4); Platelet Count 280 K/uL (130-400); RDW Coefficient of Variation 13.2 % (11.5-14.5); RDW Standard Deviation 35.8 fL (36.4-46.3); Red Blood Count 4.46 M/uL (4.63-6.08); White Blood Count 6.76 K/ul (4.8-10.8)
[2021-11-26 07:04] LABS: Anion Gap 8 (3-11); BUN Creatinine Ratio 5.9 (10-20); Blood Urea Nitrogen 3 mg/dl (6-23); Calcium 8.2 mg/dl (8.5-10.1); Carbon Dioxide 26 mmol/L (21-32); Chloride 108 mmol/L (98-107); Creatinine Clr Calc Pharmacy 248.9 ml/min; Est GFR (African American) > 150.0 ml/min; Est GFR (Non-African American) 135.4 ml/min; Glucose 130 mg/dl (70-99(Fasting)); Magnesium 2.3 mg/dl (1.7-2.4); Phosphorus 1.9 mg/dl (2.5-4.9); Potassium 3.2 mmol/L (3.5-5.1); Sodium 142 mmol/L (136-145)
--- NOTE | 2021-11-26 08:10 | Hospitalist Progress Note ---
Date of Service November 26, 2021 Assessment & Plan (1) DKA (diabetic ketoacidosis): Plan: Patient presents with elevated blood glucose level, over 600 Positive urine ketones Anion gap 28, bicarb 4 pH<7.0 Patient tachypneic, tachycardic on admission on 3 L of suppl. O2 in ER, now on RA Patient not able to provide much history on admission, now mental status improving Pt not taking insulin for several days - per mother 2 Liters normal saline given in the ED and IV insulin started Pt on IV insulin drip, IV electrolyte replacement Initially admitted to ICU due to severe acidosis, possible need for bicarbonate and/or intubation received bicarb Now AG closed Current hemoglobin A1c 10.1% 11/25 -we will stop IV insulin. Per patient, patient has not been on any diabetes medication for several years. Contacted [place] for medical [place], there is no recent PCP note. 11/26 -patient reports that he does not see any PCP. Confirms that he has not been on any diabetes medication for several years. He is okay to be set up with [facility] PCP. He confirms to see [place] psychiatry. Monitor BMP, currently on clear liquid diet -> advance as tolerated Continue to closely monitor SHABANA - resolved - Cr 1.8 on admission - current Cr 0.6 - secondary to dehydration, secondary to above IVF given monitor renal function Pseudohyponatremia Na 122 on admission in the setting of elevated Glc level -Correct hyperglycemia, should correct sodium level -Continue to closely monitor BMP, as above -current Na 142 Leukocytosis WBC 30,000 -> 16,000-> 6,700 (normalized) Procalcitonin 0.6 Patient severely dehydrated due to DKA Urine culture - negative blood cultures - negat. in 48 hrs Empiric abx, zosyn, started by ICU team, will stop now as no source of infection identified, WBC normalized, mental status back to baseline GERD -PPI HTN -Per mother, patient is on clonidine -pt has been hypertensive - clonidine patch given -Per old records from previous admission, patient was on metoprolol as well. patient reports he does not take the medication anymore. There is also no metoprolol listed on his [place] medication list. PTSD, history of TBI -Per mother Giulia, patient may be on lithium, Suboxone, hydroxyzine - hx from mother on admission as pt not able to provide hx at that time -[facility] [place] [facility] meds: Suboxone 8/, twice daily clonidine 0.1mg 3 times daily as needed duloxetine 60 mg daily hydroxyzine 25 mg 4 times daily lamotrigine 25 twice daily lithium 450 mg twice daily Clonidine patch - started in ICU - transition to home oral on DC [place] was resumed. Duloxetine was resumed. Suboxone will resume now. Per [place] psychiatry note, "patient was diagnosed with bipolar d/o in community" Not clear who diagnosed him. Patient reports that he follows with psych [place], and all his medications are prescribed by [place]. He is followed by [place] psychiatry for PTSD. Dispo : when medically stable - Diabetes education. Will need close follow-up with PCP - [facility] Follows with [place] for care. Admission and Anticipated Discharge Date Admission Date: November 23, 2021 Subjective Patient seen in follow-up of DKA Currently laying in bed, in no acute distress Much more alert today, able to answer questions more appropriately. Patient denies any chest pain, shortness of breath. No abdominal pain nausea vomiting. He is also on room air, saturating 95%. He is tolerating clear liquid diet, wants to continue clear liquid diet for lunch. On subcu insulin now. Records from [place] obtained and reviewed. Patient confirms that he did not take anything for his diabetes for several years. He reports having no PCP, he is okay if we set him up with [facility] PCP to follow-up after discharge. Confirms following with [place] psychiatry. Review of Systems Review of Systems: All systems reviewed & are unremarkable except as noted in Subjective Physical Exam Physical Exam: Constitutional:L obese M laying in bed,in NAD, on RA Eyes: PERRL, EOMI, conju nctivae normal, an icteric sclerae ENMT: external ear and n ose normal, oropha rynx normal Neck: + thick neck Respiratory: CTAB, no wheezing Cardiovascular:L tachycardic, HR lo w 100s, no murmurs noted Chest (Breasts): Chest: normal insp ection of chest Gastrointestinal ( Abdomen): normal bowel sound s, soft, obese, no ntender BMusculoskeletal: moves extremities Skin: warm, dry Neurologic: Much more alert, a ble to answer ques tions appropriatel y. Lymphatic: minimal LE edema Results & Data Results & Data ([facility]) Vital Signs (Past 12 Hours) Vital Signs Temp Pulse Pulse Resp BP Pulse Ox O2 Del Method 11/26/21 07:00 36.5 C 88 16 135/90 97 Room Air 11/26/21 03:00 36.8 C 96 H 17 144/95 H 99 Room Air 11/25/21 23:56 88 11/25/21 23:09 36.8 C 91 H 15 146/94 H 98 Room Air Laboratory Results 11/26/21 11/26/21 11/26/21 Range/Units 07:29 05:54 05:54 WBC 6.76 (4.8-10.8) K/ul RBC 4.46 L (4.63-6.08) M/uL Hgb 11.9 L (14.0-18.0) g/dl Hct 33.8 L (40.1-51.0) % MCV 75.8 L (80.0-100.0) fL MCH 26.7 (25.0-34.0) pg MCHC 35.2 (32.0-36.0) g/dL RDW Std Deviation 35.8 L (36.4-46.3) fL RDW Coeff of Beata 13.2 (11.5-14.5) % Plt Count 280 (130-400) K/uL MPV 9.3 L (9.4-12.4) fL Sodium 142 (136-145) mmol/L Potassium 3.2 L (3.5-5.1) mmol/L Chloride 108 H (98-107) mmol/L Carbon Dioxide 26 (21-32) mmol/L Anion Gap 8 (3-11) BUN 3 L (6-23) mg/dl Creatinine 0.51 L (0.6-1.4) mg/dl Est Cr Clr Drug Dosing 248.9 ml/min Est GFR ( Amer) > 150.0 ml/min Est GFR (Non-Af Amer) 135.4 ml/min BUN/Creatinine Ratio 5.9 L (10-20) Glucose 130 H (70-99(Fasting)) mg/dl POC Glucose 150 H (70-99) mg/dl Calcium 8.2 L (8.5-10.1) mg/dl Phosphorus 1.9 L (2.5-4.9) mg/dl Magnesium 2.3 (1.7-2.4) mg/dl 11/26/21 11/25/21 11/25/21 Range/Units 03:52 23:06 20:17 WBC (4.8-10.8) K/ul RBC (4.63-6.08) M/uL Hgb (14.0-18.0) g/dl Hct (40.1-51.0) % MCV (80.0-100.0) fL MCH (25.0-34.0) pg MCHC (32.0-36.0) g/dL RDW Std Deviation (36.4-46.3) fL RDW Coeff of Beata (11.5-14.5) % Plt Count (130-400) K/uL MPV (9.4-12.4) fL Sodium (136-145) mmol/L Potassium (3.5-5.1) mmol/L Chloride (98-107) mmol/L Carbon Dioxide (21-32) mmol/L Anion Gap (3-11) BUN (6-23) mg/dl Creatinine (0.6-1.4) mg/dl Est Cr Clr Drug Dosing ml/min Est GFR ( Amer) ml/min Est GFR (Non-Af Amer) ml/min BUN/Creatinine Ratio (10-20) Glucose (70-99(Fasting)) mg/dl POC Glucose 116 H 133 H 208 H (70-99) mg/dl Calcium (8.5-10.1) mg/dl Phosphorus (2.5-4.9) mg/dl Magnesium (1.7-2.4) mg/dl 11/25/21 11/25/21 11/25/21 Range/Units 19:11 16:11 14:14 WBC (4.8-10.8) K/ul RBC (4.63-6.08) M/uL Hgb (14.0-18.0) g/dl Hct (40.1-51.0) % MCV (80.0-100.0) fL MCH (25.0-34.0) pg MCHC (32.0-36.0) g/dL RDW Std Deviation (36.4-46.3) fL RDW Coeff of Beata (11.5-14.5) % Plt Count (130-400) K/uL MPV (9.4-12.4) fL Sodium 138 141 (136-145) mmol/L Potassium 3.7 3.4 L (3.5-5.1) mmol/L Chloride 107 109 H (98-107) mmol/L Carbon Dioxide 23 25 (21-32) mmol/L Anion Gap 8 7 (3-11) BUN 5 L 5 L (6-23) mg/dl Creatinine 0.60 0.54 L (0.6-1.4) mg/dl Est Cr Clr Drug Dosing 204.5 227.3 ml/min Est GFR ( Amer) 146.8 > 150.0 ml/min Est GFR (Non-Af Amer) 126.7 132.3 ml/min BUN/Creatinine Ratio 8.3 L 9.3 L (10-20) Glucose 268 H 84 (70-99(Fasting)) mg/dl POC Glucose 172 H (70-99) mg/dl Calcium 8.0 L 8.0 L (8.5-10.1) mg/dl Phosphorus 1.6 L (2.5-4.9) mg/dl Magnesium 2.2 (1.7-2.4) mg/dl 11/25/21 11/25/21 11/25/21 Range/Units 13:58 13:23 09:09 WBC (4.8-10.8) K/ul RBC (4.63-6.08) M/uL Hgb (14.0-18.0) g/dl Hct (40.1-51.0) % MCV (80.0-100.0) fL MCH (25.0-34.0) pg MCHC (32.0-36.0) g/dL RDW Std Deviation (36.4-46.3) fL RDW Coeff of Beata (11.5-14.5) % Plt Count (130-400) K/uL MPV (9.4-12.4) fL Sodium (136-145) mmol/L Potassium (3.5-5.1) mmol/L Chloride (98-107) mmol/L Carbon Dioxide (21-32) mmol/L Anion Gap (3-11) BUN (6-23) mg/dl Creatinine (0.6-1.4) mg/dl Est Cr Clr Drug Dosing ml/min Est GFR ( Amer) ml/min Est GFR (Non-Af Amer) ml/min BUN/Creatinine Ratio (10-20) Glucose (70-99(Fasting)) mg/dl POC Glucose 72 71 127 H (70-99) mg/dl Calcium (8.5-10.1) mg/dl Phosphorus (2.5-4.9) mg/dl Magnesium (1.7-2.4) mg/dl Medications Administered Current Inpatient Medications Clonidine HCl (Clonidine Hcl 0.1 Mg/24 Hr Transderm Sys) 1 patch TD Q7D [place]ONA Stop: 12/24/21 08:59 Last Admin: 11/24/21 09:31 Dose: 1 patch Dextrose (Dextrose 50% 50 Ml Syringe) 25 - 50 ml IV UD PRN; Protocol PRN Reason: Hypoglycemia Protocol Stop: 12/23/21 07:27 Duloxetine HCl (Duloxetine Hcl 60 Mg Cap) 60 mg PO QAM [place] Stop: 12/25/21 15:14 Last Admin: 11/25/21 17:36 Dose: 60 mg Enoxaparin Sodium (Enoxaparin Inj 40 Mg/0.4 Ml Syr) 40 mg SQ QAM [place] Stop: 12/24/21 08:59 Last Admin: 11/25/21 09:03 Dose: 40 mg Glucagon (Glucagon For Inj 1 Mg Vial) 1 mg SQ UD PRN; Protocol PRN Reason: Hypoglycemia Protocol Stop: 12/23/21 07:27 Glucose (Glucose 40% Gel 15 Gm Tube) 15 - 30 gm PO UD PRN; Protocol PRN Reason: Hypoglycemia Protocol Stop: 12/23/21 07:27 Glucose (Glucose 10 Tab/Tube) 4 - 8 tab PO UD PRN; Protocol PRN Reason: Hypoglycemia Treatment Stop: 12/23/21 07:27 Pantoprazole Sodium 40 mg/ (Syringe) 10 mls @ 5 mls/min IV DAILY@1100 [facility] Stop: 12/23/21 12:59 Last Admin: 11/25/21 11:17 Dose: 5 mls/min Acetaminophen (Ofirmev) 1,000 mg in 100 mls @ 400 mls/hr IV Q8H PRN PRN Reason: Pain or Fever Stop: 11/26/21 21:51 Last Infusion: 11/25/21 15:04 Dose: Infused Sodium Chloride (Nss 1000ml) 1,000 mls @ 125 mls/hr IV .Q8H [facility] Stop: 11/26/21 12:44 Last Admin: 11/26/21 06:26 Dose: 125 mls/hr Insulin Aspart (Insulin Aspart Per Unit) 0 units SC ACHS [facility] Stop: 12/25/21 16:29 Last Admin: 11/25/21 20:20 Dose: 4 units [place] Carbonate ([place] Carbonate 450 Mg Tabcr) 450 mg PO BID [facility] Stop: 12/25/21 00:19 Last Admin: 11/25/21 20:18 Dose: 450 mg Miscellaneous (Carbohydrates For Hypoglycemia ) 15 - 30 gm PO UD PRN PRN Reason: Hypoglycemia Protocol Stop: 12/23/21 07:27 Miscellaneous (Remove Clonidine Patch) 1 each N/A CQWK [facility] Stop: 12/24/21 08:58 Last Admin: 11/24/21 09:32 Dose: Not Given Miscellaneous (Check Clonidine Patch Placement) 1 each N/A QS [facility] Stop: 12/24/21 15:59 Last Admin: 11/25/21 23:07 Dose: 1 each Miscellaneous (Remove Nicoderm Patch) 1 each N/A DAILY@0859 [facility] Stop: 12/25/21 08:58 Last Admin: 11/25/21 09:13 Dose: 1 each Miscellaneous Information (Pharmacy Glycemic Mgmt Consult) 1 each N/A UD PRN PRN Reason: Consult Stop: 12/23/21 15:23 Nicotine (Nicotine 7 Mg/24 Hr Tdsy) 7 mg TD QAM [facility] Stop: 12/24/21 14:29 Last Admin: 11/25/21 09:05 Dose: 7 mg Ondansetron HCl (Ondansetron 2 Mg Od Tab) 2 mg PO Q8H PRN PRN Reason: Nausea Stop: 12/25/21 15:31 Potassium Chloride (Potassium Chloride Pwd 20 Meq Pack) 20 meq PO QID [facility] Stop: 12/24/21 16:59 Last Admin: 11/25/21 20:19 Dose: 20 meq Potassium Phosphate (Pot Phosphate Monobasic W/ Sod Tab) 1 tab PO QID [facility] Stop: 12/25/21 16:59 Last Admin: 11/25/21 17:38 Dose: 1 tab
[2021-11-26] MEDS ORDERED: LANTUS PER UNIT CHARGE SQ ONE (09:00)
[2021-11-26] MEDS: POTASSIUM CHLORIDE PWD 20 MEQ PACK PO SCH ×4 (09:18→21:41)
[2021-11-26] MEDS: NICOTINE 7 MG/24 HR TDSY TD SCH (09:18)
[2021-11-26] MEDS: POT PHOSPHATE MONOBASIC W/ SOD TAB PO SCH ×4 (09:18→21:48)
[2021-11-26] MEDS: LITHIUM CARBONATE 450 MG TABCR PO SCH ×2 (09:19→21:41)
[2021-11-26] MEDS: DULoxetine HCL 60 MG CAP PO SCH (09:19)
[2021-11-26] MEDS: CHECK CLONIDINE PATCH PLACEMENT SCH ×3 (09:20→23:51)
[2021-11-26] MEDS: ENOXAPARIN INJ 40 MG/0.4 ML SYR SQ SCH (09:21)
[2021-11-26] MEDS: PANTOprazole 40 MG in SYRINGE 0 ML IV SCH (12:43)
--- NOTE | 2021-11-26 14:40 | Pharmacy Report ---
Pharmacy Glycemic Short Note 2 - Date of Service November 26, 2021 - Glycemic Short BSG Results (Last 24 hours): 11/25/21 11/25/21 11/25/21 14:14 16:11 19:11 Glucose 84 268 H POC Glucose 172 H 11/25/21 11/25/21 11/26/21 20:17 23:06 03:52 Glucose POC Glucose 208 H 133 H 116 H 11/26/21 11/26/21 11/26/21 05:54 07:29 11:33 Glucose 130 H POC Glucose 150 H 181 H OUTPATIENT ANTIDIABETIC REGIMEN: * Unable to confirm regimen with patient, mother unsure of dosing * Per med rec (added 2016): Lantus 70 units SQ HS + Novolog 10 units SQ with meals + metformin * A1c = 10.1% (11/23/21) ASSESSMENT: 11/26: * Patient overall well controlled since transitioning off of the insulin infusion. Today's BSGs: 116, 150, 181 mg/dL. * In addition to the insulin infusion in the surgical training specialist, patient received an additional 52 units lantus and 12 units NovoLog yesterday. * Will proceed with lantus scale for today that will aim to deliver 40-50 units of lantus. * Patient is tolerating a clear liquid diet, CR tightened slightly this morning. 11/25: * After discussion with provider, insulin infusion was successfully transitioned off today. Dextrose was removed from maintenance fluids and patient is now ordered a clear liquid diet. * Although insulin infusion was previously running at a higher rate (7.8 units/hr), removal of dextrose containing fluids and lantus dose allowed for successful drip transition. BSGs were on the lower side 71-72 mg/dL at the time of insulin infusion discontinuation. Because of this will not cover limited carbs consumed at late lunch and will defer further basal dosing at this point until trend and diet can be assessed. 11/24 * 41-year-old male with history of PTSD, traumatic brain injury, GERD, uncontrolled DM type II, who presents in DKA. * Per H&P, patient has not taken insulin for several days. * IV insulin infusion started on 11/23/21 per DKA protocol - current infusing at 7.5 units/hr * Most recent labs indicate that anion gap has closed, bicarb remains low but trending upward, persistent hypokalemia and hypophosphatemia (replacement ordered). Patient remains NPO. More alert but continues to have altered mental status. * Plan to continue IV insulin until alerted mental status is resolved. Will overlap with SQ Lantus due to high IV infusion rates. PLAN FOR INPATIENT GLYCEMIC CONTROL: * Basal insulin * Lantus 25 units SQ X 1 this morning * 15, 20, or 25 units SQ this evening based on BSG * Bolus insulin - starting with dinner * NovoLog per scale ACHS or Q6hrs while NPO * Correction Factor: 20 mg/dL/unit * Nutritional / Prandial insulin per carb ratio: 6
[2021-11-26] MEDS: BUPRENORPHINE/NALOXONE 8/2 MG TAB SL SCH (21:46)
[2021-11-26] MEDS: LANTUS PER UNIT CHARGE SQ SCH (21:47)
[2021-11-27 06:46] LABS: Hematocrit (blood only) 35.4 % (40.1-51.0); Hemoglobin 12.2 g/dl (14.0-18.0); Mean Corpuscular Hemoglobin 26.9 pg (25.0-34.0); Mean Corpuscular Hgb Conc 34.5 g/dL (32.0-36.0); Mean Platelet Volume 9.4 fL (9.4-12.4); Nucleated RBC # (auto) 0.02 K/uL (0-0); Nucleated RBC % (auto) 0.3 %; Platelet Count 309 K/uL (130-400); RDW Coefficient of Variation 13.4 % (11.5-14.5); RDW Standard Deviation 37.8 fL (36.4-46.3); Red Blood Count 4.54 M/uL (4.63-6.08); White Blood Count 7.22 K/ul (4.8-10.8)
[2021-11-27 07:17] LABS: Anion Gap 11 (3-11); BUN Creatinine Ratio 8.7 (10-20); Blood Urea Nitrogen 4 mg/dl (6-23); Calcium 8.5 mg/dl (8.5-10.1); Carbon Dioxide 25 mmol/L (21-32); Chloride 105 mmol/L (98-107); Est GFR (African American) > 150.0 ml/min; Est GFR (Non-African American) 141.3 ml/min; Glucose 167 mg/dl (70-99(Fasting)); Magnesium 2.2 mg/dl (1.7-2.4); Phosphorus 2.5 mg/dl (2.5-4.9); Potassium 3.1 mmol/L (3.5-5.1); Sodium 141 mmol/L (136-145)
[2021-11-27] MEDS: POTASSIUM CHLORIDE PWD 20 MEQ PACK PO SCH ×4 (08:11→20:20)
[2021-11-27] MEDS: DULoxetine HCL 60 MG CAP PO SCH (08:11)
[2021-11-27] MEDS: LITHIUM CARBONATE 450 MG TABCR PO SCH ×2 (08:12→20:17)
[2021-11-27] MEDS: NICOTINE 7 MG/24 HR TDSY TD SCH (08:12)
[2021-11-27] MEDS: PANTOprazole 40 MG TAB PO SCH (08:12)
[2021-11-27] MEDS: ENOXAPARIN INJ 40 MG/0.4 ML SYR SQ SCH (08:13)
[2021-11-27] MEDS: INSULIN ASPART PER UNIT SC SCH ×4 (08:16→20:11)
[2021-11-27] MEDS: LANTUS PER UNIT CHARGE SQ SCH ×2 (08:18→20:20)
[2021-11-27] MEDS: CHECK CLONIDINE PATCH PLACEMENT SCH ×3 (08:19→23:38)
[2021-11-27] MEDS: BUPRENORPHINE/NALOXONE 8/2 MG TAB SL SCH ×2 (08:24→20:17)
[2021-11-27] MEDS: POT PHOSPHATE MONOBASIC W/ SOD TAB PO SCH ×4 (08:24→20:17)
[2021-11-27] MEDS ORDERED: POTASSIUM CHLORIDE CRTAB 20 MEQ TABCR PO STA (09:54)
--- NOTE | 2021-11-27 09:54 | Hospitalist Progress Note ---
Date of Service November 27, 2021 Assessment & Plan (1) DKA (diabetic ketoacidosis): Plan: Patient presents with elevated blood glucose level, over 600 Positive urine ketones Anion gap 28, bicarb 4 pH<7.0 Patient tachypneic, tachycardic on admission on 3 L of suppl. O2 in ER, now on RA Patient not able to provide much history on admission, now mental status improving Pt not taking insulin for several days - per mother 2 Liters normal saline given in the ED and IV insulin started Pt on IV insulin drip, IV electrolyte replacement Initially admitted to ICU due to severe acidosis, possible need for bicarbonate and/or intubation received bicarb Now AG closed Current hemoglobin A1c 10.1% 11/25 -we will stop IV insulin. Per patient, patient has not been on any diabetes medication for several years. Contacted [place] for medical records, there is no recent PCP note. 11/26 -patient reports that he does not see any PCP. Confirms that he has not been on any diabetes medication for several years. He is okay to be set up with [facility] PCP. He confirms to see [facility] psychiatry. Monitor BMP, currently on clear liquid diet -> advance as tolerated Continue to closely monitor SHABANA - resolved - Cr 1.8 on admission - current Cr 0.5 - secondary to dehydration, secondary to above IVF given monitor renal function Pseudohyponatremia Na 122 on admission in the setting of elevated Glc level -Correct hyperglycemia, should correct sodium level -Continue to closely monitor BMP, as above -current Na 141 Leukocytosis WBC 30,000 -> 16,000-> ~7,000 (normalized) Procalcitonin 0.6 Patient severely dehydrated due to DKA Urine culture - negative blood cultures - negat. in 48 hrs Empiric abx, zosyn, started by ICU team, will stop now as no source of infection identified, WBC normalized, mental status back to baseline GERD -PPI HTN -Per mother, patient is on clonidine -pt has been hypertensive - clonidine patch given -Per old records from previous admission, patient was on metoprolol as well. patient reports he does not take the medication anymore. There is also no metoprolol listed on his [facility] medication list. PTSD, history of TBI -Per mother Giulia, patient may be on lithium, Suboxone, hydroxyzine - hx from mother on admission as pt not able to provide hx at that time -Requested records from [facility] Per [facility], outpatient meds: Suboxone 8/, twice daily clonidine 0.1mg 3 times daily as needed duloxetine 60 mg daily hydroxyzine 25 mg 4 times daily lamotrigine 25 twice daily lithium 450 mg twice daily Clonidine patch - started in ICU - transition to home oral on DC [place] was resumed. Duloxetine was resumed. Suboxone will resume now. Per [facility] psychiatry note, "patient was diagnosed with bipolar d/o in community" Not clear who diagnosed him. Patient reports that he follows with psych [facility], and all his medications are prescribed by [facility]. He is followed by [facility] psychiatry for PTSD. Dispo : when medically stable - Diabetes education. Will need close follow-up with PCP - to establish new w/ isinger. Follows with [facility] for care. Admission and Anticipated Discharge Date Admission Date: November 23, 2021 Subjective Patient seen in follow-up of DKA Currently sitting up in bed, he is throwing up Alert and oriented today, able to answer questions appropriately. Patient denies any chest pain, shortness of breath. No abdominal pain, no diarrhea. He is also on room air, saturating 97%. He was tolerating clear liquid diet yesterday, will switch to only sips today, cont. to monitor and try to advance diet. On subcu insulin now. Records from [place] obtained and reviewed. Patient confirms that he did not take anything for his diabetes for several years. He reports having no PCP, he is okay if we set him up with [facility] PCP to follow-up after discharge. Confirms following with [facility] psychiatry. Review of Systems Review of Systems: All systems reviewed & are unremarkable except as noted in Subjective Physical Exam Physical Exam: Constitutional:L obese M laying in bed,in NAD, on RA Eyes: PERRL, EOMI, conju nctivae normal, an icteric sclerae ENMT: external ear and n ose normal, oropha rynx normal Neck: + thick neck Respiratory: CTAB, no wheezing Cardiovascular:L RRR HR 80s, no mur murs noted Chest (Breasts): Chest: normal insp ection of chest Gastrointestinal ( Abdomen): normal bowel sound s, soft, obese, no ntender BMusculoskeletal: moves extremities Skin: warm, dry Neurologic: Much more alert, a ble to answer ques tions appropriatel y. Lymphatic: minimal LE edema Results & Data Results & [facility] ([facility]) Vital Signs (Past 12 Hours) Vital Signs Temp Pulse Pulse Resp BP Pulse Ox O2 Del Method 11/27/21 07:00 36.6 C 88 16 138/82 97 Room Air 11/27/21 03:00 36.7 C 94 H 16 140/100 96 Room Air 11/26/21 23:59 85 11/26/21 23:15 36.4 C L 96 H 18 135/86 97 Room Air Laboratory Results 11/27/21 11/27/21 11/27/21 Range/Units 07:13 05:40 05:40 WBC 7.22 (4.8-10.8) K/ul RBC 4.54 L (4.63-6.08) M/uL Hgb 12.2 L (14.0-18.0) g/dl Hct 35.4 L (40.1-51.0) % MCV 78.0 L (80.0-100.0) fL MCH 26.9 (25.0-34.0) pg MCHC 34.5 (32.0-36.0) g/dL RDW Std Deviation 37.8 (36.4-46.3) fL RDW Coeff of Beata 13.4 (11.5-14.5) % Plt Count 309 (130-400) K/uL MPV 9.4 (9.4-12.4) fL Absolute Nucleated RBC 0.02 H (0-0) K/uL Nucleated RBC % (auto) 0.3 % Sodium 141 (136-145) mmol/L Potassium 3.1 L (3.5-5.1) mmol/L Chloride 105 (98-107) mmol/L Carbon Dioxide 25 (21-32) mmol/L Anion Gap 11 (3-11) BUN 4 L (6-23) mg/dl Creatinine 0.46 L (0.6-1.4) mg/dl Est Cr Clr Drug Dosing 271.0 ml/min Est GFR ( Amer) > 150.0 ml/min Est GFR (Non-Af Amer) 141.3 ml/min BUN/Creatinine Ratio 8.7 L (10-20) Glucose 167 H (70-99(Fasting)) mg/dl POC Glucose 163 H (70-99) mg/dl Calcium 8.5 (8.5-10.1) mg/dl Phosphorus 2.5 (2.5-4.9) mg/dl Magnesium 2.2 (1.7-2.4) mg/dl 11/26/21 11/26/21 11/26/21 Range/Units 20:25 16:23 11:33 WBC (4.8-10.8) K/ul RBC (4.63-6.08) M/uL Hgb (14.0-18.0) g/dl Hct (40.1-51.0) % MCV (80.0-100.0) fL MCH (25.0-34.0) pg MCHC (32.0-36.0) g/dL RDW Std Deviation (36.4-46.3) fL RDW Coeff of Beata (11.5-14.5) % Plt Count (130-400) K/uL MPV (9.4-12.4) fL Absolute Nucleated RBC (0-0) K/uL Nucleated RBC % (auto) % Sodium (136-145) mmol/L Potassium (3.5-5.1) mmol/L Chloride (98-107) mmol/L Carbon Dioxide (21-32) mmol/L Anion Gap (3-11) BUN (6-23) mg/dl Creatinine (0.6-1.4) mg/dl Est Cr Clr Drug Dosing ml/min Est GFR ( Amer) ml/min Est GFR (Non-Af Amer) ml/min BUN/Creatinine Ratio (10-20) Glucose (70-99(Fasting)) mg/dl POC Glucose 197 H 177 H 181 H (70-99) mg/dl Calcium (8.5-10.1) mg/dl Phosphorus (2.5-4.9) mg/dl Magnesium (1.7-2.4) mg/dl Medications Administered Current Inpatient Medications Buprenorphine/Naloxone (Buprenorphine/Naloxone 8/2 Mg Tab) 1 tab SL BID [facility] Stop: 12/26/21 20:59 Last Admin: 11/27/21 08:24 Dose: 1 tab Clonidine HCl (Clonidine Hcl 0.1 Mg/24 Hr Transderm Sys) 1 patch TD Q7D [facility] Stop: 12/24/21 08:59 Last Admin: 11/24/21 09:31 Dose: 1 patch Dextrose (Dextrose 50% 50 Ml Syringe) 25 - 50 ml IV UD PRN; Protocol PRN Reason: Hypoglycemia Protocol Stop: 12/23/21 07:27 Duloxetine HCl (Duloxetine Hcl 60 Mg Cap) 60 mg PO QAM [facility] Stop: 12/25/21 15:14 Last Admin: 11/27/21 08:11 Dose: 60 mg Enoxaparin Sodium (Enoxaparin Inj 40 Mg/0.4 Ml Syr) 40 mg SQ QAM [facility] Stop: 12/24/21 08:59 Last Admin: 11/27/21 08:13 Dose: 40 mg Glucagon (Glucagon For Inj 1 Mg Vial) 1 mg SQ UD PRN; Protocol PRN Reason: Hypoglycemia Protocol Stop: 12/23/21 07:27 Glucose (Glucose 40% Gel 15 Gm Tube) 15 - 30 gm PO UD PRN; Protocol PRN Reason: Hypoglycemia Protocol Stop: 12/23/21 07:27 Glucose (Glucose 10 Tab/Tube) 4 - 8 tab PO UD PRN; Protocol PRN Reason: Hypoglycemia Treatment Stop: 12/23/21 07:27 Insulin Aspart (Insulin Aspart Per Unit) 0 units SC ACHS [facility]; Protocol Stop: 12/25/21 16:29 Last Admin: 11/27/21 08:16 Dose: 3 units Insulin Glargine (Lantus Per Unit Charge) 0 units SQ BID [facility]; Protocol Stop: 12/26/21 20:59 Last Admin: 11/27/21 08:18 Dose: 30 units [place] Carbonate ([place] Carbonate 450 Mg Tabcr) 450 mg PO BID [facility] Stop: 12/25/21 00:19 Last Admin: 11/27/21 08:12 Dose: 450 mg Miscellaneous (Carbohydrates For Hypoglycemia ) 15 - 30 gm PO UD PRN PRN Reason: Hypoglycemia Protocol Stop: 12/23/21 07:27 Miscellaneous (Remove Clonidine Patch) 1 each N/A CQWK [facility] Stop: 12/24/21 08:58 Last Admin: 11/24/21 09:32 Dose: Not Given Miscellaneous (Check Clonidine Patch Placement) 1 each N/A QS [facility] Stop: 12/24/21 15:59 Last Admin: 11/27/21 08:19 Dose: Not Given Miscellaneous (Remove Nicoderm Patch) 1 each N/A DAILY@0859 [facility] Stop: 12/25/21 08:58 Last Admin: 11/27/21 08:19 Dose: Not Given Miscellaneous Information (Pharmacy Glycemic Mgmt Consult) 1 each N/A UD PRN PRN Reason: Consult Stop: 12/23/21 15:23 Nicotine (Nicotine 7 Mg/24 Hr Tdsy) 7 mg TD QAM [facility] Stop: 12/24/21 14:29 Last Admin: 11/27/21 08:12 Dose: 7 mg Ondansetron HCl (Ondansetron 2 Mg Od Tab) 2 mg PO Q8H PRN PRN Reason: Nausea Stop: 12/25/21 15:31 Pantoprazole Sodium (Pantoprazole 40 Mg Tab) 40 mg PO DAILY [facility] Stop: 12/27/21 08:59 Last Admin: 11/27/21 08:12 Dose: 40 mg Potassium Chloride (Potassium Chloride Pwd 20 Meq Pack) 20 meq PO QID [facility] Stop: 12/24/21 16:59 Last Admin: 11/27/21 08:11 Dose: 20 meq Potassium Phosphate (Pot Phosphate Monobasic W/ Sod Tab) 1 tab PO QID [facility] Stop: 12/25/21 16:59 Last Admin: 11/27/21 08:24 Dose: 1 tab
[2021-11-27] MEDS: NSS + 20MEQ KCL 20 MEQ/1,000 ML BAG IV SCH ×2 (11:43→18:40)
--- NOTE | 2021-11-27 13:10 | Pharmacy Report ---
Pharmacy Glycemic Short Note 2 - Date of Service November 27, 2021 - Glycemic Short BSG Results (Last 24 hours): 11/26/21 11/26/21 11/27/21 16:23 20:25 05:40 Glucose 167 H POC Glucose 177 H 197 H 11/27/21 11/27/21 07:13 11:30 Glucose POC Glucose 163 H 185 H OUTPATIENT ANTIDIABETIC REGIMEN: * Unable to confirm regimen with patient, mother unsure of dosing * Per med rec (added 2016): Lantus 70 units SQ HS + Novolog 10 units SQ with meals + metformin * A1c = 10.1% (11/23/21) ASSESSMENT: 11/27: * Donnell received 81 units of insulin yesterday (50 units basal + 31 units bolus). BSGs were controlled: 106-259-541-197 mg/dL. * Fasting BSG a little elevated at 163 mg/dL this AM. Will increase basal scale to hopefully provide a 20% increase today. * No changes to Novolog today. May need to tighten if postprandials remain above 180 mg/dL tomorrow. 11/26: * Patient overall well controlled since transitioning off of the insulin infusion. Today's BSGs: 116, 150, 181 mg/dL. * In addition to the insulin infusion in the glass lined tank repairer, patient received an additional 52 units lantus and 12 units NovoLog yesterday. * Will proceed with lantus scale for today that will aim to deliver 40-50 units of lantus. * Patient is tolerating a clear liquid diet, CR tightened slightly this morning. 11/25: * After discussion with provider, insulin infusion was successfully transitioned off today. Dextrose was removed from maintenance fluids and patient is now ordered a clear liquid diet. * Although insulin infusion was previously running at a higher rate (7.8 units/hr), removal of dextrose containing fluids and lantus dose allowed for successful drip transition. BSGs were on the lower side 71-72 mg/dL at the time of insulin infusion discontinuation. Because of this will not cover limited carbs consumed at late lunch and will defer further basal dosing at this point until trend and diet can be assessed. PLAN FOR INPATIENT GLYCEMIC CONTROL: * Basal insulin * Lantus 20-30 units SC BID (see eMAR for more details) * Bolus insulin * NovoLog per scale ACHS or Q6hrs while NPO * Goal Range: 110 - 140 mg/dL * Correction Factor: 20 mg/dL/unit * Nutritional / Prandial insulin per carb ratio: 6
[2021-11-27] MEDS: ONDANSETRON 2 MG OD TAB PO PRN (20:55)
[2021-11-28] MEDS: NSS + 20MEQ KCL 20 MEQ/1,000 ML BAG IV SCH (02:43)
[2021-11-28 06:23] LABS: Hematocrit (blood only) 35.2 % (40.1-51.0); Hemoglobin 11.8 g/dl (14.0-18.0); Mean Corpuscular Hemoglobin 26.2 pg (25.0-34.0); Mean Corpuscular Hgb Conc 33.5 g/dL (32.0-36.0); Mean Corpuscular Volume 78.2 fL (80.0-100.0); Platelet Count 322 K/uL (130-400); RDW Coefficient of Variation 13.6 % (11.5-14.5); RDW Standard Deviation 38.3 fL (36.4-46.3)
[2021-11-28 06:54] LABS: Anion Gap 7 (3-11); BUN Creatinine Ratio 4.3 (10-20); Blood Urea Nitrogen 2 mg/dl (6-23); Calcium 8.3 mg/dl (8.5-10.1); Carbon Dioxide 26 mmol/L (21-32); Chloride 107 mmol/L (98-107); Creatinine Clr Calc Pharmacy 266.2 ml/min; Est GFR (African American) > 150.0 ml/min; Glucose 155 mg/dl (70-99(Fasting)); Potassium 3.6 mmol/L (3.5-5.1); Sodium 140 mmol/L (136-145)
[2021-11-28] MEDS: INSULIN ASPART PER UNIT SC SCH ×4 (08:10→20:55)
[2021-11-28] MEDS: LANTUS PER UNIT CHARGE SQ SCH ×2 (08:11→21:00)
[2021-11-28] MEDS: BUPRENORPHINE/NALOXONE 8/2 MG TAB SL SCH ×2 (08:17→20:59)
[2021-11-28] MEDS: NICOTINE 7 MG/24 HR TDSY TD SCH (08:18)
[2021-11-28] MEDS: DULoxetine HCL 60 MG CAP PO SCH (08:19)
[2021-11-28] MEDS: LITHIUM CARBONATE 450 MG TABCR PO SCH ×2 (08:19→20:59)
[2021-11-28] MEDS: PANTOprazole 40 MG TAB PO SCH (08:19)
[2021-11-28] MEDS: POTASSIUM CHLORIDE PWD 20 MEQ PACK PO SCH ×3 (08:19→20:59)
[2021-11-28] MEDS: ENOXAPARIN INJ 40 MG/0.4 ML SYR SQ SCH (08:25)
[2021-11-28] MEDS: CHECK CLONIDINE PATCH PLACEMENT SCH ×3 (08:25→23:52)
--- NOTE | 2021-11-28 10:08 | Pharmacy Report ---
Pharmacy Glycemic Short Note 2 - Date of Service November 28, 2021 - Glycemic Short BSG Results (Last 24 hours): 11/27/21 11/27/21 11/27/21 11:30 16:13 20:07 Glucose POC Glucose 185 H 140 H 137 H 11/28/21 11/28/21 06:06 07:31 Glucose 155 H POC Glucose 130 H OUTPATIENT ANTIDIABETIC REGIMEN: * Unable to confirm regimen with patient, mother unsure of dosing * Per med rec (added 2016): Lantus 70 units SQ HS + Novolog 10 units SQ with meals + metformin * A1c = 10.1% (11/23/21) ASSESSMENT: 11/28: * 61 units SQ insulin given in last 24 hrs, most of which was basal due to poor PO intake and BSGs well controlled * Fasting BSG 130 this AM with 55 units basal on board. Will continue scaled Lantus dosing due to uncertain PO intake * Post-prandial BSGs well controlled yesterday with current CR/CF, will continue. 11/27: * Donnell received 81 units of insulin yesterday (50 units basal + 31 units bolus). BSGs were controlled: 831-996-337-197 mg/dL. * Fasting BSG a little elevated at 163 mg/dL this AM. Will increase basal scale to hopefully provide a 20% increase today. * No changes to Novolog today. May need to tighten if postprandials remain above 180 mg/dL tomorrow. 11/26: * Patient overall well controlled since transitioning off of the insulin infusion. Today's BSGs: 116, 150, 181 mg/dL. * In addition to the insulin infusion in the fine patcher, patient received an additional 52 units lantus and 12 units NovoLog yesterday. * Will proceed with lantus scale for today that will aim to deliver 40-50 units of lantus. * Patient is tolerating a clear liquid diet, CR tightened slightly this morning. PLAN FOR INPATIENT GLYCEMIC CONTROL: * Basal insulin * Lantus 20-30 units SC BID (see eMAR for more details) * Bolus insulin * NovoLog per scale ACHS or Q6hrs while NPO * Goal Range: 110 - 140 mg/dL * Correction Factor: 20 mg/dL/unit * Nutritional / Prandial insulin per carb ratio: 6
[2021-11-28] MEDS: ONDANSETRON 2 MG OD TAB PO PRN (14:00)
--- NOTE | 2021-11-28 14:04 | Hospitalist Progress Note ---
Date of Service November 28, 2021 Assessment & Plan (1) DKA (diabetic ketoacidosis): Plan: DKA Secondary to Noncompliance Acute Metabolic Encephalopathy-POA Anion gap Metabolic Acidosis -CT Head:There is no evidence of hemorrhage, mass effect, or acute territorial ischemia by CT criteria noting a motion compromised examination. CXR:No active disease in the chest. Blood/Urine Cx Negative Patient has not taking insulin for several days Received IV Insulin, Bicarbonate HbA1C:10.1 --Needs Insulin Autoantibody IA-2 Antibody Glutamic Acid Decarboxylase-65 Zinc Transporter 9 (ZnT8) Ab as outpatient to differentiate Type I Vs Type II Continue Insulin per protocol Decrease IV fluids Advance diet as tolerated Advised to follow up with PCP regularly Hypokalemia Hypophosphatemia Replace electrolytes as needed SHABANA - resolved Cr 1.8>>0.47 on admission Likely prerenal Avoid Nephrotoxic agents as able monitor renal function Pseudohyponatremia Secondary to hyperglycemia Monitor Leukocytosis Likely due to DKA No obvious source of infection Empiric zosyn discontinued Monitor GERD On PPI HTN Continue Clonidine PTSD H/O TBI Continue home meds as below Suboxone 8/2, twice daily clonidine 0.1mg 3 times daily as needed duloxetine 60 mg daily hydroxyzine 25 mg 4 times daily lamotrigine 25 twice daily lithium 450 mg twice daily Follow with Psychiatrist at [place] [facility] Px: Lovenox SQ Code Status Full Code Admission and Anticipated Discharge Date Admission Date: November 23, 2021 Subjective Patient is seen and examined at bedside Nausea much improved today Tolerated liquid diet this morning Had 1 loose BM today Denies any chest pain, dyspnea, dizziness, abdominal pain Offers no other complaints Review of Systems Review of Systems: All systems reviewed & are unremarkable except as noted in Subjective Physical Exam Physical Exam: Physical Exam: Vitals signs as noted above General Appearance:Morbidly Obese, No apparent distress Head: normocephalic, Atraumatic Eyes: normal inspection, EOMI Neck: supple, Trachea midline Respiratory/Chest: Normal breath sounds, CTA Cardiovascular: S1, S2, No murmur Abdomen/GI:Soft, Non tender, Bowel sounds present Extremities/Musculoskeletal:normal inspection, no edema Neurologic/Psych:AAOX3, grossly no focal neurological deficits Skin: normal color, warm Results & Data Results & Data ([facility]) Vital Signs (Past 12 Hours) Vital Signs Temp Pulse Pulse Resp BP Pulse Ox O2 Del Method 11/28/21 11:00 36.8 C 88 18 141/92 H 96 Room Air 11/28/21 08:00 Room Air 11/28/21 08:00 76 11/28/21 07:00 36.6 C 76 18 145/85 H 97 Room Air 11/28/21 03:00 36.6 C 81 18 139/89 96 Room Air Laboratory Results Short CBC 11/28/21 Range/Units 06:06 WBC 8.10 (4.8-10.8) K/ul Hgb 11.8 L (14.0-18.0) g/dl Hct 35.2 L (40.1-51.0) % Plt Count 322 (130-400) K/uL BMP 11/28/21 06:06 Sodium 140 Potassium 3.6 Chloride 107 Carbon Dioxide 26 BUN 2 L Creatinine 0.47 L Glucose 155 H Calcium 8.3 L
[2021-11-28 19:36] VITALS: O2SAT 96
[2021-11-29 07:08] LABS: BUN Creatinine Ratio 3.1 (10-20); Creatinine Clr Calc Pharmacy 192.8 ml/min; Est GFR (Non-African American) 122.6 ml/min; Potassium 3.9 mmol/L (3.5-5.1)
[2021-11-29] MEDS ORDERED: ACETAMINOPHEN 325 MG TAB PO PRN (09:18)
[2021-11-29] MEDS ORDERED: ACETAMINOPHEN 325 MG TAB ONE (09:21)
[2021-11-29] MEDS: LITHIUM CARBONATE 450 MG TABCR PO SCH (09:25)
[2021-11-29] MEDS: CHECK CLONIDINE PATCH PLACEMENT SCH (09:25)
[2021-11-29] MEDS: BUPRENORPHINE/NALOXONE 8/2 MG TAB SL SCH (09:26)
[2021-11-29] MEDS: PANTOprazole 40 MG TAB PO SCH (09:27)
[2021-11-29] MEDS: DULoxetine HCL 60 MG CAP PO SCH (09:27)
[2021-11-29] MEDS: NICOTINE 7 MG/24 HR TDSY TD SCH (09:29)
[2021-11-29] MEDS: POTASSIUM CHLORIDE PWD 20 MEQ PACK PO SCH (09:30)
[2021-11-29] MEDS: INSULIN ASPART PER UNIT SC SCH ×2 (09:45→12:06)
[2021-11-29] MEDS: LANTUS PER UNIT CHARGE SQ SCH (09:46)
[2021-11-29] MEDS ORDERED: diphenhydrAMINE HCL 25 MG/10 ML UDC PO PRN (09:58)
[2021-11-29] MEDS ORDERED: diphenhydrAMINE HCl 12.5 MG/5 ML UDC PO PRN (10:34)
[2021-11-29] MEDS: ENOXAPARIN INJ 40 MG/0.4 ML SYR SQ SCH (10:38)
[2021-11-29 11:29] VITALS: TEMP 98.6
--- NOTE | 2021-11-29 13:38 | Hospitalist Progress Note ---
Date of Service November 29, 2021 Assessment & Plan (1) DKA (diabetic ketoacidosis): Plan: DKA Secondary to Noncompliance Acute Metabolic Encephalopathy-POA Anion gap Metabolic Acidosis -CT Head:There is no evidence of hemorrhage, mass effect, or acute territorial ischemia by CT criteria noting a motion compromised examination. CXR:No active disease in the chest. Blood/Urine Cx Negative Patient has not taking insulin for several days Received IV Insulin, Bicarbonate HbA1C:10.1 --Needs Insulin Autoantibody IA-2 Antibody Glutamic Acid Decarboxylase-65 Zinc Transporter 9 (ZnT8) Ab as outpatient to differentiate Type I Vs Type II Continue Insulin per protocol Decrease IV fluids Tolerated diet Advised to follow up with PCP regularly Hypokalemia Hypophosphatemia Replace electrolytes as needed SHABANA - resolved Cr 1.8>>0.47 on admission Likely prerenal Avoid Nephrotoxic agents as able monitor renal function Pseudohyponatremia Secondary to hyperglycemia Monitor Leukocytosis Likely due to DKA No obvious source of infection Empiric zosyn discontinued Monitor GERD On PPI HTN Continue Clonidine PTSD H/O TBI Continue home meds as below Suboxone 8/2, twice daily clonidine 0.1mg 3 times daily as needed duloxetine 60 mg daily hydroxyzine 25 mg 4 times daily lamotrigine 25 twice daily lithium 450 mg twice daily Follow with Psychiatrist at [place] [facility] Px: Lovenox SQ Code Status Full Code Admission and Anticipated Discharge Date Admission Date: November 23, 2021 Subjective Patient is seen and examined at bedside Reports headache this morning which she attributes to poor sleep overnight Discussed with patient's family today Denies any chest pain, dyspnea, dizziness, abdominal pain Offers no other complaints Review of Systems Review of Systems: All systems reviewed & are unremarkable except as noted in Subjective Physical Exam Physical Exam: Physical Exam: Vitals signs as noted above General Appearance:Morbidly Obese, No apparent distress Head: normocephalic, Atraumatic Eyes: normal inspection, EOMI Neck: supple, Trachea midline Respiratory/Chest: Normal breath sounds, CTA Cardiovascular: S1, S2, No murmur Abdomen/GI:Soft, Non tender, Bowel sounds present Extremities/Musculoskeletal:normal inspection, no edema Neurologic/Psych:AAOX3, grossly no focal neurological deficits Skin: normal color, warm Results & Data Results & Data ([facility]) Vital Signs (Past 12 Hours) Vital Signs Temp Pulse Pulse Resp BP Pulse Ox O2 Del Method 11/29/21 11:28 37.0 C 100 H 16 149/96 H 96 Room Air 11/29/21 07:51 90 11/29/21 07:34 36.6 C 85 17 154/97 H 96 Room Air 11/29/21 03:48 36.9 C 90 18 128/79 96 Room Air Laboratory Results [facility] 11/29/21 05:24 Sodium 137 Potassium 3.9 Chloride 99 Carbon Dioxide 30 BUN 2 L Creatinine 0.65 Glucose 226 H Calcium 9.0
--- NOTE | 2021-11-29 13:47 | XRay Report ---
KUB CLINICAL HISTORY: Vomiting. COMPARISON STUDY: None. FINDINGS: Bowel gas pattern is normal. There is no evidence for a bowel obstruction. Amount of stool is within normal limits. Visualized skeletal structures are unremarkable. IMPRESSION: No evidence for a bowel obstruction. ACT 112: Negative or not required by law. Electronically signed by: Issa Negrete M.D. 11/29/2021 1:46 PM
[2021-11-29 15:09] VITALS: BP 143/85; PULSE 94
--- NOTE | 2021-11-29 15:25 | Discharge Summary ---
Date of Service November 29, 2021 Admission HPI Per Admitting Provider 41-year-old male with history of PTSD, traumatic brain injury, GERD, DM type II, who presents in DKA. Patient's mother called the ambulance, as the patient has not been feeling well. Per mother, he has been throwing up for week and a half. She reports that he has not been able to take insulin for some time. He was supposed to follow-up with physician in [place], but felt too sick to go. Per mother, no diarrhea, fevers chills however she is not sure. She reports that he is on Suboxone, and lithium, hydroxyzine and clonidine. As far as she knows, that all he takes. In the ED, patient is now receiving second liter of normal saline. IV insulin drip started. He has been tachypneic, tachycardic. Respirations in 30s, heart rate 140. He has been on 3 L of nasal cannula. VBG pending. Anion gap 28. Stat ABG ordered. Patient is not able to finish a sentence, says he cannot come up with words. He is clearly struggling with breathing. He is not opening eyes. He does report that he has not been feeling well for several days and was not taking insulin for several days. He cannot tell me why he was not taking insulin. ICU contacted, patient will be admitted to ICU for further evaluation and treatment as patient may need bicarb, possible intubation, due to severe acidosis. Admission Exam Per Admitting Provider Physical Exam Constitutional: obese M laying in bed, tachypneic, on 3L of suppl. O2, not able to provide much hx Eyes: PERRL, conjunctivae normal, anicteric sclerae ENMT: external ear and nose normal, oropharynx normal Neck: + thick neck Respiratory: + tachypneic (on 3L suppl. O2, CTAB, no wheezing) Cardiovascular: tachycardic, HR 140 Chest (Breasts): Chest: normal inspection of chest Gastrointestinal (Abdomen): normal bowel sounds, soft, nontender, no hepatosplenomegaly (obese) Musculoskeletal: moves extremities Skin: + mottling of skin - upper and lower ext remities Neurologic: Patient seems to be aware of being in the hospital, and he is trying to answer my questions, he is only able to start a sentence and cannot finish, says he cannot find words Genitourinary: Sampson catheter placed, drains clear yellow urine Lymphatic: minimal LE edema Principal Diagnosis Diabetic ketoacidosis Electrolyte imbalances Acute kidney injury Discharge Data Allergies Allergy/AdvReac Type Severity Reaction Status Date / Time No Known Allergies Allergy Unverified 08/24/17 23:07 Consultations 11/23/21 07:39 ED Decision to Admit Stat 11/23/21 08:38 Consult [facility] Routine Ordered Studies 11/23/21 11:09 CT head/brain wo con Stat Diabetes Follow up Diabetes Follow-up Needed for HgbA1c >9% Hospital Course (1) DKA (diabetic ketoacidosis): DKA Secondary to Noncompliance Acute Metabolic Encephalopathy-POA Anion gap Metabolic Acidosis -CT Head:There is no evidence of hemorrhage, mass effect, or acute territorial ischemia by CT criteria noting a motion compromised examination. CXR:No active disease in the chest. Blood/Urine Cx Negative Patient has not taking insulin for several days Received IV Insulin, Bicarbonate HbA1C:10.1 --Needs Insulin Autoantibody IA-2 Antibody Glutamic Acid Decarboxylase-65 Zinc Transporter 9 (ZnT8) Ab as outpatient to differentiate Type I Vs Type II Continue Insulin per protocol Decrease IV fluids Tolerated diet Advised to follow up with PCP regularly Hypokalemia Hypophosphatemia Replace electrolytes as needed SHABANA - resolved Cr 1.8>>0.47 on admission Likely prerenal Avoid Nephrotoxic agents as able monitor renal function Pseudohyponatremia Secondary to hyperglycemia Monitor Leukocytosis Likely due to DKA No obvious source of infection Empiric zosyn discontinued Monitor GERD On PPI HTN Continue Clonidine PTSD H/O TBI Continue home meds as below Suboxone /, twice daily clonidine 0.1mg 3 times daily as needed duloxetine 60 mg daily hydroxyzine 25 mg 4 times daily lamotrigine 25 twice daily lithium 450 mg twice daily Follow with Psychiatrist at [place] [facility] Px: Lovenox SQ Code Status Full Code Total Time Total Time Spent Total Time Spent (In Minutes): 55 minutes Discharge Plan Discharge Items Patient Disposition: Home - Self-Care Reason For Visit: DKA Discharge Diagnosis: Diabetic ketoacidosis Electrolyte imbalances Acute kidney injury Activity: Per Instructions section Exercise/Sports: Gradually increase as tolerated Non-emergency contact: Primary Care Provider and Psychiatrist Call non-emergency contact if: you have any medication questions, your symptoms worsen, your pain is concerning for you and you have a fever Follow-up/Referrals: Saige Harrison MD [Hospitalist] - (Date & Time 12/02/2021 1:00 PM Provider Saige Harrison MD Department Family Medicine [address] [place] [address] ) Diet: Carb Count or DM1 Addtl Attending Provider Instructions: Follow up with your primary care physician on 12/02/2021 1:00 PM Follow-up with your psychiatrist at the [place] in 3 to 4 weeks. --Monitor your Blood Glucose levels regularly and discuss with your physician for further adjustment of your Insulin dosage as needed. Seek immediate medical attention if your symptoms reoccur or worsen Please take all medications as instructed on discharge list below. Please call if you have any questions or problems. You can reach a [facility] hospitalist on duty at [facility] 24 hours a day by calling [phone] Pending Studies at Discharge: No Stand-Alone Forms: My [facility], Smoking Cessation Medications and DC Order Prescriptions: New insulin glargine [Lantus Solostar U-100 Insulin] 100 unit/mL (3 mL) insulin pen 50 unit subcut QAM Qty: 15 0RF insulin aspart U-100 [Novolog U-100 Insulin aspart] 100 unit/mL Solution 7 unit SC TIDWMEAL Qty: 10 0RF pantoprazole 40 mg Tablet,Delayed Release (Dr/Ec) 40 mg PO DAILY Qty: 10 0RF (DME) pen needle, diabetic [Pen Needle] 32 gauge x 5/32" needle See Rx Instructions .Route Qty: 100 0RF Rx Instructions: As directed Continued clonidine HCl 0.1 mg tablet 0.1 mg TID lithium carbonate 450 mg tablet extended release 450 mg PO BID lamotrigine 25 mg tablet 25 mg DAILY hydroxyzine HCl 25 mg tablet 25 mg QID buprenorphine-naloxone 8-2 mg tablet, sublingual 1 tab SUBLINGUAL BID duloxetine 60 mg capsule,delayed release(DR/EC) 60 mg PO DAILY naloxone 4 mg/actuation spray,non-aerosol 1 spray INTRANASAL DAILY PRN (Reason: Opioid Overdose) Discontinued insulin glargine [Lantus Solostar U-100 Insulin] 100 unit/mL (3 mL) insulin pen 0 unit SUBCUT UD Discharge Orders: Discharge Order (Routine); Ordered 11/29/21 Ordered By: Kobe Roman/Other Patient Handouts: Managing Type 2 Diabetes, Diabetic Ketoacidosis Admission Data Admit Date/Time: 11/23/21 08:38 Attending Provider: Kobe Elliott Admit Provider: Remy Gomez Primary Care Provider: PCP,NO Other Providers: Remy Gomez ; Rolly Curran Other Interventions: Discharge Summary Assessment (RN) Last Done: 11/29/21 15:06
== END 2021-11-29 15:45 | disposition home or self-care (01) | DRG 637 ==
LOC: ED 06:09 → SUATTDRO 08:38 → EDINP 08:38 → 1E 11:39 → 2E 11-25 15:33
DX: I10 Essential (primary) hypertension; N17.9 Acute kidney failure, unspecified; E66.9 Obesity, unspecified; G93.41 Metabolic encephalopathy; N39.0 Urinary tract infection, site not specified; X58.XXXS Exposure to other specified factors, sequela; E83.39 Other disorders of phosphorus metabolism; F31.9 Bipolar disorder, unspecified; E11.10 Type 2 diabetes mellitus with ketoacidosis without coma; E87.6 Hypokalemia; Z68.41 Body mass index [BMI] 40.0-44.9, adult; Z91.19 Patient's noncompliance with other medical treatment and regimen; S06.9X0S Unspecified intracranial injury without loss of consciousness, sequela; F43.10 Post-traumatic stress disorder, unspecified; E87.1 Hypo-osmolality and hyponatremia; E86.0 Dehydration